=== PATIENT | male | born 1955 | race Caucasian/White ===

== ENCOUNTER 2018-04-12 14:30 | Outpatient (RCR) | payer OTHER, SELFPAY ==
--- NOTE | 2018-03-10 16:00 | PT.OPPOC ---
Current Diagnoses Low back pain (03/10/18) Muscle weakness (generalized) (03/10/18) Provider Visit Care Team Role Provider Type Orlando Espinosa MD Attending Provider Physician Family Provider Primary Care Provider Specialty: Family Practice Address: [address] [place] [address], [facility] Email: [email or web address] Plan Of Care PT-OP-T Assessment and Plan Start: 03/10/18 16:05 Freq: Status: Active Protocol: Document 03/10/18 16:00 [facility] (Rec: 03/10/18 16:46 [facility] [email or web address]) Physical Therapy Assessment Rehab Potential Rehabilitation Potential Excellent Evaluation Complexity Number of Personal Factors/Comorbidities 0 Number of Body Systems Impaired 3 Clinical Presentation at Evaluation Stable Impairments Impairments Activity Tolerance Pain Soft Tissue Mobility Strength Goals Four Impairment Modified Oswestry score Senior Care Goal (LTG) 10% or less disability score on Modified Oswestry. LTG Duration 10 weeks Three Impairment Unable to hike or backpack without increased pain and discomfort Business Development Analyst Goal (LTG) Return to hiking and backpacking without restrictions prior to d/c. LTG Duration 10 weeks Two Impairment LE weakness Short Term Goal (STG) 4+/5 RLE MMT STG Duration 5 weeks Business Development Analyst Goal (LTG) 5/5 RLE MMT LTG Duration 10 weeks One Impairment Low back pain rated 4/10 Business Development Analyst Goal (LTG) 1/10 or lower rating of low back pain. LTG Duration 12 weeks Assessment Summary Assessment Pt presents with a c/o R>L sided low back pain, possibly related to tight iliopsoas on the R side pulling anteriorly on the lumbar spine. Pt also with positive prone instability testing at the level of L3, indicating that pt would benefit from strengthening of the core to assist with stabilization of the lumbar spine. Pt also with weakness of the RLE at the hip, knee, and ankle. The pt would greatly benefit from skilled physical therapy intervention to improve his flexibility, decrease soft tissue restriction, improve strength, and return to prior level of recreational activities. Physical Therapy Plan Frequency and Duration Frequency of Treatment 2x/Week Duration of Treatment 10 weeks Plan of Care Start Date 03/10/18 Plan of Care End Date 05/19/18 Therapeutic Interventions Therapeutic Interventions Aquatic Therapy Home Exercise Program Joint Mobilizations Manual Therapy Neuromuscular Re-education Patient/Caregiver Education Self-Care/Home Management Soft Tissue Mobilization Taping Therapeutic Activities Therapeutic Exercises Modalities Cold Pack/Ice Massage Electric Stimulation Hot Packs Traction- Mechanical Ultrasound Next Visit Focus/Plan Next Note Type Treatment Note Next Visit Plan quadruped LE, Transverse abdominal activation, lateral resisted walking. Plan of Care Dates Plan of Care Start Date 03/10/18 Plan of Care End Date 05/19/18 Please Sign and Return: I have reviewed this Plan of Care and certify that the skilled therapy services above are required to meet the patient?s needs. Physician Signature Date Printed Name and Credentials Clinical Instructor Signature Printed Name and Credentials
--- NOTE | 2018-03-10 16:00 | PT.OIE ---
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) Sebaceous cyst (Chronic 01/09/17) BPH (benign prostatic hyperplasia) (Chronic Unknown) Colon polyps (Chronic Unknown) Hyperlipemia (Chronic Unknown) Past Surgical History History of tonsillectomy Status post hernia repair Provider Visit Care Team Role Provider Type Orlando Espinosa MD Attending Provider Physician Family Provider Primary Care Provider Specialty: Family Practice Address: [address] [place] [address], [facility] Email: [email or web address] Physical Therapy Initial Evaluation PT-OP-A Visit Information Start: 03/10/18 16:05 Freq: Status: Active Protocol: Document 03/10/18 16:00 [facility] (Rec: 03/10/18 16:46 [facility] [email or web address]) Out-Patient Physical Therapy Visit Information Visit Information Visit Type Initial Evaluation Visit Start Time 15:15 Visit Stop Time 16:00 Total Visit Minutes 45 Visit Number 1 Number of EDUCATION PROGRAM COORDINATOR Visits 0 Evaluation Information Evaluation Date 03/10/18 PT-OP-B Current Condition Start: 03/10/18 16:05 Freq: Status: Active Protocol: Document 03/10/18 16:00 [facility] (Rec: 03/10/18 16:46 [facility] [email or web address]) Current Condition History of Current Condition Onset Date several years ago Current Complaints popping, pain in low back History of Current Condition Pt is a 62 male presenting to physical therapy with a c/o of low back pain, R>L. Pt notes this has been on ongoing issue for several years but recently over the past couple of months he has noticed that his back is popping as well with movements of the lumbar spine or legs intermittently. Pt notes that if he secures his hip belt on his backpacking pack, it does not hurt his back as much or make his back pop. Radiograph did not show any osteoarthritic changes per MD note. Pt wants the popping to decrease and/or go away, get stronger, and return to hiking and backpacking without increased pain. Pt notes he normally carries a 40 lb pack when backpacking overnight. He denies any abnormal sensation constantly, but occasionally bilateral foot tingling but not associated with his increase in pain. Prior Treatments and Tests Lumbar spine radiograph 05/2017 : no acute bony abnormality. 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 Treatment Goals Patient/Caregiver Goals decrease popping, pain in low back, hiking without restrictions. Prior Functional Status Baseline Function- ADL's Independent Baseline Function- Mobility Independent Baseline Function- Gait WFL Baseline Function- Work/School WFL Baseline Function- Recreation/Hobbies Backpacking without low back popping and pain. Current Functional Impairments (Reported) Functional Limitations- ADL's indep. Functional Limitations- Mobility/Gait WFL Functional Limitations- Recreation/ increased pain with hiking, Hobbies prolonged walking. PT-OP-C Subjective Start: 03/10/18 16:05 Freq: Status: Active Protocol: Document 03/10/18 16:00 [facility] (Rec: 03/10/18 16:46 [facility] [email or web address]) OP-PT Subjective Patient Comments Patient Comments Pt wants the popping to stop. PT-OP-F Manual Assessment Start: 03/10/18 16:05 Freq: Status: Active Protocol: Document 03/10/18 16:00 [facility] (Rec: 03/10/18 16:46 [facility] [email or web address]) Manual Assessments Soft Tissue Assessment Soft Tissue Mobility Assessment Tenderness to palpation: bilateral psoas, R multifidi L2-4, R QL Joint Mobility Assessment Joint Mobility Assessment Hypermobile: PA @ L3 Hypermobile L1, T12 PT-OP-G Mobility & Gait Start: 03/10/18 16:05 Freq: Status: Active Protocol: Document 03/10/18 16:00 [facility] (Rec: 03/10/18 16:46 [facility] [email or web address]) OP Mobility Evaluation Bed Mobility Supine to and from Sit indep. OP Gait Assessment Gait Gait Assistance Required: Independent Assistive Devices Assistive Device None Gait Deviations General Gait Pattern Within Normal Limits PT-OP-H Neuro Start: 03/10/18 16:05 Freq: Status: Active Protocol: Document 03/10/18 16:00 [facility] (Rec: 03/10/18 16:46 [facility] [email or web address]) Sensation Evaluation Gross Sensation Gross Sensation WNL Deep Tendon Reflex & Clonus Assessment Deep Tendon Reflex Bilateral Achilles Deep Tendon Reflex 2+ Normal Bilateral Patellar Deep Tendon Reflex 2+ Normal PT-OP-K Range of Motion Start: 03/10/18 16:05 Freq: Status: Active Protocol: Document 03/10/18 16:00 [facility] (Rec: 03/10/18 16:46 [facility] [email or web address]) Lumbar Spine Range of Motion Lumbar Spine Active Degrees Testing Position standing Flexion 75 Extension 20 Comments Pt is able to side-bend 3 greater to the R compared to the L PT-OP-L Special Tests Start: 03/10/18 16:05 Freq: Status: Active Protocol: Document 03/10/18 16:00 [facility] (Rec: 03/10/18 16:46 [facility] [email or web address]) Special Tests Lumbar Spine Special Tests Kris Test Results Tight psoas and rectus femoris R Straight Leg Raise Test Results Negative B Slump Test Results Negative B Prone Instability Test Test Results Positive Comments @ L3 Other Special Tests Special Tests negative SI joint provacation testing B PT-OP-M Strength Start: 03/10/18 16:05 Freq: Status: Active Protocol: Document 03/10/18 16:00 [facility] (Rec: 03/10/18 16:46 [facility] [email or web address]) Hip Strength Hip Manual Muscle Testing Right Flexion (L2) 4+ Good+ External Rotation 4 Good Internal Rotation 5 Normal Left Flexion (L2) 5 Normal External Rotation 5 Normal Internal Rotation 5 Normal Knee Strength Knee Manual Muscle Testing Right Flexion (S2) 4+ Good+ Extension (L3) 5 Normal Left Flexion (S2) 5 Normal Extension (L3) 5 Normal Ankle/Foot Strength Ankle and Foot Manual Muscle Testing Right Dorsiflexion (L4) 4 Good Left Dorsiflexion (L4) 5 Normal Toe Strength Toe Manual Muscle Testing Right Great Toe Flexion 5 Normal Left Great Toe Flexion 5 Normal PT-OP-Q Treatments Start: 03/10/18 16:05 Freq: Status: Active Protocol: Document 03/10/18 16:00 [facility] (Rec: 03/10/18 16:46 [facility] [email or web address]) Therapeutic Exercises Supine Exercises 2 Supine Exercise Name DKC Side bilateral 1 Supine Exercise Name psoas and rectus femoris stretch Side right Comments RLE hanging off of bed Sidelying Exercises 1 Sidelying Exercise Name clamshells Side right Reps/Minutes 1x15 Standing Exercises 1 Standing Exercise Name Psoas stretch Side right Equipment Used stairs Other Exercises 1 Other Exercise Name Psoas stretch Side right Comments 1/2 kneeling PT-OP-T Assessment and Plan Start: 03/10/18 16:05 Freq: Status: Active Protocol: Document 03/10/18 16:00 [facility] (Rec: 03/10/18 16:46 [facility] [email or web address]) Physical Therapy Assessment Rehab Potential Rehabilitation Potential Excellent Evaluation Complexity Number of Personal Factors/Comorbidities 0 Number of Body Systems Impaired 3 Clinical Presentation at Evaluation Stable Impairments Impairments Activity Tolerance Pain Soft Tissue Mobility Strength Goals Four Impairment Modified Oswestry score Donor Recruitment Manager Goal (LTG) 10% or less disability score on Modified Oswestry. LTG Duration 10 weeks Three Impairment Unable to hike or backpack without increased pain and discomfort Donor Recruitment Manager Goal (LTG) Return to hiking and backpacking without restrictions prior to d/c. LTG Duration 10 weeks Two Impairment LE weakness Short Term Goal (STG) 4+/5 RLE MMT STG Duration 5 weeks Donor Recruitment Manager Goal (LTG) 5/5 RLE MMT LTG Duration 10 weeks One Impairment Low back pain rated 4/10 Prison Goal (LTG) 1/10 or lower rating of low back pain. LTG Duration 12 weeks Assessment Summary Assessment Pt presents with a c/o R>L sided low back pain, possibly related to tight iliopsoas on the R side pulling anteriorly on the lumbar spine. Pt also with positive prone instability testing at the level of L3, indicating that pt would benefit from strengthening of the core to assist with stabilization of the lumbar spine. Pt also with weakness of the RLE at the hip, knee, and ankle. The pt would greatly benefit from skilled physical therapy intervention to improve his flexibility, decrease soft tissue restriction, improve strength, and return to prior level of recreational activities. Physical Therapy Plan Frequency and Duration Frequency of Treatment 2x/Week Duration of Treatment 10 weeks Plan of Care Start Date 03/10/18 Plan of Care End Date 05/19/18 Therapeutic Interventions Therapeutic Interventions Aquatic Therapy Home Exercise Program Joint Mobilizations Manual Therapy Neuromuscular Re-education Patient/Caregiver Education Self-Care/Home Management Soft Tissue Mobilization Taping Therapeutic Activities Therapeutic Exercises Modalities Cold Pack/Ice Massage Electric Stimulation Hot Packs Traction- Mechanical Ultrasound Next Visit Focus/Plan Next Note Type Treatment Note Next Visit Plan quadruped LE, Transverse abdominal activation, lateral resisted walking.
--- NOTE | 2018-03-12 14:25 | PT.OTN ---
Current Diagnoses Low back pain (03/12/18) Physical Therapy Treatment Note PT-OP-A Visit Information Start: 03/10/18 16:05 Freq: Status: Active Protocol: Document 03/12/18 14:25 [facility] (Rec: 03/14/18 17:03 [facility] [email or web address]) Out-Patient Physical Therapy Visit Information Visit Information Visit Type Treatment Note Visit Start Time 13:45 Visit Stop Time 14:25 Total Visit Minutes 40 Visit Number 2 Number of MOBILE PLANT OPERATORS Visits 0 Evaluation Information Evaluation Date 03/10/18 PT-OP-B Current Condition Start: 03/10/18 16:05 Freq: Status: Active Protocol: Document 03/10/18 16:00 [facility] (Rec: 03/10/18 16:46 [facility] [email or web address]) Current Condition History of Current Condition Onset Date several years ago Current Complaints popping, pain in low back History of Current Condition Pt is a 62 male presenting to physical therapy with a c/o of low back pain, R>L. Pt notes this has been on ongoing issue for several years but recently over the past couple of months he has noticed that his back is popping as well with movements of the lumbar spine or legs intermittently. Pt notes that if he secures his hip belt on his backpacking pack, it does not hurt his back as much or make his back pop. Radiograph did not show any osteoarthritic chages per MD note. Pt wants the popping to decrease and/or go away, get stronger, and return to hiking and backpacking without increased pain. Pt notes he normally carries a 40 lb pack when backpacking overnight. He denies any abnormal sensation constantly, but occasionally bilateral foot tingling but not associated with his increase in pain. Prior Treatments and Tests Lumbar spine radiograph 05/2017 : no acute bony abnormality. 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 Treatment Goals Patient/Caregiver Goals decrease popping, pain in low back, hiking without restrictions. Prior Functional Status Baseline Function- ADL's Independent Baseline Function- Mobility Independent Baseline Function- Gait WFL Baseline Function- Work/School WFL Baseline Function- Recreation/Hobbies Backpacking without low back popping and pain. Current Functional Impairments (Reported) Functional Limitations- ADL's indep. Functional Limitations- Mobility/Gait WFL Functional Limitations- Recreation/ increased pain with hiking, Hobbies prolonged walking. PT-OP-C Subjective Start: 03/10/18 16:05 Freq: Status: Active Protocol: Document 03/12/18 14:25 [facility] (Rec: 03/14/18 17:03 [facility] [email or web address]) OP-PT Subjective Patient Comments Patient Comments Pt is performing HEP, no increased pain. Patient Reported Progress Same PT-OP-F Manual Assessment Start: 03/10/18 16:05 Freq: Status: Active Protocol: Document 03/12/18 14:25 [facility] (Rec: 03/14/18 17:03 [facility] [email or web address]) Manual Assessments Soft Tissue Assessment Soft Tissue Mobility Assessment TTP: R psoas (superior>distal) PT-OP-G Mobility & Gait Start: 03/10/18 16:05 Freq: Status: Active Protocol: Document 03/10/18 16:00 [facility] (Rec: 03/10/18 16:46 [facility] [email or web address]) OP Mobility Evaluation Bed Mobility Supine to and from Sit indep. OP Gait Assessment Gait Gait Assistance Required: Independent Assistive Devices Assistive Device None Gait Deviations General Gait Pattern Within Normal Limits PT-OP-H Neuro Start: 03/10/18 16:05 Freq: Status: Active Protocol: Document 03/10/18 16:00 [facility] (Rec: 03/10/18 16:46 [facility] [email or web address]) Sensation Evaluation Gross Sensation Gross Sensation WNL Deep Tendon Reflex & Clonus Assessment Deep Tendon Reflex Bilateral Achilles Deep Tendon Reflex 2+ Normal Bilateral Patellar Deep Tendon Reflex 2+ Normal PT-OP-K Range of Motion Start: 03/10/18 16:05 Freq: Status: Active Protocol: Document 03/10/18 16:00 [facility] (Rec: 03/10/18 16:46 [facility] [email or web address]) Lumbar Spine Range of Motion Lumbar Spine Active Degrees Testing Position standing Flexion 75 Extension 20 Comments Pt is able to side-bend 3 greater to the R compared to the L PT-OP-L Special Tests Start: 03/10/18 16:05 Freq: Status: Active Protocol: Document 03/10/18 16:00 [facility] (Rec: 03/10/18 16:46 [facility] [email or web address]) Special Tests Lumbar Spine Special Tests Kris Test Results Tight psoas and rectus femoris R Straight Leg Raise Test Results Negative B Slump Test Results Negative B Prone Instability Test Test Results Positive Comments @ L3 Other Special Tests Special Tests negative SI joint provacation testing B PT-OP-M Strength Start: 03/10/18 16:05 Freq: Status: Active Protocol: Document 03/10/18 16:00 [facility] (Rec: 03/10/18 16:46 [facility] [email or web address]) Hip Strength Hip Manual Muscle Testing Right Flexion (L2) 4+ Good+ External Rotation 4 Good Internal Rotation 5 Normal Left Flexion (L2) 5 Normal External Rotation 5 Normal Internal Rotation 5 Normal Knee Strength Knee Manual Muscle Testing Right Flexion (S2) 4+ Good+ Extension (L3) 5 Normal Left Flexion (S2) 5 Normal Extension (L3) 5 Normal Ankle/Foot Strength Ankle and Foot Manual Muscle Testing Right Dorsiflexion (L4) 4 Good Left Dorsiflexion (L4) 5 Normal Toe Strength Toe Manual Muscle Testing Right Great Toe Flexion 5 Normal Left Great Toe Flexion 5 Normal PT-OP-Q Treatments Start: 03/10/18 16:05 Freq: Status: Active Protocol: Document 03/12/18 14:25 [facility] (Rec: 03/14/18 17:03 [facility] [email or web address]) Therapeutic Exercises Supine Exercises 3 Supine Exercise Name transverse abdominal activation Reps/Minutes 10 min Comments tactile cuing 2 Supine Exercise Name DKC Side bilateral 1 Supine Exercise Name psoas and rectus femoris stretch Side right Comments RLE hanging off of bed Sidelying Exercises 2 Sidelying Exercise Name hip abduction Side bilateral Resistance 0 Reps/Minutes 1x10 each 1 Sidelying Exercise Name clamshells Side right Reps/Minutes 1x15 Other Exercises 2 Other Exercise Name quadruped alternating LE lift Side bilateral Reps/Minutes 2x8 each Manual Therapy Treatment Soft Tissue Mobilization 1 Body Location R iliopsoas Mobilization Type Sustained Pressure Intensity/Depth Deep Body Position Supine Comments 10 min Manual Techniques 1 Type MET Reps/Duration 5 min Comments to correct R posterior ilial rotation PT-OP-T Assessment and Plan Start: 03/10/18 16:05 Freq: Status: Active Protocol: Document 03/12/18 14:25 [facility] (Rec: 03/14/18 17:03 [facility] [email or web address]) Physical Therapy Assessment Goals Four Impairment Modified Oswestry score Usp Goal (LTG) 10% or less disability score on Modified Oswestry. LTG Duration 10 weeks Three Impairment Unable to hike or backpack without increased pain and discomfort Energy Broker Goal (LTG) Return to hiking and backpacking without restrictions prior to d/c. LTG Duration 10 weeks Two Impairment LE weakness Short Term Goal (STG) 4+/5 RLE MMT STG Duration 5 weeks Energy Broker Goal (LTG) 5/5 RLE MMT LTG Duration 10 weeks One Impairment Low back pain rated 4/10 Energy Broker Goal (LTG) 1/10 or lower rating of low back pain. LTG Duration 12 weeks Assessment Summary Assessment Pt with posterior R ilium this session, corrected with MET. He has increased tension in the iliopsoas, superior > distal which may be pulling on his lumbar spine anteriorly. Pt tolerated hip abduction ( SLR) with improved pelvic control. Increased amount of time was required to properly train appropriate transverse abdominal activation, including tactile cuing. Physical Therapy Plan Frequency and Duration Frequency of Treatment 2x/Week Duration of Treatment 10 weeks Plan of Care Start Date 03/10/18 Plan of Care End Date 05/19/18 Next Visit Focus/Plan Next Note Type Treatment Note Next Visit Plan review TrAb activation, lateral resisted walking, core stability.
--- NOTE | 2018-03-24 11:59 | PT.OTN ---
Current Diagnoses Low back pain (03/24/18) Physical Therapy Treatment Note PT-OP-A Visit Information Start: 03/10/18 16:05 Freq: Status: Active Protocol: Document 03/24/18 11:59 RCC (Rec: 03/24/18 13:38 RCC [email or web address]) Out-Patient Physical Therapy Visit Information Visit Information Visit Type Treatment Note Visit Start Time 11:15 Visit Stop Time 11:59 Total Visit Minutes 44 Visit Number 3 Number of FIELD AGENT Visits 0 Evaluation Information Evaluation Date 03/10/18 PT-OP-B Current Condition Start: 03/10/18 16:05 Freq: Status: Active Protocol: Document 03/10/18 16:00 RCC (Rec: 03/10/18 16:46 RCC [email or web address]) Current Condition History of Current Condition Onset Date several years ago Current Complaints popping, pain in low back History of Current Condition Pt is a 62 male presenting to physical therapy with a c/o of low back pain, R>L. Pt notes this has been on ongoing issue for several years but recently over the past couple of months he has noticed that his back is popping as well with movements of the lumbar spine or legs intermittently. Pt notes that if he secures his hip belt on his backpacking pack, it does not hurt his back as much or make his back pop. Radiograph did not show any osteoarthritic chages per MD note. Pt wants the popping to decrease and/or go away, get stronger, and return to hiking and backpacking without increased pain. Pt notes he normally carries a 40 lb pack when backpacking overnight. He denies any abnormal sensation constantly, but occasionally bilateral foot tingling but not associated with his increase in pain. Prior Treatments and Tests Lumbar spine radiograph 05/2017 : no acute bony abnormality. 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 Treatment Goals Patient/Caregiver Goals decrease popping, pain in low back, hiking without restrictions. Prior Functional Status Baseline Function- ADL's Independent Baseline Function- Mobility Independent Baseline Function- Gait WFL Baseline Function- Work/School WFL Baseline Function- Recreation/Hobbies Backpacking without low back popping and pain. Current Functional Impairments (Reported) Functional Limitations- ADL's indep. Functional Limitations- Mobility/Gait WFL Functional Limitations- Recreation/ increased pain with hiking, Hobbies prolonged walking. PT-OP-C Subjective Start: 03/10/18 16:05 Freq: Status: Active Protocol: Document 03/24/18 11:59 RCC (Rec: 03/24/18 13:38 RCC [email or web address]) OP-PT Subjective Patient Comments Patient Comments Pt notes that he had increased popping in the low back when backpacking, but no popping with day-hiking. He experiences some tightness in his R groin descending on the day hike. PT-OP-F Manual Assessment Start: 03/10/18 16:05 Freq: Status: Active Protocol: Document 03/12/18 14:25 RCC (Rec: 03/14/18 17:03 RCC [email or web address]) Manual Assessments Soft Tissue Assessment Soft Tissue Mobility Assessment TTP: R psoas (superior>distal) PT-OP-G Mobility & Gait Start: 03/10/18 16:05 Freq: Status: Active Protocol: Document 03/10/18 16:00 RCC (Rec: 03/10/18 16:46 RCC [email or web address]) OP Mobility Evaluation Bed Mobility Supine to and from Sit indep. OP Gait Assessment Gait Gait Assistance Required: Independent Assistive Devices Assistive Device None Gait Deviations General Gait Pattern Within Normal Limits PT-OP-H Neuro Start: 03/10/18 16:05 Freq: Status: Active Protocol: Document 03/10/18 16:00 RCC (Rec: 03/10/18 16:46 RCC [email or web address]) Sensation Evaluation Gross Sensation Gross Sensation WNL Deep Tendon Reflex & Clonus Assessment Deep Tendon Reflex Bilateral Achilles Deep Tendon Reflex 2+ Normal Bilateral Patellar Deep Tendon Reflex 2+ Normal PT-OP-K Range of Motion Start: 03/10/18 16:05 Freq: Status: Active Protocol: Document 03/10/18 16:00 RCC (Rec: 03/10/18 16:46 RCC [email or web address]) Lumbar Spine Range of Motion Lumbar Spine Active Degrees Testing Position standing Flexion 75 Extension 20 Comments Pt is able to side-bend 3 greater to the R compared to the L PT-OP-L Special Tests Start: 03/10/18 16:05 Freq: Status: Active Protocol: Document 03/10/18 16:00 RCC (Rec: 03/10/18 16:46 RCC [email or web address]) Special Tests Lumbar Spine Special Tests Kris Test Results Tight psoas and rectus femoris R Straight Leg Raise Test Results Negative B Slump Test Results Negative B Prone Instability Test Test Results Positive Comments @ L3 Other Special Tests Special Tests negative SI joint provacation testing B PT-OP-M Strength Start: 03/10/18 16:05 Freq: Status: Active Protocol: Document 03/10/18 16:00 RCC (Rec: 03/10/18 16:46 RCC [email or web address]) Hip Strength Hip Manual Muscle Testing Right Flexion (L2) 4+ Good+ External Rotation 4 Good Internal Rotation 5 Normal Left Flexion (L2) 5 Normal External Rotation 5 Normal Internal Rotation 5 Normal Knee Strength Knee Manual Muscle Testing Right Flexion (S2) 4+ Good+ Extension (L3) 5 Normal Left Flexion (S2) 5 Normal Extension (L3) 5 Normal Ankle/Foot Strength Ankle and Foot Manual Muscle Testing Right Dorsiflexion (L4) 4 Good Left Dorsiflexion (L4) 5 Normal Toe Strength Toe Manual Muscle Testing Right Great Toe Flexion 5 Normal Left Great Toe Flexion 5 Normal PT-OP-Q Treatments Start: 03/10/18 16:05 Freq: Status: Active Protocol: Document 03/24/18 11:59 RCC (Rec: 03/24/18 13:38 RCC [email or web address]) Therapeutic Exercises Supine Exercises 1 Supine Exercise Name psoas and rectus femoris stretch Side right Comments RLE hanging off of bed Other Exercises 3 Other Exercise Name planks- forward, side Side bilateral Reps/Minutes 30 sec each Comments side on knees 2 Other Exercise Name quadruped alternating UE/LE lift Side bilateral Reps/Minutes 1x10 Manual Therapy Treatment Soft Tissue Mobilization 2 Body Location lumbosacral mm. (L5-S1) Mobilization Type Strumming Intensity/Depth Deep Body Position Prone 1 Body Location R iliopsoas Mobilization Type Sustained Pressure Intensity/Depth Deep Body Position Supine Comments 18 min Joint Mobilizations 1 Joint SI joint (right) Direction caudal Grade IV Body Position Prone Manual Techniques 1 Type MET Reps/Duration 5 min Comments to correct R posterior ilial rotation PT-OP-T Assessment and Plan Start: 03/10/18 16:05 Freq: Status: Active Protocol: Document 03/24/18 11:59 RCC (Rec: 03/24/18 13:38 RCC [email or web address]) Physical Therapy Assessment Assessment Summary Assessment Pt with increased popping, 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 Pt able to tolerate alternating UE/LE lift with good core stability. Increased difficulty with side planks, requires to perform on his knees vs feet. Physical Therapy Plan Frequency and Duration Frequency of Treatment 2x/Week Duration of Treatment 10 weeks Plan of Care Start Date 03/10/18 Plan of Care End Date 05/19/18 Next Visit Focus/Plan Next Note Type Treatment Note Next Visit Plan resisted lateral walking, core stabilization.
--- NOTE | 2018-03-26 11:58 | PT.OTN ---
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 Pt notes this has been on ongoing issue for several years but recently over the past couple of months he has noticed that his back is popping as well with movements of the lumbar spine or legs intermittently. Pt notes that if he secures his hip belt on his backpacking pack, it does not hurt his back as much or make his back pop. Radiograph did not show any osteoarthritic chages per MD note. Pt wants the popping to decrease and/or go away, get stronger, and return to hiking and backpacking without increased pain. Pt notes he normally carries a 40 lb pack when backpacking overnight. He denies any abnormal sensation constantly, but occasionally bilateral foot tingling but not associated with his increase in pain. Prior Treatments and Tests Lumbar spine radiograph 05/2017 : no acute bony abnormality. 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 Treatment Goals Patient/Caregiver Goals decrease popping, pain in low back, hiking without restrictions. Prior Functional Status Baseline Function- ADL's Independent Baseline Function- Mobility Independent Baseline Function- Gait WFL Baseline Function- Work/School WFL Baseline Function- Recreation/Hobbies Backpacking without low back popping and pain. Current Functional Impairments (Reported) Functional Limitations- ADL's indep. Functional Limitations- Mobility/Gait WFL Functional Limitations- Recreation/ increased pain with hiking, Hobbies prolonged walking. PT-OP-C Subjective Start: 03/10/18 16:05 Freq: Status: Active Protocol: Document 03/26/18 11:58 RCC (Rec: 03/26/18 12:06 RCC [email or web address]) OP-PT Subjective Patient Comments Patient Comments Pt states he still has popping in his low back with lifting and packing things for his backpacking trip. PT-OP-F Manual Assessment Start: 03/10/18 16:05 Freq: Status: Active Protocol: Document 03/12/18 14:25 RCC (Rec: 03/14/18 17:03 RCC [email or web address]) Manual Assessments Soft Tissue Assessment Soft Tissue Mobility Assessment TTP: R psoas (superior>distal) PT-OP-G Mobility & Gait Start: 03/10/18 16:05 Freq: Status: Active Protocol: Document 03/10/18 16:00 RCC (Rec: 03/10/18 16:46 RCC [email or web address]) OP Mobility Evaluation Bed Mobility Supine to and from Sit indep. OP Gait Assessment Gait Gait Assistance Required: Independent Assistive Devices Assistive Device None Gait Deviations General Gait Pattern Within Normal Limits PT-OP-H Neuro Start: 03/10/18 16:05 Freq: Status: Active Protocol: Document 03/10/18 16:00 RCC (Rec: 03/10/18 16:46 RCC [email or web address]) Sensation Evaluation Gross Sensation Gross Sensation WNL Deep Tendon Reflex & Clonus Assessment Deep Tendon Reflex Bilateral Achilles Deep Tendon Reflex 2+ Normal Bilateral Patellar Deep Tendon Reflex 2+ Normal PT-OP-K Range of Motion Start: 03/10/18 16:05 Freq: Status: Active Protocol: Document 03/10/18 16:00 RCC (Rec: 03/10/18 16:46 RCC [email or web address]) Lumbar Spine Range of Motion Lumbar Spine Active Degrees Testing Position standing Flexion 75 Extension 20 Comments Pt is able to side-bend 3 greater to the R compared to the L PT-OP-L Special Tests Start: 03/10/18 16:05 Freq: Status: Active Protocol: Document 03/10/18 16:00 RCC (Rec: 03/10/18 16:46 RCC [email or web address]) Special Tests Lumbar Spine Special Tests Kris Test Results Tight psoas and rectus femoris R Straight Leg Raise Test Results Negative B Slump Test Results Negative B Prone Instability Test Test Results Positive Comments @ L3 Other Special Tests Special Tests negative SI joint provacation testing B PT-OP-M Strength Start: 03/10/18 16:05 Freq: Status: Active Protocol: Document 03/10/18 16:00 RCC (Rec: 03/10/18 16:46 RCC [email or web address]) Hip Strength Hip Manual Muscle Testing Right Flexion (L2) 4+ Good+ External Rotation 4 Good Internal Rotation 5 Normal Left Flexion (L2) 5 Normal External Rotation 5 Normal Internal Rotation 5 Normal Knee Strength Knee Manual Muscle Testing Right Flexion (S2) 4+ Good+ Extension (L3) 5 Normal Left Flexion (S2) 5 Normal Extension (L3) 5 Normal Ankle/Foot Strength Ankle and Foot Manual Muscle Testing Right Dorsiflexion (L4) 4 Good Left Dorsiflexion (L4) 5 Normal Toe Strength Toe Manual Muscle Testing Right Great Toe Flexion 5 Normal Left Great Toe Flexion 5 Normal PT-OP-Q Treatments Start: 03/10/18 16:05 Freq: Status: Active Protocol: Document 03/26/18 11:58 RCC (Rec: 03/26/18 12:06 [facility] [email or web address]) Therapeutic Exercises Prone Exercises 1 Prone Exercise Name child's pose- neutral and R sided bias Comments stretch Sitting Exercises 1 Sitting Exercise Name lower trunk rotation Side bilateral Resistance L3 Equipment Used 65 cm ball Other Exercises 4 Other Exercise Name alt LE lift Side bilateral Resistance L3 band Reps/Minutes 1x10 each 1 Other Exercise Name Psoas stretch Side right Comments 1/2 kneeling- UE elevated Manual Therapy Treatment Soft Tissue Mobilization 1 Body Location R iliopsoas Mobilization Type Sustained Pressure Intensity/Depth Deep Body Position Supine Comments 20 min Manual Techniques 1 Type MET Reps/Duration 5 min Comments to correct R posterior ilial rotation PT-OP-T Assessment and Plan Start: 03/10/18 16:05 Freq: Status: Active Protocol: Document 03/26/18 11:58 RCC (Rec: 03/26/18 12:06 [facility] [email or web address]) Physical Therapy Assessment Assessment Summary Assessment Pt with stretching of lumbosacral soft tissue in Child's pose and increased on the R with bias to the R side, indicating soft tissue restriction on the R. Pt's increased popping with lifting likely also a combination of excessive lumbar flexion and rotation, discussed good posture and body mechanics today. Physical Therapy Plan Frequency and Duration Frequency of Treatment 2x/Week Duration of Treatment 10 weeks Plan of Care Start Date 03/10/18 Plan of Care End Date 05/19/18 Next Visit Focus/Plan Next Note Type Treatment Note Next Visit Plan resisted lateral walking, core stabilization.
--- NOTE | 2018-04-07 14:31 | PT.OTN ---
Current Diagnoses Low back pain (04/07/18) Physical Therapy Treatment Note PT-OP-A Visit Information Start: 03/10/18 16:05 Freq: Status: Active Protocol: Document 04/07/18 13:49 EA (Rec: 04/07/18 14:29 EA [id number]) Out-Patient Physical Therapy Visit Information Visit Information Visit Type Treatment Note Visit Start Time 13:45 Visit Stop Time 14:30 Total Visit Minutes 43 Visit Number 5 PT-OP-B Current Condition Start: 03/10/18 16:05 Freq: Status: Active Protocol: Document 03/10/18 16:00 RCC (Rec: 03/10/18 16:46 RCC [email or web address]) Current Condition History of Current Condition Onset Date several years ago Current Complaints popping, pain in low back History of Current Condition Pt is a 62 male presenting to physical therapy with a c/o of low back pain, R>L. Pt notes this has been on ongoing issue for several years but recently over the past couple of months he has noticed that his back is popping as well with movements of the lumbar spine or legs intermittently. Pt notes that if he secures his hip belt on his backpacking pack, it does not hurt his back as much or make his back pop. Radiograph did not show any osteoarthritic chages per MD note. Pt wants the popping to decrease and/or go away, get stronger, and return to hiking and backpacking without increased pain. Pt notes he normally carries a 40 lb pack when backpacking overnight. He denies any abnormal sensation constantly, but occasionally bilateral foot tingling but not associated with his increase in pain. Prior Treatments and Tests Lumbar spine radiograph 05/2017 : no acute bony abnormality. 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 Treatment Goals Patient/Caregiver Goals decrease popping, pain in low back, hiking without restrictions. Prior Functional Status Baseline Function- ADL's Independent Baseline Function- Mobility Independent Baseline Function- Gait WFL Baseline Function- Work/School WFL Baseline Function- Recreation/Hobbies Backpacking without low back popping and pain. Current Functional Impairments (Reported) Functional Limitations- ADL's indep. Functional Limitations- Mobility/Gait WFL Functional Limitations- Recreation/ increased pain with hiking, Hobbies prolonged walking. PT-OP-C Subjective Start: 03/10/18 16:05 Freq: Status: Active Protocol: Document 04/07/18 13:49 EA (Rec: 04/07/18 14:29 EA [id number]) OP-PT Subjective Patient Comments Patient Comments Pt reports low back pain has less pain; states he is planning to have a backpacking trip tomorrow. Patient Reported Progress Improving PT-OP-F Manual Assessment Start: 03/10/18 16:05 Freq: Status: Active Protocol: Document 03/12/18 14:25 RCC (Rec: 03/14/18 17:03 RCC [email or web address]) Manual Assessments Soft Tissue Assessment Soft Tissue Mobility Assessment TTP: R psoas (superior>distal) PT-OP-G Mobility & Gait Start: 03/10/18 16:05 Freq: Status: Active Protocol: Document 03/10/18 16:00 RCC (Rec: 03/10/18 16:46 RCC [email or web address]) OP Mobility Evaluation Bed Mobility Supine to and from Sit indep. OP Gait Assessment Gait Gait Assistance Required: Independent Assistive Devices Assistive Device None Gait Deviations General Gait Pattern Within Normal Limits PT-OP-H Neuro Start: 03/10/18 16:05 Freq: Status: Active Protocol: Document 03/10/18 16:00 RCC (Rec: 03/10/18 16:46 RCC [email or web address]) Sensation Evaluation Gross Sensation Gross Sensation WNL Deep Tendon Reflex & Clonus Assessment Deep Tendon Reflex Bilateral Achilles Deep Tendon Reflex 2+ Normal Bilateral Patellar Deep Tendon Reflex 2+ Normal PT-OP-K Range of Motion Start: 03/10/18 16:05 Freq: Status: Active Protocol: Document 03/10/18 16:00 RCC (Rec: 03/10/18 16:46 RCC [email or web address]) Lumbar Spine Range of Motion Lumbar Spine Active Degrees Testing Position standing Flexion 75 Extension 20 Comments Pt is able to side-bend 3 greater to the R compared to the L PT-OP-L Special Tests Start: 03/10/18 16:05 Freq: Status: Active Protocol: Document 03/10/18 16:00 RCC (Rec: 03/10/18 16:46 RCC [email or web address]) Special Tests Lumbar Spine Special Tests Kris Test Results Tight psoas and rectus femoris R Straight Leg Raise Test Results Negative B Slump Test Results Negative B Prone Instability Test Test Results Positive Comments @ L3 Other Special Tests Special Tests negative SI joint provacation testing B PT-OP-M Strength Start: 03/10/18 16:05 Freq: Status: Active Protocol: Document 03/10/18 16:00 RCC (Rec: 03/10/18 16:46 RCC [email or web address]) Hip Strength Hip Manual Muscle Testing Right Flexion (L2) 4+ Good+ External Rotation 4 Good Internal Rotation 5 Normal Left Flexion (L2) 5 Normal External Rotation 5 Normal Internal Rotation 5 Normal Knee Strength Knee Manual Muscle Testing Right Flexion (S2) 4+ Good+ Extension (L3) 5 Normal Left Flexion (S2) 5 Normal Extension (L3) 5 Normal Ankle/Foot Strength Ankle and Foot Manual Muscle Testing Right Dorsiflexion (L4) 4 Good Left Dorsiflexion (L4) 5 Normal Toe Strength Toe Manual Muscle Testing Right Great Toe Flexion 5 Normal Left Great Toe Flexion 5 Normal PT-OP-Q Treatments Start: 03/10/18 16:05 Freq: Status: Active Protocol: Document 04/07/18 13:49 EA (Rec: 04/07/18 14:29 EA [id number]) Therapeutic Exercises Standing Exercises 1 Standing Exercise Name Wall squat with PPT Comments x5SH x 5 reps Other Exercises 1 Other Exercise Name Psoas stretch Side right Comments 1/2 kneeling- UE elevated Manual Therapy Treatment Soft Tissue Mobilization 1 Body Location R iliopsoas Mobilization Type Sustained Pressure Intensity/Depth Deep Body Position Supine Comments 20 min Manual Techniques 1 Type MET Reps/Duration 5 min Comments to correct R posterior ilial rotation Self-Care/Home Management Treatment Education Other Education Walking while engaing core al the time. PT-OP-T Assessment and Plan Start: 03/10/18 16:05 Freq: Status: Active Protocol: Document 04/07/18 13:49 EA (Rec: 04/07/18 14:29 EA [id number]) Physical Therapy Assessment Assessment Summary Assessment Tolerated treatment well. Physical Therapy Plan Next Visit Focus/Plan Next Note Type Treatment Note Next Visit Plan Cont with current plan
--- NOTE | 2018-04-12 15:12 | PT.OTN ---
Current Diagnoses Low back pain (04/12/18) Physical Therapy Treatment Note PT-OP-A Visit Information Start: 03/10/18 16:05 Freq: Status: Active Protocol: Document 04/12/18 14:30 DCW (Rec: 04/12/18 15:12 DCW [id number]) Out-Patient Physical Therapy Visit Information Visit Information Visit Type Treatment Note Visit Start Time 14:30 Visit Stop Time 15:15 Total Visit Minutes 45 Visit Number 6 PT-OP-B Current Condition Start: 03/10/18 16:05 Freq: Status: Active Protocol: Document 03/10/18 16:00 RCC (Rec: 03/10/18 16:46 RCC [email or web address]) Current Condition History of Current Condition Onset Date several years ago Current Complaints popping, pain in low back History of Current Condition Pt is a 62 male presenting to physical therapy with a c/o of low back pain, R>L. Pt notes this has been on ongoing issue for several years but recently over the past couple of months he has noticed that his back is popping as well with movements of the lumbar spine or legs intermittently. Pt notes that if he secures his hip belt on his backpacking pack, it does not hurt his back as much or make his back pop. Radiograph did not show any osteoarthritic chages per MD note. Pt wants the popping to decrease and/or go away, get stronger, and return to hiking and backpacking without increased pain. Pt notes he normally carries a 40 lb pack when backpacking overnight. He denies any abnormal sensation constantly, but occasionally bilateral foot tingling but not associated with his increase in pain. Prior Treatments and Tests Lumbar spine radiograph 05/2017 : no acute bony abnormality. 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 Treatment Goals Patient/Caregiver Goals decrease popping, pain in low back, hiking without restrictions. Prior Functional Status Baseline Function- ADL's Independent Baseline Function- Mobility Independent Baseline Function- Gait WFL Baseline Function- Work/School WFL Baseline Function- Recreation/Hobbies Backpacking without low back popping and pain. Current Functional Impairments (Reported) Functional Limitations- ADL's indep. Functional Limitations- Mobility/Gait WFL Functional Limitations- Recreation/ increased pain with hiking, Hobbies prolonged walking. PT-OP-C Subjective Start: 03/10/18 16:05 Freq: Status: Active Protocol: Document 04/12/18 14:30 DCW (Rec: 04/12/18 15:12 DCW [id number]) OP-PT Subjective Patient Comments Patient Comments I went backpacking this weekend, and was doing really well while I was walking, but after sitting for four hours driving home, I ended up in a lot of pain, and it has been difficulty even getting out of bed ever since. Notes now his left side is more painful and symptomatic than his right . PT-OP-F Manual Assessment Start: 03/10/18 16:05 Freq: Status: Active Protocol: Document 03/12/18 14:25 RCC (Rec: 03/14/18 17:03 RCC [email or web address]) Manual Assessments Soft Tissue Assessment Soft Tissue Mobility Assessment TTP: R psoas (superior>distal) PT-OP-G Mobility & Gait Start: 03/10/18 16:05 Freq: Status: Active Protocol: Document 03/10/18 16:00 RCC (Rec: 03/10/18 16:46 RCC [email or web address]) OP Mobility Evaluation Bed Mobility Supine to and from Sit indep. OP Gait Assessment Gait Gait Assistance Required: Independent Assistive Devices Assistive Device None Gait Deviations General Gait Pattern Within Normal Limits PT-OP-H Neuro Start: 03/10/18 16:05 Freq: Status: Active Protocol: Document 03/10/18 16:00 RCC (Rec: 03/10/18 16:46 RCC [email or web address]) Sensation Evaluation Gross Sensation Gross Sensation WNL Deep Tendon Reflex & Clonus Assessment Deep Tendon Reflex Bilateral Achilles Deep Tendon Reflex 2+ Normal Bilateral Patellar Deep Tendon Reflex 2+ Normal PT-OP-K Range of Motion Start: 03/10/18 16:05 Freq: Status: Active Protocol: Document 03/10/18 16:00 RCC (Rec: 03/10/18 16:46 RCC [email or web address]) Lumbar Spine Range of Motion Lumbar Spine Active Degrees Testing Position standing Flexion 75 Extension 20 Comments Pt is able to side-bend 3 greater to the R compared to the L PT-OP-L Special Tests Start: 03/10/18 16:05 Freq: Status: Active Protocol: Document 03/10/18 16:00 RCC (Rec: 03/10/18 16:46 RCC [email or web address]) Special Tests Lumbar Spine Special Tests Kris Test Results Tight psoas and rectus femoris R Straight Leg Raise Test Results Negative B Slump Test Results Negative B Prone Instability Test Test Results Positive Comments @ L3 Other Special Tests Special Tests negative SI joint provacation testing B PT-OP-M Strength Start: 03/10/18 16:05 Freq: Status: Active Protocol: Document 03/10/18 16:00 RCC (Rec: 03/10/18 16:46 RCC [email or web address]) Hip Strength Hip Manual Muscle Testing Right Flexion (L2) 4+ Good+ External Rotation 4 Good Internal Rotation 5 Normal Left Flexion (L2) 5 Normal External Rotation 5 Normal Internal Rotation 5 Normal Knee Strength Knee Manual Muscle Testing Right Flexion (S2) 4+ Good+ Extension (L3) 5 Normal Left Flexion (S2) 5 Normal Extension (L3) 5 Normal Ankle/Foot Strength Ankle and Foot Manual Muscle Testing Right Dorsiflexion (L4) 4 Good Left Dorsiflexion (L4) 5 Normal Toe Strength Toe Manual Muscle Testing Right Great Toe Flexion 5 Normal Left Great Toe Flexion 5 Normal PT-OP-Q Treatments Start: 03/10/18 16:05 Freq: Status: Active Protocol: Document 04/12/18 14:30 DCW (Rec: 04/12/18 15:12 DCW [id number]) Therapeutic Exercises Supine Exercises 4 Supine Exercise Name Piriformis stretch Side bilateral Comments Hvmy-ac-mylppnft shoulder 2 Supine Exercise Name DKC Side bilateral 1 Supine Exercise Name psoas and rectus femoris stretch Side bilateral Comments RLE hanging off of bed Sitting Exercises 1 Sitting Exercise Name lower trunk rotation Side bilateral Resistance L3 Equipment Used 65 cm ball Manual Therapy Treatment Soft Tissue Mobilization 3 Body Location L QL Mobilization Type Strumming Sustained Pressure Intensity/Depth Moderate Body Position Prone 1 Body Location L iliopsoas Mobilization Type Sustained Pressure Intensity/Depth Deep Body Position Supine Comments 20 min Joint Mobilizations 1 Joint SI joint (bilateral) Direction caudal Grade IV Body Position Prone Manual Traction Lumbar Details Left LE Long-axis traction Body Position Supine PT-OP-T Assessment and Plan Start: 03/10/18 16:05 Freq: Status: Active Protocol: Document 04/12/18 14:30 DCW (Rec: 04/12/18 15:12 DCW [id number]) Physical Therapy Assessment Goals Four Impairment Modified Oswestry score Mcc Goal (LTG) 10% or less disability score on Modified Oswestry. LTG Duration 10 weeks Three Impairment Unable to hike or backpack without increased pain and discomfort Advisory Application Developer Goal (LTG) Return to hiking and backpacking without restrictions prior to d/c. LTG Duration 10 weeks Two Impairment LE weakness Short Term Goal (STG) 4+/5 RLE MMT STG Duration 5 weeks Advisory Application Developer Goal (LTG) 5/5 RLE MMT LTG Duration 10 weeks One Impairment Low back pain rated 4/10 Advisory Application Developer Goal (LTG) 1/10 or lower rating of low back pain. LTG Duration 12 weeks Assessment Summary Assessment Pt presented today with increased left low back tone and pain, especially in his QL , resulted in left hip hiking. Pt responded well to manual therapy. Physical Therapy Plan Frequency and Duration Frequency of Treatment 2x/Week Duration of Treatment 10 weeks Plan of Care Start Date 03/10/18 Plan of Care End Date 05/19/18 Next Visit Focus/Plan Next Note Type Treatment Note Next Visit Plan resisted lateral walking, core stabilization.
--- NOTE | 2018-08-12 10:18 | PT.OPDS ---
Current Diagnoses Low back pain (04/12/18) Provider Visit Care Team Role Provider Type Orlando Espinosa MD Attending Provider Physician Family Provider Primary Care Provider Specialty: Family Practice Address: [address] [place] [address], [facility] Email: [email or web address] Visit Number Visit Number 6 Discharge Summary PT-OP-B Current Condition Start: 03/10/18 16:05 Freq: Status: Active Protocol: Document 03/10/18 16:00 RCC (Rec: 03/10/18 16:46 RCC [email or web address]) Current Condition History of Current Condition Onset Date several years ago Current Complaints popping, pain in low back History of Current Condition Pt is a 62 male presenting to physical therapy with a c/o of low back pain, R>L. Pt notes this has been on ongoing issue for several years but recently over the past couple of months he has noticed that his back is popping as well with movements of the lumbar spine or legs intermittently. Pt notes that if he secures his hip belt on his backpacking pack, it does not hurt his back as much or make his back pop. Radiograph did not show any osteoarthritic chages per MD note. Pt wants the popping to decrease and/or go away, get stronger, and return to hiking and backpacking without increased pain. Pt notes he normally carries a 40 lb pack when backpacking overnight. He denies any abnormal sensation constantly, but occasionally bilateral foot tingling but not associated with his increase in pain. Prior Treatments and Tests Lumbar spine radiograph 05/2017 : no acute bony abnormality. 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 Treatment Goals Patient/Caregiver Goals decrease popping, pain in low back, hiking without restrictions. Prior Functional Status Baseline Function- ADL's Independent Baseline Function- Mobility Independent Baseline Function- Gait WFL Baseline Function- Work/School WFL Baseline Function- Recreation/Hobbies Backpacking without low back popping and pain. Current Functional Impairments (Reported) Functional Limitations- ADL's indep. Functional Limitations- Mobility/Gait WFL Functional Limitations- Recreation/ increased pain with hiking, Hobbies prolonged walking. . PT-OP-F Manual Assessment Start: 03/10/18 16:05 Freq: Status: Active Protocol: Document 03/12/18 14:25 RCC (Rec: 03/14/18 17:03 RCC [email or web address]) Manual Assessments Soft Tissue Assessment Soft Tissue Mobility Assessment TTP: R psoas (superior>distal) PT-OP-G Mobility & Gait Start: 03/10/18 16:05 Freq: Status: Active Protocol: Document 03/10/18 16:00 RCC (Rec: 03/10/18 16:46 RCC [email or web address]) OP Mobility Evaluation Bed Mobility Supine to and from Sit indep. OP Gait Assessment Gait Gait Assistance Required: Independent Assistive Devices Assistive Device None Gait Deviations General Gait Pattern Within Normal Limits PT-OP-H Neuro Start: 03/10/18 16:05 Freq: Status: Active Protocol: Document 03/10/18 16:00 RCC (Rec: 03/10/18 16:46 RCC [email or web address]) Sensation Evaluation Gross Sensation Gross Sensation WNL Deep Tendon Reflex & Clonus Assessment Deep Tendon Reflex Bilateral Achilles Deep Tendon Reflex 2+ Normal Bilateral Patellar Deep Tendon Reflex 2+ Normal PT-OP-K Range of Motion Start: 03/10/18 16:05 Freq: Status: Active Protocol: Document 03/10/18 16:00 RCC (Rec: 03/10/18 16:46 RCC [email or web address]) Lumbar Spine Range of Motion Lumbar Spine Active Degrees Testing Position standing Flexion 75 Extension 20 Comments Pt is able to side-bend 3 greater to the R compared to the L PT-OP-L Special Tests Start: 03/10/18 16:05 Freq: Status: Active Protocol: Document 03/10/18 16:00 RCC (Rec: 03/10/18 16:46 RCC [email or web address]) Special Tests Lumbar Spine Special Tests Kris Test Results Tight psoas and rectus femoris R Straight Leg Raise Test Results Negative B Slump Test Results Negative B Prone Instability Test Test Results Positive Comments @ L3 Other Special Tests Special Tests negative SI joint provacation testing B PT-OP-M Strength Start: 03/10/18 16:05 Freq: Status: Active Protocol: Document 03/10/18 16:00 RCC (Rec: 03/10/18 16:46 RCC [email or web address]) Hip Strength Hip Manual Muscle Testing Right Flexion (L2) 4+ Good+ External Rotation 4 Good Internal Rotation 5 Normal Left Flexion (L2) 5 Normal External Rotation 5 Normal Internal Rotation 5 Normal Knee Strength Knee Manual Muscle Testing Right Flexion (S2) 4+ Good+ Extension (L3) 5 Normal Left Flexion (S2) 5 Normal Extension (L3) 5 Normal Ankle/Foot Strength Ankle and Foot Manual Muscle Testing Right Dorsiflexion (L4) 4 Good Left Dorsiflexion (L4) 5 Normal Toe Strength Toe Manual Muscle Testing Right Great Toe Flexion 5 Normal Left Great Toe Flexion 5 Normal PT-OP-T Assessment and Plan Start: 03/10/18 16:05 Freq: Status: Active Protocol: Document 08/12/18 10:14 RCC (Rec: 08/12/18 10:18 [facility] [email or web address]) Physical Therapy Assessment Assessment Summary Assessment Pt attended 6 total physical therapy visits from 03/10- at which time he was improving and back to backpacking and hiking at that time, but did experience increased low back pain after the long drive back from a hiking trip. Pt has not attended physical therapy since 04/12/18. He responded well to manual therapy and has a home exercise program that he was educated on and able to perform independently. Due to the length of time since the pt has been seen in this clinic, it is recommended that the pt follow up with his PCP and a new referral will be required if he is to return back to physical therapy. The pt is d/c at this time. Objective measures and goals were unable to be re-assessed as the pt did not return or schedule further physical therapy appointments since . Physical Therapy Plan Discharge Physical Therapy Discharge Reasons No Longer Attending PT Discharge Comments did not complete the most recent POC.
== END 2018-08-12 13:53 ==
LOC: PHYS 14:30
PROVIDERS: Family Provider Family Medicine; PCP Family Medicine; Visit Provider Family Medicine
DX: M54.5 Low back pain (principal)
CPT/HCPCS: 97110; 97140; 97161

== ENCOUNTER → 2019-01-15 08:23 | Outpatient (CLI) | payer OTHER, SELFPAY ==
[2019-01-15 10:03] LABS: BUN Creatinine Ratio 22.5 (6-22); Blood Urea Nitrogen 18 mg/dL (9-20); Calcium 9.4 mg/dL (8.4-10.2); Carbon Dioxide 30 mmol/L (22-32); Chloride 101 mmol/L (98-107); Cholesterol 179 mg/dL (140-199); Estimated Glomerular Filt Rate > 60.0 mL/min (>60); Glucose 105 mg/dL (80-110); HDL Cholesterol 43 mg/dL (40-60); HEMOLYSIS < 15 (0-50); LDL Cholesterol Calculated 105 mg/dL (<100); Potassium 4.1 mmol/L (3.4-5.1); Sodium 139 mmol/L (137-145); Triglycerides 157 mg/dL (35-150)
[2019-01-15 10:17] LABS: Vitamin D 25 Hydroxy (D3) 21.4 ng/mL (30.0-100.0)
[2019-01-15 10:31] LABS: Prostate Specific Antigen Scrn 2.74 ng/mL (0.1-4.0)
== END ==
PROVIDERS: Family Provider Student in an Organized Health Care Education/Training Program; PCP Student in an Organized Health Care Education/Training Program; Visit Provider Student in an Organized Health Care Education/Training Program
DX: H93.13 Tinnitus, bilateral (principal); E78.2 Mixed hyperlipidemia; E55.9 Vitamin D deficiency, unspecified; Z12.5 Encounter for screening for malignant neoplasm of prostate
CPT/HCPCS: 36415; 80048; 80061; 82306; G0103

== ENCOUNTER → 2019-03-01 09:08 | Outpatient (CLI) | payer OTHER, SELFPAY | PROVIDERS: Family Provider Student in an Organized Health Care Education/Training Program; PCP Student in an Organized Health Care Education/Training Program; Visit Provider Student in an Organized Health Care Education/Training Program | DX: R14.0 Abdominal distension (gaseous) (principal) | CPT/HCPCS: 87329 ==

== ENCOUNTER → 2019-03-02 09:53 | Outpatient (CLI) | payer OTHER, SELFPAY | PROVIDERS: PCP Student in an Organized Health Care Education/Training Program; Visit Provider Student in an Organized Health Care Education/Training Program ==

== ENCOUNTER → 2019-03-16 10:10 | Outpatient (CLI) | payer OTHER, SELFPAY | PROVIDERS: PCP Student in an Organized Health Care Education/Training Program; Visit Provider Student in an Organized Health Care Education/Training Program | DX: R14.0 Abdominal distension (gaseous) (principal) | CPT/HCPCS: 87177 ==

== ENCOUNTER → 2020-01-18 14:43 | Outpatient (CLI) | payer OTHER, SELFPAY ==
--- NOTE | 2020-01-18 | DI.RAD.S_ITS ---
PROCEDURE: XR THORACIC SPINE 3V INDICATIONS: MID BACK PAIN TECHNIQUE: 2 views of the thoracic spine were acquired. COMPARISON: None. FINDINGS: Bones: No fractures or dislocations. No suspicious bony lesions. 12 pairs of ribs are noted, and appear intact where visualized. Soft tissues: No paravertebral stripe thickening. IMPRESSION: Moderate degenerative disc disease with anterior projecting osteophytes over the middle and lower thirds of the thoracic spine. No acute disease. Dictated by: Genaro Duggan M.D. on 01/18/2020 at 15:43 Approved by: Genaro Duggan M.D. on 01/18/2020 at 15:44
== END ==
PROVIDERS: PCP Student in an Organized Health Care Education/Training Program; Referring Provider Chiropractor; Visit Provider Chiropractor
DX: M51.34 Other intervertebral disc degeneration, thoracic region (principal)
CPT/HCPCS: 72072

== ENCOUNTER → 2020-02-03 12:34 | Outpatient (CLI) | payer OTHER, SELFPAY ==
[2020-02-03 14:30] LABS: Blood Urea Nitrogen 20 mg/dL (9-20); Calcium 9.9 mg/dL (8.4-10.2); Carbon Dioxide 31 mmol/L (22-32); Chloride 101 mmol/L (98-107); Estimated Glomerular Filt Rate > 60.0 mL/min (>60); Glucose 87 mg/dL (80-110); HEMOLYSIS < 15 (0-50); Phosphorous 3.5 mg/dL (2.3-3.7); Potassium 4.6 mmol/L (3.4-5.1); Sodium 138 mmol/L (137-145)
[2020-02-03 16:38] LABS: Vitamin D 25 Hydroxy (D3) 35.6 ng/mL (30.0-100.0)
[2020-02-04 07:08] LABS: Parathyroid Hormone Int 34 pg/mL (15-65)
== END ==
PROVIDERS: PCP Student in an Organized Health Care Education/Training Program; Referring Provider Student in an Organized Health Care Education/Training Program; Visit Provider Student in an Organized Health Care Education/Training Program
DX: M85.80 Other specified disorders of bone density and structure, unspecified site (principal)
CPT/HCPCS: 36415; 80048; 82306; 83970; 84100

== ENCOUNTER → 2020-02-09 12:58 | Outpatient (CLI) | payer OTHER, SELFPAY | PROVIDERS: PCP Student in an Organized Health Care Education/Training Program; Referring Provider Student in an Organized Health Care Education/Training Program; Visit Provider Student in an Organized Health Care Education/Training Program | DX: M85.851 Other specified disorders of bone density and structure, right thigh (principal); Z91.89 Other specified personal risk factors, not elsewhere classified; Z79.899 Other long term (current) drug therapy | CPT/HCPCS: 77080 ==

== ENCOUNTER 2020-03-26 09:45 | Outpatient (RCR) | payer OTHER, SELFPAY ==
--- NOTE | 2020-02-27 13:25 | PT.OIE ---
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 Email: [email or web address] Physical Therapy Initial Evaluation PT-OP-A Visit Information Start: 02/27/20 12:49 Freq: Status: Active Protocol: Document 02/27/20 10:30 HH (Rec: 02/27/20 13:25 [email or web address]) Out-Patient Physical Therapy Visit Information Visit Information Visit Type Initial Evaluation Visit Start Time 10:30 Visit Stop Time 11:15 Total Visit Minutes 45 Visit Number 1/45 Number of STACK YIELD ENGINEER Visits 0 Evaluation Information Evaluation Date 02/27/20 Precautions Precautions Pt is osteopenic PT-OP-B Current Condition Start: 02/27/20 12:49 Freq: Status: Active Protocol: Document 02/27/20 10:30 HH (Rec: 02/27/20 13:25 [email or web address]) Current Condition History of Current Condition Onset Date 3 months ago Current Complaints Mid back pain, pain with sitting and recovering from different positions History of Current Condition Pt is a 65yo male here for midback pain started 3 months. Pt recalled it started possibly after he was lifting a propane tank on his right side which caused a sharp shooting pain at his mid back. His pain has been consistent without much improvements for the past 3 months. Pain gets worse with prolonged sitting and going downhill/ downstairs while hiking. Better with stretching, and moving his body. He has been going to chiropractor and use ice/ hot pack consistently but only gives temporary relief. 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 Pt also walks 30-40 miles a week. Prior Treatments and Tests X-ray 01/18/20 shows Moderate degenerative disc disease with anterior projecting osteophytes over the middle and lower thirds of the thoracic spine. No acute disease. Bone scan 02/09/20 shows osteopenia/ osteoporosis Treatment Goals Patient/Caregiver Goals 1. To be pain free during hiking and sitting 2. to be able to go on his 6 weeks hiking trip in late february . Personal Factors Other Personal Factors That May Effect Osteopenia/ osteoporosis Therapy/Recovery PT-OP-C Subjective Start: 02/27/20 12:49 Freq: Status: Active Protocol: Document 02/27/20 10:30 HH (Rec: 02/27/20 13:25 HH [email or web address]) OP-PT Subjective Patient Comments Patient Comments 'My back pain has been quite consistent but movement helps. Patient Questionnaires Oswestry Low Back Index Oswestry Score 40 Oswestry Impairment 40 to 59% Impaired (Score 40- 59) OP-PT Pain Assessment Location mid back Pain Location Details mid thoracic region Intensity 6 Scale Used Numeric (0 - 10) Description Aching,Pinching Frequency Frequent Pain Aggravating Factors Position,Changing Position, Sitting,Bending,Lifting Pain Alleviating Factors Standing,Exercise,Massage PT-OP-D Balance Start: 02/27/20 12:49 Freq: Status: Active Protocol: Document 02/27/20 10:30 HH (Rec: 02/27/20 13:25 [email or web address]) Balance Tests Single Limb Standing Single Limb- Right WNL Single Limb- Left WNL PT-OP-F Manual Assessment Start: 02/27/20 12:49 Freq: Status: Active Protocol: Document 02/27/20 10:30 HH (Rec: 02/27/20 13:25 HH [email or web address]) Manual Assessments Soft Tissue Assessment Soft Tissue Mobility Assessment significant tenderness to pressure to bilateral mid thoracic thoracic parapsinals Joint Mobility Assessment Joint Mobility Assessment decreased PA mobility from T4- T8, with significant pain noted PT-OP-K Range of Motion Start: 02/27/20 12:49 Freq: Status: Active Protocol: Document 02/27/20 10:30 HH (Rec: 02/27/20 13:25 HH [email or web address]) Lumbar Spine Range of Motion Lumbar Spine Active Degrees ROM Limitations Pain Comments toe touch= WNL fingers on floor, stretching pain at mid back lateral flexion= WNL hands on lateral knee, no pain noted rotation= WNL but pain noted during rotation extension= WNL but pain noted at end range PT-OP-L Special Tests Start: 02/27/20 12:49 Freq: Status: Active Protocol: Document 02/27/20 10:30 HH (Rec: 02/27/20 13:25 [email or web address]) Special Tests Cervical Spine Special Tests Slump Test Results +ve Comments seated cervical flexion increase pain at mid back. Lumbar Spine Special Tests trunk extension hold Test Results +ve but minimal pain Comments Prone, hands behind head, extension hold x 50 secs Slump Test Results +ve Comments midback pain increase with cervical and trunk flexion Prone Instability Test Test Results +Ve Comments pain decreased with prone extension PT-OP-Q Treatments Start: 02/27/20 12:49 Freq: Status: Active Protocol: Document 02/27/20 10:30 HH (Rec: 02/27/20 13:25 [email or web address]) Manual Therapy Treatment Soft Tissue Mobilization thoracic paraspinals Mobilization Type Rolling,Sustained Pressure, Trigger Point Release Intensity/Depth Moderate Body Position Prone Comments pain decreased after manual therapy. Joint Mobilizations PA mob Joint T4-T8 Direction PA mob Grade II Body Position Prone Reps/Duration oscillation x 5 x8sets Comments pain decreased after soft tissue mobilization Nerve Glides cervical nerve glide Nerve spinal cord Details seated cervical flexion Body Position Sitting Reps/Duration 8 x2 Comments for HEP PT-OP-T Assessment and Plan Start: 02/27/20 12:49 Freq: Status: Active Protocol: Document 02/27/20 10:30 HH (Rec: 02/27/20 13:25 [email or web address]) Physical Therapy Assessment Goals nerve tenison Impairment increased nerve tension with cervical flexion Thread Grinder Goal (LTG) Pt will not experience radiating pain at his midback with cervical flexion/ bending over movements. LTG Duration 8 weeks pain Impairment pain during sitting and hiking downhill Thread Grinder Goal (LTG) Pt will not have pain after prolonged sitting and hiking downhill with his 40lbs backpack LTG Duration 8 weeks Oswestry Impairment pt scores 40 on Oswestry Short Term Goal (STG) Pt will score below 30 for Oswestry LBP questionnaire STG Duration 4 weeks Detention Goal (LTG) Pt will score below 20 for Oswestry LBP questionnaire to improve quality of life LTG Duration 8 weeks Assessment Summary Assessment This is a low complexity evaluation for this 65yo male here for midback pain started 3 months ago. Pt possibly herniated his thoracic vertebral disc based on mechanism of injury and his radiculopathy symptoms. Upon assessment, pt has full trunk ROM and trunk endurance and strength but he does have increased pain with cervical flexion and PA mobilization at T4-T8. Educated pt to cont use his foam roller for thoracic mobility and he did feel better after thoracic joint mobilization and soft tissue mobilization at parapsinals. Pt will benefit from skilled therapy to desensitize his nerve tension and improve overall spinal mobility and strength in order to full return to his hiking activities in pain free. Physical Therapy Plan Frequency and Duration Frequency of Treatment 2x/Week Duration of Treatment 8 weeks Plan of Care Start Date 02/27/20 Plan of Care End Date 04/27/20 Therapeutic Interventions Therapeutic Interventions Home Exercise Program,Joint Mobilizations,Manual Therapy, Neuromuscular Re-education, Patient/Caregiver Education, Self-Care/Home Management, Sensory Integration,Soft Tissue Mobilization,Taping, Therapeutic Activities, Therapeutic Exercises Next Visit Focus/Plan Next Note Type Treatment Note Next Visit Plan check post tx check pecs tightness T4-T8 PA mob, STM on paraspinals cat camel, child pose seated thoracic extension flexion strengthening elipitical
--- NOTE | 2020-02-27 13:25 | PT.OPPOC ---
Physical, Occupational & Speech Therapy At [facility] Current Diagnoses Other chronic pain (02/27/20) Low back pain (02/27/20) Visit Care Team Role Provider Type Hollis Grayson MD Attending Provider Physician Primary Care Provider Referring Provider Specialty: Internal Medicine Address: [address] [place] [address], [address], [facility] Email: [email or web address] Plan Of Care PT-OP-T Assessment and Plan Start: 02/27/20 12:49 Freq: Status: Active Protocol: Document 02/27/20 10:30 HH (Rec: 02/27/20 13:25 [email or web address]) Physical Therapy Assessment Goals nerve tenison Impairment increased nerve tension with cervical flexion Duck Bill Operator Goal (LTG) Pt will not experience radiating pain at his midback with cervical flexion/ bending over movements. LTG Duration 8 weeks pain Impairment pain during sitting and hiking downhill Duck Bill Operator Goal (LTG) Pt will not have pain after prolonged sitting and hiking downhill with his 40lbs backpack LTG Duration 8 weeks Oswestry Impairment pt scores 40 on Oswestry Short Term Goal (STG) Pt will score below 30 for Oswestry LBP questionnaire STG Duration 4 weeks Care Home Goal (LTG) Pt will score below 20 for Oswestry LBP questionnaire to improve quality of life LTG Duration 8 weeks Assessment Summary Assessment This is a low complexity evaluation for this 65yo male here for midback pain started 3 months ago. Pt possibly herniated his thoracic vertebral disc based on mechanism of injury and his radiculopathy symptoms. Upon assessment, pt has full trunk ROM and trunk endurance and strength but he does have increased pain with cervical flexion and PA mobilization at T4-T8. Educated pt to cont use his foam roller for thoracic mobility and he did feel better after thoracic joint mobilization and soft tissue mobilization at parapsinals. Pt will benefit from skilled therapy to desensitize his nerve tension and improve overall spinal mobility and strength in order to full return to his hiking activities in pain free. Physical Therapy Plan Frequency and Duration Frequency of Treatment 2x/Week Duration of Treatment 8 weeks Plan of Care Start Date 02/27/20 Plan of Care End Date 04/27/20 Therapeutic Interventions Therapeutic Interventions Home Exercise Program,Joint Mobilizations,Manual Therapy, Neuromuscular Re-education, Patient/Caregiver Education, Self-Care/Home Management, Sensory Integration,Soft Tissue Mobilization,Taping, Therapeutic Activities, Therapeutic Exercises Next Visit Focus/Plan Next Note Type Treatment Note Next Visit Plan check post tx check pecs tightness T4-T8 PA mob, STM on paraspinals cat camel, child pose seated thoracic extension flexion strengthening elipitical Plan of Care Dates Plan of Care Start Date 02/27/20 Plan of Care End Date 04/27/20 Electronically Signed by: Aundrea Mejía, PT 02/27/20 [id number] Please Sign and Return: I have reviewed this Plan of Care and certify that the skilled therapy services above are required to meet the patient?s needs. Physician Signature Date Printed Name and Credentials Clinical Instructor Signature Printed Name and Credentials
--- NOTE | 2020-02-28 15:15 | PT.OTN ---
Current Diagnoses Other chronic pain (02/28/20) Low back pain (02/28/20) Physical Therapy Treatment Note PT-OP-A Visit Information Start: 02/27/20 12:49 Freq: Status: Active Protocol: Document 02/28/20 14:31 HH (Rec: 02/28/20 15:15 [id number]) Out-Patient Physical Therapy Visit Information Visit Information Visit Type Treatment Note Visit Start Time 14:32 Visit Stop Time 15:15 Total Visit Minutes 43 Visit Number 2/45 Number of GEAR AND SPLINE GRINDER Visits 0 PT-OP-B Current Condition Start: 02/27/20 12:49 Freq: Status: Active Protocol: Document 02/27/20 10:30 HH (Rec: 02/27/20 13:25 HH [email or web address]) Current Condition History of Current Condition Onset Date 3 months ago Current Complaints Mid back pain, pain with sitting and recovering from different positions History of Current Condition Pt is a 65yo male here for midback pain started 3 months. Pt recalled it started possibly after he was lifting a propane tank on his right side which caused a sharp shooting pain at his mid back. His pain has been consistent without much improvements for the past 3 months. Pain gets worse with prolonged sitting and going downhill/ downstairs while hiking. Better with stretching, and moving his body. He has been going to chiropractor and use ice/ hot pack consistently but only gives temporary relief. 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 Pt also walks 30-40 miles a week. Prior Treatments and Tests X-ray 01/18/20 shows Moderate degenerative disc disease with anterior projecting osteophytes over the middle and lower thirds of the thoracic spine. No acute disease. Bone scan 02/09/20 shows osteopenia/ osteoporosis Treatment Goals Patient/Caregiver Goals 1. To be pain free during hiking and sitting 2. to be able to go on his 6 weeks hiking trip in late february . Personal Factors Other Personal Factors That May Effect Osteopenia/ osteoporosis Therapy/Recovery PT-OP-C Subjective Start: 02/27/20 12:49 Freq: Status: Active Protocol: Document 02/28/20 14:31 HH (Rec: 02/28/20 15:15 [id number]) OP-PT Subjective Patient Comments Patient Comments I felt better last night but did wake up from my sleep with a bit sharp pain. Patient Reported Progress Improving PT-OP-D Balance Start: 02/27/20 12:49 Freq: Status: Active Protocol: Document 02/27/20 10:30 HH (Rec: 02/27/20 13:25 HH [email or web address]) Balance Tests Single Limb Standing Single Limb- Right WNL Single Limb- Left WNL PT-OP-F Manual Assessment Start: 02/27/20 12:49 Freq: Status: Active Protocol: Document 02/27/20 10:30 HH (Rec: 02/27/20 13:25 HH [email or web address]) Manual Assessments Soft Tissue Assessment Soft Tissue Mobility Assessment significant tenderness to pressure to bilateral mid thoracic thoracic parapsinals Joint Mobility Assessment Joint Mobility Assessment decreased PA mobility from T4- T8, with significant pain noted PT-OP-K Range of Motion Start: 02/27/20 12:49 Freq: Status: Active Protocol: Document 02/27/20 10:30 HH (Rec: 02/27/20 13:25 [email or web address]) Lumbar Spine Range of Motion Lumbar Spine Active Degrees ROM Limitations Pain Comments toe touch= WNL fingers on floor, stretching pain at mid back lateral flexion= WNL hands on lateral knee, no pain noted rotation= WNL but pain noted during rotation extension= WNL but pain noted at end range PT-OP-L Special Tests Start: 02/27/20 12:49 Freq: Status: Active Protocol: Document 02/27/20 10:30 HH (Rec: 02/27/20 13:25 [email or web address]) Special Tests Cervical Spine Special Tests Slump Test Results +ve Comments seated cervical flexion increase pain at mid back. Lumbar Spine Special Tests trunk extension hold Test Results +ve but minimal pain Comments Prone, hands behind head, extension hold x 50 secs Slump Test Results +ve Comments midback pain increase with cervical and trunk flexion Prone Instability Test Test Results +Ve Comments pain decreased with prone extension PT-OP-Q Treatments Start: 02/27/20 12:49 Freq: Status: Active Protocol: Document 02/28/20 14:31 HH (Rec: 02/28/20 15:15 HH [id number]) Therapeutic Exercises Prone Exercises child pose Prone Exercise Name with foam roller, full thoracic extension with full shoulder flex Side bilateral Equipment Used foam roller Reps/Minutes 10 x2 Comments for HEP cat camel Prone Exercise Name cues on cervical flexion and extension Side bilateral Reps/Minutes 10 x2 Comments for HEP Sidelying Exercises open book Sidelying Exercise Name block L/S, cues on thoracic rotatoin Side bilateral Reps/Minutes 8 x 2 Comments for HEP Sitting Exercises seated flexion and extension Side bilateral Reps/Minutes 5 Comments for HEP Manual Therapy Treatment Soft Tissue Mobilization pecs Body Location B pecs Mobilization Type Sustained Pressure,Trigger Point Release Intensity/Depth Moderate Body Position Supine thoracic paraspinals Mobilization Type Rolling,Sustained Pressure, Trigger Point Release Intensity/Depth Moderate Body Position Prone Comments pain decreased after manual therapy. Joint Mobilizations PA mob Joint T4-T8 Direction PA mob Grade II Body Position Prone Reps/Duration oscillation x 5 x8sets Comments pain decreased after soft tissue mobilization PT-OP-T Assessment and Plan Start: 02/27/20 12:49 Freq: Status: Active Protocol: Document 02/28/20 14:31 HH (Rec: 02/28/20 15:15 HH [id number]) Physical Therapy Assessment Goals nerve tenison Impairment increased nerve tension with cervical flexion Diesel Tractor Operator Goal (LTG) Pt will not experience radiating pain at his midback with cervical flexion/ bending over movements. LTG Duration 8 weeks pain Impairment pain during sitting and hiking downhill Mcfp Goal (LTG) Pt will not have pain after prolonged sitting and hiking downhill with his 40lbs backpack LTG Duration 8 weeks Oswestry Impairment pt scores 40 on Oswestry Short Term Goal (STG) Pt will score below 30 for Oswestry LBP questionnaire STG Duration 4 weeks Mcfp Goal (LTG) Pt will score below 20 for Oswestry LBP questionnaire to improve quality of life LTG Duration 8 weeks Assessment Summary Assessment Pt has very limited thoracic rotation and extension during open book ex and cat camel. Educated pt to be aware of his DMOS for HEP. Pt jose tx well but c/o soreness at the end of sesison. Physical Therapy Plan Next Visit Focus/Plan Next Note Type Treatment Note Next Visit Plan check post tx check pecs tightness T4-T8 PA mob, STM on paraspinals cat camel, child pose seated thoracic extension flexion strengthening elipitical
--- NOTE | 2020-03-05 12:07 | PT.OTN ---
Current Diagnoses Other chronic pain (03/05/20) Low back pain (03/05/20) Physical Therapy Treatment Note PT-OP-A Visit Information Start: 02/27/20 12:49 Freq: Status: Active Protocol: Document 03/05/20 10:32 HH (Rec: 03/05/20 12:07 [id number]) Out-Patient Physical Therapy Visit Information Visit Information Visit Type Treatment Note Visit Start Time 10:34 Visit Stop Time 11:15 Total Visit Minutes 41 Visit Number 3/45 Number of ASSISTANT PROFESSOR OF LIFE SCIENCES Visits 0 PT-OP-B Current Condition Start: 02/27/20 12:49 Freq: Status: Active Protocol: Document 02/27/20 10:30 HH (Rec: 02/27/20 13:25 [email or web address]) Current Condition History of Current Condition Onset Date 3 months ago Current Complaints Mid back pain, pain with sitting and recovering from different positions History of Current Condition Pt is a 65yo male here for midback pain started 3 months. Pt recalled it started possibly after he was lifting a propane tank on his right side which caused a sharp shooting pain at his mid back. His pain has been consistent without much improvements for the past 3 months. Pain gets worse with prolonged sitting and going downhill/ downstairs while hiking. Better with stretching, and moving his body. He has been going to chiropractor and use ice/ hot pack consistently but only gives temporary relief. 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 Pt also walks 30-40 miles a week. Prior Treatments and Tests X-ray 01/18/20 shows Moderate degenerative disc disease with anterior projecting osteophytes over the middle and lower thirds of the thoracic spine. No acute disease. Bone scan 02/09/20 shows osteopenia/ osteoporosis Treatment Goals Patient/Caregiver Goals 1. To be pain free during hiking and sitting 2. to be able to go on his 6 weeks hiking trip in late february . Personal Factors Other Personal Factors That May Effect Osteopenia/ osteoporosis Therapy/Recovery PT-OP-C Subjective Start: 02/27/20 12:49 Freq: Status: Active Protocol: Document 03/05/20 10:32 HH (Rec: 03/05/20 12:07 [id number]) OP-PT Subjective Patient Comments Patient Comments I got sore for 3 and 4 days after last session. But i got better PT-OP-D Balance Start: 02/27/20 12:49 Freq: Status: Active Protocol: Document 02/27/20 10:30 HH (Rec: 02/27/20 13:25 HH [email or web address]) Balance Tests Single Limb Standing Single Limb- Right WNL Single Limb- Left WNL PT-OP-F Manual Assessment Start: 02/27/20 12:49 Freq: Status: Active Protocol: Document 02/27/20 10:30 HH (Rec: 02/27/20 13:25 HH [email or web address]) Manual Assessments Soft Tissue Assessment Soft Tissue Mobility Assessment significant tenderness to pressure to bilateral mid thoracic thoracic parapsinals Joint Mobility Assessment Joint Mobility Assessment decreased PA mobility from T4- T8, with significant pain noted PT-OP-K Range of Motion Start: 02/27/20 12:49 Freq: Status: Active Protocol: Document 02/27/20 10:30 HH (Rec: 02/27/20 13:25 [email or web address]) Lumbar Spine Range of Motion Lumbar Spine Active Degrees ROM Limitations Pain Comments toe touch= WNL fingers on floor, stretching pain at mid back lateral flexion= WNL hands on lateral knee, no pain noted rotation= WNL but pain noted during rotation extension= WNL but pain noted at end range PT-OP-L Special Tests Start: 02/27/20 12:49 Freq: Status: Active Protocol: Document 02/27/20 10:30 HH (Rec: 02/27/20 13:25 HH [email or web address]) Special Tests Cervical Spine Special Tests Slump Test Results +ve Comments seated cervical flexion increase pain at mid back. Lumbar Spine Special Tests trunk extension hold Test Results +ve but minimal pain Comments Prone, hands behind head, extension hold x 50 secs Slump Test Results +ve Comments midback pain increase with cervical and trunk flexion Prone Instability Test Test Results +Ve Comments pain decreased with prone extension PT-OP-Q Treatments Start: 02/27/20 12:49 Freq: Status: Active Protocol: Document 03/05/20 10:32 HH (Rec: 03/05/20 12:07 HH [id number]) Cardio Equipment Elliptical Duration (Minutes) 5 Resistance 5 Therapeutic Exercises Prone Exercises prone aquaman Prone Exercise Name scap squeeze and extension Side bilateral Reps/Minutes 6times Comments pain noted. child pose Prone Exercise Name with foam roller, full thoracic extension with full shoulder flex Side bilateral Equipment Used foam roller Reps/Minutes 10 x2 Comments for HEP, no pain noted Sidelying Exercises open book Sidelying Exercise Name block L/S, cues on thoracic rotatoin Side bilateral Reps/Minutes 8 x 2 Comments for HEP Sitting Exercises seated nerve glide Sitting Exercise Name seated cervical flexion in seated position, followed by legs extended Side bilateral Reps/Minutes 6x2 Comments increased nerve pain with legs extended seated thoracic rotatoin Side bilateral Equipment Used foam roller Reps/Minutes 5x2 Comments pain with R rotation seated shoulder flexion Side bilateral Equipment Used foam roller Reps/Minutes 8 x2 Comments no trunk movement seated flexion and extension Side bilateral Reps/Minutes 5 Comments pain noted at end range extension Standing Exercises scap row Side bilateral Equipment Used level 1 Reps/Minutes 10 x2 Comments no pain noted Manual Therapy Treatment Soft Tissue Mobilization pecs Body Location B pecs Mobilization Type Sustained Pressure,Trigger Point Release Intensity/Depth Moderate Body Position Supine thoracic paraspinals Mobilization Type Rolling,Sustained Pressure, Trigger Point Release Intensity/Depth Moderate Body Position Prone Comments pain decreased after manual therapy. Joint Mobilizations PA mob Joint T4-T8 Direction PA mob Grade II Body Position Prone Reps/Duration oscillation x 5 x8sets Comments pain decreased after soft tissue mobilization PT-OP-T Assessment and Plan Start: 02/27/20 12:49 Freq: Status: Active Protocol: Document 03/05/20 10:32 (Rec: 03/05/20 12:07 [id number]) Physical Therapy Assessment Goals nerve tenison Impairment increased nerve tension with cervical flexion Correction Goal (LTG) Pt will not experience radiating pain at his midback with cervical flexion/ bending over movements. LTG Duration 8 weeks pain Impairment pain during sitting and hiking downhill Order Entry Technician Goal (LTG) Pt will not have pain after prolonged sitting and hiking downhill with his 40lbs backpack LTG Duration 8 weeks Oswestry Impairment pt scores 40 on Oswestry Short Term Goal (STG) Pt will score below 30 for Oswestry LBP questionnaire STG Duration 4 weeks Correction Goal (LTG) Pt will score below 20 for Oswestry LBP questionnaire to improve quality of life LTG Duration 8 weeks Assessment Summary Assessment Pt did get sore for 3 days after last session but able to feel better after. Pt has improved tolerance to joint pressure and movements today. He does have limited R thoracic rotation and extension. Attempted eliptical x 5mins today with no discomfort. Physical Therapy Plan Next Visit Focus/Plan Next Note Type Treatment Note Next Visit Plan check post tx check pecs tightness T4-T8 PA mob, STM on paraspinals cat camel, child pose seated thoracic extension + R rotation, flexion strengthening, ab curl elipitical
--- NOTE | 2020-03-08 14:32 | PT.OTN ---
Current Diagnoses Other chronic pain (03/08/20) Low back pain (03/08/20) Physical Therapy Treatment Note PT-OP-A Visit Information Start: 02/27/20 12:49 Freq: Status: Active Protocol: Document 03/08/20 13:45 DCW (Rec: 03/08/20 14:31 DCW [id number]) Out-Patient Physical Therapy Visit Information Visit Information Visit Type Treatment Note Visit Start Time 13:45 Visit Stop Time 14:30 Total Visit Minutes 45 Visit Number 4/45 Number of PRIMARY CARE NURSE Visits 0 Evaluation Information Evaluation Date 02/27/20 PT-OP-B Current Condition Start: 02/27/20 12:49 Freq: Status: Active Protocol: Document 02/27/20 10:30 HH (Rec: 02/27/20 13:25 HH [email or web address]) Current Condition History of Current Condition Onset Date 3 months ago Current Complaints Mid back pain, pain with sitting and recovering from different positions History of Current Condition Pt is a 65yo male here for midback pain started 3 months. Pt recalled it started possibly after he was lifting a propane tank on his right side which caused a sharp shooting pain at his mid back. His pain has been consistent without much improvements for the past 3 months. Pain gets worse with prolonged sitting and going downhill/ downstairs while hiking. Better with stretching, and moving his body. He has been going to chiropractor and use ice/ hot pack consistently but only gives temporary relief. 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 Pt also walks 30-40 miles a week. Prior Treatments and Tests X-ray 01/18/20 shows Moderate degenerative disc disease with anterior projecting osteophytes over the middle and lower thirds of the thoracic spine. No acute disease. Bone scan 02/09/20 shows osteopenia/ osteoporosis Treatment Goals Patient/Caregiver Goals 1. To be pain free during hiking and sitting 2. to be able to go on his 6 weeks hiking trip in late february . Personal Factors Other Personal Factors That May Effect Osteopenia/ osteoporosis Therapy/Recovery PT-OP-C Subjective Start: 02/27/20 12:49 Freq: Status: Active Protocol: Document 03/08/20 13:45 DCW (Rec: 03/08/20 14:31 DCW [id number]) OP-PT Subjective Patient Comments Patient Comments Pt reports he was really tight upon waking up this morning, but was able to do his exercises, which helped to loosen him up, and now his back is just more of a dull ache. PT-OP-D Balance Start: 02/27/20 12:49 Freq: Status: Active Protocol: Document 02/27/20 10:30 HH (Rec: 02/27/20 13:25 HH [email or web address]) Balance Tests Single Limb Standing Single Limb- Right WNL Single Limb- Left WNL PT-OP-F Manual Assessment Start: 02/27/20 12:49 Freq: Status: Active Protocol: Document 02/27/20 10:30 HH (Rec: 02/27/20 13:25 HH [email or web address]) Manual Assessments Soft Tissue Assessment Soft Tissue Mobility Assessment significant tenderness to pressure to bilateral mid thoracic thoracic parapsinals Joint Mobility Assessment Joint Mobility Assessment decreased PA mobility from T4- T8, with significant pain noted PT-OP-K Range of Motion Start: 02/27/20 12:49 Freq: Status: Active Protocol: Document 02/27/20 10:30 HH (Rec: 02/27/20 13:25 HH [email or web address]) Lumbar Spine Range of Motion Lumbar Spine Active Degrees ROM Limitations Pain Comments toe touch= WNL fingers on floor, stretching pain at mid back lateral flexion= WNL hands on lateral knee, no pain noted rotation= WNL but pain noted during rotation extension= WNL but pain noted at end range PT-OP-L Special Tests Start: 02/27/20 12:49 Freq: Status: Active Protocol: Document 02/27/20 10:30 HH (Rec: 02/27/20 13:25 HH [email or web address]) Special Tests Cervical Spine Special Tests Slump Test Results +ve Comments seated cervical flexion increase pain at mid back. Lumbar Spine Special Tests trunk extension hold Test Results +ve but minimal pain Comments Prone, hands behind head, extension hold x 50 secs Slump Test Results +ve Comments midback pain increase with cervical and trunk flexion Prone Instability Test Test Results +Ve Comments pain decreased with prone extension PT-OP-Q Treatments Start: 02/27/20 12:49 Freq: Status: Active Protocol: Document 03/08/20 13:45 DCW (Rec: 03/08/20 14:31 DCW [id number]) Cardio Equipment Elliptical Duration (Minutes) 5 Resistance 5 Therapeutic Exercises Supine Exercises 4 Supine Exercise Name Piriformis stretch Side bilateral Comments Itic-dz-wzqujqkb shoulder 2 Supine Exercise Name DKC Side bilateral 1 Supine Exercise Name psoas and rectus femoris stretch Side bilateral Comments RLE hanging off of bed Manual Therapy Treatment Soft Tissue Mobilization pecs Body Location B pecs Mobilization Type Sustained Pressure,Trigger Point Release Intensity/Depth Moderate Body Position Supine thoracic paraspinals Mobilization Type Rolling,Sustained Pressure, Trigger Point Release Intensity/Depth Moderate Body Position Prone Comments pain decreased after manual therapy. 2 Body Location Piriformis Mobilization Type Strumming Intensity/Depth Deep Body Position Sidelying 1 Body Location L iliopsoas Mobilization Type Sustained Pressure Intensity/Depth Deep Body Position Supine Comments 20 min Joint Mobilizations PA mob Joint T4-T8 Direction PA mob Grade II Body Position Prone Reps/Duration oscillation x 5 x8sets Comments pain decreased after soft tissue mobilization PT-OP-T Assessment and Plan Start: 02/27/20 12:49 Freq: Status: Active Protocol: Document 03/08/20 13:45 DCW (Rec: 03/08/20 14:31 DCW [email or web address]) Physical Therapy Assessment Goals nerve tenison Impairment increased nerve tension with cervical flexion Vice President Process Goal (LTG) Pt will not experience radiating pain at his midback with cervical flexion/ bending over movements. LTG Duration 8 weeks pain Impairment pain during sitting and hiking downhill Shelter Goal (LTG) Pt will not have pain after prolonged sitting and hiking downhill with his 40lbs backpack LTG Duration 8 weeks Oswestry Impairment pt scores 40 on Oswestry Short Term Goal (STG) Pt will score below 30 for Oswestry LBP questionnaire STG Duration 4 weeks Shelter Goal (LTG) Pt will score below 20 for Oswestry LBP questionnaire to improve quality of life LTG Duration 8 weeks Assessment Summary Assessment Pt tolerated treatment well today, felt relief from piriformis stretching, added to HEP. Physical Therapy Plan Frequency and Duration Frequency of Treatment 2x/Week Duration of Treatment 8 weeks Plan of Care Start Date 02/27/20 Plan of Care End Date 04/27/20 Therapeutic Interventions Therapeutic Interventions Home Exercise Program,Joint Mobilizations,Manual Therapy, Neuromuscular Re-education, Patient/Caregiver Education, Self-Care/Home Management, Sensory Integration,Soft Tissue Mobilization,Taping, Therapeutic Activities, Therapeutic Exercises Next Visit Focus/Plan Next Note Type Treatment Note Next Visit Plan check post tx check pecs tightness T4-T8 PA mob, STM on paraspinals cat camel, child pose seated thoracic extension + R rotation, flexion strengthening, ab curl elipitical
--- NOTE | 2020-03-19 14:39 | PT.OTN ---
Current Diagnoses Other chronic pain (03/19/20) Low back pain (03/19/20) Physical Therapy Treatment Note PT-OP-A Visit Information Start: 02/27/20 12:49 Freq: Status: Active Protocol: Document 03/19/20 13:44 HH (Rec: 03/19/20 14:38 [id number]) Out-Patient Physical Therapy Visit Information Visit Information Visit Type Treatment Note Visit Start Time 13:45 Visit Stop Time 14:29 Total Visit Minutes 44 Visit Number 5/45 Number of GIS ANALYST DEVELOPER Visits 0 PT-OP-B Current Condition Start: 02/27/20 12:49 Freq: Status: Active Protocol: Document 02/27/20 10:30 HH (Rec: 02/27/20 13:25 HH [email or web address]) Current Condition History of Current Condition Onset Date 3 months ago Current Complaints Mid back pain, pain with sitting and recovering from different positions History of Current Condition Pt is a 65yo male here for midback pain started 3 months. Pt recalled it started possibly after he was lifting a propane tank on his right side which caused a sharp shooting pain at his mid back. His pain has been consistent without much improvements for the past 3 months. Pain gets worse with prolonged sitting and going downhill/ downstairs while hiking. Better with stretching, and moving his body. He has been going to chiropractor and use ice/ hot pack consistently but only gives temporary relief. 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 Pt also walks 30-40 miles a week. Prior Treatments and Tests X-ray 01/18/20 shows Moderate degenerative disc disease with anterior projecting osteophytes over the middle and lower thirds of the thoracic spine. No acute disease. Bone scan 02/09/20 shows osteopenia/ osteoporosis Treatment Goals Patient/Caregiver Goals 1. To be pain free during hiking and sitting 2. to be able to go on his 6 weeks hiking trip in late february . Personal Factors Other Personal Factors That May Effect Osteopenia/ osteoporosis Therapy/Recovery PT-OP-C Subjective Start: 02/27/20 12:49 Freq: Status: Active Protocol: Document 03/19/20 13:44 HH (Rec: 03/19/20 14:38 [id number]) OP-PT Subjective Patient Comments Patient Comments I did feel a lot better lately and i only felt sore after i came from my hiking trip. Doing my HEP is very helpful. Patient Reported Progress Improving PT-OP-D Balance Start: 02/27/20 12:49 Freq: Status: Active Protocol: Document 02/27/20 10:30 HH (Rec: 02/27/20 13:25 HH [email or web address]) Balance Tests Single Limb Standing Single Limb- Right WNL Single Limb- Left WNL PT-OP-F Manual Assessment Start: 02/27/20 12:49 Freq: Status: Active Protocol: Document 02/27/20 10:30 HH (Rec: 02/27/20 13:25 HH [email or web address]) Manual Assessments Soft Tissue Assessment Soft Tissue Mobility Assessment significant tenderness to pressure to bilateral mid thoracic thoracic parapsinals Joint Mobility Assessment Joint Mobility Assessment decreased PA mobility from T4- T8, with significant pain noted PT-OP-K Range of Motion Start: 02/27/20 12:49 Freq: Status: Active Protocol: Document 02/27/20 10:30 HH (Rec: 02/27/20 13:25 HH [email or web address]) Lumbar Spine Range of Motion Lumbar Spine Active Degrees ROM Limitations Pain Comments toe touch= WNL fingers on floor, stretching pain at mid back lateral flexion= WNL hands on lateral knee, no pain noted rotation= WNL but pain noted during rotation extension= WNL but pain noted at end range PT-OP-L Special Tests Start: 02/27/20 12:49 Freq: Status: Active Protocol: Document 02/27/20 10:30 HH (Rec: 02/27/20 13:25 HH [email or web address]) Special Tests Cervical Spine Special Tests Slump Test Results +ve Comments seated cervical flexion increase pain at mid back. Lumbar Spine Special Tests trunk extension hold Test Results +ve but minimal pain Comments Prone, hands behind head, extension hold x 50 secs Slump Test Results +ve Comments midback pain increase with cervical and trunk flexion Prone Instability Test Test Results +Ve Comments pain decreased with prone extension PT-OP-Q Treatments Start: 02/27/20 12:49 Freq: Status: Active Protocol: Document 03/19/20 13:44 HH (Rec: 03/19/20 14:38 HH [id number]) Cardio Equipment Elliptical Duration (Minutes) 8 Resistance 5 Therapeutic Exercises Supine Exercises foam roller Supine Exercise Name trunk extension Side bilateral Reps/Minutes 8 x2 Prone Exercises prone trunk ext Side bilateral Equipment Used with large therapy ball Reps/Minutes 5 x2 Comments cues on T/s extension prone trunk rotation Side bilateral Reps/Minutes 8 x2 child pose Prone Exercise Name with foam roller, full thoracic extension with full shoulder flex Side bilateral Equipment Used foam roller Reps/Minutes 10 x2 Comments for HEP, no pain noted Sidelying Exercises open book Sidelying Exercise Name block L/S, cues on thoracic rotatoin Side bilateral Reps/Minutes 8 x 2 Comments for HEP Sitting Exercises seated thoracic rotatoin Side bilateral Equipment Used foam roller Reps/Minutes 5x2 Comments pain with R rotation seated flexion and extension Side bilateral Reps/Minutes 5 Comments pain noted at end range extension Standing Exercises standing pull apart Side bilateral Equipment Used level 2 band Reps/Minutes 8 x2 Comments scap hor abd Manual Therapy Treatment Soft Tissue Mobilization pecs Body Location B pecs Mobilization Type Sustained Pressure,Trigger Point Release Intensity/Depth Moderate Body Position Supine thoracic paraspinals Mobilization Type Rolling,Sustained Pressure, Trigger Point Release Intensity/Depth Moderate Body Position Prone Comments pain decreased after manual therapy. Joint Mobilizations PA mob Joint T4-T8 Direction PA mob Grade II Body Position Prone Reps/Duration oscillation x 5 x8sets Comments pain decreased after soft tissue mobilization PT-OP-T Assessment and Plan Start: 02/27/20 12:49 Freq: Status: Active Protocol: Document 03/19/20 13:44 HH (Rec: 03/19/20 14:38 HH [id number]) Physical Therapy Assessment Goals nerve tenison Impairment increased nerve tension with cervical flexion Maintenance Worker Swimming Pool Goal (LTG) Pt will not experience radiating pain at his midback with cervical flexion/ bending over movements. LTG Duration 8 weeks pain Impairment pain during sitting and hiking downhill [facility] Goal (LTG) Pt will not have pain after prolonged sitting and hiking downhill with his 40lbs backpack LTG Duration 8 weeks Oswestry Impairment pt scores 40 on Oswestry Short Term Goal (STG) Pt will score below 30 for Oswestry LBP questionnaire STG Duration 4 weeks [facility] Goal (LTG) Pt will score below 20 for Oswestry LBP questionnaire to improve quality of life LTG Duration 8 weeks Assessment Summary Assessment Pt cont to improve significantly with improved body awareness and mobility. Started focusing trunk extensors strengthening and stability ex and pt jose well and denied discomfort. Physical Therapy Plan Next Visit Focus/Plan Next Note Type Treatment Note Next Visit Plan check post tx check pecs tightness T4-T8 PA mob, STM on paraspinals cat camel, child pose seated thoracic extension + R rotation, flexion strengthening, ab curl elipitical
--- NOTE | 2020-03-22 14:37 | PT.OTN ---
Current Diagnoses Other chronic pain (03/22/20) Low back pain (03/22/20) Physical Therapy Treatment Note PT-OP-A Visit Information Start: 02/27/20 12:49 Freq: Status: Active Protocol: Document 03/22/20 13:45 DCW (Rec: 03/22/20 14:37 DCW [id number]) Out-Patient Physical Therapy Visit Information Visit Information Visit Type Treatment Note Visit Start Time 13:45 Visit Stop Time 14:30 Total Visit Minutes 45 Visit Number 45 Number of GAS PUMPING STATION SUPERVISOR Visits 0 Evaluation Information Evaluation Date 02/27/20 PT-OP-B Current Condition Start: 02/27/20 12:49 Freq: Status: Active Protocol: Document 02/27/20 10:30 HH (Rec: 02/27/20 13:25 HH [email or web address]) Current Condition History of Current Condition Onset Date 3 months ago Current Complaints Mid back pain, pain with sitting and recovering from different positions History of Current Condition Pt is a 65yo male here for midback pain started 3 months. Pt recalled it started possibly after he was lifting a propane tank on his right side which caused a sharp shooting pain at his mid back. His pain has been consistent without much improvements for the past 3 months. Pain gets worse with prolonged sitting and going downhill/ downstairs while hiking. Better with stretching, and moving his body. He has been going to chiropractor and use ice/ hot pack consistently but only gives temporary relief. 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 Pt also walks 30-40 miles a week. Prior Treatments and Tests X-ray 01/18/20 shows Moderate degenerative disc disease with anterior projecting osteophytes over the middle and lower thirds of the thoracic spine. No acute disease. Bone scan 02/09/20 shows osteopenia/ osteoporosis Treatment Goals Patient/Caregiver Goals 1. To be pain free during hiking and sitting 2. to be able to go on his 6 weeks hiking trip in late february . Personal Factors Other Personal Factors That May Effect Osteopenia/ osteoporosis Therapy/Recovery PT-OP-C Subjective Start: 02/27/20 12:49 Freq: Status: Active Protocol: Document 03/22/20 13:45 DCW (Rec: 03/22/20 14:37 DCW [id number]) OP-PT Subjective Patient Comments Patient Comments Pt reports he is still a little sore after his last visit, but is doing much better today than yesterday. PT-OP-D Balance Start: 02/27/20 12:49 Freq: Status: Active Protocol: Document 02/27/20 10:30 HH (Rec: 02/27/20 13:25 HH [email or web address]) Balance Tests Single Limb Standing Single Limb- Right WNL Single Limb- Left WNL PT-OP-F Manual Assessment Start: 02/27/20 12:49 Freq: Status: Active Protocol: Document 02/27/20 10:30 HH (Rec: 02/27/20 13:25 HH [email or web address]) Manual Assessments Soft Tissue Assessment Soft Tissue Mobility Assessment significant tenderness to pressure to bilateral mid thoracic thoracic parapsinals Joint Mobility Assessment Joint Mobility Assessment decreased PA mobility from T4- T8, with significant pain noted PT-OP-K Range of Motion Start: 02/27/20 12:49 Freq: Status: Active Protocol: Document 02/27/20 10:30 HH (Rec: 02/27/20 13:25 HH [email or web address]) Lumbar Spine Range of Motion Lumbar Spine Active Degrees ROM Limitations Pain Comments toe touch= WNL fingers on floor, stretching pain at mid back lateral flexion= WNL hands on lateral knee, no pain noted rotation= WNL but pain noted during rotation extension= WNL but pain noted at end range PT-OP-L Special Tests Start: 02/27/20 12:49 Freq: Status: Active Protocol: Document 02/27/20 10:30 HH (Rec: 02/27/20 13:25 HH [email or web address]) Special Tests Cervical Spine Special Tests Slump Test Results +ve Comments seated cervical flexion increase pain at mid back. Lumbar Spine Special Tests trunk extension hold Test Results +ve but minimal pain Comments Prone, hands behind head, extension hold x 50 secs Slump Test Results +ve Comments midback pain increase with cervical and trunk flexion Prone Instability Test Test Results +Ve Comments pain decreased with prone extension PT-OP-Q Treatments Start: 02/27/20 12:49 Freq: Status: Active Protocol: Document 03/22/20 13:45 DCW (Rec: 03/22/20 14:37 DCW [id number]) Cardio Equipment Elliptical Duration (Minutes) 6 Resistance 5 Gym Equipment Therapeutic Ball Seated trunk rotation Exercise Details Trunk rotation vs resistance Ball Size/Color Green - 65 cm Lv 3 resistance Body Position Sitting Therapeutic Exercises Supine Exercises 4 Supine Exercise Name Piriformis stretch Side bilateral Comments [id number] shoulder 3 Supine Exercise Name Low trunk rotation Side bilateral Equipment Used Blue T-ball 45 cm 2 Supine Exercise Name DKC Side bilateral Manual Therapy Treatment Soft Tissue Mobilization pecs Body Location B pecs Mobilization Type Sustained Pressure,Trigger Point Release Intensity/Depth Moderate Body Position Supine thoracic paraspinals Mobilization Type Rolling,Sustained Pressure, Trigger Point Release Intensity/Depth Moderate Body Position Prone Comments pain decreased after manual therapy. 1 Body Location B iliopsoas Mobilization Type Sustained Pressure Intensity/Depth Deep Body Position Supine Joint Mobilizations PA mob Joint T4-T8 Direction PA mob Grade II Body Position Prone Reps/Duration oscillation x 5 x8sets Comments pain decreased after soft tissue mobilization PT-OP-T Assessment and Plan Start: 02/27/20 12:49 Freq: Status: Active Protocol: Document 03/22/20 13:45 DCW (Rec: 03/22/20 14:37 DCW [id number]) Physical Therapy Assessment Goals nerve tenison Impairment increased nerve tension with cervical flexion [facility] Goal (LTG) Pt will not experience radiating pain at his midback with cervical flexion/ bending over movements. LTG Duration 8 weeks pain Impairment pain during sitting and hiking downhill Cotton Washer Goal (LTG) Pt will not have pain after prolonged sitting and hiking downhill with his 40lbs backpack LTG Duration 8 weeks Oswestry Impairment pt scores 40 on Oswestry Short Term Goal (STG) Pt will score below 30 for Oswestry LBP questionnaire STG Duration 4 weeks Cotton Washer Goal (LTG) Pt will score below 20 for Oswestry LBP questionnaire to improve quality of life LTG Duration 8 weeks Assessment Summary Assessment Pt did well today, still sore from his last visit, so focused more on increasing mobility and decreasing muscle tone. Physical Therapy Plan Next Visit Focus/Plan Next Note Type Treatment Note Next Visit Plan check post tx check pecs tightness T4-T8 PA mob, STM on paraspinals cat camel, child pose seated thoracic extension + R rotation, flexion strengthening, ab curl elipitical
--- NOTE | 2020-03-26 11:34 | PT.OTN ---
Current Diagnoses Other chronic pain (03/26/20) Low back pain (03/26/20) Physical Therapy Treatment Note PT-OP-A Visit Information Start: 02/27/20 12:49 Freq: Status: Active Protocol: Document 03/26/20 09:52 HH (Rec: 03/26/20 10:36 [id number]) Out-Patient Physical Therapy Visit Information Visit Information Visit Type Treatment Note Visit Start Time 09:50 Visit Stop Time 10:30 Total Visit Minutes 40 Visit Number 7/45 Number of DIRECTOR CHILD ABUSE THERAPY Visits 0 PT-OP-B Current Condition Start: 02/27/20 12:49 Freq: Status: Active Protocol: Document 02/27/20 10:30 HH (Rec: 02/27/20 13:25 HH [email or web address]) Current Condition History of Current Condition Onset Date 3 months ago Current Complaints Mid back pain, pain with sitting and recovering from different positions History of Current Condition Pt is a 65yo male here for midback pain started 3 months. Pt recalled it started possibly after he was lifting a propane tank on his right side which caused a sharp shooting pain at his mid back. His pain has been consistent without much improvements for the past 3 months. Pain gets worse with prolonged sitting and going downhill/ downstairs while hiking. Better with stretching, and moving his body. He has been going to chiropractor and use ice/ hot pack consistently but only gives temporary relief. 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 Pt also walks 30-40 miles a week. Prior Treatments and Tests X-ray 01/18/20 shows Moderate degenerative disc disease with anterior projecting osteophytes over the middle and lower thirds of the thoracic spine. No acute disease. Bone scan 02/09/20 shows osteopenia/ osteoporosis Treatment Goals Patient/Caregiver Goals 1. To be pain free during hiking and sitting 2. to be able to go on his 6 weeks hiking trip in late february . Personal Factors Other Personal Factors That May Effect Osteopenia/ osteoporosis Therapy/Recovery PT-OP-C Subjective Start: 02/27/20 12:49 Freq: Status: Active Protocol: Document 03/26/20 09:52 HH (Rec: 03/26/20 10:36 [id number]) OP-PT Subjective Patient Comments Patient Comments Prolonged sitting is still bothering my back but once i move around then it will go away. I am leaving on Thursday for the trip. I am going to do a stress test tomorrow for my heart since i have been having heart palpitation. Patient Reported Progress Improving PT-OP-D Balance Start: 02/27/20 12:49 Freq: Status: Active Protocol: Document 02/27/20 10:30 HH (Rec: 02/27/20 13:25 HH [email or web address]) Balance Tests Single Limb Standing Single Limb- Right WNL Single Limb- Left WNL PT-OP-F Manual Assessment Start: 02/27/20 12:49 Freq: Status: Active Protocol: Document 02/27/20 10:30 HH (Rec: 02/27/20 13:25 HH [email or web address]) Manual Assessments Soft Tissue Assessment Soft Tissue Mobility Assessment significant tenderness to pressure to bilateral mid thoracic thoracic parapsinals Joint Mobility Assessment Joint Mobility Assessment decreased PA mobility from T4- T8, with significant pain noted PT-OP-K Range of Motion Start: 02/27/20 12:49 Freq: Status: Active Protocol: Document 02/27/20 10:30 HH (Rec: 02/27/20 13:25 HH [email or web address]) Lumbar Spine Range of Motion Lumbar Spine Active Degrees ROM Limitations Pain Comments toe touch= WNL fingers on floor, stretching pain at mid back lateral flexion= WNL hands on lateral knee, no pain noted rotation= WNL but pain noted during rotation extension= WNL but pain noted at end range PT-OP-L Special Tests Start: 02/27/20 12:49 Freq: Status: Active Protocol: Document 02/27/20 10:30 HH (Rec: 02/27/20 13:25 HH [email or web address]) Special Tests Cervical Spine Special Tests Slump Test Results +ve Comments seated cervical flexion increase pain at mid back. Lumbar Spine Special Tests trunk extension hold Test Results +ve but minimal pain Comments Prone, hands behind head, extension hold x 50 secs Slump Test Results +ve Comments midback pain increase with cervical and trunk flexion Prone Instability Test Test Results +Ve Comments pain decreased with prone extension PT-OP-Q Treatments Start: 02/27/20 12:49 Freq: Status: Active Protocol: Document 03/26/20 09:52 HH (Rec: 03/26/20 10:36 HH [id number]) Cardio Equipment Elliptical Duration (Minutes) 8 Resistance 5 Other heart palpitation noted at 4th minute but resolved within a minute Therapeutic Exercises Sitting Exercises seated J curl Sitting Exercise Name cues on T-spine segmental mobility Side bilateral Reps/Minutes 6 mins Comments cues on T/s flexion but not hip flexion Standing Exercises standing J curl Standing Exercise Name cues on T-spine segmental mobility Side bilateral Reps/Minutes 6 mins Comments cues on T/S segmental flexion Manual Therapy Treatment Soft Tissue Mobilization thoracic paraspinals Mobilization Type Rolling,Sustained Pressure, Trigger Point Release Intensity/Depth Moderate Body Position Prone Comments from T1 to L5 Joint Mobilizations PA mob Joint T4-T8 Direction PA mob Grade II Body Position Prone Reps/Duration oscillation x 5 x8sets Comments slight discomfort at T4-T6 PT-OP-T Assessment and Plan Start: 02/27/20 12:49 Freq: Status: Active Protocol: Document 03/26/20 09:52 (Rec: 03/26/20 10:36 [id number]) Physical Therapy Assessment Goals nerve tenison Impairment increased nerve tension with cervical flexion Short Term Goal (STG) 03/26 pain only noted with seated reaching test (end range) Shelter Goal (LTG) Pt will not experience radiating pain at his midback with cervical flexion/ bending over movements. LTG Duration 8 weeks pain Impairment pain during sitting and hiking downhill Short Term Goal (STG) 03/26 pain only noted for prolonged sitting. Crowning Hammer Operator Goal (LTG) Pt will not have pain after prolonged sitting and hiking downhill with his 40lbs backpack LTG Duration 8 weeks Oswestry Impairment pt scores 40 on Oswestry Short Term Goal (STG) Pt will score below 30 for Oswestry LBP questionnaire STG Duration 4 weeks Shelter Goal (LTG) Pt will score below 20 for Oswestry LBP questionnaire to improve quality of life LTG Duration 8 weeks Assessment Summary Assessment Pt still has some pulling discomfort with end range t/s flexion and pinch sensatoin with extension. Tx focsued on segmental T-spine mobility today and noticed pt tends to use cervical flexion and hip flexion. Pt will go on 1 month hiking trip on Thursday. Next visit will be progress note. Physical Therapy Plan Next Visit Focus/Plan Next Note Type Progress Note Next Visit Plan check post tx check pecs tightness T4-T8 PA mob, STM on paraspinals cat camel, child pose seated thoracic extension + R rotation, flexion strengthening, ab curl elipitical segmental moblity
--- NOTE | 2020-05-03 16:05 | PT.OPDS ---
Current Diagnoses Other chronic pain (03/26/20) Low back pain (03/26/20) Visit Care Team Role Provider Type Hollis Grayson MD Attending Provider Physician Primary Care Provider Referring Provider Specialty: Internal Medicine Address: [address] [place] [address], [id number] Email: [email or web address] Visit Number Visit Number Discharge Summary Protocol: Document 05/03/20 16:05 (Rec: 05/03/20 16:05 [email or web address]) Physical Therapy Plan Discharge Physical Therapy Discharge Reasons Goals Met Discharge Comments Pt was able to complete his 3 weeks hiking trip with no discomfort. D/c from PT
== END 2020-05-08 10:42 ==
LOC: PHYS 09:45
PROVIDERS: PCP Student in an Organized Health Care Education/Training Program; Referring Provider Student in an Organized Health Care Education/Training Program; Visit Provider Student in an Organized Health Care Education/Training Program
DX: M54.5 Low back pain (principal); G89.29 Other chronic pain
CPT/HCPCS: 97110; 97140; 97161

== ENCOUNTER → 2020-03-27 08:27 | Outpatient (CLI) | payer OTHER, SELFPAY ==
--- NOTE | 2020-03-27 09:55 | PM.TREADMILL ---
Cardiac Stress Test Report Referral & Results Date Patient Seen: 03/27/20 Time Patient Seen: 09:30 Requesting provider: Hollis Grayson Indication: Exercise induced palpitations Rest ECG: Normal sinus rhythm Procedure Note: Today following both written and verbal informed consent, the patient was exercised according to a standard Regino protocol. The patient exercised for a total of 8 minutes 54 seconds achieving a maximum heart rate of 140. Patient's maximum systolic blood pressure was 186. This was an estimated 10.1 METs. Normal hemodynamic response to exercise. Palpitations began approximately 1 minute into exercise without any corresponding changes in rhythm. Painless palpitations intensified in direct proportion to exercise, again without change in rhythm. No other signs or symptoms of angina. No ST deviations. Excellent exercise capacity ([place]-10% on active scale). Impression: Low probability for ischemia. Symptomatic feeling of chest fluttering is unlikely to be cardiac in origin. Please note: Actual ECG tracings can be found in the PACS system.
== END ==
PROVIDERS: PCP Student in an Organized Health Care Education/Training Program; Referring Provider Student in an Organized Health Care Education/Training Program; Visit Provider Student in an Organized Health Care Education/Training Program
DX: R00.2 Palpitations (principal)
CPT/HCPCS: 93016; 93017; 93018

== ENCOUNTER → 2021-01-23 09:43 | Outpatient (CLI) | payer OTHER, SELFPAY ==
[2021-01-23 11:21] LABS: BUN Creatinine Ratio 24.7 (6-22); Blood Urea Nitrogen 20 mg/dL (9-20); Calcium 9.6 mg/dL (8.4-10.2); Carbon Dioxide 31 mmol/L (22-32); Chloride 103 mmol/L (98-107); Estimated Glomerular Filt Rate > 60.0 mL/min (>60); Glucose 76 mg/dL (80-110); HEMOLYSIS < 15 (0-50); Potassium 4.1 mmol/L (3.4-5.1); Sodium 140 mmol/L (137-145)
[2021-01-23 13:22] LABS: Creatinine Urine Random 65.4 mg/dL
[2021-01-23 13:28] LABS: Microalbumin Urine Random < 0.6 mg/dL (0-1.6)
[2021-01-24 04:09] LABS: Prostate Specific Antigen Scrn 3.63 ng/mL (0.1-4.0)
== END ==
PROVIDERS: PCP Student in an Organized Health Care Education/Training Program; Referring Provider Student in an Organized Health Care Education/Training Program; Visit Provider Student in an Organized Health Care Education/Training Program
DX: Z12.5 Encounter for screening for malignant neoplasm of prostate (principal); I10 Essential (primary) hypertension
CPT/HCPCS: 36415; 80048; 82043; 82570; G0103

== ENCOUNTER 2021-09-12 11:15 | Outpatient (RCR) | payer OTHER, MEDICAID, SELFPAY ==
--- NOTE | 2021-07-22 17:33 | PT.OIE ---
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/30/15) Past Surgical History (Last Reviewed 02/06/21 @ 11:49 by Buster Cobos MD) History of tonsillectomy Status post hernia repair Visit Care Team Role Provider Type Hollis Grayson MD Attending Provider Physician Family Provider Primary Care Provider Referring Provider Specialty: Internal Medicine Address: [address] [place] [address], [address], [facility] Email: [email or web address] Physical Therapy Initial Evaluation PT-OP-A Visit Information Start: 07/22/21 16:51 Freq: Status: Active Protocol: Document 07/22/21 15:15 DCW (Rec: 07/22/21 17:22 DCW [id number]) Out-Patient Physical Therapy Visit Information Visit Information Visit Type Initial Evaluation Visit Start Time 15:15 Visit Stop Time 16:00 Total Visit Minutes 45 Visit Number 1 Number of TIE MAN Visits 0 Evaluation Information Evaluation Date 07/22/21 PT-OP-B Current Condition Start: 07/22/21 16:51 Freq: Status: Active Protocol: Document 07/22/21 15:15 DCW (Rec: 07/22/21 17:22 DCW [id number]) Current Condition History of Current Condition Onset Date One month history Current Complaints Left shoulder pain with reaching and overhead movement History of Current Condition Pt is a 66 year old male presenting with a one month history of left shoulder pain. Pt notes that any rotational movement against resistance, lateral movement against pressure, or reaching forward causes increased pain. Admits his shoulder feels like it gets stuck until he is able to move it enough, and he then experiences a really painful pop, and then it moves again. Notes a pretty constant achiness all day, but worse in the morning. Pain improved with rest and ice. Pt does not recall any specific injury. Does admit that he has been doing a lot of backpacking recently, and wonders if it is just sore from wear and tear with the strap on it. Pt does note that overall, while it is impacting his hobbies and ability to go backpacking, it doesn't bother him too much with most of his ADLs. 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 Prior Treatments and Tests Prior PT for his low/mid back, doing well since therapy Treatment Goals Patient/Caregiver Goals Return to backpacking PT-OP-C Subjective Start: 07/22/21 16:51 Freq: Status: Active Protocol: Document 07/22/21 15:15 DCW (Rec: 07/22/21 17:22 DCW [id number]) OP-PT Subjective Patient Comments Patient Comments I don't know if it is from backpacking, or because that's the side I sleep on, or if it is just random. Patient Questionnaires Quick Dash- Upper Extremity Quick Dash UE Score 29.55% Quick Dash UE Impairment 20 to 39% Impaired (Score 20- 39) OP-PT Pain Assessment Pain Assessment Grid Paper Pain Assessment Grid Completed Yes Location Left Shoulder Intensity 5 Scale Used Numeric (0 - 10) PT-OP-F Manual Assessment Start: 07/22/21 16:51 Freq: Status: Active Protocol: Document 07/22/21 15:15 DCW (Rec: 07/22/21 17:22 DCW [id number]) Manual Assessments Soft Tissue Assessment Soft Tissue Mobility Assessment Moderate tone and tenderness to palpation 2/4: Pain with wincing along left subscapularis Joint Mobility Assessment Joint Mobility Assessment Limitations with left scapulothoracic rhythm with abduction PT-OP-K Range of Motion Start: 07/22/21 16:51 Freq: Status: Active Protocol: Document 07/22/21 15:15 DCW (Rec: 07/22/21 17:22 DCW [id number]) Shoulder Goniometric Range of Motion Shoulder Left Active Shoulder ROM WFL Yes Testing Position Sitting Flexion 180 Extension 180 PT-OP-L Special Tests Start: 07/22/21 16:51 Freq: Status: Active Protocol: Document 07/22/21 15:15 DCW (Rec: 07/22/21 17:22 [facility] [id number]) Special Tests Shoulder Special Tests Speed's Biceps Test Results Positive L Passive ER Rotator Cuff Test Results Negative Baugh [place]res Impingement Test Results Positive L Drop Arm Rotator Cuff Test Results Negative Grind Labrum Test Results Positive L Empty Can Test Results Negative Clunk Test Test Results Positive L Belly Press Test Results Negative Apprehension Test Test Results Positive L Anterior Draw Test Results Negative AC Joint Compression Test Results Negative PT-OP-M Strength Start: 07/22/21 16:51 Freq: Status: Active Protocol: Document 07/22/21 15:15 DCW (Rec: 07/22/21 17:22 NVW [id number]) Shoulder Strength Shoulder Manual Muscle Testing Left Flexion 4+ Good+ Abduction (C5) 4+ Good+ External Rotation 4+ Good+ Internal Rotation 4+ Good+ Comments Pain with resisted shoulder abduction and internal rotation PT-OP-T Assessment and Plan Start: 07/22/21 16:51 Freq: Status: Active Protocol: Document 07/22/21 15:15 DCW (Rec: 07/22/21 17:32 DCW [id number]) Physical Therapy Assessment Rehab Potential Rehabilitation Potential Good Evaluation Complexity Number of Personal Factors/Comorbidities 1-2 Number of Body Systems Impaired 1-2 Clinical Presentation at Evaluation Stable Impairments Impairments Functional Activities, Functional Mobility,Pain,Soft Tissue Mobility,Tone Goals Three Impairment Shoulder pain limits pt's backpacking ability. Pharmacy Ancillary Goal (LTG) Pt to backpack for 6 miles without increased shoulder pain LTG Duration 09/21/21 Two Impairment Poor scapulothoracic rhythm due to subscapularis tone Halfway Goal (LTG) Pt to demonstrate proper scapulothoracic rhythm R=L to improve overhead lifting ability. LTG Duration 09/21/21 One Impairment Pt does not have an appropriate home exercise program Short Term Goal (STG) Pt to be independent and compliant with an appropriate HEP STG Duration 08/21/21 Assessment Summary Assessment Pt presents with signs and symptoms consistent with possible left GH labrum involvement, DDx with subscapularis injury. Pt presents with positive labral grind/clunk tests, reports left shoulder getting stuck and then popping when lifting overhead, experiencing pain along LH biceps tendon, and exhibits a very positive apprehension test. Subscap may be tight secondary to protective spasming, which creates poor scapulothoracic rhythm and soreness along lateral edge of scapula. Pt should benefit from skilled therapy focusing one ROM, STM, joint mobilization, and shoulder strengthening. If pt does not make improvement over 4-6 week, may be beneficial to obtain advanced imaging at that time. Physical Therapy Plan Frequency and Duration Frequency of Treatment 2x/Week Duration of Treatment Two months Plan of Care Start Date 07/22/21 Plan of Care End Date 09/21/21 Therapeutic Interventions Therapeutic Interventions Aquatic Therapy,Home Exercise Program,Joint Mobilizations, Manual Therapy,Patient/ Caregiver Education,Self-Care/ Home Management,Soft Tissue Mobilization,Therapeutic Activities Modalities Cold Pack/Ice Massage,Electric Stimulation,Hot Packs, Ultrasound Next Visit Focus/Plan Next Note Type Treatment Note Next Visit Plan Shoulder AROM/PROM, strengthening, joint mobs
--- NOTE | 2021-07-22 17:33 | PT.OPPOC ---
Physical, Occupational & Speech Therapy At [facility] Current Diagnoses Pain in left shoulder (07/22/21) Stiffness of left shoulder, not elsewhere classified (07/22/21) Visit Care Team Role Provider Type Hollis Grayson MD Attending Provider Physician Family Provider Primary Care Provider Referring Provider Specialty: Internal Medicine Address: [address] [place] [address], [address], [facility] Email: [email or web address] Plan Of Care PT-OP-T Assessment and Plan Start: 07/22/21 16:51 Freq: Status: Active Protocol: Document 07/22/21 15:15 DCW (Rec: 07/22/21 17:32 DCW [id number]) Physical Therapy Assessment Rehab Potential Rehabilitation Potential Good Evaluation Complexity Number of Personal Factors/Comorbidities 1-2 Number of Body Systems Impaired 1-2 Clinical Presentation at Evaluation Stable Impairments Impairments Functional Activities, Functional Mobility,Pain,Soft Tissue Mobility,Tone Goals Three Impairment Shoulder pain limits pt's backpacking ability. [facility]cf Goal (LTG) Pt to backpack for 6 miles without increased shoulder pain LTG Duration 09/21/21 Two Impairment Poor scapulothoracic rhythm due to subscapularis tone [employer] Consultant Goal (LTG) Pt to demonstrate proper scapulothoracic rhythm R=L to improve overhead lifting ability. LTG Duration 09/21/21 One Impairment Pt does not have an appropriate home exercise program Short Term Goal (STG) Pt to be independent and compliant with an appropriate HEP STG Duration 08/21/21 Assessment Summary Assessment Pt presents with signs and symptoms consistent with possible left GH labrum involvement, DDx with subscapularis injury. Pt presents with positive labral grind/clunk tests, reports left shoulder getting stuck and then popping when lifting overhead, experiencing pain along LH biceps tendon, and exhibits a very positive apprehension test. Subscap may be tight secondary to protective spasming, which creates poor scapulothoracic rhythm and soreness along lateral edge of scapula. Pt should benefit from skilled therapy focusing one ROM, STM, joint mobilization, and shoulder strengthening. If pt does not make improvement over 4-6 week, may be beneficial to obtain advanced imaging at that time. Physical Therapy Plan Frequency and Duration Frequency of Treatment 2x/Week Duration of Treatment Two months Plan of Care Start Date 07/22/21 Plan of Care End Date 09/21/21 Therapeutic Interventions Therapeutic Interventions Aquatic Therapy,Home Exercise Program,Joint Mobilizations, Manual Therapy,Patient/ Caregiver Education,Self-Care/ Home Management,Soft Tissue Mobilization,Therapeutic Activities Modalities Cold Pack/Ice Massage,Electric Stimulation,Hot Packs, Ultrasound Next Visit Focus/Plan Next Note Type Treatment Note Next Visit Plan Shoulder AROM/PROM, strengthening, joint mobs Plan of Care Dates Plan of Care Start Date 07/22/21 Plan of Care End Date 09/21/21 Electronically Signed by: Juan Erickson, PT 07/22/21 0197 Please Sign and Return: I have reviewed this Plan of Care and certify that the skilled therapy services above are required to meet the patient?s needs. Physician Signature Date Printed Name and Credentials Clinical Instructor Signature Printed Name and Credentials
--- NOTE | 2021-07-24 16:00 | PT.OTN ---
Current Diagnoses Pain in left shoulder (07/24/21) Stiffness of left shoulder, not elsewhere classified (07/24/21) Physical Therapy Treatment Note PT-OP-A Visit Information Start: 07/22/21 16:51 Freq: Status: Active Protocol: Document 07/24/21 15:15 DCW (Rec: 07/24/21 16:00 DCW [id number]) Out-Patient Physical Therapy Visit Information Visit Information Visit Type Treatment Note Visit Start Time 15:15 Visit Stop Time 16:00 Total Visit Minutes 45 Visit Number 2 Number of CUSTOMER ASSISTANT Visits 0 Evaluation Information Evaluation Date 07/22/21 PT-OP-B Current Condition Start: 07/22/21 16:51 Freq: Status: Active Protocol: Document 07/22/21 15:15 DCW (Rec: 07/22/21 17:22 DCW [id number]) Current Condition History of Current Condition Onset Date One month history Current Complaints Left shoulder pain with reaching and overhead movement History of Current Condition Pt is a 66 year old male presenting with a one month history of left shoulder pain. Pt notes that any rotational movement against resistance, lateral movement against pressure, or reaching forward causes increased pain. Admits his shoulder feels like it gets stuck until he is able to move it enough, and he then experiences a really painful pop, and then it moves again. Notes a pretty constant achiness all day, but worse in the morning. Pain improved with rest and ice. Pt does not recall any specific injury. Does admit that he has been doing a lot of backpacking recently, and wonders if it is just sore from wear and tear with the strap on it. Pt does note that overall, while it is impacting his hobbies and ability to go backpacking, it doesn't bother him too much with most of his ADLs. 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 Prior Treatments and Tests Prior PT for his low/mid back, doing well since therapy Treatment Goals Patient/Caregiver Goals Return to backpacking PT-OP-C Subjective Start: 07/22/21 16:51 Freq: Status: Active Protocol: Document 07/24/21 15:15 DCW (Rec: 07/24/21 16:00 DCW [id number]) OP-PT Subjective Patient Comments Patient Comments I had a chiropractor appointment earlier, and that seemed to straighten me out a bit, and now hopefully this will do the same. PT-OP-F Manual Assessment Start: 07/22/21 16:51 Freq: Status: Active Protocol: Document 07/22/21 15:15 DCW (Rec: 07/22/21 17:22 DCW [id number]) Manual Assessments Soft Tissue Assessment Soft Tissue Mobility Assessment Moderate tone and tenderness to palpation 2/4: Pain with wincing along left subscapularis Joint Mobility Assessment Joint Mobility Assessment Limitations with left scapulothoracic rhythm with abduction PT-OP-K Range of Motion Start: 07/22/21 16:51 Freq: Status: Active Protocol: Document 07/22/21 15:15 DCW (Rec: 07/22/21 17:22 DCW [id number]) Shoulder Goniometric Range of Motion Shoulder Left Active Shoulder ROM WFL Yes Testing Position Sitting Flexion 180 Extension 180 PT-OP-L Special Tests Start: 07/22/21 16:51 Freq: Status: Active Protocol: Document 07/22/21 15:15 DCW (Rec: 07/22/21 17:22 DCW [id number]) Special Tests Shoulder Special Tests Speed's Biceps Test Results Positive L Passive ER Rotator Cuff Test Results Negative Baugh Andres Impingement Test Results Positive L Drop Arm Rotator Cuff Test Results Negative Grind Labrum Test Results Positive L Empty Can Test Results Negative Clunk Test Test Results Positive L Belly Press Test Results Negative Apprehension Test Test Results Positive L Anterior Draw Test Results Negative AC Joint Compression Test Results Negative PT-OP-M Strength Start: 07/22/21 16:51 Freq: Status: Active Protocol: Document 07/22/21 15:15 DCW (Rec: 07/22/21 17:22 DCW [id number]) Shoulder Strength Shoulder Manual Muscle Testing Left Flexion 4+ Good+ Abduction (C5) 4+ Good+ External Rotation 4+ Good+ Internal Rotation 4+ Good+ Comments Pain with resisted shoulder abduction and internal rotation PT-OP-Q Treatments Start: 07/22/21 16:51 Freq: Status: Active Protocol: Document 07/24/21 15:15 DCW (Rec: 07/24/21 16:00 DCW [id number]) Cardio Equipment Upper Body Ergometer (UBE) Duration (Minutes) 6 Seat Position 11 Height 3 Therapeutic Exercises Supine Exercises 2 Supine Exercise Name Horizontal Adduction Side bilateral Resistance 3# 1 Supine Exercise Name Serratus punch Side bilateral Resistance 3# Standing Exercises 3 Standing Exercise Name Shoulder Ext Side bilateral Resistance Lv 3 Equipment Used T-band 2 Standing Exercise Name Rows Side bilateral Resistance Lv 3 Equipment Used T-band 1 Standing Exercise Name Shoulder IR/ER Side left Resistance Lv 3 Equipment Used T-band Manual Therapy Treatment Soft Tissue Mobilization 1 Body Location L Subscapularis Mobilization Type Sustained Pressure,Trigger Point Release Intensity/Depth Moderate Body Position Supine Joint Mobilizations 2 Joint L Scapulothoracic Direction Lateral Grade III Body Position Supine 1 Joint L Glenohumeral Direction Inferior Grade III Body Position Supine PT-OP-T Assessment and Plan Start: 07/22/21 16:51 Freq: Status: Active Protocol: Document 07/24/21 15:15 DCW (Rec: 07/24/21 16:00 DCW [id number]) Physical Therapy Assessment Impairments Impairments Functional Activities, Functional Mobility,Pain,Soft Tissue Mobility,Tone Goals Three Impairment Shoulder pain limits pt's backpacking ability. Senior Care Goal (LTG) Pt to backpack for 6 miles without increased shoulder pain LTG Duration 09/21/21 Two Impairment Poor scapulothoracic rhythm due to subscapularis tone Senior Care Goal (LTG) Pt to demonstrate proper scapulothoracic rhythm R=L to improve overhead lifting ability. LTG Duration 09/21/21 One Impairment Pt does not have an appropriate home exercise program Short Term Goal (STG) Pt to be independent and compliant with an appropriate HEP STG Duration 08/21/21 Assessment Summary Assessment Pt felt good with today's visit, able to perform all activities with minimal discomfort, tolerated joint mobs and STM well. Want to work on improving scapulothoracic rhythm and scapular positioning. Physical Therapy Plan Frequency and Duration Frequency of Treatment 2x/Week Duration of Treatment Two months Plan of Care Start Date 07/22/21 Plan of Care End Date 09/21/21 Therapeutic Interventions Therapeutic Interventions Aquatic Therapy,Home Exercise Program,Joint Mobilizations, Manual Therapy,Patient/ Caregiver Education,Self-Care/ Home Management,Soft Tissue Mobilization,Therapeutic Activities Modalities Cold Pack/Ice Massage,Electric Stimulation,Hot Packs, Ultrasound Next Visit Focus/Plan Next Note Type Treatment Note Next Visit Plan Shoulder AROM/PROM, strengthening, joint mobs
--- NOTE | 2021-07-30 09:17 | PT.OTN ---
Current Diagnoses Pain in left shoulder (07/30/21) Stiffness of left shoulder, not elsewhere classified (07/30/21) Physical Therapy Treatment Note PT-OP-A Visit Information Start: 07/22/21 16:51 Freq: Status: Active Protocol: Document 07/30/21 08:13 ER (Rec: 07/30/21 09:17 ER [id number]) Out-Patient Physical Therapy Visit Information Visit Information Visit Type Treatment Note Visit Note PRACHI Castle lead treatment and provided education under the direct supervision and instruction of SHAKIR Casas. Visit Start Time 08:15 Visit Stop Time 09:00 Total Visit Minutes 45 Visit Number 3 Number of MANAGER STRATEGIC PARTNERSHIPS Visits 1 PT-OP-B Current Condition Start: 07/22/21 16:51 Freq: Status: Active Protocol: Document 07/22/21 15:15 DCW (Rec: 07/22/21 17:22 DCW [id number]) Current Condition History of Current Condition Onset Date One month history Current Complaints Left shoulder pain with reaching and overhead movement History of Current Condition Pt is a 66 year old male presenting with a one month history of left shoulder pain. Pt notes that any rotational movement against resistance, lateral movement against pressure, or reaching forward causes increased pain. Admits his shoulder feels like it gets stuck until he is able to move it enough, and he then experiences a really painful pop, and then it moves again. Notes a pretty constant achiness all day, but worse in the morning. Pain improved with rest and ice. Pt does not recall any specific injury. Does admit that he has been doing a lot of backpacking recently, and wonders if it is just sore from wear and tear with the strap on it. Pt does note that overall, while it is impacting his hobbies and ability to go backpacking, it doesn't bother him too much with most of his ADLs. 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 Prior Treatments and Tests Prior PT for his low/mid back, doing well since therapy Treatment Goals Patient/Caregiver Goals Return to backpacking PT-OP-C Subjective Start: 07/22/21 16:51 Freq: Status: Active Protocol: Document 07/30/21 08:13 ER (Rec: 07/30/21 09:17 ER [id number]) OP-PT Subjective Patient Comments Patient Comments Pt said chiropractor said his right shoulder is forward and left shoulder is back. Said he thinks his shoulder is getting better and stronger. Feels random popping, mostly when he is bending over and reaching out with arm. Feels like it gets tight, and then will snap and then pain diminishes after it pops. Reports pain along medial border of humerus. PT-OP-F Manual Assessment Start: 07/22/21 16:51 Freq: Status: Active Protocol: Document 07/22/21 15:15 DCW (Rec: 07/22/21 17:22 DCW [id number]) Manual Assessments Soft Tissue Assessment Soft Tissue Mobility Assessment Moderate tone and tenderness to palpation 2/4: Pain with wincing along left subscapularis Joint Mobility Assessment Joint Mobility Assessment Limitations with left scapulothoracic rhythm with abduction PT-OP-K Range of Motion Start: 07/22/21 16:51 Freq: Status: Active Protocol: Document 07/22/21 15:15 DCW (Rec: 07/22/21 17:22 DCW [id number]) Shoulder Goniometric Range of Motion Shoulder Left Active Shoulder ROM WFL Yes Testing Position Sitting Flexion 180 Extension 180 PT-OP-L Special Tests Start: 07/22/21 16:51 Freq: Status: Active Protocol: Document 07/22/21 15:15 DCW (Rec: 07/22/21 17:22 DCW [id number]) Special Tests Shoulder Special Tests Speed's Biceps Test Results Positive L Passive ER Rotator Cuff Test Results Negative Baugh Andres Impingement Test Results Positive L Drop Arm Rotator Cuff Test Results Negative Grind Labrum Test Results Positive L Empty Can Test Results Negative Clunk Test Test Results Positive L Belly Press Test Results Negative Apprehension Test Test Results Positive L Anterior Draw Test Results Negative AC Joint Compression Test Results Negative PT-OP-M Strength Start: 07/22/21 16:51 Freq: Status: Active Protocol: Document 07/22/21 15:15 DCW (Rec: 07/22/21 17:22 DCW [id number]) Shoulder Strength Shoulder Manual Muscle Testing Left Flexion 4+ Good+ Abduction (C5) 4+ Good+ External Rotation 4+ Good+ Internal Rotation 4+ Good+ Comments Pain with resisted shoulder abduction and internal rotation PT-OP-Q Treatments Start: 07/22/21 16:51 Freq: Status: Active Protocol: Document 07/30/21 08:13 ER (Rec: 07/30/21 09:17 ER [id number]) Cardio Equipment Upper Body Ergometer (UBE) Duration (Minutes) 6 Seat Position 11 Height 3 Therapeutic Exercises Sidelying Exercises Open Book Sidelying Exercise Name added to HEP Side bilateral Resistance AROM Reps/Minutes 5x 15 ea side Comments good feedback response Sitting Exercises UT stretch Sitting Exercise Name added to HEP Side bilateral Resistance AROM Reps/Minutes 3x30 Comments cued CS back into neutral Levator Scapula Stretch Sitting Exercise Name added to HEP Side bilateral Resistance AROM Reps/Minutes 3x 30 Comments good feedback response Standing Exercises D2 flexion Standing Exercise Name added to HEP Side left Resistance L1 TB Equipment Used Tband Reps/Minutes 10x Comments cues to break up movement into 2 segments. Shoulder flexion Standing Exercise Name Shoulder front flexion, added to HEP Side bilateral Resistance L1 TB Equipment Used Tband Reps/Minutes 10x ea Comments cues to avoid moving into scaption 3 Standing Exercise Name Shoulder Ext- reviewed HEP Side bilateral Resistance Lv 3 Equipment Used T-band Reps/Minutes 15 2 Standing Exercise Name Rows- reviewed HEP Side bilateral Resistance Lv 3 Equipment Used T-band Reps/Minutes 15x Comments good form and scapular retraction 1 Standing Exercise Name Shoulder IR/ER reviewed HEP Side left Resistance L3 TB Equipment Used Tband Reps/Minutes 15 ea PT-OP-T Assessment and Plan Start: 07/22/21 16:51 Freq: Status: Active Protocol: Document 07/30/21 08:13 ER (Rec: 07/30/21 09:17 ER [id number]) Physical Therapy Assessment Goals Three Impairment Shoulder pain limits pt's backpacking ability. Residential Goal (LTG) Pt to backpack for 6 miles without increased shoulder pain LTG Duration 09/21/21 Two Impairment Poor scapulothoracic rhythm due to subscapularis tone Emergency Room Orderly Goal (LTG) Pt to demonstrate proper scapulothoracic rhythm R=L to improve overhead lifting ability. LTG Duration 09/21/21 One Impairment Pt does not have an appropriate home exercise program Short Term Goal (STG) Pt to be independent and compliant with an appropriate HEP STG Duration 08/21/21 Assessment Summary Assessment Reviewed HEP. Instructed and added to HEP LUE flexion, D2 flexoin, UT stretch, Lev Scap stretch, Open book. Good feedback response to all. Provided with new L3 TB for prev HEP ex, L1 for new HEP ex . Pt able to perform all activities with occasional random snap discomfort but no adverse affects felt was a good beneficial movement. Physical Therapy Plan Frequency and Duration Frequency of Treatment 2x/Week Duration of Treatment Two months Plan of Care Start Date 07/22/21 Plan of Care End Date 09/21/21 Therapeutic Interventions Therapeutic Interventions Aquatic Therapy,Home Exercise Program,Joint Mobilizations, Manual Therapy,Patient/ Caregiver Education,Self-Care/ Home Management,Soft Tissue Mobilization,Therapeutic Activities Modalities Cold Pack/Ice Massage,Electric Stimulation,Hot Packs, Ultrasound Next Visit Focus/Plan Next Note Type Treatment Note Next Visit Plan Review HEP, work on more multiplanar shoulder ex. Shoulder AROM/PROM, strengthening, joint mobs
--- NOTE | 2021-08-01 15:15 | PT.OTN ---
Current Diagnoses Pain in left shoulder (08/01/21) Stiffness of left shoulder, not elsewhere classified (08/01/21) Physical Therapy Treatment Note PT-OP-A Visit Information Start: 07/22/21 16:51 Freq: Status: Active Protocol: Document 08/01/21 14:33 SP (Rec: 08/01/21 15:47 SP [id number]) Out-Patient Physical Therapy Visit Information Visit Information Visit Type Treatment Note Visit Start Time 14:33 Visit Stop Time 15:15 Total Visit Minutes 42 Visit Number 4 Number of FACING SLITTER Visits 2 Evaluation Information Evaluation Date 07/22/21 PT-OP-B Current Condition Start: 07/22/21 16:51 Freq: Status: Active Protocol: Document 07/22/21 15:15 DCW (Rec: 07/22/21 17:22 DCW [id number]) Current Condition History of Current Condition Onset Date One month history Current Complaints Left shoulder pain with reaching and overhead movement History of Current Condition Pt is a 66 year old male presenting with a one month history of left shoulder pain. Pt notes that any rotational movement against resistance, lateral movement against pressure, or reaching forward causes increased pain. Admits his shoulder feels like it gets stuck until he is able to move it enough, and he then experiences a really painful pop, and then it moves again. Notes a pretty constant achiness all day, but worse in the morning. Pain improved with rest and ice. Pt does not recall any specific injury. Does admit that he has been doing a lot of backpacking recently, and wonders if it is just sore from wear and tear with the strap on it. Pt does note that overall, while it is impacting his hobbies and ability to go backpacking, it doesn't bother him too much with most of his ADLs. 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 Prior Treatments and Tests Prior PT for his low/mid back, doing well since therapy Treatment Goals Patient/Caregiver Goals Return to backpacking PT-OP-C Subjective Start: 07/22/21 16:51 Freq: Status: Active Protocol: Document 08/01/21 14:33 SP (Rec: 08/01/21 15:47 SP [id number]) OP-PT Subjective Patient Comments Patient Comments Pt stated was sore after last tx, think the the diagonal ex might be to challenging but performs it after doing the other ones so maybe just doing that one first might be ok. Wants to assess today.Pt inquired if can start up hiking again with wt'd pack. PT-OP-F Manual Assessment Start: 07/22/21 16:51 Freq: Status: Active Protocol: Document 07/22/21 15:15 DCW (Rec: 07/22/21 17:22 DCW [id number]) Manual Assessments Soft Tissue Assessment Soft Tissue Mobility Assessment Moderate tone and tenderness to palpation 2/4: Pain with wincing along left subscapularis Joint Mobility Assessment Joint Mobility Assessment Limitations with left scapulothoracic rhythm with abduction PT-OP-K Range of Motion Start: 07/22/21 16:51 Freq: Status: Active Protocol: Document 07/22/21 15:15 DCW (Rec: 07/22/21 17:22 DCW [id number]) Shoulder Goniometric Range of Motion Shoulder Left Active Shoulder ROM WFL Yes Testing Position Sitting Flexion 180 Extension 180 PT-OP-L Special Tests Start: 07/22/21 16:51 Freq: Status: Active Protocol: Document 07/22/21 15:15 DCW (Rec: 07/22/21 17:22 DCW [id number]) Special Tests Shoulder Special Tests Speed's Biceps Test Results Positive L Passive ER Rotator Cuff Test Results Negative Baugh Andres Impingement Test Results Positive L Drop Arm Rotator Cuff Test Results Negative Grind Labrum Test Results Positive L Empty Can Test Results Negative Clunk Test Test Results Positive L Belly Press Test Results Negative Apprehension Test Test Results Positive L Anterior Draw Test Results Negative AC Joint Compression Test Results Negative PT-OP-M Strength Start: 07/22/21 16:51 Freq: Status: Active Protocol: Document 07/22/21 15:15 DCW (Rec: 07/22/21 17:22 DCW [id number]) Shoulder Strength Shoulder Manual Muscle Testing Left Flexion 4+ Good+ Abduction (C5) 4+ Good+ External Rotation 4+ Good+ Internal Rotation 4+ Good+ Comments Pain with resisted shoulder abduction and internal rotation PT-OP-Q Treatments Start: 07/22/21 16:51 Freq: Status: Active Protocol: Document 08/01/21 14:33 SP (Rec: 08/01/21 15:47 SP [id number]) Cardio Equipment Upper Body Ergometer (UBE) Duration (Minutes) 6 RPM 60 Seat Position 11 Height 3 Other F/b 1 min each Therapeutic Exercises Supine Exercises 2 Supine Exercise Name Horizontal Adduction Side bilateral Resistance 3# Comments Dc'd pt found to be easy now 1 Supine Exercise Name serratus punch Side bilateral Resistance 3# Comments DC'd pt found to be easy Prone Exercises plank Prone Exercise Name off elbows added to HEP Reps/Minutes 60s Comments painfree Standing Exercises wall clock Standing Exercise Name 12, 10, 8 o'clock added to HEP Side left Resistance Tb#1 Reps/Minutes x10 Comments challenged initially coordinating BLE/ BUE, cued forearms contact wall, D1 ext Standing Exercise Name added to HEP Side left Resistance #1 TB Reps/Minutes x10 Comments good form, painfree D2 flexion Standing Exercise Name reviewed HEP Side left Resistance L1 TB > 2# DB Equipment Used DB Reps/Minutes 10x Comments pain with TB, improved with change to DB #2, muscle tiring . Shoulder flexion Standing Exercise Name Shoulder front flexion, reviewed HEP Side left Resistance L1 TB Reps/Minutes 10x ea Comments cued no UT recruitment, good response PT-OP-T Assessment and Plan Start: 07/22/21 16:51 Freq: Status: Active Protocol: Document 08/01/21 14:33 SP (Rec: 08/01/21 15:47 SP [id number]) Physical Therapy Assessment Goals Three Impairment Shoulder pain limits pt's backpacking ability. Assisted Goal (LTG) Pt to backpack for 6 miles without increased shoulder pain LTG Duration 09/21/21 Two Impairment Poor scapulothoracic rhythm due to subscapularis tone Reworker Goal (LTG) Pt to demonstrate proper scapulothoracic rhythm R=L to improve overhead lifting ability. LTG Duration 09/21/21 One Impairment Pt does not have an appropriate home exercise program Short Term Goal (STG) Pt to be independent and compliant with an appropriate HEP STG Duration 08/21/21 Assessment Summary Assessment Pt experienced discomfort with TB [id number] but improved with change to DB. DC'd suping serratus press/ HADD due to pt found to be easy. PRogressed HEP of added plank off elbows, resisted D1 ext, wall clock and wall walking for scap stabilization with progression painfree into range of LUE away from body strengthening with good responses. FACING SLITTER recommended not more than 25# pack with eccentials on hikes if wanting to assess before next tx. Physical Therapy Plan Frequency and Duration Frequency of Treatment 2x/Week Duration of Treatment Two months Plan of Care Start Date 07/22/21 Plan of Care End Date 09/21/21 Therapeutic Interventions Therapeutic Interventions Aquatic Therapy,Home Exercise Program,Joint Mobilizations, Manual Therapy,Patient/ Caregiver Education,Self-Care/ Home Management,Soft Tissue Mobilization,Therapeutic Activities Modalities Cold Pack/Ice Massage,Electric Stimulation,Hot Packs, Ultrasound Next Visit Focus/Plan Next Note Type Treatment Note Next Visit Plan Review HEP: plank, D1 ext, D2 flexion , FF, wall clock, wall walking. POC: work on more multiplanar shoulder ex. Shoulder AROM/PROM, strengthening, joint mobs
--- NOTE | 2021-08-06 10:26 | PT.OTN ---
Current Diagnoses Pain in left shoulder (08/06/21) Stiffness of left shoulder, not elsewhere classified (08/06/21) Physical Therapy Treatment Note PT-OP-A Visit Information Start: 07/22/21 16:51 Freq: Status: Active Protocol: Document 08/06/21 08:59 ER (Rec: 08/06/21 09:46 ER [id number]) Out-Patient Physical Therapy Visit Information Visit Information Visit Type Treatment Note Visit Note PRACHI Castle lead treatment and provided education under the direct supervision and instruction of SHAKIR Casas. Visit Start Time 09:00 Visit Stop Time 09:45 Total Visit Minutes 45 Visit Number 5 Number of SUPERVISOR HYDROCHLORIC AREA Visits 3 PT-OP-B Current Condition Start: 07/22/21 16:51 Freq: Status: Active Protocol: Document 07/22/21 15:15 DCW (Rec: 07/22/21 17:22 DCW [id number]) Current Condition History of Current Condition Onset Date One month history Current Complaints Left shoulder pain with reaching and overhead movement History of Current Condition Pt is a 66 year old male presenting with a one month history of left shoulder pain. Pt notes that any rotational movement against resistance, lateral movement against pressure, or reaching forward causes increased pain. Admits his shoulder feels like it gets stuck until he is able to move it enough, and he then experiences a really painful pop, and then it moves again. Notes a pretty constant achiness all day, but worse in the morning. Pain improved with rest and ice. Pt does not recall any specific injury. Does admit that he has been doing a lot of backpacking recently, and wonders if it is just sore from wear and tear with the strap on it. Pt does note that overall, while it is impacting his hobbies and ability to go backpacking, it doesn't bother him too much with most of his ADLs. 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 Prior Treatments and Tests Prior PT for his low/mid back, doing well since therapy Treatment Goals Patient/Caregiver Goals Return to backpacking PT-OP-C Subjective Start: 07/22/21 16:51 Freq: Status: Active Protocol: Document 08/06/21 08:59 ER (Rec: 08/06/21 09:46 ER [id number]) OP-PT Subjective Patient Comments Patient Comments Pt stated that he used a 5# weight in D2 flexion to do exercises over the weekend and more reps than on HEP recommended 2# weights that produced no pain in tx, and he could barely lift his arm the next day. Still experiencing some pain today 12/08, 11/07 Today. Went hiking with ~ 25 pound pack with no pain. PT-OP-F Manual Assessment Start: 07/22/21 16:51 Freq: Status: Active Protocol: Document 07/22/21 15:15 DCW (Rec: 07/22/21 17:22 DCW [id number]) Manual Assessments Soft Tissue Assessment Soft Tissue Mobility Assessment Moderate tone and tenderness to palpation 10/04: Pain with wincing along left subscapularis Joint Mobility Assessment Joint Mobility Assessment Limitations with left scapulothoracic rhythm with abduction PT-OP-K Range of Motion Start: 07/22/21 16:51 Freq: Status: Active Protocol: Document 07/22/21 15:15 DCW (Rec: 07/22/21 17:22 DCW [id number]) Shoulder Goniometric Range of Motion Shoulder Left Active Shoulder ROM WFL Yes Testing Position Sitting Flexion 180 Extension 180 PT-OP-L Special Tests Start: 07/22/21 16:51 Freq: Status: Active Protocol: Document 07/22/21 15:15 DCW (Rec: 07/22/21 17:22 DCW [id number]) Special Tests Shoulder Special Tests Speed's Biceps Test Results Positive L Passive ER Rotator Cuff Test Results Negative Baugh Andres Impingement Test Results Positive L Drop Arm Rotator Cuff Test Results Negative Grind Labrum Test Results Positive L Empty Can Test Results Negative Clunk Test Test Results Positive L Belly Press Test Results Negative Apprehension Test Test Results Positive L Anterior Draw Test Results Negative AC Joint Compression Test Results Negative PT-OP-M Strength Start: 07/22/21 16:51 Freq: Status: Active Protocol: Document 07/22/21 15:15 DCW (Rec: 07/22/21 17:22 DCW [id number]) Shoulder Strength Shoulder Manual Muscle Testing Left Flexion 4+ Good+ Abduction (C5) 4+ Good+ External Rotation 4+ Good+ Internal Rotation 4+ Good+ Comments Pain with resisted shoulder abduction and internal rotation PT-OP-Q Treatments Start: 07/22/21 16:51 Freq: Status: Active Protocol: Document 08/06/21 08:59 ER (Rec: 08/06/21 09:46 ER [id number]) Cardio Equipment Upper Body Ergometer (UBE) Duration (Minutes) 6 RPM 60 Seat Position 14 Height 3 Other F/B 1 min each Therapeutic Exercises Supine Exercises 2 Supine Exercise Name Horizontal Adduction Resistance 3# Reps/Minutes 10x Comments Pt found exercise challenging at End of ROM on R, with good muscle engageme Prone Exercises Push yps Side bilateral Resistance AROM Reps/Minutes 5x Comments Assessed, caused discomfort, DCs plank Prone Exercise Name off elbows added to HEP Reps/Minutes 60s Comments painfree Sidelying Exercises Open Book Sidelying Exercise Name Reviewed Side bilateral Resistance AROM Reps/Minutes 10x each side Comments some discomfort at end of ROM LUE, modified to less ROM Standing Exercises wall clock Standing Exercise Name 12, 10, 8 o'clock added to HEP Side left Resistance Tb#1 Reps/Minutes x10 Comments challenged coordination BUE. Cued for RUE placement D1 ext Standing Exercise Name reviewed to HEP Side left Resistance #1 TB Reps/Minutes x10 D2 flexion Standing Exercise Name reviewed HEP Side left Resistance 2# DB Equipment Used DB Reps/Minutes 10x Comments sore but no pain. good form and feedback Shoulder flexion Standing Exercise Name Shoulder front flexion, reviewed HEP Side left Resistance L1 TB Reps/Minutes 10x Comments cued no UT recruitment, Pt indicates it feels like work Manual Therapy Treatment Manual Techniques Gentle PNF L Shldr Type PNF Scapular/ thoracic mobs, GH AP/PA shifting Body Location GH joint, scapular complex Body Position Sidelying Comments 5 min PT-OP-T Assessment and Plan Start: 07/22/21 16:51 Freq: Status: Active Protocol: Document 08/06/21 08:59 ER (Rec: 08/06/21 09:46 ER [id number]) Physical Therapy Assessment Goals Three Impairment Shoulder pain limits pt's backpacking ability. Mcc Goal (LTG) Pt to backpack for 6 miles without increased shoulder pain LTG Duration 09/21/21 Two Impairment Poor scapulothoracic rhythm due to subscapularis tone Preparation Supervisor Canning Goal (LTG) Pt to demonstrate proper scapulothoracic rhythm R=L to improve overhead lifting ability. LTG Duration 09/21/21 One Impairment Pt does not have an appropriate home exercise program Short Term Goal (STG) Pt to be independent and compliant with an appropriate HEP 08/06/21 HEP Horizontal Abduction w 2# weight in supine Open Book Planks Wall Clocks TB ER w/ TB D1 Flexion w 2#DB D1 Extension w TB FWD Flexion w TB STG Duration 08/21/21 Assessment Summary Assessment At beginning of session, Pt indicated that he had overdone it w/ D2 flexion on Thursday, using a 5# weight instead of 2# as instructed, with more reps than instructed. Said he is recovered to some point with less pain in arm today. Still feels like he got punched in the arm. Gently reviewed HEP to assess current condition. Pt able to perform all exercises, but with soreness primarily in Medial Deltoid, and end of ROM pain in shoulder. Instructed Pt in difference b/t pain and working muscle sensation, and the need to stay away from pain during therapy. Pt reported that he always feels better post therapy. Recommend continued low weight, low rep plan at home for continued progression. Physical Therapy Plan Frequency and Duration Frequency of Treatment 2x/Week Duration of Treatment Two months Plan of Care Start Date 07/22/21 Plan of Care End Date 09/21/21 Therapeutic Interventions Therapeutic Interventions Aquatic Therapy,Home Exercise Program,Joint Mobilizations, Manual Therapy,Patient/ Caregiver Education,Self-Care/ Home Management,Soft Tissue Mobilization,Therapeutic Activities Modalities Cold Pack/Ice Massage,Electric Stimulation,Hot Packs, Ultrasound Next Visit Focus/Plan Next Note Type Treatment Note Next Visit Plan Recheck HEP (listed in Goals) POC: work on more multiplanar shoulder ex. Shoulder AROM/PROM, strengthening, joint mobs
--- NOTE | 2021-08-13 15:14 | PT.OTN ---
Current Diagnoses Pain in left shoulder (08/13/21) Stiffness of left shoulder, not elsewhere classified (08/13/21) Physical Therapy Treatment Note PT-OP-A Visit Information Start: 07/22/21 16:51 Freq: Status: Active Protocol: Document 08/13/21 14:30 DCW (Rec: 08/13/21 15:14 DCW [id number]) Out-Patient Physical Therapy Visit Information Visit Information Visit Type Treatment Note Visit Start Time 14:30 Visit Stop Time 15:15 Total Visit Minutes 45 Visit Number 6 Number of HOSE CEMENTER Visits 0 Evaluation Information Evaluation Date 07/22/21 PT-OP-B Current Condition Start: 07/22/21 16:51 Freq: Status: Active Protocol: Document 07/22/21 15:15 DCW (Rec: 07/22/21 17:22 DCW [id number]) Current Condition History of Current Condition Onset Date One month history Current Complaints Left shoulder pain with reaching and overhead movement History of Current Condition Pt is a 66 year old male presenting with a one month history of left shoulder pain. Pt notes that any rotational movement against resistance, lateral movement against pressure, or reaching forward causes increased pain. Admits his shoulder feels like it gets stuck until he is able to move it enough, and he then experiences a really painful pop, and then it moves again. Notes a pretty constant achiness all day, but worse in the morning. Pain improved with rest and ice. Pt does not recall any specific injury. Does admit that he has been doing a lot of backpacking recently, and wonders if it is just sore from wear and tear with the strap on it. Pt does note that overall, while it is impacting his hobbies and ability to go backpacking, it doesn't bother him too much with most of his ADLs. 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 Prior Treatments and Tests Prior PT for his low/mid back, doing well since therapy Treatment Goals Patient/Caregiver Goals Return to backpacking PT-OP-C Subjective Start: 07/22/21 16:51 Freq: Status: Active Protocol: Document 08/13/21 14:30 DCW (Rec: 08/13/21 15:14 DCW [id number]) OP-PT Subjective Patient Comments Patient Comments Pt notes he has been seeing some improvement, still sore when he does something like reaching back to put his coat on. PT-OP-F Manual Assessment Start: 07/22/21 16:51 Freq: Status: Active Protocol: Document 07/22/21 15:15 DCW (Rec: 07/22/21 17:22 DCW [id number]) Manual Assessments Soft Tissue Assessment Soft Tissue Mobility Assessment Moderate tone and tenderness to palpation 2/4: Pain with wincing along left subscapularis Joint Mobility Assessment Joint Mobility Assessment Limitations with left scapulothoracic rhythm with abduction PT-OP-K Range of Motion Start: 07/22/21 16:51 Freq: Status: Active Protocol: Document 07/22/21 15:15 DCW (Rec: 07/22/21 17:22 DCW [id number]) Shoulder Goniometric Range of Motion Shoulder Left Active Shoulder ROM WFL Yes Testing Position Sitting Flexion 180 Extension 180 PT-OP-L Special Tests Start: 07/22/21 16:51 Freq: Status: Active Protocol: Document 07/22/21 15:15 DCW (Rec: 07/22/21 17:22 DCW [id number]) Special Tests Shoulder Special Tests Speed's Biceps Test Results Positive L Passive ER Rotator Cuff Test Results Negative Baugh Andres Impingement Test Results Positive L Drop Arm Rotator Cuff Test Results Negative Grind Labrum Test Results Positive L Empty Can Test Results Negative Clunk Test Test Results Positive L Belly Press Test Results Negative Apprehension Test Test Results Positive L Anterior Draw Test Results Negative AC Joint Compression Test Results Negative PT-OP-M Strength Start: 07/22/21 16:51 Freq: Status: Active Protocol: Document 07/22/21 15:15 DCW (Rec: 07/22/21 17:22 DCW [id number]) Shoulder Strength Shoulder Manual Muscle Testing Left Flexion 4+ Good+ Abduction (C5) 4+ Good+ External Rotation 4+ Good+ Internal Rotation 4+ Good+ Comments Pain with resisted shoulder abduction and internal rotation PT-OP-Q Treatments Start: 07/22/21 16:51 Freq: Status: Active Protocol: Document 08/13/21 14:30 DCW (Rec: 08/13/21 15:14 DCW [id number]) Cardio Equipment Upper Body Ergometer (UBE) Duration (Minutes) 6 RPM 60 Seat Position 14 Height 3 Other F/B 1 min each Manual Therapy Treatment Soft Tissue Mobilization 1 Body Location L Subscapularis Mobilization Type Sustained Pressure,Trigger Point Release Intensity/Depth Moderate Body Position Supine Joint Mobilizations 2 Joint L Scapulothoracic Direction Lateral Grade III Body Position Supine 1 Joint L Glenohumeral Direction Inferior Grade III Body Position Supine Manual Techniques Gentle PNF L Shldr Type PNF Scapular/ thoracic mobs, GH AP/PA shifting Body Location GH joint, scapular complex Body Position Sidelying Comments 5 min PT-OP-T Assessment and Plan Start: 07/22/21 16:51 Freq: Status: Active Protocol: Document 08/13/21 14:30 DCW (Rec: 08/13/21 15:14 DCW [id number]) Physical Therapy Assessment Goals Three Impairment Shoulder pain limits pt's backpacking ability. Intake Specialist Goal (LTG) Pt to backpack for 6 miles without increased shoulder pain LTG Duration 09/21/21 Two Impairment Poor scapulothoracic rhythm due to subscapularis tone Intake Specialist Goal (LTG) Pt to demonstrate proper scapulothoracic rhythm R=L to improve overhead lifting ability. LTG Duration 09/21/21 One Impairment Pt does not have an appropriate home exercise program Short Term Goal (STG) Pt to be independent and compliant with an appropriate HEP 08/06/21 HEP Horizontal Abduction w 2# weight in supine Open Book Planks Wall Clocks TB ER w/ TB D1 Flexion w 2#DB D1 Extension w TB FWD Flexion w TB STG Duration 08/21/21 Assessment Summary Assessment Pt compliant with HEP, focus more today on STM/manual therapy. Pt showing great overall progress, significant decrease in pain with nearly all activity. Physical Therapy Plan Frequency and Duration Frequency of Treatment 2x/Week Duration of Treatment Two months Plan of Care Start Date 07/22/21 Plan of Care End Date 09/21/21 Therapeutic Interventions Therapeutic Interventions Aquatic Therapy,Home Exercise Program,Joint Mobilizations, Manual Therapy,Patient/ Caregiver Education,Self-Care/ Home Management,Soft Tissue Mobilization,Therapeutic Activities Modalities Cold Pack/Ice Massage,Electric Stimulation,Hot Packs, Ultrasound Next Visit Focus/Plan Next Note Type Treatment Note Next Visit Plan POC: work on more multiplanar shoulder ex. Shoulder AROM/PROM, strengthening, joint mobs
--- NOTE | 2021-08-15 14:30 | PT.OTN ---
Current Diagnoses Pain in left shoulder (08/15/21) Stiffness of left shoulder, not elsewhere classified (08/15/21) Physical Therapy Treatment Note PT-OP-A Visit Information Start: 07/22/21 16:51 Freq: Status: Active Protocol: Document 08/15/21 13:50 SP (Rec: 08/15/21 14:36 SP [id number]) Out-Patient Physical Therapy Visit Information Visit Information Visit Type Treatment Note Visit Note Review goals and possible DC next tx. Pt proressing well, getting back to prior activiteis, thinks ready for DC and progress strengthening rest on his own. Visit Start Time 13:50 Visit Stop Time 14:30 Total Visit Minutes 40 Visit Number 7 Number of MASTER MECHANIC Visits 1 Evaluation Information Evaluation Date 07/22/21 PT-OP-B Current Condition Start: 07/22/21 16:51 Freq: Status: Active Protocol: Document 07/22/21 15:15 DCW (Rec: 07/22/21 17:22 DCW [id number]) Current Condition History of Current Condition Onset Date One month history Current Complaints Left shoulder pain with reaching and overhead movement History of Current Condition Pt is a 66 year old male presenting with a one month history of left shoulder pain. Pt notes that any rotational movement against resistance, lateral movement against pressure, or reaching forward causes increased pain. Admits his shoulder feels like it gets stuck until he is able to move it enough, and he then experiences a really painful pop, and then it moves again. Notes a pretty constant achiness all day, but worse in the morning. Pain improved with rest and ice. Pt does not recall any specific injury. Does admit that he has been doing a lot of backpacking recently, and wonders if it is just sore from wear and tear with the strap on it. Pt does note that overall, while it is impacting his hobbies and ability to go backpacking, it doesn't bother him too much with most of his ADLs. 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 Prior Treatments and Tests Prior PT for his low/mid back, doing well since therapy Treatment Goals Patient/Caregiver Goals Return to backpacking PT-OP-C Subjective Start: 07/22/21 16:51 Freq: Status: Active Protocol: Document 08/15/21 13:50 SP (Rec: 08/15/21 14:36 SP [id number]) OP-PT Subjective Patient Comments Patient Comments Pt reports felt alot better after last tx with manual and think was really needed to help loosen up tightness and allow more ROM. Feels like progressing well able to cross country ski this past weekend carrying 25# pack with eccentials no problem and able to complete OH supine 1.5# DB with abillity to touch arm to floor when laying on floor. Pt states does have a foam roller but never used. Pt states thinks his next last appt will be his last and feel comfortable about progressing on own. Pt inquired if his Jldqlyf-[id number]-[id number] COVID vaccine can be a factor on why still feels like got punched over lateral L shld and uncertain if should get the booster althought wants to travel outside [place] and so for safety wants as much health protection. Is pleased with ROM and progressing activity level with wt tolerated alot better. PT-OP-F Manual Assessment Start: 07/22/21 16:51 Freq: Status: Active Protocol: Document 07/22/21 15:15 DCW (Rec: 07/22/21 17:22 DCW [id number]) Manual Assessments Soft Tissue Assessment Soft Tissue Mobility Assessment Moderate tone and tenderness to palpation 2/4: Pain with wincing along left subscapularis Joint Mobility Assessment Joint Mobility Assessment Limitations with left scapulothoracic rhythm with abduction PT-OP-K Range of Motion Start: 07/22/21 16:51 Freq: Status: Active Protocol: Document 07/22/21 15:15 DCW (Rec: 07/22/21 17:22 DCW [id number]) Shoulder Goniometric Range of Motion Shoulder Left Active Shoulder ROM WFL Yes Testing Position Sitting Flexion 180 Extension 180 PT-OP-L Special Tests Start: 07/22/21 16:51 Freq: Status: Active Protocol: Document 07/22/21 15:15 DCW (Rec: 07/22/21 17:22 DCW [id number]) Special Tests Shoulder Special Tests Speed's Biceps Test Results Positive L Passive ER Rotator Cuff Test Results Negative Baugh Andres Impingement Test Results Positive L Drop Arm Rotator Cuff Test Results Negative Grind Labrum Test Results Positive L Empty Can Test Results Negative Clunk Test Test Results Positive L Belly Press Test Results Negative Apprehension Test Test Results Positive L Anterior Draw Test Results Negative AC Joint Compression Test Results Negative PT-OP-M Strength Start: 07/22/21 16:51 Freq: Status: Active Protocol: Document 07/22/21 15:15 DCW (Rec: 07/22/21 17:22 DCW [id number]) Shoulder Strength Shoulder Manual Muscle Testing Left Flexion 4+ Good+ Abduction (C5) 4+ Good+ External Rotation 4+ Good+ Internal Rotation 4+ Good+ Comments Pain with resisted shoulder abduction and internal rotation PT-OP-Q Treatments Start: 07/22/21 16:51 Freq: Status: Active Protocol: Document 08/15/21 13:50 SP (Rec: 08/15/21 14:36 SP [id number]) Cardio Equipment Upper Body Ergometer (UBE) Duration (Minutes) 6 RPM 60 Seat Position 14 Height 3 Other F/B 1 min each Therapeutic Exercises Supine Exercises 2 Supine Exercise Name Ts, 1/2 Xs, FF, pec stretch Ws - UE/ core progression strengthening Side bilateral Resistance TB #2: FF, Ts, 1/2 X, Ws AROM Equipment Used over foam roller Reps/Minutes x10 each Comments good form painfree Prone Exercises plank shld taps Prone Exercise Name better painfree challenging off knees vs feet Side bilateral Equipment Used offered it as a progression later if wishes. Reps/Minutes x5 Comments challenging, cued slow each UE lift opp shld tap, better stability. UE and core progression Prone Exercise Name Ts, 1/2 Xs, FF, pec stretch Ws Side bilateral Resistance Tb #2 Equipment Used over foam roller Reps/Minutes x10 each Comments good feedback painfree plank Prone Exercise Name off elbows added to HEP Reps/Minutes 60s Comments painfree- talked about progressing into tall plank w/ shld taps later Standing Exercises D2 flexion Standing Exercise Name reviewed HEP Side left Resistance TB#1 Equipment Used DB Reps/Minutes 10x Comments sore but no pain. good form and feedback Shoulder flexion Standing Exercise Name ShouldeR FF and ABD, reviewed HEP Side left Resistance L2 TB Reps/Minutes 10x Comments Pt indicates it feels like work Manual Therapy Treatment Soft Tissue Mobilization posterior deltoid, infrasp Body Location L shld Mobilization Type Strumming,Sustained Pressure Intensity/Depth Moderate Body Position Hooklying Comments supported by pt then during cross body stretch- good feedback lessening tightnes response. Cued can incorporate with ball on wall rolling, good performance. PT-OP-T Assessment and Plan Start: 07/22/21 16:51 Freq: Status: Active Protocol: Document 08/15/21 13:50 SP (Rec: 08/15/21 14:36 SP [id number]) Physical Therapy Assessment Goals Three Impairment Shoulder pain limits pt's backpacking ability. Qa Intern Goal (LTG) Pt to backpack for 6 miles without increased shoulder pain LTG Duration 09/21/21 Two Impairment Poor scapulothoracic rhythm due to subscapularis tone Qa Intern Goal (LTG) Pt to demonstrate proper scapulothoracic rhythm R=L to improve overhead lifting ability. LTG Duration 09/21/21 One Impairment Pt does not have an appropriate home exercise program Short Term Goal (STG) Pt to be independent and compliant with an appropriate HEP 08/06/21 HEP Horizontal Abduction w 2# weight in supine Open Book Planks Wall Clocks TB ER w/ TB D1 Flexion w 2#DB D1 Extension w TB FWD Flexion w TB STG Duration 08/21/21 Assessment Summary Assessment Pt responded well to manual, HEP review and initiated progressive strengthening with personal foam roller and TB use supine/standing. Next tx PT will assess any progressive HEP and gains to goals made. Pt feels ready for DC. Physical Therapy Plan Frequency and Duration Frequency of Treatment 2x/Week Duration of Treatment Two months Plan of Care Start Date 07/22/21 Plan of Care End Date 09/21/21 Therapeutic Interventions Therapeutic Interventions Aquatic Therapy,Home Exercise Program,Joint Mobilizations, Manual Therapy,Patient/ Caregiver Education,Self-Care/ Home Management,Soft Tissue Mobilization,Therapeutic Activities Modalities Cold Pack/Ice Massage,Electric Stimulation,Hot Packs, Ultrasound Next Visit Focus/Plan Next Note Type Treatment Note Next Visit Plan REview any HEP, provide progressive HEP, check goals and possible ready for DC next tx. POC: work on more multiplanar shoulder ex. Shoulder AROM/ PROM, strengthening, joint mobs
--- NOTE | 2021-08-20 10:32 | PT.OTN ---
Current Diagnoses Pain in left shoulder (08/20/21) Stiffness of left shoulder, not elsewhere classified (08/20/21) Physical Therapy Treatment Note PT-OP-A Visit Information Start: 07/22/21 16:51 Freq: Status: Active Protocol: Document 08/20/21 09:48 SP (Rec: 08/20/21 10:33 SP [id number]) Out-Patient Physical Therapy Visit Information Visit Information Visit Type Treatment Note Visit Start Time 09:48 Visit Stop Time 10:32 Total Visit Minutes 44 Visit Number 8 Number of MEDICAL IMAGING TECH Visits 2 Evaluation Information Evaluation Date 07/22/21 PT-OP-B Current Condition Start: 07/22/21 16:51 Freq: Status: Active Protocol: Document 07/22/21 15:15 DCW (Rec: 07/22/21 17:22 DCW [id number]) Current Condition History of Current Condition Onset Date One month history Current Complaints Left shoulder pain with reaching and overhead movement History of Current Condition Pt is a 66 year old male presenting with a one month history of left shoulder pain. Pt notes that any rotational movement against resistance, lateral movement against pressure, or reaching forward causes increased pain. Admits his shoulder feels like it gets stuck until he is able to move it enough, and he then experiences a really painful pop, and then it moves again. Notes a pretty constant achiness all day, but worse in the morning. Pain improved with rest and ice. Pt does not recall any specific injury. Does admit that he has been doing a lot of backpacking recently, and wonders if it is just sore from wear and tear with the strap on it. Pt does note that overall, while it is impacting his hobbies and ability to go backpacking, it doesn't bother him too much with most of his ADLs. 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 Prior Treatments and Tests Prior PT for his low/mid back, doing well since therapy Treatment Goals Patient/Caregiver Goals Return to backpacking PT-OP-C Subjective Start: 07/22/21 16:51 Freq: Status: Active Protocol: Document 08/20/21 09:48 SP (Rec: 08/20/21 10:33 SP [id number]) OP-PT Subjective Patient Comments Patient Comments Pt reports performed pec stretching and added active ROM over foam roller last tx and know felt ok during tx then when performed at home caused more pain and felt a set back in ROM. Went back to previous HEP and feels better so stopped use of foam roller. He still feels like got punched in L arm (deltoid). He stated researched some more about the COVID injections and maybe was placed into his bursa accidently and why still feeling it. Pt states wonder if should continue more appts after next one scheduled with PT if have enough visits? PT-OP-F Manual Assessment Start: 07/22/21 16:51 Freq: Status: Active Protocol: Document 07/22/21 15:15 DCW (Rec: 07/22/21 17:22 DCW [id number]) Manual Assessments Soft Tissue Assessment Soft Tissue Mobility Assessment Moderate tone and tenderness to palpation 2/4: Pain with wincing along left subscapularis Joint Mobility Assessment Joint Mobility Assessment Limitations with left scapulothoracic rhythm with abduction PT-OP-K Range of Motion Start: 07/22/21 16:51 Freq: Status: Active Protocol: Document 07/22/21 15:15 DCW (Rec: 07/22/21 17:22 DCW [id number]) Shoulder Goniometric Range of Motion Shoulder Left Active Shoulder ROM WFL Yes Testing Position Sitting Flexion 180 Extension 180 PT-OP-L Special Tests Start: 07/22/21 16:51 Freq: Status: Active Protocol: Document 07/22/21 15:15 DCW (Rec: 07/22/21 17:22 DCW [id number]) Special Tests Shoulder Special Tests Speed's Biceps Test Results Positive L Passive ER Rotator Cuff Test Results Negative Baugh Andres Impingement Test Results Positive L Drop Arm Rotator Cuff Test Results Negative Grind Labrum Test Results Positive L Empty Can Test Results Negative Clunk Test Test Results Positive L Belly Press Test Results Negative Apprehension Test Test Results Positive L Anterior Draw Test Results Negative AC Joint Compression Test Results Negative PT-OP-M Strength Start: 07/22/21 16:51 Freq: Status: Active Protocol: Document 07/22/21 15:15 DCW (Rec: 07/22/21 17:22 DCW [id number]) Shoulder Strength Shoulder Manual Muscle Testing Left Flexion 4+ Good+ Abduction (C5) 4+ Good+ External Rotation 4+ Good+ Internal Rotation 4+ Good+ Comments Pain with resisted shoulder abduction and internal rotation PT-OP-Q Treatments Start: 07/22/21 16:51 Freq: Status: Active Protocol: Document 08/20/21 09:48 SP (Rec: 08/20/21 10:33 SP [id number]) Cardio Equipment Upper Body Ergometer (UBE) Duration (Minutes) 6 RPM 60 Seat Position 14 Height 3 Other F/B 1 min each- feels good and wonder how to assimuate at home? Therapeutic Exercises Supine Exercises 2 Supine Exercise Name Ts, 1/2 Xs, FF, pec stretch Ws - UE/ core progression strengthening Side bilateral Equipment Used over foam roller Reps/Minutes x10 each Comments causes pain- DC Standing Exercises Self STMs Standing Exercise Name deltoid, infraspinatus Side left Resistance ball on wall Equipment Used interscap, Reps/Minutes 1 min Comments good feedback, decreased tightness/pain bicycle f/b w/ TB Standing Exercise Name added to HEP- good feedback response to Side bilateral Resistance TB #1 Reps/Minutes 10 reps x3 each direction ( forward and retro facing) Comments good feedback response: cued TA and pelvic alignment wall clock Standing Exercise Name 12, 10, 8 o'clock added to HEP Side left Resistance Tb#1 Reps/Minutes x10 Comments good scapular work post cues for not end range elbow and scapular. D1 ext Standing Exercise Name reviewed to HEP Side left Resistance #1 TB Reps/Minutes x10 Comments good form, painfree D2 flexion Standing Exercise Name reviewed HEP Side left Resistance TB#1 Equipment Used DB Reps/Minutes 10x Comments good form, painfree Shoulder flexion Standing Exercise Name ShouldeR FF and scaption reviewed HEP Side left Resistance L1> TB2 TB Reps/Minutes 10x Comments good form, painfree HEP review PT-OP-T Assessment and Plan Start: 07/22/21 16:51 Freq: Status: Active Protocol: Document 08/20/21 09:48 SP (Rec: 08/20/21 10:33 SP [id number]) Physical Therapy Assessment Goals Three Impairment Shoulder pain limits pt's backpacking ability. Alf Goal (LTG) Pt to backpack for 6 miles without increased shoulder pain 08/15/21: progressing, able to backpack with approx 20-25 # pack on without increased shld pain. LTG Duration 09/21/21 Two Impairment Poor scapulothoracic rhythm due to subscapularis tone Alf Goal (LTG) Pt to demonstrate proper scapulothoracic rhythm R=L to improve overhead lifting ability. LTG Duration 09/21/21 One Impairment Pt does not have an appropriate home exercise program Short Term Goal (STG) Pt to be independent and compliant with an appropriate HEP 08/20/21 HEP Horizontal Abduction w 2# weight in supine Open Book Planks Wall Clocks TB ER w/ TB D1 Flexion w TB D1 Extension w TB FWD Flexion & scaption ( D2 extension) w TB F/B bicycle TB #1 STG Duration 08/21/21 Assessment Summary Assessment Pt tolerated standing resisted HEP review with intiated progression bicycle motions this tx per pt request. Pt reports no adverse affects, feels good and more stable, but still has that residual discomfort over deltoid like got punched in the lateral L arm. PT will assess next tx and decide if need further appts before end of yr/ progress into new year or DC to HEP. Physical Therapy Plan Frequency and Duration Frequency of Treatment 2x/Week Duration of Treatment Two months Plan of Care Start Date 07/22/21 Plan of Care End Date 09/21/21 Therapeutic Interventions Therapeutic Interventions Aquatic Therapy,Home Exercise Program,Joint Mobilizations, Manual Therapy,Patient/ Caregiver Education,Self-Care/ Home Management,Soft Tissue Mobilization,Therapeutic Activities Modalities Cold Pack/Ice Massage,Electric Stimulation,Hot Packs, Ultrasound Next Visit Focus/Plan Next Note Type Treatment Note Next Visit Plan Response to last tx added Tb bicycle, progress functional TB strengthening tor return to backpacking and LUE functionality. POC: work on more multiplanar shoulder ex. Shoulder AROM/ PROM, strengthening, joint mobs
--- NOTE | 2021-08-22 15:55 | PT.OTN ---
Current Diagnoses Pain in left shoulder (08/22/21) Stiffness of left shoulder, not elsewhere classified (08/22/21) Physical Therapy Treatment Note PT-OP-A Visit Information Start: 07/22/21 16:51 Freq: Status: Active Protocol: Document 08/22/21 15:15 DCW (Rec: 08/22/21 15:54 DCW [id number]) Out-Patient Physical Therapy Visit Information Visit Information Visit Type Treatment Note Visit Note Shortened visit to allow for full visit next week Visit Start Time 15:15 Visit Stop Time 15:45 Total Visit Minutes 30 Visit Number 9 Number of CONTACT LENS FLASHING PUNCHER Visits 0 Evaluation Information Evaluation Date 07/22/21 PT-OP-B Current Condition Start: 07/22/21 16:51 Freq: Status: Active Protocol: Document 07/22/21 15:15 DCW (Rec: 07/22/21 17:22 DCW [id number]) Current Condition History of Current Condition Onset Date One month history Current Complaints Left shoulder pain with reaching and overhead movement History of Current Condition Pt is a 66 year old male presenting with a one month history of left shoulder pain. Pt notes that any rotational movement against resistance, lateral movement against pressure, or reaching forward causes increased pain. Admits his shoulder feels like it gets stuck until he is able to move it enough, and he then experiences a really painful pop, and then it moves again. Notes a pretty constant achiness all day, but worse in the morning. Pain improved with rest and ice. Pt does not recall any specific injury. Does admit that he has been doing a lot of backpacking recently, and wonders if it is just sore from wear and tear with the strap on it. Pt does note that overall, while it is impacting his hobbies and ability to go backpacking, it doesn't bother him too much with most of his ADLs. 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 Prior Treatments and Tests Prior PT for his low/mid back, doing well since therapy Treatment Goals Patient/Caregiver Goals Return to backpacking PT-OP-C Subjective Start: 07/22/21 16:51 Freq: Status: Active Protocol: Document 08/22/21 15:15 DCW (Rec: 08/22/21 15:54 DCW [id number]) OP-PT Subjective Patient Comments Patient Comments I'm feeling better than I was last time, I just had to step back what I was doing. I am feeling a lot more general soreness in all my joints at the moment. PT-OP-F Manual Assessment Start: 07/22/21 16:51 Freq: Status: Active Protocol: Document 07/22/21 15:15 DCW (Rec: 07/22/21 17:22 DCW [id number]) Manual Assessments Soft Tissue Assessment Soft Tissue Mobility Assessment Moderate tone and tenderness to palpation 2/4: Pain with wincing along left subscapularis Joint Mobility Assessment Joint Mobility Assessment Limitations with left scapulothoracic rhythm with abduction PT-OP-K Range of Motion Start: 07/22/21 16:51 Freq: Status: Active Protocol: Document 07/22/21 15:15 DCW (Rec: 07/22/21 17:22 DCW [id number]) Shoulder Goniometric Range of Motion Shoulder Left Active Shoulder ROM WFL Yes Testing Position Sitting Flexion 180 Extension 180 PT-OP-L Special Tests Start: 07/22/21 16:51 Freq: Status: Active Protocol: Document 07/22/21 15:15 DCW (Rec: 07/22/21 17:22 DCW [id number]) Special Tests Shoulder Special Tests Speed's Biceps Test Results Positive L Passive ER Rotator Cuff Test Results Negative Baugh Andres Impingement Test Results Positive L Drop Arm Rotator Cuff Test Results Negative Grind Labrum Test Results Positive L Empty Can Test Results Negative Clunk Test Test Results Positive L Belly Press Test Results Negative Apprehension Test Test Results Positive L Anterior Draw Test Results Negative AC Joint Compression Test Results Negative PT-OP-M Strength Start: 07/22/21 16:51 Freq: Status: Active Protocol: Document 07/22/21 15:15 DCW (Rec: 07/22/21 17:22 DCW [id number]) Shoulder Strength Shoulder Manual Muscle Testing Left Flexion 4+ Good+ Abduction (C5) 4+ Good+ External Rotation 4+ Good+ Internal Rotation 4+ Good+ Comments Pain with resisted shoulder abduction and internal rotation PT-OP-Q Treatments Start: 07/22/21 16:51 Freq: Status: Active Protocol: Document 08/22/21 15:15 DCW (Rec: 08/22/21 15:54 DCW [id number]) Cardio Equipment Upper Body Ergometer (UBE) Duration (Minutes) 6 RPM 60 Seat Position 14 Height 3 Other F/B 1 min each- feels good and wonder how to assimuate at home? Manual Therapy Treatment Soft Tissue Mobilization 1 Body Location L Subscapularis Mobilization Type Sustained Pressure,Trigger Point Release Intensity/Depth Moderate Body Position Supine Joint Mobilizations 2 Joint L Scapulothoracic Direction Lateral Grade III Body Position Supine 1 Joint L Glenohumeral Direction Inferior Grade III Body Position Supine PT-OP-T Assessment and Plan Start: 07/22/21 16:51 Freq: Status: Active Protocol: Document 08/22/21 15:15 DCW (Rec: 08/22/21 15:54 DCW [id number]) Physical Therapy Assessment Impairments Impairments Functional Activities, Functional Mobility,Pain,Soft Tissue Mobility,Tone Goals Three Impairment Shoulder pain limits pt's backpacking ability. Lead Mechanic Goal (LTG) Pt to backpack for 6 miles without increased shoulder pain 08/15/21: progressing, able to backpack with approx 20-25 # pack on without increased shld pain. LTG Duration 09/21/21 Two Impairment Poor scapulothoracic rhythm due to subscapularis tone Long-Term Goal (LTG) Pt to demonstrate proper scapulothoracic rhythm R=L to improve overhead lifting ability. LTG Duration 09/21/21 One Impairment Pt does not have an appropriate home exercise program Short Term Goal (STG) Pt to be independent and compliant with an appropriate HEP 08/20/21 HEP Horizontal Abduction w 2# weight in supine Open Book Planks Wall Clocks TB ER w/ TB D1 Flexion w TB D1 Extension w TB FWD Flexion & scaption ( D2 extension) w TB F/B bicycle TB #1 STG Duration 08/21/21 Assessment Summary Assessment Pt doing much better again today, likely once again approaching discharge. Pt will attend final appt next week, and will then plan on taking break from PT. If he requires further therapy, he has been instructed to contact clinic within one month, and if not, will be discharged at that later date. Physical Therapy Plan Frequency and Duration Frequency of Treatment 2x/Week Duration of Treatment Two months Plan of Care Start Date 07/22/21 Plan of Care End Date 09/21/21 Therapeutic Interventions Therapeutic Interventions Aquatic Therapy,Home Exercise Program,Joint Mobilizations, Manual Therapy,Patient/ Caregiver Education,Self-Care/ Home Management,Soft Tissue Mobilization,Therapeutic Activities Modalities Cold Pack/Ice Massage,Electric Stimulation,Hot Packs, Ultrasound Next Visit Focus/Plan Next Note Type Treatment Note Next Visit Plan Response to last tx added Tb bicycle, progress functional TB strengthening tor return to backpacking and LUE functionality. POC: work on more multiplanar shoulder ex. Shoulder AROM/ PROM, strengthening, joint mobs
--- NOTE | 2021-09-12 11:52 | PT.OTN ---
Current Diagnoses Pain in left shoulder (09/12/21) Stiffness of left shoulder, not elsewhere classified (09/12/21) Physical Therapy Treatment Note PT-OP-A Visit Information Start: 07/22/21 16:51 Freq: Status: Active Protocol: Document 09/12/21 11:15 DCW (Rec: 09/12/21 11:49 DCW [id number]) Out-Patient Physical Therapy Visit Information Visit Information Visit Type Discharge Summary Visit Start Time 11:15 Visit Stop Time 11:45 Total Visit Minutes 30 Visit Number 10 Number of GENERAL ASSEMBLER INSTALLER Visits 0 Evaluation Information Evaluation Date 07/22/21 PT-OP-B Current Condition Start: 07/22/21 16:51 Freq: Status: Active Protocol: Document 07/22/21 15:15 DCW (Rec: 07/22/21 17:22 DCW [id number]) Current Condition History of Current Condition Onset Date One month history Current Complaints Left shoulder pain with reaching and overhead movement History of Current Condition Pt is a 66 year old male presenting with a one month history of left shoulder pain. Pt notes that any rotational movement against resistance, lateral movement against pressure, or reaching forward causes increased pain. Admits his shoulder feels like it gets stuck until he is able to move it enough, and he then experiences a really painful pop, and then it moves again. Notes a pretty constant achiness all day, but worse in the morning. Pain improved with rest and ice. Pt does not recall any specific injury. Does admit that he has been doing a lot of backpacking recently, and wonders if it is just sore from wear and tear with the strap on it. Pt does note that overall, while it is impacting his hobbies and ability to go backpacking, it doesn't bother him too much with most of his ADLs. 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 Prior Treatments and Tests Prior PT for his low/mid back, doing well since therapy Treatment Goals Patient/Caregiver Goals Return to backpacking PT-OP-C Subjective Start: 07/22/21 16:51 Freq: Status: Active Protocol: Document 09/12/21 11:15 DCW (Rec: 09/12/21 11:49 DCW [id number]) OP-PT Subjective Patient Comments Patient Comments It's been better. Every once and a while, I'll wake up and it's a little sore, but that goes away after I do some exercises. PT-OP-F Manual Assessment Start: 07/22/21 16:51 Freq: Status: Active Protocol: Document 09/12/21 11:15 DCW (Rec: 09/12/21 11:51 DCW [id number]) Manual Assessments Soft Tissue Assessment Soft Tissue Mobility Assessment No complaints of pain with palpation Joint Mobility Assessment Joint Mobility Assessment R scapulothoracic rhythm = L scapulothoracic rhythm PT-OP-K Range of Motion Start: 07/22/21 16:51 Freq: Status: Active Protocol: Document 07/22/21 15:15 DCW (Rec: 07/22/21 17:22 DCW [id number]) Shoulder Goniometric Range of Motion Shoulder Left Active Shoulder ROM WFL Yes Testing Position Sitting Flexion 180 Extension 180 PT-OP-L Special Tests Start: 07/22/21 16:51 Freq: Status: Active Protocol: Document 09/12/21 11:15 DCW (Rec: 09/12/21 11:51 DCW [id number]) Special Tests Shoulder Special Tests Speed's Biceps Test Results Negative Baugh Andres Impingement Test Results Mildly positive left Grind Labrum Test Results Negative Clunk Test Test Results Negative Apprehension Test Test Results Negative PT-OP-M Strength Start: 07/22/21 16:51 Freq: Status: Active Protocol: Document 09/12/21 11:15 DCW (Rec: 09/12/21 11:51 DCW [id number]) Shoulder Strength Shoulder Manual Muscle Testing Left Flexion 4+ Good+ Abduction (C5) 5 Normal External Rotation 5 Normal Internal Rotation 5 Normal Comments Very mild pain with resisted shoulder abduction PT-OP-Q Treatments Start: 07/22/21 16:51 Freq: Status: Active Protocol: Document 09/12/21 11:15 DCW (Rec: 09/12/21 11:49 DCW [id number]) Cardio Equipment Upper Body Ergometer (UBE) Duration (Minutes) 6 RPM 60 Seat Position 14 Height 3 Other F/B 1 min each- feels good and wonder how to assimuate at home? Manual Therapy Treatment Soft Tissue Mobilization 1 Body Location L Subscapularis Mobilization Type Sustained Pressure,Trigger Point Release Intensity/Depth Moderate Body Position Supine Joint Mobilizations 2 Joint L Scapulothoracic Direction Lateral Grade III Body Position Supine 1 Joint L Glenohumeral Direction Inferior Grade III Body Position Supine PT-OP-T Assessment and Plan Start: 07/22/21 16:51 Freq: Status: Active Protocol: Document 09/12/21 11:15 DCW (Rec: 09/12/21 11:49 DCW [id number]) Physical Therapy Assessment Impairments Impairments Functional Activities, Functional Mobility,Pain,Soft Tissue Mobility,Tone Goals Three Impairment Shoulder pain limits pt's backpacking ability. Delivery Rep Goal (LTG) Pt to backpack for 6 miles without increased shoulder pain 08/15/21: progressing, able to backpack with approx 20-25 # pack on without increased shld pain. Two Impairment Poor scapulothoracic rhythm due to subscapularis tone Delivery Rep Goal (LTG) Pt to demonstrate proper scapulothoracic rhythm R=L to improve overhead lifting ability. LTG Duration Met One Impairment Pt does not have an appropriate home exercise program Short Term Goal (STG) Pt to be independent and compliant with an appropriate HEP 08/20/21 HEP Horizontal Abduction w 2# weight in supine Open Book Planks Wall Clocks TB ER w/ TB D1 Flexion w TB D1 Extension w TB FWD Flexion & scaption ( D2 extension) w TB F/B bicycle TB #1 STG Duration Met Assessment Summary Assessment Pt appropriate for discharge at this time. Eliminated nearly all pain, just still some very mild discomfort with impingement testing. Scapulothoracic rhythm significantly improved, doing well with independent HEP. Physical Therapy Plan Frequency and Duration Frequency of Treatment 2x/Week Duration of Treatment Two months Plan of Care Start Date 07/22/21 Plan of Care End Date 09/21/21 Therapeutic Interventions Therapeutic Interventions Aquatic Therapy,Home Exercise Program,Joint Mobilizations, Manual Therapy,Patient/ Caregiver Education,Self-Care/ Home Management,Soft Tissue Mobilization,Therapeutic Activities Modalities Cold Pack/Ice Massage,Electric Stimulation,Hot Packs, Ultrasound Discharge Physical Therapy Discharge Reasons Goals Met Next Visit Focus/Plan Next Note Type Discharge Summary
== END 2021-11-04 10:04 ==
LOC: PHYS 11:15
PROVIDERS: Family Provider Student in an Organized Health Care Education/Training Program; PCP Student in an Organized Health Care Education/Training Program; Referring Provider Student in an Organized Health Care Education/Training Program; Visit Provider Student in an Organized Health Care Education/Training Program
DX: M25.512 Pain in left shoulder (principal); M25.612 Stiffness of left shoulder, not elsewhere classified
CPT/HCPCS: 97110; 97140; 97161

== ENCOUNTER → 2022-04-29 11:43 | Outpatient (CLI) | payer MEDICARE, SELFPAY ==
[2022-04-29 12:19] LABS: Creatinine Urine Random 67.5 mg/dL
[2022-04-29 12:24] LABS: Microalbumin Urine Random < 0.6 mg/dL (0-1.6)
[2022-04-29 13:41] LABS: Blood Urea Nitrogen 15 mg/dL (9-20); Carbon Dioxide 32 mmol/L (22-32); Chloride 103 mmol/L (98-107); Estimated Glomerular Filt Rate > 60 mL/min (>60); Glucose 77 mg/dL (80-110); HEMOLYSIS < 15 (0-50); Magnesium 2.2 mg/dL (1.6-2.3); Potassium 4.2 mmol/L (3.4-5.1); Sodium 140 mmol/L (137-145)
[2022-04-29 14:09] LABS: Prostate Specific Antigen Scrn 3.67 ng/mL (0.1-4.0)
== END ==
PROVIDERS: Family Provider Student in an Organized Health Care Education/Training Program; PCP Student in an Organized Health Care Education/Training Program; Referring Provider Student in an Organized Health Care Education/Training Program; Visit Provider Student in an Organized Health Care Education/Training Program
DX: R03.0 Elevated blood-pressure reading, without diagnosis of hypertension (principal); Z12.5 Encounter for screening for malignant neoplasm of prostate; R25.2 Cramp and spasm
CPT/HCPCS: 36415; 80048; 82043; 82570; 83735; G0103

== ENCOUNTER → 2022-05-07 15:56 | Outpatient (CLI) | payer MEDICARE, SELFPAY ==
[2022-05-09 22:04] LABS: Fecal Immunochemical Test Negative (Negative)
== END ==
PROVIDERS: Family Provider Student in an Organized Health Care Education/Training Program; PCP Student in an Organized Health Care Education/Training Program; Referring Provider Student in an Organized Health Care Education/Training Program; Visit Provider Student in an Organized Health Care Education/Training Program
DX: Z12.11 Encounter for screening for malignant neoplasm of colon (principal)
CPT/HCPCS: 82274

== ENCOUNTER 2022-06-30 08:15 | Outpatient (RCR) | payer MEDICARE, SELFPAY ==
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
--- NOTE | 2022-05-30 19:09 | PT.OPPOC ---
Physical, Occupational & Speech Therapy At [facility] Current Diagnoses Other chronic pain (05/30/22) Pain in left hip (05/30/22) Low back pain, unspecified (05/30/22) Muscle weakness (generalized) (05/30/22) Segmental and somatic dysfunction of sacral region (05/30/22) Visit Care Team Role Provider Type Hollis Grayson MD Attending Provider Physician Family Provider Primary Care Provider Referring Provider Specialty: Internal Medicine Address: [address] [place] [address], [address], [facility] Email: [email or web address] Plan Of Care PT-OP-T Assessment and Plan Start: 05/30/22 12:34 Freq: Status: Active Protocol: Document 05/30/22 13:48 LRN (Rec: 05/30/22 19:04 LRN [id number]) Physical Therapy Assessment Rehab Potential Rehabilitation Potential Excellent Evaluation Complexity Number of Personal Factors/Comorbidities 1-2 Number of Body Systems Impaired 4 or More Clinical Presentation at Evaluation Evolving Impairments Impairments Activity Tolerance,Pain, Posture,ROM,Strength Other Impairments Body Mechanics Goals Three Impairment L LBP rated 4-5/10 Impairment L SIJ & upper gluteals pain with radiating numbness down lateral thigh. Pain anterior L thigh rated 2- 3/10. Short Term Goal (STG) Eliminate L thigh pain and eliminate numbness in L lateral thigh. STG Duration 06/10/22 Prison Goal (LTG) Eliminate L LB (SIJ & upper gluteal) pain to 0/10. LTG Duration 07/01/22 Two Impairment Poor knowledge of proper posturing and body mechanics for LBP management. Short Term Goal (STG) Pt will be educated in equal weightbearing with proper sitting and standing posture. STG Duration 06/03/22 Prison Goal (LTG) Pt will be educated in proper body mechanics. LTG Duration 06/05/22 One Impairment Lacks appropriate self care HEP. Short Term Goal (STG) Pt will educated and demonstrate knowledge in correction for SIJ dysfunction of a rotated innominate. STG Duration 06/05/22 Prison Goal (LTG) Pt will be educated core/ pelvic stabilization exercises . LTG Duration 07/01/22 Assessment Summary Assessment Pt presents with an anterior rotated L innominate, decreased knowledge of proper posturing in sit, stand and sleeping. The pt demonstrates poor awareness of moving with pelvis/core stabilized although core strength appears good at 5/5 when testing strength of LE's. From subjective report of his injury he appears to have poor understanding of proper body mechanics for lifting, moving and with general ADLs. The pt will benefit from skilled physical therapy to achieve the above stated goals and help the pt achieve stability for his future backpacking trip. Physical Therapy Plan Frequency and Duration Frequency of Treatment 2x/Week Plan of Care Start Date 05/30/22 Plan of Care End Date 07/01/22 Therapeutic Interventions Therapeutic Interventions Gait Training,Home Exercise Program,Joint Mobilizations, Manual Therapy,Neuromuscular Re-education,Patient/Caregiver Education,Self-Care/Home Management,Soft Tissue Mobilization,Taping, Therapeutic Exercises Modalities Cold Pack/Ice Massage,Electric Stimulation,Hot Packs Next Visit Focus/Plan Next Note Type Treatment Note Next Visit Plan Assess pt gait. Educate pt in: - equal weightbearing with proper sitting and standing posture, Manual: Correct anteriorly rotated innominate and educate pt in self correction for SIJ dysfunction of L anteriorly rotated innominate, and STM of L IT Band. Modalities: MH/IFES, K-tape 2nd visit: pt ability to demonstrate knowledge of self correction, and education in proper body mechanics. Ex: Core/Pelvic stabilization and pain reduction. Pt is planning on leaving the country on 07/01/22 for 3 weeks ; therefore it was decided the pt will be discharged to his home program before he leaves the country. Plan of Care Dates Plan of Care Start Date 05/30/22 Plan of Care End Date 07/01/22 Electronically Signed by: Brenna Garsia, PT 05/30/22 1460 If you are in agreement with this Plan of Care, please return a signed and dated copy. I have reviewed this Plan of Care and certify that the skilled therapy services above are required to meet the patient?s needs. Physician Signature Date Printed Name and Credentials Clinical Instructor Signature Printed Name and Credentials
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
--- NOTE | 2022-06-20 07:46 | PT-OP ANOTE ---
Pt called yesterday 1400, left message, Covid + unable to make 06/20 appt.
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
== END 2022-07-01 15:58 ==
LOC: PHYS 08:15
PROVIDERS: Family Provider Student in an Organized Health Care Education/Training Program; PCP Student in an Organized Health Care Education/Training Program; Referring Provider Student in an Organized Health Care Education/Training Program; Visit Provider Student in an Organized Health Care Education/Training Program
DX: M54.50 Low back pain, unspecified (principal); G89.29 Other chronic pain; M62.81 Muscle weakness (generalized); M25.552 Pain in left hip; M99.04 Segmental and somatic dysfunction of sacral region
CPT/HCPCS: 97014; 97110; 97140; 97162; 97530; 97535; G0283

== ENCOUNTER → 2022-08-05 09:28 | Outpatient (CLI) | payer MEDICARE, SELFPAY ==
[2022-08-05 16:32] LABS: Influenza A - CEPHEID Flu A NEGATIVE (NEGATIVE); Influenza B - CEPHEID Flu B NEGATIVE (NEGATIVE); Respiratory Syncytial Virus Negative (Negative)
[2022-08-05 16:35] LABS: COVID-19 CEPHEID 4-PLEX PCR Negative (Negative)
== END ==
PROVIDERS: Family Provider Student in an Organized Health Care Education/Training Program; PCP Student in an Organized Health Care Education/Training Program; Visit Provider Physician Assistant Medical
DX: R05.1 Acute cough (principal)
CPT/HCPCS: 0241U

== ENCOUNTER → 2022-08-05 09:58 | Outpatient (CLI) | payer MEDICARE, SELFPAY ==
--- NOTE | 2022-08-05 10:00 | DI.RAD.S_ITS ---
PROCEDURE: XR SINUS MIN 3V INDICATIONS: cough TECHNIQUE: 3 views of the sinuses were acquired. COMPARISON: None. FINDINGS: Sinuses: The visualized sinuses demonstrate no air-fluid levels or mucosal thickening. The visualized mastoids also appear clear. Bones: No suspicious bony lesions. Nasal septum is midline. IMPRESSION: Negative evaluation. CT may be helpful to evaluate for sinusitis, if clinically indicated. Dictated by: Jaime Carbajal M.D. on 08/05/2022 at 10:43 Transcribed by: SARAHY on 08/05/2022 at 10:44 Approved by: Jaime Carbajal M.D. on 08/05/2022 at 15:33
--- NOTE | 2022-08-05 10:00 | DI.RAD.S_ITS ---
PROCEDURE: XR CHEST 2V INDICATIONS: persistent cough TECHNIQUE: 2 views of the chest were acquired. COMPARISON: None. FINDINGS: Surgical changes and devices: None. Lungs and pleura: Lungs are clear. No pleural effusions or pneumothorax. Mediastinum: Mediastinal contours are normal. Heart size is normal. Bones and chest wall: No suspicious bony abnormalities. Soft tissues appear unremarkable. IMPRESSION: No acute process. Dictated by: Jaime Carbajal M.D. on 08/05/2022 at 11:12 Approved by: Jaime Carbajal M.D. on 08/05/2022 at 11:12
== END ==
PROVIDERS: Family Provider Student in an Organized Health Care Education/Training Program; PCP Student in an Organized Health Care Education/Training Program; Referring Provider Physician Assistant Medical; Visit Provider Physician Assistant Medical
DX: R05.3 Chronic cough (principal); R05.1 Acute cough
CPT/HCPCS: 0241U; 70220; 71046

== ENCOUNTER → 2022-11-11 14:21 | Outpatient (CLI) | payer MEDICARE, SELFPAY ==
--- NOTE | 2022-11-11 14:23 | DI.RAD.S_ITS ---
PROCEDURE: XR KNEE LT 4V INDICATIONS: Assess bilateral osteoarthritis TECHNIQUE: 3 views of the knee were acquired. COMPARISON: None. FINDINGS: Bones: No fractures or dislocations. No suspicious bony lesions. Mild tricompartmental osteoarthritic degenerative changes with marginal osteophytosis. Soft tissues: No joint effusion. No suspicious soft tissue calcifications. IMPRESSION: Mild tricompartmental osteoarthritis. Dictated by: Bisi Quintero MD, PhD on 11/11/2022 at 15:40 Approved by: Bisi Quintero MD, PhD on 11/11/2022 at 15:41
--- NOTE | 2022-11-11 14:23 | DI.RAD.S_ITS ---
PROCEDURE: XR KNEE RT 4V INDICATIONS: Assess bilateral osteoarthritis TECHNIQUE: 3 views of the knee were acquired. COMPARISON: None. FINDINGS: Bones: No fractures or dislocations. No suspicious bony lesions. Mild tricompartmental osteoarthritic degenerative changes. Soft tissues: No joint effusion. No suspicious soft tissue calcifications. IMPRESSION: Mild tricompartmental osteoarthritis. Dictated by: Bisi Quintero MD, PhD on 11/11/2022 at 15:39 Approved by: Bisi Quintero MD, PhD on 11/11/2022 at 15:40
== END ==
PROVIDERS: Family Provider Student in an Organized Health Care Education/Training Program; PCP Student in an Organized Health Care Education/Training Program; Referring Provider Student in an Organized Health Care Education/Training Program; Visit Provider Student in an Organized Health Care Education/Training Program
DX: M25.561 Pain in right knee (principal); M25.562 Pain in left knee; G89.29 Other chronic pain; M17.0 Bilateral primary osteoarthritis of knee
CPT/HCPCS: 73564

== ENCOUNTER 2022-12-31 09:30 | Outpatient (RCR) | payer MEDICARE, SELFPAY ==
--- NOTE | 2022-12-02 16:48 | PT.OIE ---
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 (08/30/15) Past Surgical History (Last Reviewed 02/06/21 @ 11:49 by Buster Cobos MD) History of tonsillectomy Status post hernia repair Visit Care Team Role Provider Type Hollis Grayson MD Attending Provider Physician Family Provider Primary Care Provider Referring Provider Specialty: Internal Medicine Address: [address] [place] [address], [address], [facility] Email: [email or web address] Physical Therapy Initial Evaluation PT-OP-A Visit Information Start: 12/02/22 13:53 Freq: Status: Active Protocol: Document 12/02/22 13:54 TH (Rec: 12/02/22 16:48 TH [id number]) Out-Patient Physical Therapy Visit Information Visit Information Visit Type Initial Evaluation Visit Start Time 02:30 Visit Stop Time 03:15 Total Visit Minutes 45 Visit Number 1 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 Pain aches though if he kneels or bends knee pain is sharp ( just below knee cap). Right knee pops especially after prolonged sitting. Prior Functional Status Baseline Function- ADL's Independent Baseline Function- Mobility Independent Current Functional Impairments (Reported) Functional Limitations- ADL's IND though stairs/ramps have been difficult to navigate. kneeling is very painful. PT-OP-J Posture/Palpation/Skin Start: 12/02/22 13:53 Freq: Status: Active Protocol: Document 12/02/22 13:54 TH (Rec: 12/02/22 16:48 TH [id number]) Posture Evaluation Comments Posture Comments right knee hyperext., increased thoracic extension, PPT, flat lumbar lordosis, left LE shorter than right, PT-OP-K Range of Motion Start: 12/02/22 13:53 Freq: Status: Active Protocol: Document 12/02/22 13:54 TH (Rec: 12/02/22 16:48 TH [id number]) Knee Goniometric Range of Motion Knee Right Flexion Active (degrees) 110 Extension Active (degrees) 5 Comments right knee hyperext., increased thoracic extension, PPT, flat lumbar lordosis, left LE shorter than right, PT-OP-Q Treatments Start: 12/02/22 13:53 Freq: Status: Active Protocol: Document 12/02/22 13:54 TH (Rec: 12/02/22 16:48 TH [id number]) Therapeutic Exercises Other Exercises hip flexor stretch Comments 3x 30 sec holds PT-OP-T Assessment and Plan Start: 12/02/22 13:53 Freq: Status: Active Protocol: Document 12/02/22 13:54 TH (Rec: 12/02/22 16:48 TH [id number]) Physical Therapy Assessment Goals Navigate stairs/ramps Impairment Pt having difficultly hiking up /down steep grades/ navigating steps Short Term Goal (STG) Pt will be able to navigate steps with 4/10 bilat knee pain STG Duration 01/13/23 Intermediate Goal (LTG) Pt will be able to navigate steps with minimal to no bilat knee pain LTG Duration 02/24/23 pt will be able to kneel Impairment Unable to kneel without bilat knee pain Short Term Goal (STG) Pt will be able to kneel with 4/10 bilat knee pain STG Duration 01/13/23 Intermediate Goal (LTG) Pt will be able to kneel without pain LTG Duration 02/24/23 knee rom Impairment Difficult to flex knee past 110 degrees Short Term Goal (STG) Right knee flexion willimprove to 120 degrees STG Duration 01/13/23 Assessment Summary Assessment Pt presents with muscle imbalance of both knees leading poor patellar tracking . Pt will benefit from further PT to improve bilat. knee rom/strength. Physical Therapy Plan Frequency and Duration Frequency of Treatment 1-2x/wk Duration of treatment (weeks) 10 Plan of Care Start Date 12/02/22 Plan of Care End Date 02/24/23 Next Visit Focus/Plan Next Visit Plan Terminal knee ext., HS sets/ LAQ, IR ex.( with sidelying hip abd.)
--- NOTE | 2022-12-02 17:11 | PT.OPPOC ---
Physical, Occupational & Speech Therapy At [facility] Current Diagnoses Other chronic pain (12/02/22) Pain in right knee (12/02/22) Pain in left knee (12/02/22) Visit Care Team Role Provider Type Hollis Grayson MD Attending Provider Physician Family Provider Primary Care Provider Referring Provider Specialty: Internal Medicine Address: [address] [place] [address], [address], [facility] Email: [email or web address] Plan Of Care PT-OP-T Assessment and Plan Start: 12/02/22 13:53 Freq: Status: Active Protocol: Document 12/02/22 13:54 TH (Rec: 12/02/22 16:48 TH [id number]) Physical Therapy Assessment Goals Navigate stairs/ramps Impairment Pt having difficultly hiking up /down steep grades/ navigating steps Short Term Goal (STG) Pt will be able to navigate steps with 4/10 bilat knee pain STG Duration 01/13/23 Custodial Goal (LTG) Pt will be able to navigate steps with minimal to no bilat knee pain LTG Duration 02/24/23 pt will be able to kneel Impairment Unable to kneel without bilat knee pain Short Term Goal (STG) Pt will be able to kneel with 4/10 bilat knee pain STG Duration 01/13/23 Oil Tank Car Cleaner Goal (LTG) Pt will be able to kneel without pain LTG Duration 02/24/23 knee rom Impairment Difficult to flex knee past 110 degrees Short Term Goal (STG) Right knee flexion willimprove to 120 degrees STG Duration 01/13/23 Assessment Summary Assessment Pt presents with muscle imbalance of both knees leading poor patellar tracking . Pt will benefit from further PT to improve bilat. knee rom/strength. Physical Therapy Plan Frequency and Duration Frequency of Treatment 1-2x/wk Duration of treatment (weeks) 10 Plan of Care Start Date 12/02/22 Plan of Care End Date 02/24/23 Next Visit Focus/Plan Next Visit Plan Terminal knee ext., HS sets/ LAQ, IR ex.( with sidelying hip abd.) Plan of Care Dates Plan of Care Start Date 12/02/22 Plan of Care End Date 02/24/23 Electronically Signed by: Vijaya Crespo, PT 12/02/22 2585 If you are in agreement with this Plan of Care, please return a signed and dated copy. I have reviewed this Plan of Care and certify that the skilled therapy services above are required to meet the patient?s needs. Physician Signature Date Printed Name and Credentials Clinical Instructor Signature Printed Name and Credentials
--- NOTE | 2022-12-10 08:15 | PT.OTN ---
Current Diagnoses Other chronic pain (12/10/22) Pain in right knee (12/10/22) Pain in left knee (12/10/22) Physical Therapy Treatment Note PT-OP-A Visit Information Start: 12/02/22 13:53 Freq: Status: Active Protocol: Document 12/10/22 07:32 SP (Rec: 12/10/22 08:17 SP [id number]) Out-Patient Physical Therapy Visit Information Visit Information Visit Type Treatment Note Visit Start Time 07:32 Visit Stop Time 08:15 Total Visit Minutes 43 Visit Number 2 Number of WATER TAXI CAPTAIN Visits 1 PT-OP-B Current Condition Start: 12/02/22 13:53 Freq: Status: Active Protocol: Document 12/02/22 13:54 TH (Rec: 12/02/22 16:48 TH [id number]) Current Condition History of Current Condition History of Current Condition Pt states bilateral knee pain started about 6 months ago. 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 Pain aches though if he kneels or bends knee pain is sharp ( just below knee cap). Right knee pops especially after prolonged sitting. Prior Functional Status Baseline Function- ADL's Independent Baseline Function- Mobility Independent Current Functional Impairments (Reported) Functional Limitations- ADL's IND though stairs/ramps have been difficult to navigate. kneeling is very painful. PT-OP-C Subjective Start: 12/02/22 13:53 Freq: Status: Active Protocol: Document 12/10/22 07:32 SP (Rec: 12/10/22 08:17 SP [id number]) OP-PT Subjective Patient Comments Patient Comments Pt reports need review quad stretch, band walks, lunges and wall slides and how tiring it was. He reported did have some discomfort/low pain over distal quad sitting back on heels when tall kneeling and decline hiking when was out treking in past months that want to improve. PT-OP-J Posture/Palpation/Skin Start: 12/02/22 13:53 Freq: Status: Active Protocol: Document 12/02/22 13:54 TH (Rec: 12/02/22 16:48 TH [id number]) Posture Evaluation Comments Posture Comments right knee hyperext., increased thoracic extension, PPT, flat lumbar lordosis, left LE shorter than right, PT-OP-K Range of Motion Start: 12/02/22 13:53 Freq: Status: Active Protocol: Document 12/02/22 13:54 TH (Rec: 12/02/22 16:48 TH [id number]) Knee Goniometric Range of Motion Knee Right Flexion Active (degrees) 110 Extension Active (degrees) 5 Comments right knee hyperext., increased thoracic extension, PPT, flat lumbar lordosis, left LE shorter than right, PT-OP-Q Treatments Start: 12/02/22 13:53 Freq: Status: Active Protocol: Document 12/10/22 07:32 SP (Rec: 12/10/22 08:17 SP [id number]) Therapeutic Exercises Supine Exercises HS stretch Equipment Used strap Reps/Minutes 30 Comments good response. Prone Exercises plank Prone Exercise Name HEP reviewed: elbows toes Reps/Minutes 1 min Sidelying Exercises side plank Sidelying Exercise Name added to HEP Side bilateral Resistance AROM, TB #2 at thighs Reps/Minutes x10 each Comments cued Standing Exercises SLS Lift Standing Exercise Name added to HEP Equipment Used mirror self feedback track Reps/Minutes 2x5 reps Comments cued knee alignment with/ behind toes/soft knee, good straight back lunges Standing Exercise Name reviewed HEP given at eval: stationary Side bilateral Reps/Minutes 2x8 reps Comments cued knee with and behind toe band walk Standing Exercise Name reviewed HEP: lateral, fwd, bkwd Resistance TB #2 Reps/Minutes 15 ft x2 laps Comments cued knee with mid foot, clear trailing LE Other Exercises hip flexor stretch Other Exercise Name quad, hip flexor stretch Side right Resistance prone, standing, supine with strap leg off table w/opp LE bent KTC Reps/Minutes 3x 30 sec holds Comments cued set up and form for each position for option duriing activity Self-Care/Home Management Treatment Education Other Education Time spent stretch vs massage knows to do, cramps doc patient portal PT-OP-T Assessment and Plan Start: 12/02/22 13:53 Freq: Status: Active Protocol: Document 12/10/22 07:32 SP (Rec: 12/10/22 08:17 SP [id number]) Physical Therapy Assessment Goals Navigate stairs/ramps Impairment Pt having difficultly hiking up /down steep grades/ navigating steps Short Term Goal (STG) Pt will be able to navigate steps with 4/10 bilat knee pain STG Duration 01/13/23 Research And Development Tester Goal (LTG) Pt will be able to navigate steps with minimal to no bilat knee pain LTG Duration 02/24/23 pt will be able to kneel Impairment Unable to kneel without bilat knee pain Short Term Goal (STG) Pt will be able to kneel with 4/10 bilat knee pain STG Duration 01/13/23 Research And Development Tester Goal (LTG) Pt will be able to kneel without pain LTG Duration 02/24/23 knee rom Impairment Difficult to flex knee past 110 degrees Short Term Goal (STG) Right knee flexion willimprove to 120 degrees STG Duration 01/13/23 Three Impairment L SIJ & upper gluteals pain with radiating numbness down lateral thigh. Pain anterior L thigh rated 2- 3/10. Assessment Summary Assessment Pt good feedback response to ther ex HEP review and added today. Extra time and education on knee alignment, hip hinge for proper form and decrease tension stress over anterior knees. Discussed reaching out to physician for feedback on cramps experiencing waking him up. He stated has taken potassium and magnesium in past and didn 't seem make difference and or if benefit from nutrition referral, provided HO for patient portal access to contact Dr Cornell. Physical Therapy Plan Frequency and Duration Frequency of Treatment 1-2x/wk Duration of treatment (weeks) 10 Plan of Care Start Date 12/02/22 Plan of Care End Date 02/24/23 Next Visit Focus/Plan Next Note Type Treatment Note Next Visit Plan Recheck response to HEP and added SLS lift, band walk , side plank. POC: Next tx add previous suggested Terminal knee ext., HS sets/ LAQ, IR ex.( with sidelying hip abd.)
--- NOTE | 2022-12-16 11:08 | PT.OTN ---
Current Diagnoses Other chronic pain (12/16/22) Pain in right knee (12/16/22) Pain in left knee (12/16/22) Physical Therapy Treatment Note PT-OP-A Visit Information Start: 12/02/22 13:53 Freq: Status: Active Protocol: Document 12/16/22 11:01 TH (Rec: 12/16/22 11:08 TH [id number]) Out-Patient Physical Therapy Visit Information Visit Information Visit Type Treatment Note Visit Start Time 09:00 Visit Stop Time 09:45 Total Visit Minutes 45 Visit Number 3 Number of TRUCK GUARD Visits 0 PT-OP-B Current Condition Start: 12/02/22 13:53 Freq: Status: Active Protocol: Document 12/02/22 13:54 TH (Rec: 12/02/22 16:48 TH [id number]) Current Condition History of Current Condition History of Current Condition Pt states bilateral knee pain started about 6 months ago. 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 Pain aches though if he kneels or bends knee pain is sharp ( just below knee cap). Right knee pops especially after prolonged sitting. Prior Functional Status Baseline Function- ADL's Independent Baseline Function- Mobility Independent Current Functional Impairments (Reported) Functional Limitations- ADL's IND though stairs/ramps have been difficult to navigate. kneeling is very painful. PT-OP-C Subjective Start: 12/02/22 13:53 Freq: Status: Active Protocol: Document 12/16/22 11:01 TH (Rec: 12/16/22 11:08 TH [id number]) OP-PT Subjective Patient Comments Patient Comments Pt reports that right knee is not clicking as much as it had before though bilat. knee pain still prevalent especially with squats/walking up inclines. PT-OP-J Posture/Palpation/Skin Start: 12/02/22 13:53 Freq: Status: Active Protocol: Document 12/02/22 13:54 TH (Rec: 12/02/22 16:48 TH [id number]) Posture Evaluation Comments Posture Comments right knee hyperext., increased thoracic extension, PPT, flat lumbar lordosis, left LE shorter than right, PT-OP-K Range of Motion Start: 12/02/22 13:53 Freq: Status: Active Protocol: Document 12/02/22 13:54 TH (Rec: 12/02/22 16:48 TH [id number]) Knee Goniometric Range of Motion Knee Right Flexion Active (degrees) 110 Extension Active (degrees) 5 Comments right knee hyperext., increased thoracic extension, PPT, flat lumbar lordosis, left LE shorter than right, PT-OP-Q Treatments Start: 12/02/22 13:53 Freq: Status: Active Protocol: Document 12/16/22 11:01 TH (Rec: 12/16/22 11:08 TH [id number]) Therapeutic Exercises Other Exercises isometric hip abduction Comments 3 x 10 bilat. with TA/gluteus med activation Manual Therapy Treatment Manual Techniques patellar glides Comments patellar distraction with patellar glides in all directions. Bilat. hip flexor stretch off edge of bed Comments with massage roller to quads manual hip felxor stretch bilat. PT-OP-T Assessment and Plan Start: 12/02/22 13:53 Freq: Status: Active Protocol: Document 12/10/22 07:32 SP (Rec: 12/10/22 08:17 SP [id number]) Physical Therapy Assessment Goals Navigate stairs/ramps Impairment Pt having difficultly hiking up /down steep grades/ navigating steps Short Term Goal (STG) Pt will be able to navigate steps with 4/10 bilat knee pain STG Duration 01/13/23 Halfway Goal (LTG) Pt will be able to navigate steps with minimal to no bilat knee pain LTG Duration 02/24/23 pt will be able to kneel Impairment Unable to kneel without bilat knee pain Short Term Goal (STG) Pt will be able to kneel with 4/10 bilat knee pain STG Duration 01/13/23 Senior Controls Technician Goal (LTG) Pt will be able to kneel without pain LTG Duration 02/24/23 knee rom Impairment Difficult to flex knee past 110 degrees Short Term Goal (STG) Right knee flexion willimprove to 120 degrees STG Duration 01/13/23 Three Impairment L SIJ & upper gluteals pain with radiating numbness down lateral thigh. Pain anterior L thigh rated 2- 3/10. Assessment Summary Assessment Pt good feedback response to ther ex HEP review and added today. Extra time and education on knee alignment, hip hinge for proper form and decrease tension stress over anterior knees. Discussed reaching out to physician for feedback on cramps experiencing waking him up. He stated has taken potassium and magnesium in past and didn 't seem make difference and or if benefit from nutrition referral, provided HO for patient portal access to contact Dr Cornell. Physical Therapy Plan Frequency and Duration Frequency of Treatment 1-2x/wk Duration of treatment (weeks) 10 Plan of Care Start Date 12/02/22 Plan of Care End Date 02/24/23 Next Visit Focus/Plan Next Note Type Treatment Note Next Visit Plan Recheck response to HEP and added SLS lift, band walk , side plank. POC: Next tx add previous suggested Terminal knee ext., HS sets/ LAQ, IR ex.( with sidelying hip abd.)
--- NOTE | 2022-12-18 17:29 | PT.OTN ---
Current Diagnoses Other chronic pain (12/18/22) Pain in right knee (12/18/22) Pain in left knee (12/18/22) Physical Therapy Treatment Note PT-OP-A Visit Information Start: 12/02/22 13:53 Freq: Status: Active Protocol: Document 12/18/22 09:45 SAK (Rec: 12/18/22 10:33 [facility] [id number]) Out-Patient Physical Therapy Visit Information Visit Information Visit Type Treatment Note Visit Start Time 09:45 Visit Stop Time 10:30 Total Visit Minutes 45 Visit Number 4 Number of SCIENTIFIC DIRECTOR Visits 0 PT-OP-B Current Condition Start: 12/02/22 13:53 Freq: Status: Active Protocol: Document 12/18/22 09:45 SAK (Rec: 12/18/22 10:33 SAK [id number]) Current Condition History of Current Condition History of Current Condition Pt states bilateral knee pain started about 6 months ago. 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 Pain aches though if he kneels or bends knee pain is sharp ( just below knee cap). Right knee pops especially after prolonged sitting. PT-OP-C Subjective Start: 12/02/22 13:53 Freq: Status: Active Protocol: Document 12/18/22 09:45 SAK (Rec: 12/18/22 10:33 SAK [id number]) OP-PT Subjective Patient Comments Patient Comments Right knee has been doing better but still popping again especially after getting up out of car. States some improvement with PT, exercises have been good but pain comes on pretty quickly after he starts walking/hiking. PT-OP-J Posture/Palpation/Skin Start: 12/02/22 13:53 Freq: Status: Active Protocol: Document 12/02/22 13:54 TH (Rec: 12/02/22 16:48 TH [id number]) Posture Evaluation Comments Posture Comments right knee hyperext., increased thoracic extension, PPT, flat lumbar lordosis, left LE shorter than right, PT-OP-K Range of Motion Start: 12/02/22 13:53 Freq: Status: Active Protocol: Document 12/02/22 13:54 TH (Rec: 12/02/22 16:48 TH [id number]) Knee Goniometric Range of Motion Knee Right Flexion Active (degrees) 110 Extension Active (degrees) 5 Comments right knee hyperext., increased thoracic extension, PPT, flat lumbar lordosis, left LE shorter than right, PT-OP-Q Treatments Start: 12/02/22 13:53 Freq: Status: Active Protocol: Document 12/18/22 09:45 [facility] (Rec: 12/18/22 10:33 [facility] [id number]) Cardio Equipment Treadmill Duration (Minutes) 5 Speed 2 Incline 0 Other video with patient phone for gait assessment Gym Equipment Sport Cord green Exercise Details fwd and side Cord/Resistance green Reps/Duration 10 min Comments cues for LE alignment and gluteal activation, mirror for visual feedback Therapeutic Exercises Supine Exercises IT band Supine Exercise Name stretch Equipment Used strap Reps/Minutes 2x30 Standing Exercises SLS Lift Standing Exercise Name reviewed Equipment Used mirror self feedback track Reps/Minutes 2x10 reps Comments cued knee alignment with/ behind toes/soft knee, good straight back lunges Side bilateral Reps/Minutes 2x8 reps Comments cued knee with and behind toe Gait Training Gait Activity stairs Description 6 stairs Device Used none Level of Assistance verbal cues Treatment Focus gluteal activation, LE alignment Comments mirror for visual feedback when descending Manual Therapy Treatment Taping jourdan knees Treatment Focus support and mercado relief Type of Tape kinesiot Skin Inspection intact Comments I strip each knee 75% stretch over patellar tendon PT-OP-T Assessment and Plan Start: 12/02/22 13:53 Freq: Status: Active Protocol: Document 12/18/22 09:45 [facility] (Rec: 12/18/22 10:33 [facility] [id number]) Physical Therapy Assessment Goals Navigate stairs/ramps Impairment Pt having difficultly hiking up /down steep grades/ navigating steps Short Term Goal (STG) Pt will be able to navigate steps with 4/10 bilat knee pain STG Duration 01/13/23 General Maintenance Mechanic Goal (LTG) Pt will be able to navigate steps with minimal to no bilat knee pain LTG Duration 02/24/23 pt will be able to kneel Impairment Unable to kneel without bilat knee pain Short Term Goal (STG) Pt will be able to kneel with 4/10 bilat knee pain STG Duration 01/13/23 General Maintenance Mechanic Goal (LTG) Pt will be able to kneel without pain LTG Duration 02/24/23 knee rom Impairment Difficult to flex knee past 110 degrees Short Term Goal (STG) Right knee flexion willimprove to 120 degrees STG Duration 01/13/23 Three Impairment L SIJ & upper gluteals pain with radiating numbness down lateral thigh. Pain anterior L thigh rated 2- 3/10. Assessment Summary Assessment Today's session focused on functional exercises with verbal, tactile and visual cues for alignment, core and gluteal activation. Video taken of patient on treadmill for education and self- reference with noted excess right foot eversion. Patient able to do some self- correction especialy with visual feedback. Physical Therapy Plan Frequency and Duration Frequency of Treatment 1-2x/wk Duration of treatment (weeks) 10 Plan of Care Start Date 12/02/22 Plan of Care End Date 02/24/23 Next Visit Focus/Plan Next Note Type Treatment Note Next Visit Plan POC: Add Terminal knee ext., HS sets/ LAQ, IR ex.( with sidelying hip abd.)
--- NOTE | 2022-12-23 12:38 | PT.OTN ---
Current Diagnoses Other chronic pain (12/23/22) Pain in right knee (12/23/22) Pain in left knee (12/23/22) Physical Therapy Treatment Note PT-OP-A Visit Information Start: 12/02/22 13:53 Freq: Status: Active Protocol: Document 12/23/22 09:55 SW (Rec: 12/23/22 11:01 SW [id number]) Out-Patient Physical Therapy Visit Information Visit Information Visit Type Treatment Note Visit Start Time 10:00 Visit Stop Time 10:45 Total Visit Minutes 45 Visit Number 5 Number of CERTIFIED DRUG COUNSELOR Visits 1 PT-OP-B Current Condition Start: 12/02/22 13:53 Freq: Status: Active Protocol: Document 12/18/22 09:45 SAK (Rec: 12/18/22 10:33 SAK [id number]) Current Condition History of Current Condition History of Current Condition Pt states bilateral knee pain started about 6 months ago. 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 Pain aches though if he kneels or bends knee pain is sharp ( just below knee cap). Right knee pops especially after prolonged sitting. PT-OP-C Subjective Start: 12/02/22 13:53 Freq: Status: Active Protocol: Document 12/23/22 09:55 SW (Rec: 12/23/22 11:01 SW [id number]) OP-PT Subjective Patient Comments Patient Comments Patient reports knee pain 4-5 started at 6-7, he feels like he is making steady progress. Discontinued his K tape, due to minimal effect. He reported next session will probably be his last due to family obligations in December. Patient Reported Progress Improving PT-OP-J Posture/Palpation/Skin Start: 12/02/22 13:53 Freq: Status: Active Protocol: Document 12/02/22 13:54 TH (Rec: 12/02/22 16:48 TH [id number]) Posture Evaluation Comments Posture Comments right knee hyperext., increased thoracic extension, PPT, flat lumbar lordosis, left LE shorter than right, PT-OP-K Range of Motion Start: 12/02/22 13:53 Freq: Status: Active Protocol: Document 12/02/22 13:54 TH (Rec: 12/02/22 16:48 TH [id number]) Knee Goniometric Range of Motion Knee Right Flexion Active (degrees) 110 Extension Active (degrees) 5 Comments right knee hyperext., increased thoracic extension, PPT, flat lumbar lordosis, left LE shorter than right, PT-OP-Q Treatments Start: 12/02/22 13:53 Freq: Status: Active Protocol: Document 12/23/22 09:55 (Rec: 12/23/22 11:01 [id number]) Cardio Equipment Treadmill Duration (Minutes) 5 Speed 2 Incline 0 Other Vc for alignment foot, knee and hip Gym Equipment Sport Cord green Exercise Details fwd and side, back Cord/Resistance green Reps/Duration 10 min Comments cues for LE alignment and gluteal activation, mirror for visual feedback Therapeutic Exercises Supine Exercises Hip Flex Stretch Supine Exercise Name RLE over mat table Side right Equipment Used Therapist assist Reps/Minutes 3x30 sec hold Quad Stretch Supine Exercise Name Quad Stretch Side right Equipment Used Therapist assist Reps/Minutes 3x30 sec HS stretch Side right Equipment Used strap Reps/Minutes 30 Comments good response. Sitting Exercises Ankle inv strength Sitting Exercise Name Ankle inversion strength Side right Resistance [place] TB Reps/Minutes 2 x 10 Comments Cued for accessory motion through hip and knee Standing Exercises mini squat Side bilateral Comments Verbal/tactile cueing for alignment SLS Standing Exercise Name SLS Equipment Used Mirror feedback Reps/Minutes 2 x 20 sec Comments SLS with visual feedback for alignment with hip, knee, and foot SLS Lift Standing Exercise Name reviewed Equipment Used mirror self feedback track Reps/Minutes 2x10 reps Comments cued knee alignment with/ behind toes/soft knee, good straight back,hip stab lunges Side bilateral Reps/Minutes 2x8 reps Comments cued knee with and behind toe, Other Exercises hip flexor stretch Other Exercise Name Seated Side right Reps/Minutes 2 x 30 sec hold PT-OP-T Assessment and Plan Start: 12/02/22 13:53 Freq: Status: Active Protocol: Document 12/23/22 09:55 (Rec: 12/23/22 11:01 [id number]) Physical Therapy Assessment Goals Navigate stairs/ramps Impairment Pt having difficultly hiking up /down steep grades/ navigating steps Short Term Goal (STG) Pt will be able to navigate steps with 4/10 bilat knee pain STG Duration 01/13/23 [facility] Goal (LTG) Pt will be able to navigate steps with minimal to no bilat knee pain LTG Duration 02/24/23 pt will be able to kneel Impairment Unable to kneel without bilat knee pain Short Term Goal (STG) Pt will be able to kneel with 4/10 bilat knee pain STG Duration 01/13/23 [facility] Goal (LTG) Pt will be able to kneel without pain LTG Duration 02/24/23 knee rom Impairment Difficult to flex knee past 110 degrees Short Term Goal (STG) Right knee flexion willimprove to 120 degrees STG Duration 01/13/23 Three Impairment L SIJ & upper gluteals pain with radiating numbness down lateral thigh. Pain anterior L thigh rated 2- 3/10. Assessment Summary Assessment Continued with functional exercises today bringing awareness to alignment. SLS difficulty maintaining hip alignment, putting stress on medial knee, improved with cueing for core stabilization and mirror feedback, good response. He feels like he is making steady progress with pain at a 4-5, starting out PT with pain level at a 6-7. Reports his HEP is going well, with no issues. He had plans to discontinue PT in December but stated his last session may need to be the next appointment d/t family obligations. Knee flexion ROM today 126 degrees, met goal from initial PT visit, tested in supine AROM.Visitied ankle strength today to address increased eversion during gait analysis. Physical Therapy Plan Frequency and Duration Frequency of Treatment 1-2x/wk Duration of treatment (weeks) 10 Plan of Care Start Date 12/02/22 Plan of Care End Date 02/24/23 Next Visit Focus/Plan Next Note Type Treatment Note Next Visit Plan Per patient, appointment after today may be his last one. POC: Add Terminal knee ext., HS sets/ LAQ, IR ex.( with sidelying hip abd.)
--- NOTE | 2022-12-31 16:32 | PT.OTN ---
Current Diagnoses Other chronic pain (12/31/22) Pain in right knee (12/31/22) Pain in left knee (12/31/22) Physical Therapy Treatment Note PT-OP-A Visit Information Start: 12/02/22 13:53 Freq: Status: Active Protocol: Document 12/31/22 09:34 SAK (Rec: 12/31/22 10:23 SAK [id number]) Out-Patient Physical Therapy Visit Information Visit Information Visit Type Treatment Note Visit Start Time 09:34 Total Visit Minutes 41 Visit Number 6 Number of ASSISTANT SUPERINTENDENT Visits 0 PT-OP-B Current Condition Start: 12/02/22 13:53 Freq: Status: Active Protocol: Document 12/18/22 09:45 SAK (Rec: 12/18/22 10:33 SAK [id number]) Current Condition History of Current Condition History of Current Condition Pt states bilateral knee pain started about 6 months ago. 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 Pain aches though if he kneels or bends knee pain is sharp ( just below knee cap). Right knee pops especially after prolonged sitting. PT-OP-C Subjective Start: 12/02/22 13:53 Freq: Status: Active Protocol: Document 12/31/22 09:34 SAK (Rec: 12/31/22 10:23 SAK [id number]) OP-PT Subjective Patient Comments Patient Comments Wants help in ideas for relieving popping of knee after laying down or sitting in car, also what he can do when out hiking and feels inc pain or tightness. Today is last appointment per patient request due to busy schedule with family PT-OP-J Posture/Palpation/Skin Start: 12/02/22 13:53 Freq: Status: Active Protocol: Document 12/02/22 13:54 TH (Rec: 12/02/22 16:48 TH [id number]) Posture Evaluation Comments Posture Comments right knee hyperext., increased thoracic extension, PPT, flat lumbar lordosis, left LE shorter than right, PT-OP-K Range of Motion Start: 12/02/22 13:53 Freq: Status: Active Protocol: Document 12/02/22 13:54 TH (Rec: 12/02/22 16:48 TH [id number]) Knee Goniometric Range of Motion Knee Right Flexion Active (degrees) 110 Extension Active (degrees) 5 Comments right knee hyperext., increased thoracic extension, PPT, flat lumbar lordosis, left LE shorter than right, PT-OP-Q Treatments Start: 12/02/22 13:53 Freq: Status: Active Protocol: Document 12/31/22 09:34 [facility] (Rec: 12/31/22 10:23 [facility] [id number]) Therapeutic Exercises Supine Exercises Hip Flex Stretch Supine Exercise Name end of table Kris stretch Side bilateral Equipment Used strap Reps/Minutes 3x30 sec hold Quad Stretch Supine Exercise Name end of table Side right Reps/Minutes 3x30 sec IT band Supine Exercise Name stretch Side bilateral Equipment Used strap Reps/Minutes 2x30 HS stretch Side bilateral Equipment Used strap Reps/Minutes 30 Comments good response. Standing Exercises step ups Reps/Minutes 10x2 Comments cues for gluteal activation mini squat Side bilateral Comments Verbal/tactile cueing for alignment, gluteal activation SLS Lift Standing Exercise Name reviewed Equipment Used mirror self feedback track Reps/Minutes 2x10 reps Comments cued knee alignment with/ behind toes/soft knee, good straight back,hip stab lunges Side bilateral Reps/Minutes 2x8 reps Comments cued knee with and behind toe, PT-OP-T Assessment and Plan Start: 12/02/22 13:53 Freq: Status: Active Protocol: Document 12/31/22 09:34 [facility] (Rec: 12/31/22 10:23 [facility] [id number]) Physical Therapy Assessment Goals Navigate stairs/ramps Impairment Pt having difficultly hiking up /down steep grades/ navigating steps Short Term Goal (STG) Pt will be able to navigate steps with 4/10 bilat knee pain 12/31/22 STG Duration 01/13/23 Cut File Clerk Goal (LTG) Pt will be able to navigate steps with minimal to no bilat knee pain LTG Duration goal met pt will be able to kneel Impairment Unable to kneel without bilat knee pain Short Term Goal (STG) Pt will be able to kneel with 4/10 bilat knee pain 12/31/22: improving, especially if stretches first STG Duration 01/13/23 Cut File Clerk Goal (LTG) Pt will be able to kneel without pain 12/31/22: can with cushioning LTG Duration goal met knee rom Impairment Difficult to flex knee past 110 degrees Short Term Goal (STG) Right knee flexion willimprove to 120 degrees STG Duration goal met Three Impairment L SIJ & upper gluteals pain with radiating numbness down lateral thigh. Pain anterior L thigh rated 2- 3/10. Assessment Summary Assessment Patient demonstrated good understanding of modification of positioning, movements to decrease knee pain and popping . Also demonstrated good understanding of modification of ex for improved effect and was issued written handout. Has made good progress and should continue to improve with compliance to HEP. Discharge from PT today Physical Therapy Plan Discharge Physical Therapy Discharge Reasons Patient Request Discharge Comments Good progress, family commitments limit ability to attend.
== END 2023-01-14 09:47 | disposition home or self-care (01) ==
LOC: PHYS 09:30
PROVIDERS: Family Provider Student in an Organized Health Care Education/Training Program; PCP Student in an Organized Health Care Education/Training Program; Referring Provider Student in an Organized Health Care Education/Training Program; Visit Provider Student in an Organized Health Care Education/Training Program
DX: M25.561 Pain in right knee (principal); M25.562 Pain in left knee; G89.29 Other chronic pain
CPT/HCPCS: 97110; 97140; 97161; 97535

== ENCOUNTER → 2023-08-13 15:50 | Outpatient (CLI) | payer MEDICARE, SELFPAY ==
[2023-08-13 17:26] LABS: Add Manual Diff / Slide Review NO; Basophils Absolute Auto 0 /uL (0-100); Basophils Percent Auto 0.6 % (0-2); Eosinophils Absolute Auto 100 /uL (0-450); Eosinophils Percent Auto 2.2 % (2-4); Hematocrit 42.2 % (41-53); Hemoglobin 14.8 g/dL (13.5-17.5); Lymphocytes Absolute Auto 800 /uL (1100-4500); Lymphocytes Percent Auto 19.9 % (25-40); Mean Corpuscular Hemoglobin 30.6 PG (26-34); Mean Corpuscular Volume 87.5 fL (80-100); Monocytes Absolute Auto 300 /uL (0-900); Monocytes Percent Auto 6.7 % (3-14); Neutrophils Absolute Auto 2800 /uL (1500-7000); Neutrophils Percent Auto 70.6 % (50-75); Platelet Count 186 X10^3/uL (150-400); Red Blood Cell Count 4.82 X10^6/uL (4.5-5.9); Red Cell Distribution Width 13.3 % (11.6-14.8); White Blood Cell Count 3.9 X10^3/uL (4.5-11.0)
[2023-08-13 19:47] LABS: Alanine Aminotransferase 27 IU/L (<50); Albumin 3.9 g/dL (3.5-5.0); Albumin Globulin Ratio 1.6 (1.0-2.8); Alkaline Phosphatase 47 U/L (38-126); Aspartate Aminotransferase 29 IU/L (17-59); BUN Creatinine Ratio 22.2 (6-22); Bilirubin Total 1.3 mg/dL (0.2-1.3); Blood Urea Nitrogen 20 mg/dL (9-20); Carbon Dioxide 31 mmol/L (22-32); Chloride 100 mmol/L (98-107); Estimated Glomerular Filt Rate > 60 mL/min (>60); Globulin 2.4 g/dL (1.7-4.1); Glucose 94 mg/dL (80-110); HEMOLYSIS < 15 (0-50); Lipase 63 U/L (23-300); Potassium 3.8 mmol/L (3.4-5.1); Sodium 138 mmol/L (137-145); Total Protein 6.3 g/dL (6.3-8.2)
[2023-08-14 20:15] LABS: Prostate Specific Antigen Scrn 4.03 ng/mL (0.1-4.0)
== END ==
PROVIDERS: Family Provider Student in an Organized Health Care Education/Training Program; PCP Student in an Organized Health Care Education/Training Program; Referring Provider Physician Assistant; Visit Provider Physician Assistant
DX: R14.0 Abdominal distension (gaseous) (principal); Z12.5 Encounter for screening for malignant neoplasm of prostate; K59.00 Constipation, unspecified
CPT/HCPCS: 36415; 80053; 83690; 84443; 85025; G0103

== ENCOUNTER → 2023-08-19 08:08 | Outpatient (CLI) | payer MEDICARE, SELFPAY ==
--- NOTE | 2023-08-19 08:09 | DI.US.S_ITS ---
PROCEDURE: US ABDOMEN LIMITED INDICATIONS: RIGHT UPPER QUADRANT PAIN TECHNIQUE: Real-time focused scanning was performed of the abdomen, with image documentation. COMPARISON: None. FINDINGS: The gallbladder contains numerous shadowing calculi filling most of the gallbladder. The wall is normal thickness at 2.1 mm. There is no pericholecystic fluid or sonographic Lane sign per the technologist. The extrahepatic common duct is normal caliber measuring 2.3. No visible intrahepatic biliary dilatation. The visible portions of the proximal pancreas, liver, and right kidney appear grossly normal. No visible free fluid in the right upper quadrant. IMPRESSION: 1. Cholelithiasis without sonographic evidence of acute cholecystitis. Dictated by: Dona Camarillo M.D. on 08/21/2023 at 9:03 Approved by: Dona Camarillo M.D. on 08/21/2023 at 9:05
== END ==
PROVIDERS: Family Provider Student in an Organized Health Care Education/Training Program; PCP Family Medicine; Referring Provider Physician Assistant; Visit Provider Physician Assistant
DX: R10.11 Right upper quadrant pain (principal); K80.20 Calculus of gallbladder without cholecystitis without obstruction
CPT/HCPCS: 76705

== ENCOUNTER → 2023-08-20 09:07 | Outpatient (CLI) | payer MEDICARE, SELFPAY ==
[2023-08-21 13:03] LABS: Fecal Immunochemical Test Negative (Negative)
== END ==
PROVIDERS: Family Provider Student in an Organized Health Care Education/Training Program; PCP Family Medicine; Referring Provider Physician Assistant; Visit Provider Physician Assistant
DX: R14.0 Abdominal distension (gaseous) (principal); K59.00 Constipation, unspecified
CPT/HCPCS: 82274; 87045; 87077; 87177; 87899

== ENCOUNTER 2023-09-09 10:55 | Day surgery (SDC) | payer OTHER, SELFPAY ==
[2023-09-04 11:50] VITALS: BMI 25.0
[2023-09-09] VITALS (8 sets, daily range): BP systolic 156–186; BP diastolic 84–101; PULSE 51–81; RESP 11–18; TEMP 36.2–37.1; O2SAT 98–100; BMI 25.0
--- NOTE | 2023-09-09 | PATH_ITS ---
[facility] Accession Number: [id number] No. of containers..01 Tissue . 01 Material submitted: . gallbladder - GALLBLADDER . 01 Diagnosis: Gallbladder, Cholecystectomy: Cholelithiasis. No evidence of neoplasm. [facility] 09/14/2023 1507 Local . 01 Electronically signed: . Dexter Childs MD, PhD, Pathologist NPI- [id number] . 01 Gross description: . The specimen is received in formalin labeled with the patient's name, , and gallbladder, consists of an intact gallbladder measuring 7.5 x 3.1 x 2.7 cm with an unremarkable external surface. The cystic duct margin is inked blue, and no pericystic lymph node is identified. The lumen is filled with numerous dark brown faceted calculi measuring up to 0.6 cm in greatest dimension grossly obstructing the cystic duct and admixed with green mucoid bile. The mucosa is berman and trabecular with no yellow discoloration, polyps, or lesions identified. The oakes average 0.1 cm thick. Marketing Programs Specialist sections to include the cystic duct margin and full thickness sections are submitted in cassette A1. ([id number]) /MRV 09/10/2023 1845 Local . 01 Pathologist provided ICD-10: K80.20 . 01 CPT . 143026 Specimen Comment: A courtesy copy of this report has been sent to [phone] Performed at: [facility] [address] [place] [address], [place], [place] [id number] MD Jhonny Salinas MD Phone: [phone]
[2023-09-09] MEDS: LACTATED RINGERS 1,000 ML 100 ML IV (12:00)
[2023-09-09 12:05] LABS: COVID19 -Nasal RAPID Negative (Negative)
--- NOTE | 2023-09-09 13:06 | PM.PREOP ---
Pre-operative Note Interval Note History & Physical reviewed/Exam performed by Physician: Yes Changes to H&P: No
[2023-09-09] MEDS: CEFAZOLIN 2 GM/100 ML PREMIX 100 ML IV (13:55)
--- NOTE | 2023-09-09 14:10 | SUR.OPER ---
Supine on padded OR bed, head on pillow, safety belt at thigh, left arm padded and tucked at side. Right arm secured on padded arm board <90 degrees abduction. Legs uncrossed. Padded footboard in place. Tape over blanket to secure lower legs.
[2023-09-09] MEDS: BUPIVACAINE 0.25% (PF) VIAL 30 ML INJ (14:13)
--- NOTE | 2023-09-09 15:05 | PM.OP.1 ---
Operative Date/Time/Diagnoses Date of procedure: 09/09/23 Time of procedure: 15:05 Pre-op diagnosis: Biliary colic Post-op diagnosis: same Procedure & Clinicians Procedure: Laparoscopic cholecystectomy Same procedure as scheduled: Yes Indications: 68-year-old man with symptomatic cholelithiasis here for elective cholecystectomy Surgeon: Buster Cobos Click Yes if Unassisted: Yes Anesthesia Type: General Operative Notes Findings: Critical view of safety established. Numerous gallstones Specimen(s): other (Gallbladder) Estimated Blood Loss (mL): 20 Procedure in detail: The patient was placed supine on the table and bilateral lower extremity compression devices were applied. Anesthesia was induced they were intubated with an endotracheal tube and received 2g of Ancef. A time-out was performed. They were prepped and draped in sterile fashion. An infraumbilical incision was made. The fascia was elevated incised and the abdomen was entered atraumatically. A blunt tip 12mm balloon trocar was then inserted, pneumoperitoneum was established and inspection of the abdomen demonstrated no evidence of injury. They were placed head up and right side up and then a 11 mm port was placed high in the epigastrium and two 5mm in the right upper quadrant. The gallbladder was grasped by the fundus and retracted over the liver and retracted laterally by the infundibulum. The gallbladder was entirely filled with stones. Using electrocautery the lateral plane between the gallbladder and the liver was opened towards the fundus. The gallbladder was then retracted laterally and the medial plane was developed in the same manner. With the gallbladder mobilized the bottom of the cystic plate was visualized. The hepatocystic triangle was meticulosly skeletonized with blunt dissection of fat and fibrous tissue from both the front and the back. Only two structures were then clearly seen entering the gallbladder the cystic duct and the cystic artery. With the critical view of safety fully established the cystic duct was clipped twice proximally and once distally using the 10 mm Weck hemoclip applied under direct visualization and then sharply divided. The cystic artery was divided in the same fashion. The gallbladder was removed from the liver bed using electro cautery. The liver bed was then inspected for hemostasis and this was achieved. The abdomen was irrigated with sterile saline and inspection was made that showed the clips in good position. The specimen was removed using Endo-Catch. The abdomen was desufflated. The umbilical fascia was closed with 0 Vicryl in a [id number] fashion under direct visualization. Skin incisions were irrigated and closed with 4-0 Monocryl. 30 ml of 0.25% bupivacaine was infiltrated into the subcutaneous tissue of the incisions. The wounds were sealed with Dermabond. Patient emerged from anesthesia was extubated and transferred to recovery in stable condition. The sponge and instrument count at the end of the operation was correct. Complications: none Post-operative Condition: stable Disposition: same day surgery
[2023-09-09] MEDS: METOCLOPRAMIDE 10 MG/2 ML INJ IV (15:08)
[2023-09-09] MEDS: ONDANSETRON 4 MG/2 ML INJ IV (15:08)
[2023-09-09] MEDS: hydrOXYzine 50 MG/ML INJ 25 MG IM (15:08)
[2023-09-09] MEDS: OXYCODONE IR 5 MG TABLET PO ×2 (15:17→15:46)
[2023-09-09] MEDS: ACETAMINOPHEN 325 MG TABLET 650 MG PO (15:46)
--- NOTE | 2023-09-09 16:48 | SUR.PHASEII ---
Patient ambulated SBA to bathroom, reported voiding. He rested and reported improved pin 3-4/10. Requested to discharge.
== END 2023-09-09 16:42 | disposition home or self-care (01) ==
PROVIDERS: Family Provider Student in an Organized Health Care Education/Training Program; PCP Family Medicine; Referring Provider Surgery; Visit Provider Surgery
PROC: 0FT44ZZ Resection of Gallbladder, Percutaneous Endoscopic Approach (ICD-10-PCS; CPT 47562; principal; 2023-09-09 12:15)
DX: K80.20 Calculus of gallbladder without cholecystitis without obstruction (principal); Z23 Encounter for immunization
CPT/HCPCS: 47562; 87635; J0690; J1100; J1885; J2405; J2704; J2765; J3010; J3410

== ENCOUNTER → 2024-05-20 11:02 | Outpatient (CLI) | payer MEDICARE, SELFPAY ==
--- NOTE | 2024-05-20 11:04 | DI.RAD.S_ITS ---
PROCEDURE: XR SHOULDER LT MIN 2V INDICATIONS: L shoulder pain TECHNIQUE: < 3 views of the shoulder were acquired. COMPARISON: None. FINDINGS: Bones: A 5 mm bone island is seen in the distal clavicle. No other significant osseous abnormality. Acromioclavicular and glenohumeral joints: Moderate acromioclavicular and mild glenohumeral degeneration appreciated Soft tissues: No soft tissue swelling, calcification or mass. IMPRESSION: Degeneration. Dictated by: Marek Carpio M.D. on 05/23/2024 at 7:22 Approved by: Marek Carpio M.D. on 05/23/2024 at 7:23
== END ==
PROVIDERS: Family Provider Family Medicine; PCP Family Medicine; Referring Provider Family Medicine; Visit Provider Family Medicine
DX: M25.512 Pain in left shoulder (principal); M19.012 Primary osteoarthritis, left shoulder
CPT/HCPCS: 73030

== ENCOUNTER → 2024-05-25 13:18 | Outpatient (CLI) | payer MEDICARE, SELFPAY ==
--- NOTE | 2024-05-25 13:19 | DI.RAD.S_ITS ---
PROCEDURE: XR CERVICAL SPINE 2V OR 3V INDICATIONS: unresolved neck pain TECHNIQUE: Three views of the cervical spine were acquired. COMPARISON: None. FINDINGS: Bones: Small ossification is seen adjacent to the inferior endplate of C5 that is most likely related to degenerative changes although a small fracture fragment is not entirely excluded. No wedging compression deformity is seen. Grade 1 anterolisthesis at C5-6 measures 3 mm and at C4-5 measures 1 mm. The lateral masses of C1 appear intact on the odontoid view. No suspicious bony lesions. Multilevel disc space narrowing and degenerative endplate changes. Multilevel uncovertebral joint and facet hypertrophy. Soft tissues: Borderline thickness of the prevertebral soft tissues at the lower cervical spine. IMPRESSION: 1. Small osseous fragment anterior to the C5-6 disc space is likely degenerative in nature although a small fracture is difficult to exclude. Consider cervical spine CT or MRI for further evaluation. 2. Grade 1 anterolisthesis at C4-5 and C5-6. 3. Multilevel spondylosis. Approved by: Kevin Allan M.D. on 05/25/2024 at 20:18
== END ==
PROVIDERS: Family Provider Family Medicine; PCP Family Medicine; Referring Provider Family Medicine; Visit Provider Family Medicine
DX: M47.812 Spondylosis without myelopathy or radiculopathy, cervical region (principal); M43.12 Spondylolisthesis, cervical region; M54.2 Cervicalgia
CPT/HCPCS: 72040

== ENCOUNTER → 2024-06-02 07:03 | Outpatient (CLI) | payer MEDICARE, SELFPAY ==
[2024-06-02 08:49] LABS: Cholesterol 233 mg/dL (140-199); HDL Cholesterol 48 mg/dL (40-60); LDL Cholesterol Calculated 164 mg/dL (<100); Triglycerides 107 mg/dL (35-150)
[2024-06-02 09:15] LABS: TSH w/ Reflex to FT4 2.77 uIU/mL (0.47-4.68)
[2024-06-02 09:18] LABS: Prostate Specific Antigen 4.56 ng/mL (0.10-4.00)
== END ==
PROVIDERS: Family Provider Family Medicine; PCP Family Medicine; Referring Provider Physician Assistant; Visit Provider Physician Assistant
DX: E78.2 Mixed hyperlipidemia (principal); R97.20 Elevated prostate specific antigen [PSA]; R03.0 Elevated blood-pressure reading, without diagnosis of hypertension
CPT/HCPCS: 36415; 80061; 84153; 84443

== ENCOUNTER 2024-08-29 10:45 | Outpatient (RCR) | payer MEDICARE, SELFPAY ==
--- NOTE | 2024-05-18 15:57 | PT.OIE ---
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) Tinnitus Past Surgical History (Last Reviewed 10/06/23 @ 15:46 by Jj Frost DO) History of tonsillectomy Status post hernia repair Visit Care Team Role Provider Type Jj Frost DO Attending Provider Physician Family Provider Primary Care Provider Referring Provider Specialty: [facility] Practice Address: [address] [place] [address] Email: [email or web address] Initial Evaluation PT-OP-A Visit Information Start: 05/17/24 11:16 Freq: Status: Active Protocol: Document 05/18/24 13:47 NM (Rec: 05/18/24 15:56 NM [id number]) Out-Patient Physical Therapy Visit Information Visit Information Visit Type Initial Evaluation Visit Note KX after 19 visits Visit Start Time 13:48 Visit Stop Time 14:35 Visit Number 1 Evaluation Information Evaluation Date 05/18/24 PT-OP-B Current Condition Start: 05/17/24 11:16 Freq: Status: Active Protocol: Document 05/18/24 13:47 NM (Rec: 05/18/24 14:36 NM [id number]) Current Condition History of Current Condition Onset Date 1 week ago Current Complaints pain, weakness History of Current Condition Pt presents with after falling 1 week ago when [place] a [place]. He reports that he slid backwards on gravel, landing mainly on his back but more rotated to his L side. L arm was by his side. He denies landing on his arm. Following fall, pt states that he went sleeping in a tent, using trek poles over the weekend/week while hiking. He reports that the pain set in the days after the fall. He reports that the pain has slowly been getting worse over the L shoulder since fall, but states that he woke up feeling better this morning. He reports spasms, especially by shoulder blade (top and front). He reports that he dull ache is there all the time, and reports that it keeps him up at night. He is unable to sleep on his L side or lie on his back due to pain . Pt reports that stretching helps, especially overhead. He states he has not lost any ROM but feels little weaker. He did not have any imaging or follow up with PCP following the fall. Reports that sitting in the car, lifting (any resistance) is painful. Pt has PMH of L shoulder pain from carrying a pack with successful PT. Denies concussion symptoms, including changes in vision, headaches, balance, memory since fall. He reports that pain in his low back and his RLE was several months ago and has improved. He is unsure if the pain actually improved overall or if his L shoulder hurts so bad that his back/R hip feels better. States insidious onset of pain but slow; no known RUFINO. Reports that he has had this problem before but has resolved without intervention. He reports low back cramps/tightness and sciatic pain along RLE along the lateral side the knee; worse with sitting (especially after walking) and walking >2 mi. Occasionally goes further than his knee but usually remains in same pattern along lateral leg. Reports numbness/ tingling, dull ache. Pt also goes to chiropractor, massage therapist; he states they only help temporarily. He has muscle relaxers, which don't help manage his pain in his shoulder or his back/leg. Prior Treatments and Tests Pt reports imaging of shoulder previously but unknown results PT-OP-C Subjective Start: 05/17/24 11:16 Freq: Status: Active Protocol: Document 05/18/24 13:47 NM (Rec: 05/18/24 14:36 NM [id number]) OP-PT Subjective Patient Comments Patient Comments Pt consents to participate in evaluation. Reports that he feels better with his hand positioned up or over his head . I don't know if my sciatic pain is gone or if my shoulder hurts so bad that I forgot I had back pain Patient Questionnaires Oswestry Low Back Index Oswestry Score 17/50 Quick Dash- Upper Extremity Quick Dash UE Score 36.4% OP-PT Pain Assessment Location lumbar spine Pain Location Details R sided, R lateral hip (spasms to TFL, glute) Scale Used Numeric (0 - 10) Description Aching,Dull Radiating Location usually to knee, Pain Aggravating Factors Walking Other Pain Aggravating Factors backpacking trip, sitting in chair (cramps)- driving is worse Pain Alleviating Factors Heat Other Pain Alleviating Factors warm showers L shoulder Pain Location Details posterior shoulder, pec, top of shoulder Intensity 4 Scale Used Numeric (0 - 10) Description Aching,Dull,Sharp,Spasm, Tingling Description- Other nausea; max 7-8/10 w/ spasms or lying supine Frequency Intermittent Variations/Patterns to fingers (all 5) Pain Aggravating Factors Position,Sitting Other Pain Aggravating Factors sleeping, resting, supine position Pain Alleviating Factors Cold,Heat Other Pain Alleviating Factors movement, deep breathing, stretching, arm above head PT-OP-E Functional Tests Start: 05/17/24 11:16 Freq: Status: Active Protocol: Document 05/18/24 13:47 NM (Rec: 05/18/24 14:36 NM [id number]) Functional Tests Apley's Scratch Test Action 1- Left post cuff Action 1- Right post cuff Action 2- Left T7 Action 2- Right T5 Action 3- Left T6; winging; pulls in upper pec; mild pain Action 3- Right T7; wings Other Standing Trunk Flexion Test Name of Test measured finger to floor Score 2 PT-OP-F Manual Assessment Start: 05/17/24 11:16 Freq: Status: Active Protocol: Document 05/18/24 13:47 NM (Rec: 05/18/24 15:56 NM [id number]) Manual Assessments Soft Tissue Assessment Soft Tissue Mobility Assessment Increased restrictions along L sided cervical paraspinals and periscapulars, especially at levator scapula insertion, rhomboids. B lat tightness R glute, TFL, ITB tightness Joint Mobility Assessment Joint Mobility Assessment Full L shoulder AROM and PROM. Decreased scapular mobility, painful with palpation. Decreased cervical spine ROM into extension. Limited thoracic mobility. PT-OP-G Mobility & Gait Start: 05/17/24 11:16 Freq: Status: Active Protocol: Document 05/18/24 13:47 NM (Rec: 05/18/24 15:57 NM [id number]) OP Gait Assessment Gait Gait Assistance Required: Independent Distance (Feet) 150 Comments Gait Comments Decreased trunk mobility and L arm swing. Mild gait deviation in R stance, limited hip extension PT-OP-H Neuro Start: 05/17/24 11:16 Freq: Status: Active Protocol: Document 05/18/24 13:47 NM (Rec: 05/18/24 15:56 NM [id number]) Sensation Evaluation Comments Summary Comments BUE and BLE intact equally to light touch sensation Deep Tendon Reflex & Clonus Assessment Deep Tendon Reflex Bilateral Tricep Deep Tendon Reflex 1+ Diminished Bilateral Brachioradialis Deep Tendon Reflex 2+ Normal Bilateral Bicep Deep Tendon Reflex 2+ Normal PT-OP-J Posture/Palpation/Skin Start: 05/17/24 11:16 Freq: Status: Active Protocol: Document 05/18/24 13:47 NM (Rec: 05/18/24 15:56 NM [id number]) Posture Evaluation Position Standing Head/C-Spine Posture Forward Head Scapula Posture (R) Elevated,(L) Winged,(R) Winged Arm Posture (L) Internally Rotated,(R) Internally Rotated Pelvis Posture Anteriorly Tilted Hip Posture (L) Externally Rotated,(R) Externally Rotated Comments Posture Comments Position of comfort L arm in air above pt head or resting on top of pt head Palpation Assessment Location lumbar spine Palpation Details Mild tenderness along R lateral hip near glute and TFL , ITB No tenderness along midline of spine cervical spine Palpation Details No tenderness along midline or transverse processes L shoulder Palpation Details Mild tenderness along anterior shoulder near rotator cuff insertions and superior shoulder along AC joint Maximal tenderness along medial scapular border, especially near superior angle and thoracic paraspinals No tenderness along clavicle, humerus, scapular spine, or lateral border PT-OP-K Range of Motion Start: 05/17/24 11:16 Freq: Status: Active Protocol: Document 05/18/24 13:47 NM (Rec: 05/18/24 14:36 NM [id number]) Cervical Spine Range of Motion Cervical Spine Active Degrees Flexion 55 Extension 20 Rotation Left 75 Rotation Right 65 Lateral Flexion Left 30 Lateral Flexion Right 35 Comments LS trigger point, rhomboid; reports tightness and pulling all motions, pain with ext Lumbar Spine Range of Motion Lumbar Spine Active Percentage Flexion 90 Extension 100 Rotation Left 75 Rotation Right 100 Lateral Flexion Left 75 Lateral Flexion Right 75 Comments soreness along paraspinals with R LF, L rot Shoulder Goniometric Range of Motion Shoulder Right Flexion 170 Extension 60 Abduction 170 External Rotation at 90 degrees 80 Abduction Internal Rotation 75 Left Flexion 160 Extension 50 Abduction 170 External Rotation at 90 degrees 85 Abduction Internal Rotation 70 PT-OP-L Special Tests Start: 05/17/24 11:16 Freq: Status: Active Protocol: Document 05/18/24 13:47 NM (Rec: 05/18/24 14:36 NM [id number]) Special Tests Cervical Spine Special Tests Traction Test Results - Comments no change in symptoms Spurling's Test Test Results - Comments limited ext; no increase in symptoms Shoulder Special Tests AC Joint Compression Test Results + PT-OP-M Strength Start: 05/17/24 11:16 Freq: Status: Active Protocol: Document 05/18/24 13:47 NM (Rec: 05/18/24 14:36 NM [id number]) Cervical Spine Strength Cervical Spine Manual Muscle Testing Flexion (C1-2) 4 Good Extension 4 Good Rotation Left 4 Good Rotation Right 4 Good Lateral Flexion Left (C3) 4 Good Lateral Flexion Right (C3) 4 Good Comments No pain with resisted motion Trunk Strength Trunk Manual Muscle Testing Flexion 4 Good Extension 4 Good Rotation Left 4 Good Rotation Right 4 Good Lateral Flexion Left 4 Good Lateral Flexion Right 4 Good Comments pain free Shoulder Strength Shoulder Manual Muscle Testing Right Flexion 4+ Good+ Abduction (C5) 4+ Good+ External Rotation 4+ Good+ Internal Rotation 4+ Good+ Left Flexion 4 Good Abduction (C5) 4 Good External Rotation 4 Good Internal Rotation 4 Good Comments No pain with resisted motion PT-OP-T Assessment and Plan Start: 05/17/24 11:16 Freq: Status: Active Protocol: Document 05/18/24 13:47 NM (Rec: 05/18/24 14:36 NM [id number]) Physical Therapy Assessment Rehab Potential Rehabilitation Potential Fair Evaluation Complexity Number of Personal Factors/Comorbidities 1-2 Number of Body Systems Impaired 1-2 Clinical Presentation at Evaluation Stable Impairments Impairments Activity Tolerance,Balance, Functional Activities, Functional Mobility,Gait,Pain, Posture,ROM,Sensation,Soft Tissue Mobility,Strength, Transfers Other Concerns Barriers to Rehabilitation Currently pt has poor tolerance to lying both prone and supine Goals Four Impairment pain with walking > 2 mi Fci Goal (LTG) Pt will be able to ambulate >2 miles without increase in R hip or back pain in order to demonstrate improved symptom management and activity tolerance LTG Duration 8 weeks Two Impairment not performing HEP Carton Stamper Goal (LTG) Pt will report compliance with HEP at least 3x/wk in order to maximize progression with PT and maintain progression as pt transitions to maintenance program LTG Duration 8 weeks One Impairment quickdash score 36.4% Carton Stamper Goal (LTG) Pt will improve quickdash score by at least 15 points in order to demonstrate improvements in symptom management and QOL LTG Duration 8 weeks Three Impairment sleeping Fci Goal (LTG) Pt will report improvement in sleeping, waking fewer than 3x /wk due to L shoulder pain in order to demonstrate improvements in symptom management and QOL LTG Duration 8 weeks Assessment Summary Assessment Pt is a 69 y.o. male presenting with R sided back pain with R leg pain and L shoulder pain. Pt's back pain and R radicular symptoms are chronic; pt currently less concerned about low back due to L shoulder pain. Shoulder pain is acute, following ground level fall 1 week ago while walking down a mountain. Pt landed on his back, rolling to L side. He has significant pain at his L superior scapula and muscle spasms; pt also has pain at rotator cuff insertion and AC joint. Pt's L shoulder AROM is mildly limited at end range compared to his R side. He does have mild limitations in strength compared to his RUE; however, pt does not have pain with resisted muscle testing. Pt has most pain relief with L arm resting on his head. Pt' s cervical spine extension ROM is limited and painful; he does not have pain with resisted muscle testing of cervical spine and no change in symptoms with vertebral compression or traction. Pt denies tenderness of cervical spine; however, he is unable to tolerate supine or prone positions for further assessment of cervical spine to rule out additional pathology. Due to fall, pt's symptoms are consistent with whiplash at this time. PT educated pt on exam findings and plan of care; plan to assess further at next visit. Due to age, RUFINO, and pain levels, recommend imaging of cervical spine and L shoulder. If pt does not make improvements over 4-6 weeks, then may be beneficial to obtain advanced imaging or further assessment form specialist at that time. Physical Therapy Plan Frequency and Duration Frequency of Treatment 1-2x/wk Duration of treatment (weeks) 8 Plan of Care Start Date 05/18/24 Plan of Care End Date 07/15/24 Therapeutic Interventions Therapeutic Interventions Balance Training,Gait Training ,Home Exercise Program,Joint Mobilizations,Manual Therapy, Neuromuscular Re-education, Orthotic/Prosthetic Management ,Patient/Caregiver Education, Self-Care/Home Management, Sensory Integration,Soft Tissue Mobilization,Taping, Therapeutic Activities, Therapeutic Exercises Modalities Cold Pack/Ice Massage,Electric Stimulation,Hot Packs, Ultrasound Other Referrals/Consults Referrals/Consults Recommended Due to age, RUFINO, and pain levels, recommend imaging of cervical spine and L shoulder. Next Visit Focus/Plan Next Note Type Treatment Note Next Visit Plan Assess vertebral a, cervical spine ligaments, slump, SLR, Haywood/quadrant Soft tissue mobilization, joint mobilization to L shoulder/scapula, gentle seated strengthening
--- NOTE | 2024-05-23 13:13 | PT.OTN ---
Current Diagnoses Other chronic pain (05/23/24) Pain in left shoulder (05/23/24) Stiffness of left shoulder, not elsewhere classified (05/23/24) Low back pain, unspecified (05/23/24) Weakness (05/23/24) Physical Therapy Treatment Note PT-OP-A Visit Information Start: 05/17/24 11:16 Freq: Status: Active Protocol: Document 05/23/24 08:06 AB (Rec: 05/23/24 09:01 AB [id number]) Out-Patient Physical Therapy Visit Information Visit Information Visit Type Treatment Note Visit Note KX after 19 visits Access Code [email or web address] Visit Start Time 08:15 Visit Stop Time 08:58 Visit Number 2 Number of [employer]ICE [employer] LE[employer]ER Visits 1 Evaluation Information Evaluation Date 05/18/24 PT-OP-B Current Condition Start: 05/17/24 11:16 Freq: Status: Active Protocol: Document 05/18/24 13:47 NM (Rec: 05/18/24 14:36 NM [id number]) Current Condition History of Current Condition Onset Date 1 week ago Current Complaints pain, weakness History of Current Condition Pt presents with after falling 1 week ago [place]. He reports that he slid backwards on gravel, landing mainly on his back but more rotated to his L side. L arm was by his side. He denies landing on his arm. Following fall, pt states that he went sleeping in a tent, using trek poles over the weekend/week while hiking. He reports that the pain set in the days after the fall. He reports that the pain has slowly been getting worse over the L shoulder since fall, but states that he woke up feeling better this morning. He reports spasms, especially by shoulder blade (top and front). He reports that he dull ache is there all the time, and reports that it keeps him up at night. He is unable to sleep on his L side or lie on his back due to pain . Pt reports that stretching helps, especially overhead. He states he has not lost any ROM but feels little weaker. He did not have any imaging or follow up with PCP following the fall. Reports that sitting in the car, lifting (any resistance) is painful. Pt has PMH of L shoulder pain from carrying a pack with successful PT. Denies concussion symptoms, including changes in vision, headaches, balance, memory since fall. He reports that pain in his low back and his RLE was several months ago and has improved. He is unsure if the pain actually improved overall or if his L shoulder hurts so bad that his back/R hip feels better. States insidious onset of pain but slow; no known RUFINO. Reports that he has had this problem before but has resolved without intervention. He reports low back cramps/tightness and sciatic pain along RLE along the lateral side the knee; worse with sitting (especially after walking) and walking >2 mi. Occasionally goes further than his knee but usually remains in same pattern along lateral leg. Reports numbness/ tingling, dull ache. Pt also goes to chiropractor, massage therapist; he states they only help temporarily. He has muscle relaxers, which don't help manage his pain in his shoulder or his back/leg. Prior Treatments and Tests Pt reports imaging of shoulder previously but unknown results PT-OP-C Subjective Start: 05/17/24 11:16 Freq: Status: Active Protocol: Document 05/23/24 08:06 AB (Rec: 05/23/24 09:01 AB [id number]) OP-PT Subjective Patient Comments Patient Comments Patient reports the shoulder is the same, comments it is more painful moring and most painful end of day. Patient rates pain 4-5/10 left shoulder start of session. Left shoulder flexion AROM 150 deg. PT-OP-E Functional Tests Start: 05/17/24 11:16 Freq: Status: Active Protocol: Document 05/18/24 13:47 NM (Rec: 05/18/24 14:36 NM [id number]) Functional Tests Apley's Scratch Test Action 1- Left post cuff Action 1- Right post cuff Action 2- Left T7 Action 2- Right T5 Action 3- Left T6; winging; pulls in upper pec; mild pain Action 3- Right T7; wings Other Standing Trunk Flexion Test Name of Test measured finger to floor Score 2 PT-OP-F Manual Assessment Start: 05/17/24 11:16 Freq: Status: Active Protocol: Document 05/18/24 13:47 NM (Rec: 05/18/24 15:56 NM [id number]) Manual Assessments Soft Tissue Assessment Soft Tissue Mobility Assessment Increased restrictions along L sided cervical paraspinals and periscapulars, especially at levator scapula insertion, rhomboids. B lat tightness R glute, TFL, ITB tightness Joint Mobility Assessment Joint Mobility Assessment Full L shoulder AROM and PROM. Decreased scapular mobility, painful with palpation. Decreased cervical spine ROM into extension. Limited thoracic mobility. PT-OP-G Mobility & Gait Start: 05/17/24 11:16 Freq: Status: Active Protocol: Document 05/18/24 13:47 NM (Rec: 05/18/24 15:57 NM [id number]) OP Gait Assessment Gait Gait Assistance Required: Independent Distance (Feet) 150 Comments Gait Comments Decreased trunk mobility and L arm swing. Mild gait deviation in R stance, limited hip extension PT-OP-H Neuro Start: 05/17/24 11:16 Freq: Status: Active Protocol: Document 05/18/24 13:47 NM (Rec: 05/18/24 15:56 NM [id number]) Sensation Evaluation Comments Summary Comments BUE and BLE intact equally to light touch sensation Deep Tendon Reflex & Clonus Assessment Deep Tendon Reflex Bilateral Tricep Deep Tendon Reflex 1+ Diminished Bilateral Brachioradialis Deep Tendon Reflex 2+ Normal Bilateral Bicep Deep Tendon Reflex 2+ Normal PT-OP-J Posture/Palpation/Skin Start: 05/17/24 11:16 Freq: Status: Active Protocol: Document 05/18/24 13:47 NM (Rec: 05/18/24 15:56 NM [id number]) Posture Evaluation Position Standing Head/C-Spine Posture Forward Head Scapula Posture (R) Elevated,(L) Winged,(R) Winged Arm Posture (L) Internally Rotated,(R) Internally Rotated Pelvis Posture Anteriorly Tilted Hip Posture (L) Externally Rotated,(R) Externally Rotated Comments Posture Comments Position of comfort L arm in air above pt head or resting on top of pt head Palpation Assessment Location lumbar spine Palpation Details Mild tenderness along R lateral hip near glute and TFL , ITB No tenderness along midline of spine cervical spine Palpation Details No tenderness along midline or transverse processes L shoulder Palpation Details Mild tenderness along anterior shoulder near rotator cuff insertions and superior shoulder along AC joint Maximal tenderness along medial scapular border, especially near superior angle and thoracic paraspinals No tenderness along clavicle, humerus, scapular spine, or lateral border PT-OP-K Range of Motion Start: 05/17/24 11:16 Freq: Status: Active Protocol: Document 05/18/24 13:47 NM (Rec: 05/18/24 14:36 NM [id number]) Cervical Spine Range of Motion Cervical Spine Active Degrees Flexion 55 Extension 20 Rotation Left 75 Rotation Right 65 Lateral Flexion Left 30 Lateral Flexion Right 35 Comments LS trigger point, rhomboid; reports tightness and pulling all motions, pain with ext Lumbar Spine Range of Motion Lumbar Spine Active Percentage Flexion 90 Extension 100 Rotation Left 75 Rotation Right 100 Lateral Flexion Left 75 Lateral Flexion Right 75 Comments soreness along paraspinals with R LF, L rot Shoulder Goniometric Range of Motion Shoulder Right Flexion 170 Extension 60 Abduction 170 External Rotation at 90 degrees 80 Abduction Internal Rotation 75 Left Flexion 160 Extension 50 Abduction 170 External Rotation at 90 degrees 85 Abduction Internal Rotation 70 PT-OP-L Special Tests Start: 05/17/24 11:16 Freq: Status: Active Protocol: Document 05/18/24 13:47 NM (Rec: 05/18/24 14:36 NM [id number]) Special Tests Cervical Spine Special Tests Traction Test Results - Comments no change in symptoms Spurling's Test Test Results - Comments limited ext; no increase in symptoms Shoulder Special Tests AC Joint Compression Test Results + PT-OP-M Strength Start: 05/17/24 11:16 Freq: Status: Active Protocol: Document 05/18/24 13:47 NM (Rec: 05/18/24 14:36 NM [id number]) Cervical Spine Strength Cervical Spine Manual Muscle Testing Flexion (C1-2) 4 Good Extension 4 Good Rotation Left 4 Good Rotation Right 4 Good Lateral Flexion Left (C3) 4 Good Lateral Flexion Right (C3) 4 Good Comments No pain with resisted motion Trunk Strength Trunk Manual Muscle Testing Flexion 4 Good Extension 4 Good Rotation Left 4 Good Rotation Right 4 Good Lateral Flexion Left 4 Good Lateral Flexion Right 4 Good Comments pain free Shoulder Strength Shoulder Manual Muscle Testing Right Flexion 4+ Good+ Abduction (C5) 4+ Good+ External Rotation 4+ Good+ Internal Rotation 4+ Good+ Left Flexion 4 Good Abduction (C5) 4 Good External Rotation 4 Good Internal Rotation 4 Good Comments No pain with resisted motion PT-OP-Q Treatments Start: 05/17/24 11:16 Freq: Status: Active Protocol: Document 05/23/24 08:06 AB (Rec: 05/23/24 09:01 AB [id number]) Therapeutic Exercises Sitting Exercises shoulder ER AROM Sitting Exercise Name UE resting on mat at table height HEP Side left Reps/Minutes X10 Comments verbal cues, monitored for pain scapular depression Sitting Exercise Name HEP Side left Reps/Minutes X10 shoulder flexion with hands clasped Sitting Exercise Name HEP Side bilateral Reps/Minutes X10 Comments Verbal cues to perform pain free scap squeeze Sitting Exercise Name HEP Reps/Minutes X15, X10 Comments limited by pain on second attempt pec stretch Sitting Exercise Name hands behind head HEP Side bilateral Reps/Minutes 30 seconds X2 Manual Therapy Treatment Consent Patient gave verbal consent for manual Yes treatment Soft Tissue Mobilization left shoulder Body Location UT, levator scap, post cuff, periscapular muscles, pec Body Position seated Comments and sidelying superficial levator scap and UT, moderate for all else. Joint Mobilizations scapular mobilization Joint left scapula Direction into depression and adduction Grade III Body Position Sidelying Reps/Duration X10 X 2 each left shoulder Joint GH Grade II Body Position Sitting Comments x15 each PT-OP-T Assessment and Plan Start: 05/17/24 11:16 Freq: Status: Active Protocol: Document 05/23/24 08:06 AB (Rec: 05/23/24 09:01 [id number]) Physical Therapy Assessment Goals Four Impairment pain with walking > 2 mi Stretcher Drier Operator Goal (LTG) Pt will be able to ambulate >2 miles without increase in R hip or back pain in order to demonstrate improved symptom management and activity tolerance LTG Duration 8 weeks Two Impairment not performing HEP Shelter Goal (LTG) Pt will report compliance with HEP at least 3x/wk in order to maximize progression with PT and maintain progression as pt transitions to maintenance program LTG Duration 8 weeks One Impairment quickdash score 36.4% Stretcher Drier Operator Goal (LTG) Pt will improve quickdash score by at least 15 points in order to demonstrate improvements in symptom management and QOL LTG Duration 8 weeks Three Impairment sleeping Impairment L SIJ & upper gluteals pain with radiating numbness down lateral thigh. Pain anterior L thigh rated 2- 3/10. Stretcher Drier Operator Goal (LTG) Pt will report improvement in sleeping, waking fewer than 3x /wk due to L shoulder pain in order to demonstrate improvements in symptom management and QOL LTG Duration 8 weeks Assessment Summary Assessment AROM left shoulder flexion end of session 155 deg. Bill rates pain 3-4/10 left shoulder end of session. Physical Therapy Plan Frequency and Duration Frequency of Treatment 1-2x/wk Duration of treatment (weeks) 8 Plan of Care Start Date 05/18/24 Plan of Care End Date 07/15/24 Next Visit Focus/Plan Next Note Type Treatment Note Next Visit Plan Assess vertebral a, cervical spine ligaments, slump, SLR, [place]wood/quadrant Soft tissue mobilization, joint mobilization to L shoulder/scapula, gentle seated strengthening
--- NOTE | 2024-05-25 12:48 | PT.OTN ---
Current Diagnoses Other chronic pain (05/25/24) Pain in left shoulder (05/25/24) Stiffness of left shoulder, not elsewhere classified (05/25/24) Low back pain, unspecified (05/25/24) Weakness (05/25/24) Physical Therapy Treatment Note PT-OP-A Visit Information Start: 05/17/24 11:16 Freq: Status: Active Protocol: Document 05/25/24 11:16 NM (Rec: 05/25/24 12:06 NM [id number]) Out-Patient Physical Therapy Visit Information Visit Information Visit Type Treatment Note Visit Note KX after 19 visits Access Code [email or web address] Visit Start Time 11:18 Visit Stop Time 11:45 Visit Number 3 Evaluation Information Evaluation Date 05/18/24 PT-OP-B Current Condition Start: 05/17/24 11:16 Freq: Status: Active Protocol: Document 05/18/24 13:47 NM (Rec: 05/18/24 14:36 NM [id number]) Current Condition History of Current Condition Onset Date 1 week ago Current Complaints pain, weakness History of Current Condition Pt presents with after falling 1 week ago [place]. He reports that he slid backwards on gravel, landing mainly on his back but more rotated to his L side. L arm was by his side. He denies landing on his arm. Following fall, pt states that he went sleeping in a tent, using trek poles over the weekend/week while hiking. He reports that the pain set in the days after the fall. He reports that the pain has slowly been getting worse over the L shoulder since fall, but states that he woke up feeling better this morning. He reports spasms, especially by shoulder blade (top and front). He reports that he dull ache is there all the time, and reports that it keeps him up at night. He is unable to sleep on his L side or lie on his back due to pain . Pt reports that stretching helps, especially overhead. He states he has not lost any ROM but feels little weaker. He did not have any imaging or follow up with PCP following the fall. Reports that sitting in the car, lifting (any resistance) is painful. Pt has PMH of L shoulder pain from carrying a pack with successful PT. Denies concussion symptoms, including changes in vision, headaches, balance, memory since fall. He reports that pain in his low back and his RLE was several months ago and has improved. He is unsure if the pain actually improved overall or if his L shoulder hurts so bad that his back/R hip feels better. States insidious onset of pain but slow; no known RUFINO. Reports that he has had this problem before but has resolved without intervention. He reports low back cramps/tightness and sciatic pain along RLE along the lateral side the knee; worse with sitting (especially after walking) and walking >2 mi. Occasionally goes further than his knee but usually remains in same pattern along lateral leg. Reports numbness/ tingling, dull ache. Pt also goes to chiropractor, massage therapist; he states they only help temporarily. He has muscle relaxers, which don't help manage his pain in his shoulder or his back/leg. Prior Treatments and Tests Pt reports imaging of shoulder previously but unknown results PT-OP-C Subjective Start: 05/17/24 11:16 Freq: Status: Active Protocol: Document 05/25/24 11:16 NM (Rec: 05/25/24 12:06 NM [id number]) OP-PT Subjective Patient Comments Patient Comments States having increased tingling into entirety of L hand since initial evaluation. Pt reports that he felt good after last session until the evening, but reports that the evening he could only cause his symptoms with a hot shower . He reports that the evenings are the worse. He had a phone call with Dr. Frost. Reports that lifting arm overhead still only reduced tingling symptom with arm overhead and folding arms. Still reports that he has not been sleeping. PT-OP-E Functional Tests Start: 05/17/24 11:16 Freq: Status: Active Protocol: Document 05/18/24 13:47 NM (Rec: 05/18/24 14:36 NM [id number]) Functional Tests Yogeshey's Scratch Test Action 1- Left post cuff Action 1- Right post cuff Action 2- Left T7 Action 2- Right T5 Action 3- Left T6; winging; pulls in upper pec; mild pain Action 3- Right T7; wings Other Standing Trunk Flexion Test Name of Test measured finger to floor Score 2 PT-OP-F Manual Assessment Start: 05/17/24 11:16 Freq: Status: Active Protocol: Document 05/18/24 13:47 NM (Rec: 05/18/24 15:56 NM [id number]) Manual Assessments Soft Tissue Assessment Soft Tissue Mobility Assessment Increased restrictions along L sided cervical paraspinals and periscapulars, especially at levator scapula insertion, rhomboids. B lat tightness R glute, TFL, ITB tightness Joint Mobility Assessment Joint Mobility Assessment Full L shoulder AROM and PROM. Decreased scapular mobility, painful with palpation. Decreased cervical spine ROM into extension. Limited thoracic mobility. PT-OP-G Mobility & Gait Start: 05/17/24 11:16 Freq: Status: Active Protocol: Document 05/18/24 13:47 NM (Rec: 05/18/24 15:57 NM [id number]) OP Gait Assessment Gait Gait Assistance Required: Independent Distance (Feet) 150 Comments Gait Comments Decreased trunk mobility and L arm swing. Mild gait deviation in R stance, limited hip extension PT-OP-H Neuro Start: 05/17/24 11:16 Freq: Status: Active Protocol: Document 05/18/24 13:47 NM (Rec: 05/18/24 15:56 NM [id number]) Sensation Evaluation Comments Summary Comments BUE and BLE intact equally to light touch sensation Deep Tendon Reflex & Clonus Assessment Deep Tendon Reflex Bilateral Tricep Deep Tendon Reflex 1+ Diminished Bilateral Brachioradialis Deep Tendon Reflex 2+ Normal Bilateral Bicep Deep Tendon Reflex 2+ Normal PT-OP-J Posture/Palpation/Skin Start: 05/17/24 11:16 Freq: Status: Active Protocol: Document 05/18/24 13:47 NM (Rec: 05/18/24 15:56 NM [id number]) Posture Evaluation Position Standing Head/C-Spine Posture Forward Head Scapula Posture (R) Elevated,(L) Winged,(R) Winged Arm Posture (L) Internally Rotated,(R) Internally Rotated Pelvis Posture Anteriorly Tilted Hip Posture (L) Externally Rotated,(R) Externally Rotated Comments Posture Comments Position of comfort L arm in air above pt head or resting on top of pt head Palpation Assessment Location lumbar spine Palpation Details Mild tenderness along R lateral hip near glute and TFL , ITB No tenderness along midline of spine cervical spine Palpation Details No tenderness along midline or transverse processes L shoulder Palpation Details Mild tenderness along anterior shoulder near rotator cuff insertions and superior shoulder along AC joint Maximal tenderness along medial scapular border, especially near superior angle and thoracic paraspinals No tenderness along clavicle, humerus, scapular spine, or lateral border PT-OP-K Range of Motion Start: 05/17/24 11:16 Freq: Status: Active Protocol: Document 05/18/24 13:47 NM (Rec: 05/18/24 14:36 NM [id number]) Cervical Spine Range of Motion Cervical Spine Active Degrees Flexion 55 Extension 20 Rotation Left 75 Rotation Right 65 Lateral Flexion Left 30 Lateral Flexion Right 35 Comments LS trigger point, rhomboid; reports tightness and pulling all motions, pain with ext Lumbar Spine Range of Motion Lumbar Spine Active Percentage Flexion 90 Extension 100 Rotation Left 75 Rotation Right 100 Lateral Flexion Left 75 Lateral Flexion Right 75 Comments soreness along paraspinals with R LF, L rot Shoulder Goniometric Range of Motion Shoulder Right Flexion 170 Extension 60 Abduction 170 External Rotation at 90 degrees 80 Abduction Internal Rotation 75 Left Flexion 160 Extension 50 Abduction 170 External Rotation at 90 degrees 85 Abduction Internal Rotation 70 PT-OP-L Special Tests Start: 05/17/24 11:16 Freq: Status: Active Protocol: Document 05/25/24 11:16 NM (Rec: 05/25/24 12:06 NM [id number]) Special Tests Cervical Spine Special Tests Vertebral Artery Test Results unable to test positionally d/ t pain; BP: 156/100, 147/103 mmHg Comments Cranial n WNL, palpation/ auscultation of carotid a. WNL Traction Test Results - Comments no change in symptoms Shoulder Special Tests Passive ER Rotator Cuff Test Results - Baugh Andres Impingement Test Results - Drop Arm Rotator Cuff Test Results - Empty Can Test Results - AC Joint Compression Test Results + PT-OP-M Strength Start: 05/17/24 11:16 Freq: Status: Active Protocol: Document 05/18/24 13:47 NM (Rec: 05/18/24 14:36 NM [id number]) Cervical Spine Strength Cervical Spine Manual Muscle Testing Flexion (C1-2) 4 Good Extension 4 Good Rotation Left 4 Good Rotation Right 4 Good Lateral Flexion Left (C3) 4 Good Lateral Flexion Right (C3) 4 Good Comments No pain with resisted motion Trunk Strength Trunk Manual Muscle Testing Flexion 4 Good Extension 4 Good Rotation Left 4 Good Rotation Right 4 Good Lateral Flexion Left 4 Good Lateral Flexion Right 4 Good Comments pain free Shoulder Strength Shoulder Manual Muscle Testing Right Flexion 4+ Good+ Abduction (C5) 4+ Good+ External Rotation 4+ Good+ Internal Rotation 4+ Good+ Left Flexion 4 Good Abduction (C5) 4 Good External Rotation 4 Good Internal Rotation 4 Good Comments No pain with resisted motion PT-OP-Q Treatments Start: 05/17/24 11:16 Freq: Status: Active Protocol: Document 05/25/24 11:16 NM (Rec: 05/25/24 12:06 NM [id number]) Manual Therapy Treatment Consent Patient gave verbal consent for manual Yes treatment Soft Tissue Mobilization left shoulder Body Location UT, levator scap, post cuff, periscapular muscles, pec Intensity/Depth Superficial Body Position seated Comments Increased tightness and restriction along L sided periscapulars, LS, posterior cuff and pec. Reports decrease neural symptoms into L hand with gentle mobilization Self-Care/Home Management Treatment Education Patient Education Safety Other Education 15 minutes: Educated on normal blood pressure readings. Pt's R brachial blood pressure readings at rest: 156/100 mmHg , then after 10 minute break 147/103 mmHg. PT educated pt on normal blood pressure values and recommended ED visit since pt's BP values were too high to safely participate in any exercise today. PT-OP-T Assessment and Plan Start: 05/17/24 11:16 Freq: Status: Active Protocol: Document 05/25/24 11:16 NM (Rec: 05/25/24 12:06 NM [id number]) Physical Therapy Assessment Goals Four Impairment pain with walking > 2 mi Revenue Accountant Goal (LTG) Pt will be able to ambulate >2 miles without increase in R hip or back pain in order to demonstrate improved symptom management and activity tolerance LTG Duration 8 weeks Two Impairment not performing HEP Revenue Accountant Goal (LTG) Pt will report compliance with HEP at least 3x/wk in order to maximize progression with PT and maintain progression as pt transitions to maintenance program LTG Duration 8 weeks One Impairment quickdash score 36.4% Senior Care Goal (LTG) Pt will improve quickdash score by at least 15 points in order to demonstrate improvements in symptom management and QOL LTG Duration 8 weeks Three Impairment sleeping Impairment . Revenue Accountant Goal (LTG) Pt will report improvement in sleeping, waking fewer than 3x /wk due to L shoulder pain in order to demonstrate improvements in symptom management and QOL LTG Duration 8 weeks Assessment Summary Assessment Pt presents with L hand tingling, reports reduced with gentle soft tissue mobilization to L periscapulars and rotator cuff . Soft tissue mobilization performed in between BP readings as pt also presents with elevated blood pressure during start of session while performing remainder of vertebral artery testing. Pt's R brachial blood pressure readings at rest: 156/100 mmHg , then after 10 minute break 147/103 mmHg. PT educated pt on normal blood pressure values and recommended ED visit since pt's BP values were too high to safely participate in any exercise today. Pt verbalizes understanding but declines going to the ED. PT then recommended that pt follow up with PCP regarding both high BP (as pt reports not his normal) and to re-recommended cervical spine x-ray. Pt verbalizes understanding and reports planning to follow up in person with PCP today. Physical Therapy Plan Frequency and Duration Frequency of Treatment 1-2x/wk Duration of treatment (weeks) 8 Plan of Care Start Date 05/18/24 Plan of Care End Date 07/15/24 Therapeutic Interventions Therapeutic Interventions Balance Training,Gait Training ,Home Exercise Program,Joint Mobilizations,Manual Therapy, Neuromuscular Re-education, Orthotic/Prosthetic Management ,Patient/Caregiver Education, Self-Care/Home Management, Sensory Integration,Soft Tissue Mobilization,Taping, Therapeutic Activities, Therapeutic Exercises Modalities Cold Pack/Ice Massage,Electric Stimulation,Hot Packs, Ultrasound Other Referrals/Consults Referrals/Consults Recommended Due to age, RUFINO, and pain levels, recommend imaging of cervical spine and L shoulder. Next Visit Focus/Plan Next Note Type Treatment Note Next Visit Plan check BP; Assess cervical spine ligaments, slump, SLR, Haywood/quadrant Soft tissue mobilization, joint mobilization to L shoulder/scapula, gentle seated strengthening
--- NOTE | 2024-05-25 12:48 | PT-OP ANOTE ---
Spoke with Josseline ROGER from Dr. Frost's office after pt left PT clinic due to high blood pressure. PT informed RN of pt's blood pressures, asked for Dr. Frost to clear pt to come back to PT. PT also recommended cervical spine Xray due to fall. RN agrees and ordered xray for pt
--- NOTE | 2024-05-30 12:27 | PT-OP ANOTE ---
PT called and spoke to Dr. Holloway(referring provider) about concerns with cervical spine xray and high blood pressure readings. R brachial 176/116 mmHg, 204/114 mmHg after rest; then 198/104 mHg. PT had recommended pt go to ED although asymptomatic, which pt declined. Physician asked PT to have pt follow up with Dr within 2 weeks to assess blood pressure. Did recommend further imaging due to xray results. Physician planning to discuss with pt
--- NOTE | 2024-05-30 16:20 | PT.OTN ---
Current Diagnoses Other chronic pain (05/30/24) Pain in left shoulder (05/30/24) Stiffness of left shoulder, not elsewhere classified (05/30/24) Low back pain, unspecified (05/30/24) Weakness (05/30/24) Physical Therapy Treatment Note PT-OP-A Visit Information Start: 05/17/24 11:16 Freq: Status: Active Protocol: Document 05/30/24 11:16 NM (Rec: 05/30/24 12:25 NM [id number]) Out-Patient Physical Therapy Visit Information Visit Information Visit Type Treatment Note Visit Note KX after 19 visits Visit Start Time 11:17 Visit Stop Time 12:00 Visit Number 4 Evaluation Information Evaluation Date 05/18/24 PT-OP-B Current Condition Start: 05/17/24 11:16 Freq: Status: Active Protocol: Document 05/18/24 13:47 NM (Rec: 05/18/24 14:36 NM [id number]) Current Condition History of Current Condition Onset Date 1 week ago Current Complaints pain, weakness History of Current Condition Pt presents with after falling 1 week ago [place]. He reports that he slid backwards on gravel, landing mainly on his back but more rotated to his L side. L arm was by his side. He denies landing on his arm. Following fall, pt states that he went sleeping in a tent, using trek poles over the weekend/week while hiking. He reports that the pain set in the days after the fall. He reports that the pain has slowly been getting worse over the L shoulder since fall, but states that he woke up feeling better this morning. He reports spasms, especially by shoulder blade (top and front). He reports that he dull ache is there all the time, and reports that it keeps him up at night. He is unable to sleep on his L side or lie on his back due to pain . Pt reports that stretching helps, especially overhead. He states he has not lost any ROM but feels little weaker. He did not have any imaging or follow up with PCP following the fall. Reports that sitting in the car, lifting (any resistance) is painful. Pt has PMH of L shoulder pain from carrying a pack with successful PT. Denies concussion symptoms, including changes in vision, headaches, balance, memory since fall. He reports that pain in his low back and his RLE was several months ago and has improved. He is unsure if the pain actually improved overall or if his L shoulder hurts so bad that his back/R hip feels better. States insidious onset of pain but slow; no known RUFINO. Reports that he has had this problem before but has resolved without intervention. He reports low back cramps/tightness and sciatic pain along RLE along the lateral side the knee; worse with sitting (especially after walking) and walking >2 mi. Occasionally goes further than his knee but usually remains in same pattern along lateral leg. Reports numbness/ tingling, dull ache. Pt also goes to chiropractor, massage therapist; he states they only help temporarily. He has muscle relaxers, which don't help manage his pain in his shoulder or his back/leg. Prior Treatments and Tests Pt reports imaging of shoulder previously but unknown results PT-OP-C Subjective Start: 05/17/24 11:16 Freq: Status: Active Protocol: Document 05/30/24 11:16 NM (Rec: 05/30/24 12:25 NM [id number]) OP-PT Subjective Patient Comments Patient Comments Pt reports that he is improving due to numbness/ tingling, reports that it resolves with soft tissue mobilization to the L pec ( massage ball and fingers) and into arm pit. He reports that the pec is worse in the morning but he feels it more in his scapular region in the afternoon. He reports that he feels it when driving. Denies chest pain. He reports that he got a call from SHAYY Gilbert about his neck; showed arthritis. Pt reports that he is having minor sciatic symptoms, better wiht stretches. PT-OP-E Functional Tests Start: 05/17/24 11:16 Freq: Status: Active Protocol: Document 05/18/24 13:47 NM (Rec: 05/18/24 14:36 NM [id number]) Functional Tests Apley's Scratch Test Action 1- Left post cuff Action 1- Right post cuff Action 2- Left T7 Action 2- Right T5 Action 3- Left T6; winging; pulls in upper pec; mild pain Action 3- Right T7; wings Other Standing Trunk Flexion Test Name of Test measured finger to floor Score 2 PT-OP-F Manual Assessment Start: 05/17/24 11:16 Freq: Status: Active Protocol: Document 05/18/24 13:47 NM (Rec: 05/18/24 15:56 NM [id number]) Manual Assessments Soft Tissue Assessment Soft Tissue Mobility Assessment Increased restrictions along L sided cervical paraspinals and periscapulars, especially at levator scapula insertion, rhomboids. B lat tightness R glute, TFL, ITB tightness Joint Mobility Assessment Joint Mobility Assessment Full L shoulder AROM and PROM. Decreased scapular mobility, painful with palpation. Decreased cervical spine ROM into extension. Limited thoracic mobility. PT-OP-G Mobility & Gait Start: 05/17/24 11:16 Freq: Status: Active Protocol: Document 05/18/24 13:47 NM (Rec: 05/18/24 15:57 NM [id number]) OP Gait Assessment Gait Gait Assistance Required: Independent Distance (Feet) 150 Comments Gait Comments Decreased trunk mobility and L arm swing. Mild gait deviation in R stance, limited hip extension PT-OP-H Neuro Start: 05/17/24 11:16 Freq: Status: Active Protocol: Document 05/18/24 13:47 NM (Rec: 05/18/24 15:56 NM [id number]) Sensation Evaluation Comments Summary Comments BUE and BLE intact equally to light touch sensation Deep Tendon Reflex & Clonus Assessment Deep Tendon Reflex Bilateral Tricep Deep Tendon Reflex 1+ Diminished Bilateral Brachioradialis Deep Tendon Reflex 2+ Normal Bilateral Bicep Deep Tendon Reflex 2+ Normal PT-OP-J Posture/Palpation/Skin Start: 05/17/24 11:16 Freq: Status: Active Protocol: Document 05/18/24 13:47 NM (Rec: 05/18/24 15:56 NM [id number]) Posture Evaluation Position Standing Head/C-Spine Posture Forward Head Scapula Posture (R) Elevated,(L) Winged,(R) Winged Arm Posture (L) Internally Rotated,(R) Internally Rotated Pelvis Posture Anteriorly Tilted Hip Posture (L) Externally Rotated,(R) Externally Rotated Comments Posture Comments Position of comfort L arm in air above pt head or resting on top of pt head Palpation Assessment Location lumbar spine Palpation Details Mild tenderness along R lateral hip near glute and TFL , ITB No tenderness along midline of spine cervical spine Palpation Details No tenderness along midline or transverse processes L shoulder Palpation Details Mild tenderness along anterior shoulder near rotator cuff insertions and superior shoulder along AC joint Maximal tenderness along medial scapular border, especially near superior angle and thoracic paraspinals No tenderness along clavicle, humerus, scapular spine, or lateral border PT-OP-K Range of Motion Start: 05/17/24 11:16 Freq: Status: Active Protocol: Document 05/18/24 13:47 NM (Rec: 05/18/24 14:36 NM [id number]) Cervical Spine Range of Motion Cervical Spine Active Degrees Flexion 55 Extension 20 Rotation Left 75 Rotation Right 65 Lateral Flexion Left 30 Lateral Flexion Right 35 Comments LS trigger point, rhomboid; reports tightness and pulling all motions, pain with ext Lumbar Spine Range of Motion Lumbar Spine Active Percentage Flexion 90 Extension 100 Rotation Left 75 Rotation Right 100 Lateral Flexion Left 75 Lateral Flexion Right 75 Comments soreness along paraspinals with R LF, L rot Shoulder Goniometric Range of Motion Shoulder Right Flexion 170 Extension 60 Abduction 170 External Rotation at 90 degrees 80 Abduction Internal Rotation 75 Left Flexion 160 Extension 50 Abduction 170 External Rotation at 90 degrees 85 Abduction Internal Rotation 70 PT-OP-L Special Tests Start: 05/17/24 11:16 Freq: Status: Active Protocol: Document 05/25/24 11:16 NM (Rec: 05/25/24 12:06 NM [id number]) Special Tests Cervical Spine Special Tests Vertebral Artery Test Results unable to test positionally d/ t pain; BP: 156/100, 147/103 mmHg Comments Cranial n WNL, palpation/ auscultation of carotid a. WNL Traction Test Results - Comments no change in symptoms Shoulder Special Tests Passive ER Rotator Cuff Test Results - Baugh Andres Impingement Test Results - Drop Arm Rotator Cuff Test Results - Empty Can Test Results - AC Joint Compression Test Results + PT-OP-M Strength Start: 05/17/24 11:16 Freq: Status: Active Protocol: Document 05/18/24 13:47 NM (Rec: 05/18/24 14:36 NM [id number]) Cervical Spine Strength Cervical Spine Manual Muscle Testing Flexion (C1-2) 4 Good Extension 4 Good Rotation Left 4 Good Rotation Right 4 Good Lateral Flexion Left (C3) 4 Good Lateral Flexion Right (C3) 4 Good Comments No pain with resisted motion Trunk Strength Trunk Manual Muscle Testing Flexion 4 Good Extension 4 Good Rotation Left 4 Good Rotation Right 4 Good Lateral Flexion Left 4 Good Lateral Flexion Right 4 Good Comments pain free Shoulder Strength Shoulder Manual Muscle Testing Right Flexion 4+ Good+ Abduction (C5) 4+ Good+ External Rotation 4+ Good+ Internal Rotation 4+ Good+ Left Flexion 4 Good Abduction (C5) 4 Good External Rotation 4 Good Internal Rotation 4 Good Comments No pain with resisted motion PT-OP-Q Treatments Start: 05/17/24 11:16 Freq: Status: Active Protocol: Document 05/30/24 11:16 NM (Rec: 05/30/24 12:25 NM [id number]) Therapeutic Exercises Supine Exercises deep neck flexor Supine Exercise Name chin tuck Side bilateral Reps/Minutes 5 Sidelying Exercises open book Sidelying Exercise Name TS mobility w/o CS rotation Side left Reps/Minutes 15 Comments neutral cervical spine position Sitting Exercises Middle trapezius Sitting Exercise Name HABD with elbow flexed Side bilateral Reps/Minutes 15 deep neck flexor Sitting Exercise Name trialed in sitting Side bilateral Reps/Minutes 5 Comments reports tingling down arm d/c Standing Exercises pec stretch/mobilization Standing Exercise Name racquetball w/ arm abd from 45 to 120 deg Side left Reps/Minutes 60 Comments cued to limit ROM reports no neural symptoms Manual Therapy Treatment Consent Patient gave verbal consent for manual Yes treatment Soft Tissue Mobilization left shoulder Body Location UT, levator scap, post cuff, periscapular muscles, pec Intensity/Depth Superficial Body Position Sitting Comments Reports decreased neural symptoms with pec mobilization especially into the axilla. Increased restrictions of trapezius, rhomboids Self-Care/Home Management Treatment Education Other Education Blood pressure (seated, brachial, at rest, feet on floor, not talking, measured at heart level, 5 min in between ea reading) R arm 176/116 mmHg, 204/114 mmHg; L arm 198/104 mmHg Education 20 minutes- Educated again on blood pressure norms , in addition to signs and symptoms of stroke, red flags regarding cervical spine (e.g. loss of consciousness, blurry vision, black/spotty vision, etc...) as pt asymptomatic. Due to 2 sessions with significantly high blood pressure readings, PT educated pt on holding PT at this time both during session and after session until pt assessed by MD. PT also educated pt on avoiding end range cervical spine ROM especially into flexion and extension, in addition to avoiding jolting/ impact, lifting heavy objects especially overhead, and to maintain neutral spine position in strengthening. 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 Detention Goal (LTG) Pt will report improvement in sleeping, waking fewer than 3x /wk due to L shoulder pain in order to demonstrate improvements in symptom management and QOL LTG Duration 8 weeks Assessment Summary Assessment Pt reports less tingling into L hand at end of session following seated manual treatment. Continues to report that mobilization to his L pectoralis muscle decreases symptoms while waiting for pt to rest prior to taking blood pressure readings. Trialed seated and supine deep neck flexor training while in discussion about neutral spine positioning. Seated cervical retractions increased neural symptoms into L hand, so discontinued. Standing and sidelying exercises performed only during training about neutral spine positioning; pt maintained neutral spine. Due to imaging results, PT educated pt extensively on avoiding end range ROM, especially flexion and extension. PT also educated pt on maintaining neutral cervical spine position while sleeping, sitting, and driving . During education on posture for safety, trialed gentle deep neck flexor activation Pt 's blood pressure tested at multiple points throughout session using several devices and checking both R and L arm. Blood pressure readings at middle-end of session, all seated at brachial artery: 176 /116 mmHg (R arm), 204/114 mm Hg (R arm), 198/104 mmHg (L arm). Pt not safe to exercise following readings, so did not continue with exercise during session, only education. Pt not symptomatic for high blood pressure or signs/symptoms of stroke; however, PT recommended that pt go to ED, which pt declines, or at minimum to PCP following blood pressure; PT also called referring provider to inform of both blood pressure readings and concerns about radiograph results. PT and pt discussed holding PT temporarily until blood pressure is better managed and pt has seen physician. Pt verbalizes understanding and agreement. Physical Therapy Plan Frequency and Duration Frequency of Treatment 1-2x/wk Duration of treatment (weeks) 8 Plan of Care Start Date 05/18/24 Plan of Care End Date 07/15/24 Therapeutic Interventions Therapeutic Interventions Balance Training,Gait Training ,Home Exercise Program,Joint Mobilizations,Manual Therapy, Neuromuscular Re-education, Orthotic/Prosthetic Management ,Patient/Caregiver Education, Self-Care/Home Management, Sensory Integration,Soft Tissue Mobilization,Taping, Therapeutic Activities, Therapeutic Exercises Modalities Cold Pack/Ice Massage,Electric Stimulation,Hot Packs, Ultrasound Other Referrals/Consults Referrals/Consults Recommended Due to age, RUFINO, and pain levels, recommend imaging of cervical spine and L shoulder. Hold Physical Therapy Reason For Hold Hold PT until pt further assessed by MD for blood pressure and to discuss pt imaging; recommend MRI or CT to assess impact on spinal cord Next Visit Focus/Plan Next Note Type Treatment Note Next Visit Plan check BP. No end range cervical spine ROM, no upper- mid cervical STM or mobilizations Thoracic extension and rotation, assess 1st and 2nd rib Soft tissue mobilization, joint mobilization to L shoulder/scapula, gentle seated strengthening
--- NOTE | 2024-06-15 09:55 | PT.OTN ---
Current Diagnoses Other chronic pain (06/15/24) Pain in left shoulder (06/15/24) Stiffness of left shoulder, not elsewhere classified (06/15/24) Low back pain, unspecified (06/15/24) Weakness (06/15/24) Physical Therapy Treatment Note PT-OP-A Visit Information Start: 05/17/24 11:16 Freq: Status: Active Protocol: Document 06/15/24 08:14 NM (Rec: 06/15/24 09:01 NM [id number]) Out-Patient Physical Therapy Visit Information Visit Information Visit Type Progress Note Visit Note KX after 19 visits L arm: 160/98 mmHg R arm: 167/91 mmHg (5 min rest ) Visit Start Time 08:15 Visit Stop Time 09:00 Visit Number 5 Evaluation Information Evaluation Date 05/18/24 PT-OP-B Current Condition Start: 05/17/24 11:16 Freq: Status: Active Protocol: Document 05/18/24 13:47 NM (Rec: 05/18/24 14:36 NM [id number]) Current Condition History of Current Condition Onset Date 1 week ago Current Complaints pain, weakness History of Current Condition Pt presents with after falling 1 week ago [place]. He reports that he slid backwards on gravel, landing mainly on his back but more rotated to his L side. L arm was by his side. He denies landing on his arm. Following fall, pt states that he went sleeping in a tent, using trek poles over the weekend/week while hiking. He reports that the pain set in the days after the fall. He reports that the pain has slowly been getting worse over the L shoulder since fall, but states that he woke up feeling better this morning. He reports spasms, especially by shoulder blade (top and front). He reports that he dull ache is there all the time, and reports that it keeps him up at night. He is unable to sleep on his L side or lie on his back due to pain . Pt reports that stretching helps, especially overhead. He states he has not lost any ROM but feels little weaker. He did not have any imaging or follow up with PCP following the fall. Reports that sitting in the car, lifting (any resistance) is painful. Pt has PMH of L shoulder pain from carrying a pack with successful PT. Denies concussion symptoms, including changes in vision, headaches, balance, memory since fall. He reports that pain in his low back and his RLE was several months ago and has improved. He is unsure if the pain actually improved overall or if his L shoulder hurts so bad that his back/R hip feels better. States insidious onset of pain but slow; no known RUFINO. Reports that he has had this problem before but has resolved without intervention. He reports low back cramps/tightness and sciatic pain along RLE along the lateral side the knee; worse with sitting (especially after walking) and walking >2 mi. Occasionally goes further than his knee but usually remains in same pattern along lateral leg. Reports numbness/ tingling, dull ache. Pt also goes to chiropractor, massage therapist; he states they only help temporarily. He has muscle relaxers, which don't help manage his pain in his shoulder or his back/leg. Prior Treatments and Tests Pt reports imaging of shoulder previously but unknown results PT-OP-C Subjective Start: 05/17/24 11:16 Freq: Status: Active Protocol: Document 06/15/24 08:14 NM (Rec: 06/15/24 09:01 NM [id number]) OP-PT Subjective Patient Comments Patient Comments Pt cleared for PT by MD, currently on lisinopril. Reports mornings are ok, states pm is worse. He is alternating heat/cold, warm showers, stretching (juma doorway pec stretch). Drove over to [facility], reports increased pain while driving in L arm. Still getting tingling into L arm (whole arm , all 5 fingers). He went over the radiographs with GP and chiro; both say no red flags . States reports 3/10 at start of session, states comes and gos, alternating between front/back of chest. Pt reports still intermittently taking blood pressure, has been 130s/80-90s at home. He has been doing pec stretching which helps. Cleared for PT by MD following hold. PT-OP-E Functional Tests Start: 05/17/24 11:16 Freq: Status: Active Protocol: Document 05/18/24 13:47 NM (Rec: 05/18/24 14:36 NM [id number]) Functional Tests Yogeshey's Scratch Test Action 1- Left post cuff Action 1- Right post cuff Action 2- Left T7 Action 2- Right T5 Action 3- Left T6; winging; pulls in upper pec; mild pain Action 3- Right T7; wings Other Standing Trunk Flexion Test Name of Test measured finger to floor Score 2 PT-OP-F Manual Assessment Start: 05/17/24 11:16 Freq: Status: Active Protocol: Document 05/18/24 13:47 NM (Rec: 05/18/24 15:56 NM [id number]) Manual Assessments Soft Tissue Assessment Soft Tissue Mobility Assessment Increased restrictions along L sided cervical paraspinals and periscapulars, especially at levator scapula insertion, rhomboids. B lat tightness R glute, TFL, ITB tightness Joint Mobility Assessment Joint Mobility Assessment Full L shoulder AROM and PROM. Decreased scapular mobility, painful with palpation. Decreased cervical spine ROM into extension. Limited thoracic mobility. PT-OP-G Mobility & Gait Start: 05/17/24 11:16 Freq: Status: Active Protocol: Document 05/18/24 13:47 NM (Rec: 05/18/24 15:57 NM [id number]) OP Gait Assessment Gait Gait Assistance Required: Independent Distance (Feet) 150 Comments Gait Comments Decreased trunk mobility and L arm swing. Mild gait deviation in R stance, limited hip extension PT-OP-H Neuro Start: 05/17/24 11:16 Freq: Status: Active Protocol: Document 05/18/24 13:47 NM (Rec: 05/18/24 15:56 NM [id number]) Sensation Evaluation Comments Summary Comments BUE and BLE intact equally to light touch sensation Deep Tendon Reflex & Clonus Assessment Deep Tendon Reflex Bilateral Tricep Deep Tendon Reflex 1+ Diminished Bilateral Brachioradialis Deep Tendon Reflex 2+ Normal Bilateral Bicep Deep Tendon Reflex 2+ Normal PT-OP-J Posture/Palpation/Skin Start: 05/17/24 11:16 Freq: Status: Active Protocol: Document 05/18/24 13:47 NM (Rec: 05/18/24 15:56 NM [id number]) Posture Evaluation Position Standing Head/C-Spine Posture Forward Head Scapula Posture (R) Elevated,(L) Winged,(R) Winged Arm Posture (L) Internally Rotated,(R) Internally Rotated Pelvis Posture Anteriorly Tilted Hip Posture (L) Externally Rotated,(R) Externally Rotated Comments Posture Comments Position of comfort L arm in air above pt head or resting on top of pt head Palpation Assessment Location lumbar spine Palpation Details Mild tenderness along R lateral hip near glute and TFL , ITB No tenderness along midline of spine cervical spine Palpation Details No tenderness along midline or transverse processes L shoulder Palpation Details Mild tenderness along anterior shoulder near rotator cuff insertions and superior shoulder along AC joint Maximal tenderness along medial scapular border, especially near superior angle and thoracic paraspinals No tenderness along clavicle, humerus, scapular spine, or lateral border PT-OP-K Range of Motion Start: 05/17/24 11:16 Freq: Status: Active Protocol: Document 06/15/24 08:14 NM (Rec: 06/15/24 09:01 NM [id number]) Cervical Spine Range of Motion Cervical Spine Active Degrees Flexion 40 Extension 10 Rotation Left 55 Rotation Right 60 Lateral Flexion Left 20 Lateral Flexion Right 30 Comments IE: 55 deg flex, 20 deg ext, 75 deg L rot, 65 deg R rot, 30 deg L LF, 35 deg R LF; LS trigger point, rhomboid; reports tightness and pulling all motions, pain with ext 06/15/24: 40 flex, 10 ext, 30 R LF, 20 L LF, 55 L rot, 60 R rot; pulling and tightness with all motions; denies pain Shoulder Goniometric Range of Motion Shoulder Left Flexion 155 Extension 50 Abduction 170 External Rotation at 90 degrees 85 Abduction Internal Rotation 70 Comments IE: 160 deg flexion 06/15/24: no other changes except flexion 155 deg, pain free AROM for all PT-OP-L Special Tests Start: 05/17/24 11:16 Freq: Status: Active Protocol: Document 05/25/24 11:16 NM (Rec: 05/25/24 12:06 NM [id number]) Special Tests Cervical Spine Special Tests Vertebral Artery Test Results unable to test positionally d/ t pain; BP: 156/100, 147/103 mmHg Comments Cranial n WNL, palpation/ auscultation of carotid a. WNL Traction Test Results - Comments no change in symptoms Shoulder Special Tests Passive ER Rotator Cuff Test Results - Baugh Andres Impingement Test Results - Drop Arm Rotator Cuff Test Results - Empty Can Test Results - AC Joint Compression Test Results + PT-OP-M Strength Start: 05/17/24 11:16 Freq: Status: Active Protocol: Document 06/15/24 08:14 NM (Rec: 06/15/24 09:01 NM [id number]) Cervical Spine Strength Cervical Spine Manual Muscle Testing Flexion (C1-2) 4 Good Extension 4 Good Rotation Left 4 Good Rotation Right 4 Good Lateral Flexion Left (C3) 4 Good Lateral Flexion Right (C3) 4 Good Comments No pain with resisted motion 06/15/24: no change with IE Shoulder Strength Shoulder Manual Muscle Testing Left Flexion 4 Good Abduction (C5) 4 Good External Rotation 4 Good Internal Rotation 4 Good Comments No pain with resisted motion 06/15/14: no change since IE PT-OP-Q Treatments Start: 05/17/24 11:16 Freq: Status: Active Protocol: Document 06/15/24 08:14 NM (Rec: 06/15/24 09:01 NM [id number]) Therapeutic Exercises Sidelying Exercises sidelying trio Sidelying Exercise Name 1. flex, 2. abd, 3. ER Side left Resistance AROM for 1&2, 2# ER Reps/Minutes 10 ea Comments pain free; weaker L arm open book Sidelying Exercise Name TS mobility w/ CS rotation to tolerance Side left Reps/Minutes 10 Comments reports pulling at pec; reports tingle if L not in fist Standing Exercises 1st rib mobilization Side left Equipment Used towel for caudal mobilization, mild CS LF Reps/Minutes 10x5 Manual Therapy Treatment Consent Patient gave verbal consent for manual Yes treatment Soft Tissue Mobilization left shoulder Body Location UT, levator scap, post cuff, periscapular muscles, pec Intensity/Depth Superficial Body Position Sitting,sidelying Comments Reports decreased neural symptoms with pec mobilization especially into the axilla. Increased restrictions of trapezius, rhomboids Joint Mobilizations L Ribs Joint 1st and 2nd Direction caudal Grade III Body Position Sidelying Reps/Duration 10 Comments Elevated. MWM with sidelying flex and abd scapular mobilization Joint left scapula Direction into depression and adduction Grade III Body Position Sidelying Reps/Duration 10 Self-Care/Home Management Treatment Education Patient Education Safety Other Education Blood pressure: L arm at rest 160/98 and R arm after 5 min rest 167/91 mmHg PT-OP-T Assessment and Plan Start: 05/17/24 11:16 Freq: Status: Active Protocol: Document 06/15/24 08:14 NM (Rec: 06/15/24 09:01 NM [id number]) Physical Therapy Assessment Goals Four Impairment pain with walking > 2 mi Extrusion Process Operator Goal (LTG) Pt will be able to ambulate >2 miles without increase in R hip or back pain in order to demonstrate improved symptom management and activity tolerance LTG Duration 8 weeks Two Impairment not performing HEP Extrusion Process Operator Goal (LTG) Pt will report compliance with HEP at least 3x/wk in order to maximize progression with PT and maintain progression as pt transitions to maintenance program LTG Duration 8 weeks One Impairment quickdash score 36.4% (IE) Shelter Goal (LTG) Pt will improve quickdash score by at least 15 points in order to demonstrate improvements in symptom management and QOL 06/15/24: NDI 13/50 (26/100) and Quickdash 31.4% impaired LTG Duration 8 weeks Three Impairment sleeping Impairment . Extrusion Process Operator Goal (LTG) Pt will report improvement in sleeping, waking fewer than 3x /wk due to L shoulder pain in order to demonstrate improvements in symptom management and QOL LTG Duration 8 weeks Assessment Summary Assessment Pt responds well to manual treatment. Blood pressure still elevated but pt is medicated and non-symptomatic: 160/98 and 167/91 mmHg at start of session with 5 min rest between ea reading. Exhibits elevated 1st-2nd ribs on L side, mild decreased with joint mobilizations; although still elevated. Trialed sitting 1st rib self mobilization with towel, gentle lateral flexion stretch . Continues to have significant soft tissue restrictions of pectorals, periscapulars. Pt has been educated on self soft tissue mobilization as part of HEP in previous sessions. Trialed sidelying L shoulder trio for gentle rotator cuff strengthening; pt reports feeling weaker on L side compared to R side. Demos rapid scapulohumeral rhythm on L side compared to R, 1st rib elevates with overhead motion . Pt would benefit from skilled PT for progressive L shoulder flexibility and strengthening in order to improve symptom management and ADL tolerance. Physical Therapy Plan Frequency and Duration Frequency of Treatment 1-2x/wk Duration of treatment (weeks) 8 Plan of Care Start Date 05/18/24 Plan of Care End Date 07/15/24 Therapeutic Interventions Therapeutic Interventions Balance Training,Gait Training ,Home Exercise Program,Joint Mobilizations,Manual Therapy, Neuromuscular Re-education, Orthotic/Prosthetic Management ,Patient/Caregiver Education, Self-Care/Home Management, Sensory Integration,Soft Tissue Mobilization,Taping, Therapeutic Activities, Therapeutic Exercises Modalities Cold Pack/Ice Massage,Electric Stimulation,Hot Packs, Ultrasound Other Referrals/Consults Referrals/Consults Recommended . Hold Physical Therapy Reason For Hold Pt cleared for PT by PCP Next Visit Focus/Plan Next Note Type Treatment Note Next Visit Plan check BP ea sesssion. No end range cervical spine ROM, no upper-mid cervical STM or mobilizations Address sidelying trio w/ wt if able, scapular activation and strengthening, MT/LT/ protraction Thoracic extension and rotation, assess 1st and 2nd rib Soft tissue mobilization, joint mobilization to L shoulder/scapula, gentle seated strengthening
--- NOTE | 2024-06-17 08:38 | PT.OTN ---
Current Diagnoses Other chronic pain (06/17/24) Pain in left shoulder (06/17/24) Stiffness of left shoulder, not elsewhere classified (06/17/24) Low back pain, unspecified (06/17/24) Weakness (06/17/24) Physical Therapy Treatment Note PT-OP-A Visit Information Start: 05/17/24 11:16 Freq: Status: Active Protocol: Document 06/17/24 07:30 NM (Rec: 06/17/24 08:37 NM [id number]) Out-Patient Physical Therapy Visit Information Visit Information Visit Type Treatment Note Visit Note KX after 19 visits Visit Start Time 07:32 Visit Stop Time 08:18 Visit Number 6 Evaluation Information Evaluation Date 05/18/24 Precautions Precautions Blood pressure PT-OP-B Current Condition Start: 05/17/24 11:16 Freq: Status: Active Protocol: Document 05/18/24 13:47 NM (Rec: 05/18/24 14:36 NM [id number]) Current Condition History of Current Condition Onset Date 1 week ago Current Complaints pain, weakness History of Current Condition Pt presents with after falling 1 week ago when [place]. He reports that he slid backwards on gravel, landing mainly on his back but more rotated to his L side. L arm was by his side. He denies landing on his arm. Following fall, pt states that he went sleeping in a tent, using trek poles over the weekend/week while hiking. He reports that the pain set in the days after the fall. He reports that the pain has slowly been getting worse over the L shoulder since fall, but states that he woke up feeling better this morning. He reports spasms, especially by shoulder blade (top and front). He reports that he dull ache is there all the time, and reports that it keeps him up at night. He is unable to sleep on his L side or lie on his back due to pain . Pt reports that stretching helps, especially overhead. He states he has not lost any ROM but feels little weaker. He did not have any imaging or follow up with PCP following the fall. Reports that sitting in the car, lifting (any resistance) is painful. Pt has PMH of L shoulder pain from carrying a pack with successful PT. Denies concussion symptoms, including changes in vision, headaches, balance, memory since fall. He reports that pain in his low back and his RLE was several months ago and has improved. He is unsure if the pain actually improved overall or if his L shoulder hurts so bad that his back/R hip feels better. States insidious onset of pain but slow; no known RUFINO. Reports that he has had this problem before but has resolved without intervention. He reports low back cramps/tightness and sciatic pain along RLE along the lateral side the knee; worse with sitting (especially after walking) and walking >2 mi. Occasionally goes further than his knee but usually remains in same pattern along lateral leg. Reports numbness/ tingling, dull ache. Pt also goes to chiropractor, massage therapist; he states they only help temporarily. He has muscle relaxers, which don't help manage his pain in his shoulder or his back/leg. Prior Treatments and Tests Pt reports imaging of shoulder previously but unknown results PT-OP-C Subjective Start: 05/17/24 11:16 Freq: Status: Active Protocol: Document 06/17/24 07:30 NM (Rec: 06/17/24 08:37 NM [id number]) OP-PT Subjective Patient Comments Patient Comments Pt reports that his pain levels have been down, states less tingling in arm. He got up a couple times ea night, states tingling in L arm for a while. He did the open book without tingling at home with open hand. Feels like manual last time very helpful PT-OP-E Functional Tests Start: 05/17/24 11:16 Freq: Status: Active Protocol: Document 05/18/24 13:47 NM (Rec: 05/18/24 14:36 NM [id number]) Functional Tests Apley's Scratch Test Action 1- Left post cuff Action 1- Right post cuff Action 2- Left T7 Action 2- Right T5 Action 3- Left T6; winging; pulls in upper pec; mild pain Action 3- Right T7; wings Other Standing Trunk Flexion Test Name of Test measured finger to floor Score 2 PT-OP-F Manual Assessment Start: 05/17/24 11:16 Freq: Status: Active Protocol: Document 05/18/24 13:47 NM (Rec: 05/18/24 15:56 NM [id number]) Manual Assessments Soft Tissue Assessment Soft Tissue Mobility Assessment Increased restrictions along L sided cervical paraspinals and periscapulars, especially at levator scapula insertion, rhomboids. B lat tightness R glute, TFL, ITB tightness Joint Mobility Assessment Joint Mobility Assessment Full L shoulder AROM and PROM. Decreased scapular mobility, painful with palpation. Decreased cervical spine ROM into extension. Limited thoracic mobility. PT-OP-G Mobility & Gait Start: 05/17/24 11:16 Freq: Status: Active Protocol: Document 05/18/24 13:47 NM (Rec: 05/18/24 15:57 NM [id number]) OP Gait Assessment Gait Gait Assistance Required: Independent Distance (Feet) 150 Comments Gait Comments Decreased trunk mobility and L arm swing. Mild gait deviation in R stance, limited hip extension PT-OP-H Neuro Start: 05/17/24 11:16 Freq: Status: Active Protocol: Document 05/18/24 13:47 NM (Rec: 05/18/24 15:56 NM [id number]) Sensation Evaluation Comments Summary Comments BUE and BLE intact equally to light touch sensation Deep Tendon Reflex & Clonus Assessment Deep Tendon Reflex Bilateral Tricep Deep Tendon Reflex 1+ Diminished Bilateral Brachioradialis Deep Tendon Reflex 2+ Normal Bilateral Bicep Deep Tendon Reflex 2+ Normal PT-OP-J Posture/Palpation/Skin Start: 05/17/24 11:16 Freq: Status: Active Protocol: Document 05/18/24 13:47 NM (Rec: 05/18/24 15:56 NM [id number]) Posture Evaluation Position Standing Head/C-Spine Posture Forward Head Scapula Posture (R) Elevated,(L) Winged,(R) Winged Arm Posture (L) Internally Rotated,(R) Internally Rotated Pelvis Posture Anteriorly Tilted Hip Posture (L) Externally Rotated,(R) Externally Rotated Comments Posture Comments Position of comfort L arm in air above pt head or resting on top of pt head Palpation Assessment Location lumbar spine Palpation Details Mild tenderness along R lateral hip near glute and TFL , ITB No tenderness along midline of spine cervical spine Palpation Details No tenderness along midline or transverse processes L shoulder Palpation Details Mild tenderness along anterior shoulder near rotator cuff insertions and superior shoulder along AC joint Maximal tenderness along medial scapular border, especially near superior angle and thoracic paraspinals No tenderness along clavicle, humerus, scapular spine, or lateral border PT-OP-K Range of Motion Start: 05/17/24 11:16 Freq: Status: Active Protocol: Document 06/15/24 08:14 NM (Rec: 06/15/24 09:01 NM [id number]) Cervical Spine Range of Motion Cervical Spine Active Degrees Flexion 40 Extension 10 Rotation Left 55 Rotation Right 60 Lateral Flexion Left 20 Lateral Flexion Right 30 Comments IE: 55 deg flex, 20 deg ext, 75 deg L rot, 65 deg R rot, 30 deg L LF, 35 deg R LF; LS trigger point, rhomboid; reports tightness and pulling all motions, pain with ext 06/15/24: 40 flex, 10 ext, 30 R LF, 20 L LF, 55 L rot, 60 R rot; pulling and tightness with all motions; denies pain Shoulder Goniometric Range of Motion Shoulder Left Flexion 155 Extension 50 Abduction 170 External Rotation at 90 degrees 85 Abduction Internal Rotation 70 Comments IE: 160 deg flexion 06/15/24: no other changes except flexion 155 deg, pain free AROM for all PT-OP-L Special Tests Start: 05/17/24 11:16 Freq: Status: Active Protocol: Document 05/25/24 11:16 NM (Rec: 05/25/24 12:06 NM [id number]) Special Tests Cervical Spine Special Tests Vertebral Artery Test Results unable to test positionally d/ t pain; BP: 156/100, 147/103 mmHg Comments Cranial n WNL, palpation/ auscultation of carotid a. WNL Traction Test Results - Comments no change in symptoms Shoulder Special Tests Passive ER Rotator Cuff Test Results - Baugh Andres Impingement Test Results - Drop Arm Rotator Cuff Test Results - Empty Can Test Results - AC Joint Compression Test Results + PT-OP-M Strength Start: 05/17/24 11:16 Freq: Status: Active Protocol: Document 06/15/24 08:14 NM (Rec: 06/15/24 09:01 NM [id number]) Cervical Spine Strength Cervical Spine Manual Muscle Testing Flexion (C1-2) 4 Good Extension 4 Good Rotation Left 4 Good Rotation Right 4 Good Lateral Flexion Left (C3) 4 Good Lateral Flexion Right (C3) 4 Good Comments No pain with resisted motion 06/15/24: no change with IE Shoulder Strength Shoulder Manual Muscle Testing Left Flexion 4 Good Abduction (C5) 4 Good External Rotation 4 Good Internal Rotation 4 Good Comments No pain with resisted motion 06/15/14: no change since IE PT-OP-Q Treatments Start: 05/17/24 11:16 Freq: Status: Active Protocol: Document 06/17/24 07:30 NM (Rec: 06/17/24 08:37 NM [id number]) Therapeutic Exercises Supine Exercises flexion + ER Supine Exercise Name miniband Side bilateral Resistance level 1 band Reps/Minutes 10 Comments pain free, no tingling Sidelying Exercises sidelying trio Sidelying Exercise Name 1. flex, 2. abd, 3. ER Side left Resistance 1#for 1&2, 2# ER Reps/Minutes 10 ea AROM, 1# 10 flex/abd, 2x10 2# Comments pain free; weaker L arm Manual Therapy Treatment Consent Patient gave verbal consent for manual Yes treatment Soft Tissue Mobilization left shoulder Body Location UT, levator scap, post cuff, periscapular muscles, pec Intensity/Depth Superficial Body Position Sitting,sidelying Comments Reports decreased neural symptoms with pec mobilization especially into the axilla. Increased restrictions of trapezius, rhomboids Requires 2 pillows to avoid tingling Joint Mobilizations L Ribs Joint 1st and 2nd Direction caudal Grade III Body Position Sidelying Reps/Duration 15 Comments Elevated. MWM with sidelying flex and abd scapular mobilization Joint left scapula Direction into depression and adduction Grade III Body Position Sidelying Reps/Duration 10 PT-OP-R Modalities Start: 05/17/24 11:16 Freq: Status: Active Protocol: Document 06/17/24 07:30 NM (Rec: 06/17/24 08:37 NM [id number]) Electric Stimulation Electric Stimulation Interferential Current (IFC) Body Location L distal levator scapula, L infraspinatus Frequency 10 Patient Position Sitting Combined With Heat/Cold Hot Pack Comments Trialed but pt has increased tingling into L arm after 2 minutes so d/c. Skin monitoed before, during, after treatment. Collins within reach. Hot Pack/Cold Pack Treatment Hot Pack Location L shoulder Patient Position Sitting Patient Tolerance Good Comments Positioned on L shoulder in sitting. Skin assessed before, during, after treatment. Collins within reach. PT-OP-T Assessment and Plan Start: 05/17/24 11:16 Freq: Status: Active Protocol: Document 06/17/24 07:30 NM (Rec: 06/17/24 08:37 NM [id number]) Physical Therapy Assessment Goals Four Impairment pain with walking > 2 mi [employer] Goal (LTG) Pt will be able to ambulate >2 miles without increase in R hip or back pain in order to demonstrate improved symptom management and activity tolerance LTG Duration 8 weeks Two Impairment not performing HEP Senior Living Goal (LTG) Pt will report compliance with HEP at least 3x/wk in order to maximize progression with PT and maintain progression as pt transitions to maintenance program LTG Duration 8 weeks One Impairment quickdash score 36.4% (IE) [employer] Goal (LTG) Pt will improve quickdash score by at least 15 points in order to demonstrate improvements in symptom management and QOL 06/15/24: NDI 13/50 (26/100) and Quickdash 31.4% impaired LTG Duration 8 weeks Three Impairment sleeping Impairment . Senior Living Goal (LTG) Pt will report improvement in sleeping, waking fewer than 3x /wk due to L shoulder pain in order to demonstrate improvements in symptom management and QOL LTG Duration 8 weeks Assessment Summary Assessment Pt continues to respond well to manual treatment, especially rib mobilizations and pectoralist soft tissue mobilization. Less tingling into L hand today with/ following activity. Pt does report soreness near 1st rib at end of session. Trialed 1# dumbbell progression with L shoulder sidelying trio; pt tolerates increase in resistance well except for abduction after several reps. Increased symptoms with cervical retraction; will continue with deep neck flexor activation without retraction in future sessions depending on pt symptoms. Trialed IFC for pain management but pt reports increased tingling into L arm, so discontinued. Pt would benefit from skilled PT for symptom management in order to improve tolerance for sleeping, lifting, reaching. Physical Therapy Plan Frequency and Duration Frequency of Treatment 1-2x/wk Duration of treatment (weeks) 8 Plan of Care Start Date 05/18/24 Plan of Care End Date 07/15/24 Therapeutic Interventions Therapeutic Interventions Balance Training,Gait Training ,Home Exercise Program,Joint Mobilizations,Manual Therapy, Neuromuscular Re-education, Orthotic/Prosthetic Management ,Patient/Caregiver Education, Self-Care/Home Management, Sensory Integration,Soft Tissue Mobilization,Taping, Therapeutic Activities, Therapeutic Exercises Modalities Cold Pack/Ice Massage,Electric Stimulation,Hot Packs, Ultrasound Other Referrals/Consults Referrals/Consults Recommended . Hold Physical Therapy Reason For Hold Pt cleared for PT by PCP Next Visit Focus/Plan Next Note Type Treatment Note Next Visit Plan check BP ea session. No end range cervical spine ROM, no upper-mid cervical STM or mobilizations Can trial supine heat/IFC vs d /c. Review miniband, scapular activation and strengthening, MT/LT/protraction. Trial wall vs egyptian ball periscapular Thoracic extension and rotation, assess 1st and 2nd rib Soft tissue mobilization, joint mobilization to L shoulder/scapula, gentle seated strengthening
--- NOTE | 2024-06-17 08:38 | PT.OTN ---
Current Diagnoses Other chronic pain (06/17/24) Pain in left shoulder (06/17/24) Stiffness of left shoulder, not elsewhere classified (06/17/24) Low back pain, unspecified (06/17/24) Weakness (06/17/24) Physical Therapy Treatment Note PT-OP-A Visit Information Start: 05/17/24 11:16 Freq: Status: Active Protocol: Document 06/17/24 07:30 NM (Rec: 06/17/24 08:37 NM [id number]) Out-Patient Physical Therapy Visit Information Visit Information Visit Type Treatment Note Visit Note KX after 19 visits Visit Start Time 07:32 Visit Stop Time 08:15 Visit Number 6 Evaluation Information Evaluation Date 05/18/24 Precautions Precautions Blood pressure PT-OP-B Current Condition Start: 05/17/24 11:16 Freq: Status: Active Protocol: Document 05/18/24 13:47 NM (Rec: 05/18/24 14:36 NM [id number]) Current Condition History of Current Condition Onset Date 1 week ago Current Complaints pain, weakness History of Current Condition Pt presents with after falling 1 week ago [place]. He reports that he slid backwards on gravel, landing mainly on his back but more rotated to his L side. L arm was by his side. He denies landing on his arm. Following fall, pt states that he went sleeping in a tent, using trek poles over the weekend/week while hiking. He reports that the pain set in the days after the fall. He reports that the pain has slowly been getting worse over the L shoulder since fall, but states that he woke up feeling better this morning. He reports spasms, especially by shoulder blade (top and front). He reports that he dull ache is there all the time, and reports that it keeps him up at night. He is unable to sleep on his L side or lie on his back due to pain . Pt reports that stretching helps, especially overhead. He states he has not lost any ROM but feels little weaker. He did not have any imaging or follow up with PCP following the fall. Reports that sitting in the car, lifting (any resistance) is painful. Pt has PMH of L shoulder pain from carrying a pack with successful PT. Denies concussion symptoms, including changes in vision, headaches, balance, memory since fall. He reports that pain in his low back and his RLE was several months ago and has improved. He is unsure if the pain actually improved overall or if his L shoulder hurts so bad that his back/R hip feels better. States insidious onset of pain but slow; no known RUFINO. Reports that he has had this problem before but has resolved without intervention. He reports low back cramps/tightness and sciatic pain along RLE along the lateral side the knee; worse with sitting (especially after walking) and walking >2 mi. Occasionally goes further than his knee but usually remains in same pattern along lateral leg. Reports numbness/ tingling, dull ache. Pt also goes to chiropractor, massage therapist; he states they only help temporarily. He has muscle relaxers, which don't help manage his pain in his shoulder or his back/leg. Prior Treatments and Tests Pt reports imaging of shoulder previously but unknown results PT-OP-C Subjective Start: 05/17/24 11:16 Freq: Status: Active Protocol: Document 06/17/24 07:30 NM (Rec: 06/17/24 08:37 NM [id number]) OP-PT Subjective Patient Comments Patient Comments Pt reports that his pain levels have been down, states less tingling in arm. He got up a couple times ea night, states tingling in L arm for a while. He did the open book without tingling at home with open hand. Feels like manual last time very helpful PT-OP-E Functional Tests Start: 05/17/24 11:16 Freq: Status: Active Protocol: Document 05/18/24 13:47 NM (Rec: 05/18/24 14:36 NM [id number]) Functional Tests Apley's Scratch Test Action 1- Left post cuff Action 1- Right post cuff Action 2- Left T7 Action 2- Right T5 Action 3- Left T6; winging; pulls in upper pec; mild pain Action 3- Right T7; wings Other Standing Trunk Flexion Test Name of Test measured finger to floor Score 2 PT-OP-F Manual Assessment Start: 05/17/24 11:16 Freq: Status: Active Protocol: Document 05/18/24 13:47 NM (Rec: 05/18/24 15:56 NM [id number]) Manual Assessments Soft Tissue Assessment Soft Tissue Mobility Assessment Increased restrictions along L sided cervical paraspinals and periscapulars, especially at levator scapula insertion, rhomboids. B lat tightness R glute, TFL, ITB tightness Joint Mobility Assessment Joint Mobility Assessment Full L shoulder AROM and PROM. Decreased scapular mobility, painful with palpation. Decreased cervical spine ROM into extension. Limited thoracic mobility. PT-OP-G Mobility & Gait Start: 05/17/24 11:16 Freq: Status: Active Protocol: Document 05/18/24 13:47 NM (Rec: 05/18/24 15:57 NM [id number]) OP Gait Assessment Gait Gait Assistance Required: Independent Distance (Feet) 150 Comments Gait Comments Decreased trunk mobility and L arm swing. Mild gait deviation in R stance, limited hip extension PT-OP-H Neuro Start: 05/17/24 11:16 Freq: Status: Active Protocol: Document 05/18/24 13:47 NM (Rec: 05/18/24 15:56 NM [id number]) Sensation Evaluation Comments Summary Comments BUE and BLE intact equally to light touch sensation Deep Tendon Reflex & Clonus Assessment Deep Tendon Reflex Bilateral Tricep Deep Tendon Reflex 1+ Diminished Bilateral Brachioradialis Deep Tendon Reflex 2+ Normal Bilateral Bicep Deep Tendon Reflex 2+ Normal PT-OP-J Posture/Palpation/Skin Start: 05/17/24 11:16 Freq: Status: Active Protocol: Document 05/18/24 13:47 NM (Rec: 05/18/24 15:56 NM [id number]) Posture Evaluation Position Standing Head/C-Spine Posture Forward Head Scapula Posture (R) Elevated,(L) Winged,(R) Winged Arm Posture (L) Internally Rotated,(R) Internally Rotated Pelvis Posture Anteriorly Tilted Hip Posture (L) Externally Rotated,(R) Externally Rotated Comments Posture Comments Position of comfort L arm in air above pt head or resting on top of pt head Palpation Assessment Location lumbar spine Palpation Details Mild tenderness along R lateral hip near glute and TFL , ITB No tenderness along midline of spine cervical spine Palpation Details No tenderness along midline or transverse processes L shoulder Palpation Details Mild tenderness along anterior shoulder near rotator cuff insertions and superior shoulder along AC joint Maximal tenderness along medial scapular border, especially near superior angle and thoracic paraspinals No tenderness along clavicle, humerus, scapular spine, or lateral border PT-OP-K Range of Motion Start: 05/17/24 11:16 Freq: Status: Active Protocol: Document 06/15/24 08:14 NM (Rec: 06/15/24 09:01 NM [id number]) Cervical Spine Range of Motion Cervical Spine Active Degrees Flexion 40 Extension 10 Rotation Left 55 Rotation Right 60 Lateral Flexion Left 20 Lateral Flexion Right 30 Comments IE: 55 deg flex, 20 deg ext, 75 deg L rot, 65 deg R rot, 30 deg L LF, 35 deg R LF; LS trigger point, rhomboid; reports tightness and pulling all motions, pain with ext 06/15/24: 40 flex, 10 ext, 30 R LF, 20 L LF, 55 L rot, 60 R rot; pulling and tightness with all motions; denies pain Shoulder Goniometric Range of Motion Shoulder Left Flexion 155 Extension 50 Abduction 170 External Rotation at 90 degrees 85 Abduction Internal Rotation 70 Comments IE: 160 deg flexion 06/15/24: no other changes except flexion 155 deg, pain free AROM for all PT-OP-L Special Tests Start: 05/17/24 11:16 Freq: Status: Active Protocol: Document 05/25/24 11:16 NM (Rec: 05/25/24 12:06 NM [id number]) Special Tests Cervical Spine Special Tests Vertebral Artery Test Results unable to test positionally d/ t pain; BP: 156/100, 147/103 mmHg Comments Cranial n WNL, palpation/ auscultation of carotid a. WNL Traction Test Results - Comments no change in symptoms Shoulder Special Tests Passive ER Rotator Cuff Test Results - B[place] Andres Impingement Test Results - Drop Arm Rotator Cuff Test Results - Empty Can Test Results - AC Joint Compression Test Results + PT-OP-M Strength Start: 05/17/24 11:16 Freq: Status: Active Protocol: Document 06/15/24 08:14 NM (Rec: 06/15/24 09:01 NM [id number]) Cervical Spine Strength Cervical Spine Manual Muscle Testing Flexion (C1-2) 4 Good Extension 4 Good Rotation Left 4 Good Rotation Right 4 Good Lateral Flexion Left (C3) 4 Good Lateral Flexion Right (C3) 4 Good Comments No pain with resisted motion 06/15/24: no change with IE Shoulder Strength Shoulder Manual Muscle Testing Left Flexion 4 Good Abduction (C5) 4 Good External Rotation 4 Good Internal Rotation 4 Good Comments No pain with resisted motion 06/15/14: no change since IE PT-OP-Q Treatments Start: 05/17/24 11:16 Freq: Status: Active Protocol: Document 06/17/24 07:30 NM (Rec: 06/17/24 08:37 NM [id number]) Therapeutic Exercises Supine Exercises flexion + ER Supine Exercise Name miniband Side bilateral Resistance level 1 band Reps/Minutes 10 Comments pain free, no tingling Sidelying Exercises sidelying trio Sidelying Exercise Name 1. flex, 2. abd, 3. ER Side left Resistance 1#for 1&2, 2# ER Reps/Minutes 10 ea AROM, 1# 10 flex/abd, 2x10 2# Comments pain free; weaker L arm Manual Therapy Treatment Consent Patient gave verbal consent for manual Yes treatment Soft Tissue Mobilization left shoulder Body Location UT, levator scap, post cuff, periscapular muscles, pec Intensity/Depth Superficial Body Position Sitting,sidelying Comments Reports decreased neural symptoms with pec mobilization especially into the axilla. Increased restrictions of trapezius, rhomboids Requires 2 pillows to avoid tingling Joint Mobilizations L Ribs Joint 1st and 2nd Direction caudal Grade III Body Position Sidelying Reps/Duration 15 Comments Elevated. MWM with sidelying flex and abd scapular mobilization Joint left scapula Direction into depression and adduction Grade III Body Position Sidelying Reps/Duration 10 PT-OP-R Modalities Start: 05/17/24 11:16 Freq: Status: Active Protocol: Document 06/17/24 07:30 NM (Rec: 06/17/24 08:37 NM [id number]) Electric Stimulation Electric Stimulation Interferential Current (IFC) Body Location L distal levator scapula, L infraspinatus Frequency 10 Patient Position Sitting Combined With Heat/Cold Hot Pack Comments Trialed but pt has increased tingling into L arm after 2 minutes so d/c. Skin monitoed before, during, after treatment. Collins within reach. Hot Pack/Cold Pack Treatment Hot Pack Location L shoulder Patient Position Sitting Patient Tolerance Good Comments Positioned on L shoulder in sitting. Skin assessed before, during, after treatment. Collins within reach. PT-OP-T Assessment and Plan Start: 05/17/24 11:16 Freq: Status: Active Protocol: Document 06/17/24 07:30 NM (Rec: 06/17/24 08:37 NM [id number]) Physical Therapy Assessment Goals Four Impairment pain with walking > 2 mi Director Of Tax Services Goal (LTG) Pt will be able to ambulate >2 miles without increase in R hip or back pain in order to demonstrate improved symptom management and activity tolerance LTG Duration 8 weeks Two Impairment not performing HEP Detention Goal (LTG) Pt will report compliance with HEP at least 3x/wk in order to maximize progression with PT and maintain progression as pt transitions to maintenance program LTG Duration 8 weeks One Impairment quickdash score 36.4% (IE) Director Of [employer] Services Goal (LTG) Pt will improve quickdash score by at least 15 points in order to demonstrate improvements in symptom management and QOL 06/15/24: NDI 13/50 (26/100) and Quickdash 31.4% impaired LTG Duration 8 weeks Three Impairment sleeping Impairment . Detention Goal (LTG) Pt will report improvement in sleeping, waking fewer than 3x /wk due to L shoulder pain in order to demonstrate improvements in symptom management and QOL LTG Duration 8 weeks Assessment Summary Assessment Pt continues to respond well to manual treatment, especially rib mobilizations and pectoralist soft tissue mobilization. Less tingling into L hand today with/ following activity. Pt does report soreness near 1st rib at end of session. Trialed 1# dumbbell progression with L shoulder sidelying trio; pt tolerates increase in resistance well except for abduction after several reps. Increased symptoms with cervical retraction; will continue with deep neck flexor activation without retraction in future sessions depending on pt symptoms. Trialed IFC for pain management but pt reports increased tingling into L arm, so discontinued. Pt would benefit from skilled PT for symptom management in order to improve tolerance for sleeping, lifting, reaching. Physical Therapy Plan Frequency and Duration Frequency of Treatment 1-2x/wk Duration of treatment (weeks) 8 Plan of Care Start Date 05/18/24 Plan of Care End Date 07/15/24 Therapeutic Interventions Therapeutic Interventions Balance Training,Gait Training ,Home Exercise Program,Joint Mobilizations,Manual Therapy, Neuromuscular Re-education, Orthotic/Prosthetic Management ,Patient/Caregiver Education, Self-Care/Home Management, Sensory Integration,Soft Tissue Mobilization,Taping, Therapeutic Activities, Therapeutic Exercises Modalities Cold Pack/Ice Massage,Electric Stimulation,Hot Packs, Ultrasound Other Referrals/Consults Referrals/Consults Recommended . Hold Physical Therapy Reason For Hold Pt cleared for PT by PCP Next Visit Focus/Plan Next Note Type Treatment Note Next Visit Plan check BP ea sesssion. No end range cervical spine ROM, no upper-mid cervical STM or mobilizations Review miniband, scapular activation and strengthening, MT/LT/protraction. Trial wall vs [place] ball periscapular Thoracic extension and rotation, assess 1st and 2nd rib Soft tissue mobilization, joint mobilization to L shoulder/scapula, gentle seated strengthening
--- NOTE | 2024-06-22 15:39 | PT.OTN ---
Current Diagnoses Other chronic pain (06/22/24) Pain in left shoulder (06/22/24) Stiffness of left shoulder, not elsewhere classified (06/22/24) Low back pain, unspecified (06/22/24) Weakness (06/22/24) Physical Therapy Treatment Note PT-OP-A Visit Information Start: 05/17/24 11:16 Freq: Status: Active Protocol: Document 06/22/24 14:33 NM (Rec: 06/22/24 15:39 NM [id number]) Out-Patient Physical Therapy Visit Information Visit Information Visit Type Treatment Note Visit Note KX after 19 visits R arm: 165/98 mmHg, 143/83 mmHG Visit Start Time 14:33 Visit Stop Time 15:13 Visit Number 7 Evaluation Information Evaluation Date 05/18/24 Precautions Precautions Blood pressure PT-OP-B Current Condition Start: 05/17/24 11:16 Freq: Status: Active Protocol: Document 05/18/24 13:47 NM (Rec: 05/18/24 14:36 NM [id number]) Current Condition History of Current Condition Onset Date 1 week ago Current Complaints pain, weakness History of Current Condition Pt presents with after falling 1 week ago when [place]. He reports that he slid backwards on gravel, landing mainly on his back but more rotated to his L side. L arm was by his side. He denies landing on his arm. Following fall, pt states that he went sleeping in a tent, using trek poles over the weekend/week while hiking. He reports that the pain set in the days after the fall. He reports that the pain has slowly been getting worse over the L shoulder since fall, but states that he woke up feeling better this morning. He reports spasms, especially by shoulder blade (top and front). He reports that he dull ache is there all the time, and reports that it keeps him up at night. He is unable to sleep on his L side or lie on his back due to pain . Pt reports that stretching helps, especially overhead. He states he has not lost any ROM but feels little weaker. He did not have any imaging or follow up with PCP following the fall. Reports that sitting in the car, lifting (any resistance) is painful. Pt has PMH of L shoulder pain from carrying a pack with successful PT. Denies concussion symptoms, including changes in vision, headaches, balance, memory since fall. He reports that pain in his low back and his RLE was several months ago and has improved. He is unsure if the pain actually improved overall or if his L shoulder hurts so bad that his back/R hip feels better. States insidious onset of pain but slow; no known RUFINO. Reports that he has had this problem before but has resolved without intervention. He reports low back cramps/tightness and sciatic pain along RLE along the lateral side the knee; worse with sitting (especially after walking) and walking >2 mi. Occasionally goes further than his knee but usually remains in same pattern along lateral leg. Reports numbness/ tingling, dull ache. Pt also goes to chiropractor, massage therapist; he states they only help temporarily. He has muscle relaxers, which don't help manage his pain in his shoulder or his back/leg. Prior Treatments and Tests Pt reports imaging of shoulder previously but unknown results PT-OP-C Subjective Start: 05/17/24 11:16 Freq: Status: Active Protocol: Document 06/22/24 14:33 NM (Rec: 06/22/24 15:39 NM [id number]) OP-PT Subjective Patient Comments Patient Comments Pt reports that his L shoulder is feeling better overall. Reporst that he spent a lot in the car today, reports that ppt position with forward shoulder position is worse. He reports more neck strain on L side. Asked chiropractor about possibility of slipped disc. He thinks that he got whiplash when he fell. Reports that he is having spasms. Planning to visit family in [place] in 2 weeks. States that the rib mobilization with towel caused more pain. He states that the tingling is subsiding more in the whole hand, only fingers 2-3. Has been sleeping better. [place] fine after last session. He is stating that his blood pressure is different on ea side when he takes his BP ( states usually takes BP immediately) PT-OP-E Functional Tests Start: 05/17/24 11:16 Freq: Status: Active Protocol: Document 05/18/24 13:47 NM (Rec: 05/18/24 14:36 NM [id number]) Functional Tests Yogeshey's Scratch Test Action 1- Left post cuff Action 1- Right post cuff Action 2- Left T7 Action 2- Right T5 Action 3- Left T6; winging; pulls in upper pec; mild pain Action 3- Right T7; wings Other Standing Trunk Flexion Test Name of Test measured finger to floor Score 2 PT-OP-F Manual Assessment Start: 05/17/24 11:16 Freq: Status: Active Protocol: Document 05/18/24 13:47 NM (Rec: 05/18/24 15:56 NM [id number]) Manual Assessments Soft Tissue Assessment Soft Tissue Mobility Assessment Increased restrictions along L sided cervical paraspinals and periscapulars, especially at levator scapula insertion, rhomboids. B lat tightness R glute, TFL, ITB tightness Joint Mobility Assessment Joint Mobility Assessment Full L shoulder AROM and PROM. Decreased scapular mobility, painful with palpation. Decreased cervical spine ROM into extension. Limited thoracic mobility. PT-OP-G Mobility & Gait Start: 05/17/24 11:16 Freq: Status: Active Protocol: Document 05/18/24 13:47 NM (Rec: 05/18/24 15:57 NM [id number]) OP Gait Assessment Gait Gait Assistance Required: Independent Distance (Feet) 150 Comments Gait Comments Decreased trunk mobility and L arm swing. Mild gait deviation in R stance, limited hip extension PT-OP-H Neuro Start: 05/17/24 11:16 Freq: Status: Active Protocol: Document 05/18/24 13:47 NM (Rec: 05/18/24 15:56 NM [id number]) Sensation Evaluation Comments Summary Comments BUE and BLE intact equally to light touch sensation Deep Tendon Reflex & Clonus Assessment Deep Tendon Reflex Bilateral Tricep Deep Tendon Reflex 1+ Diminished Bilateral Brachioradialis Deep Tendon Reflex 2+ Normal Bilateral Bicep Deep Tendon Reflex 2+ Normal PT-OP-J Posture/Palpation/Skin Start: 05/17/24 11:16 Freq: Status: Active Protocol: Document 05/18/24 13:47 NM (Rec: 05/18/24 15:56 NM [id number]) Posture Evaluation Position Standing Head/C-Spine Posture Forward Head Scapula Posture (R) Elevated,(L) Winged,(R) Winged Arm Posture (L) Internally Rotated,(R) Internally Rotated Pelvis Posture Anteriorly Tilted Hip Posture (L) Externally Rotated,(R) Externally Rotated Comments Posture Comments Position of comfort L arm in air above pt head or resting on top of pt head Palpation Assessment Location lumbar spine Palpation Details Mild tenderness along R lateral hip near glute and TFL , ITB No tenderness along midline of spine cervical spine Palpation Details No tenderness along midline or transverse processes L shoulder Palpation Details Mild tenderness along anterior shoulder near rotator cuff insertions and superior shoulder along AC joint Maximal tenderness along medial scapular border, especially near superior angle and thoracic paraspinals No tenderness along clavicle, humerus, scapular spine, or lateral border PT-OP-K Range of Motion Start: 05/17/24 11:16 Freq: Status: Active Protocol: Document 06/15/24 08:14 NM (Rec: 06/15/24 09:01 NM [id number]) Cervical Spine Range of Motion Cervical Spine Active Degrees Flexion 40 Extension 10 Rotation Left 55 Rotation Right 60 Lateral Flexion Left 20 Lateral Flexion Right 30 Comments IE: 55 deg flex, 20 deg ext, 75 deg L rot, 65 deg R rot, 30 deg L LF, 35 deg R LF; LS trigger point, rhomboid; reports tightness and pulling all motions, pain with ext 06/15/24: 40 flex, 10 ext, 30 R LF, 20 L LF, 55 L rot, 60 R rot; pulling and tightness with all motions; denies pain Shoulder Goniometric Range of Motion Shoulder Left Flexion 155 Extension 50 Abduction 170 External Rotation at 90 degrees 85 Abduction Internal Rotation 70 Comments IE: 160 deg flexion 06/15/24: no other changes except flexion 155 deg, pain free AROM for all PT-OP-L Special Tests Start: 05/17/24 11:16 Freq: Status: Active Protocol: Document 05/25/24 11:16 NM (Rec: 05/25/24 12:06 NM [id number]) Special Tests Cervical Spine Special Tests Vertebral Artery Test Results unable to test positionally d/ t pain; BP: 156/100, 147/103 mmHg Comments Cranial n WNL, palpation/ auscultation of carotid a. WNL Traction Test Results - Comments no change in symptoms Shoulder Special Tests Passive ER Rotator Cuff Test Results - [place] Andres Impingement Test Results - Drop Arm Rotator Cuff Test Results - Empty Can Test Results - AC Joint Compression Test Results + PT-OP-M Strength Start: 05/17/24 11:16 Freq: Status: Active Protocol: Document 06/15/24 08:14 NM (Rec: 06/15/24 09:01 NM [id number]) Cervical Spine Strength Cervical Spine Manual Muscle Testing Flexion (C1-2) 4 Good Extension 4 Good Rotation Left 4 Good Rotation Right 4 Good Lateral Flexion Left (C3) 4 Good Lateral Flexion Right (C3) 4 Good Comments No pain with resisted motion 06/15/24: no change with IE Shoulder Strength Shoulder Manual Muscle Testing Left Flexion 4 Good Abduction (C5) 4 Good External Rotation 4 Good Internal Rotation 4 Good Comments No pain with resisted motion 06/15/14: no change since IE PT-OP-Q Treatments Start: 05/17/24 11:16 Freq: Status: Active Protocol: Document 06/22/24 14:33 NM (Rec: 06/22/24 15:39 NM [id number]) Therapeutic Exercises Supine Exercises pool noodle Supine Exercise Name pull aparts horizontals- HEP trialed Side bilateral Equipment Used pool noodle, 2 pillows under head Reps/Minutes 15 Comments tingling in L arm after 10; more comfortable thoracic extension Supine Exercise Name 1. w/ hands supporting neutral head, 2. neutral head w/ level 1 shldr flex Side bilateral Equipment Used full foam roller, mat on ground Reps/Minutes 1. 5, 2. 10 foam roller Supine Exercise Name trialed but has increased tingling in L hand so d/c Comments uncomfortable on scapula Standing Exercises posterior capsule stretch Standing Exercise Name arm across body Side left Reps/Minutes 30 Comments reports scapular relief 1st rib mobilization Standing Exercise Name edu to d/c from HEP d/t soreness and inc tingling at home Manual Therapy Treatment Consent Patient gave verbal consent for manual Yes treatment Soft Tissue Mobilization left shoulder Body Location UT, levator scap, post cuff, periscapular muscles, pec, subscap Intensity/Depth Superficial Body Position Sitting,sidelying Comments Reports decreased neural symptoms with pec mobilization especially into the axilla. Increased restrictions of trapezius, rhomboids Requires 2 pillows to avoid tingling Joint Mobilizations L Ribs Joint 2nd and 3rd rib Direction caudal Grade III Body Position Sidelying Comments Elevated and tender. Monitored for pain Self-Care/Home Management Treatment Education Patient Education Pain Management Other Education Educated on sitting position in car with pool noodle and support for cervical spine to reduce symptoms while driving Also educated pt to follow up with PCP regarding blood pressure PT-OP-R Modalities Start: 05/17/24 11:16 Freq: Status: Active Protocol: Document 06/17/24 07:30 NM (Rec: 06/17/24 08:37 NM [id number]) Electric Stimulation Electric Stimulation Interferential Current (IFC) Body Location L distal levator scapula, L infraspinatus Frequency 10 Patient Position Sitting Combined With Heat/Cold Hot Pack Comments Trialed but pt has increased tingling into L arm after 2 minutes so d/c. Skin monitoed before, during, after treatment. [place] within reach. Hot Pack/Cold Pack Treatment Hot Pack Location L shoulder Patient Position Sitting Patient Tolerance Good Comments Positioned on L shoulder in sitting. Skin assessed before, during, after treatment. [place] within reach. PT-OP-T Assessment and Plan Start: 05/17/24 11:16 Freq: Status: Active Protocol: Document 06/22/24 14:33 NM (Rec: 06/22/24 15:39 NM [id number]) Physical Therapy Assessment Goals Four Impairment pain with walking > 2 mi Geographic Information Systems Director Goal (LTG) Pt will be able to ambulate >2 miles without increase in R hip or back pain in order to demonstrate improved symptom management and activity tolerance LTG Duration 8 weeks Two Impairment not performing HEP [employer] Director Goal (LTG) Pt will report compliance with HEP at least 3x/wk in order to maximize progression with PT and maintain progression as pt transitions to maintenance program LTG Duration 8 weeks One Impairment quickdash score 36.4% (IE) Residential Goal (LTG) Pt will improve quickdash score by at least 15 points in order to demonstrate improvements in symptom management and QOL 06/15/24: NDI 13/50 (26/100) and Quickdash 31.4% impaired LTG Duration 8 weeks Three Impairment sleeping Impairment . Geographic Information [employer] Director Goal (LTG) Pt will report improvement in sleeping, waking fewer than 3x /wk due to L shoulder pain in order to demonstrate improvements in symptom management and QOL LTG Duration 8 weeks Assessment Summary Assessment Pt slowly progressing with symptom management. Continues to have intermittent nerve pain into L arm. Reduced with stretching in cross body adduction/posterior capsule stretch, L arm resting on head , pec stretch/mobilization, and soft tissue mobilization. Still responds best to manual therapy of scapula and periscapular region. Trialed foam roller vs pool noodle for thoracic mobility. Better response to pool noodle for thoracic extension and periscapular activation. Pt maintaining neutral cervical spine throughout time but only able to perform limited reps before symptom onset. PT recommended that pt inform PCP of blood pressure differences between sides. Pt would benefit from skilled PT for periscapular, L shoulder mobility and strengthening in order to improve symptom management and ADL tolerance. Physical Therapy Plan Frequency and Duration Frequency of Treatment 1-2x/wk Duration of treatment (weeks) 8 Plan of Care Start Date 05/18/24 Plan of Care End Date 07/15/24 Therapeutic Interventions Therapeutic Interventions Balance Training,Gait Training ,Home Exercise Program,Joint Mobilizations,Manual Therapy, Neuromuscular Re-education, Orthotic/Prosthetic Management ,Patient/Caregiver Education, Self-Care/Home Management, Sensory Integration,Soft Tissue Mobilization,Taping, Therapeutic Activities, Therapeutic Exercises Modalities Cold Pack/Ice Massage,Electric Stimulation,Hot Packs, Ultrasound Other Referrals/Consults Referrals/Consults Recommended . Hold Physical Therapy Reason For Hold Pt cleared for PT by PCP Next Visit Focus/Plan Next Note Type Treatment Note Next Visit Plan check BP ea session. No end range cervical spine Retrial pool noodle with HABD and diagonals. ROM, no upper-mid cervical STM or mobilizations* * Review miniband, scapular activation and strengthening, MT/LT/protraction. Trial wall vs tanz[place] ball periscapular Thoracic extension and rotation, assess 1st and 2nd rib Soft tissue mobilization, joint mobilization to L shoulder/scapula, gentle seated strengthening
--- NOTE | 2024-06-28 15:36 | PT.OTN ---
Current Diagnoses Other chronic pain (06/28/24) Pain in left shoulder (06/28/24) Stiffness of left shoulder, not elsewhere classified (06/28/24) Low back pain, unspecified (06/28/24) Weakness (06/28/24) Physical Therapy Treatment Note PT-OP-A Visit Information Start: 05/17/24 11:16 Freq: Status: Active Protocol: Document 06/28/24 14:34 NM (Rec: 06/28/24 15:27 NM [id number]) Out-Patient Physical Therapy Visit Information Visit Information Visit Type Treatment Note Visit Note KX after 19 visits Visit Start Time 14:34 Visit Stop Time 15:15 Visit Number 8 PT-OP-B Current Condition Start: 05/17/24 11:16 Freq: Status: Active Protocol: Document 05/18/24 13:47 NM (Rec: 05/18/24 14:36 NM [id number]) Current Condition History of Current Condition Onset Date 1 week ago Current Complaints pain, weakness History of Current Condition Pt presents with after falling 1 week ago when [place] a [place]. He reports that he slid backwards on gravel, landing mainly on his back but more rotated to his L side. L arm was by his side. He denies landing on his arm. Following fall, pt states that he went sleeping in a tent, using trek poles over the weekend/week while hiking. He reports that the pain set in the days after the fall. He reports that the pain has slowly been getting worse over the L shoulder since fall, but states that he woke up feeling better this morning. He reports spasms, especially by shoulder blade (top and front). He reports that he dull ache is there all the time, and reports that it keeps him up at night. He is unable to sleep on his L side or lie on his back due to pain . Pt reports that stretching helps, especially overhead. He states he has not lost any ROM but feels little weaker. He did not have any imaging or follow up with PCP following the fall. Reports that sitting in the car, lifting (any resistance) is painful. Pt has PMH of L shoulder pain from carrying a pack with successful PT. Denies concussion symptoms, including changes in vision, headaches, balance, memory since fall. He reports that pain in his low back and his RLE was several months ago and has improved. He is unsure if the pain actually improved overall or if his L shoulder hurts so bad that his back/R hip feels better. States insidious onset of pain but slow; no known RUFINO. Reports that he has had this problem before but has resolved without intervention. He reports low back cramps/tightness and sciatic pain along RLE along the lateral side the knee; worse with sitting (especially after walking) and walking >2 mi. Occasionally goes further than his knee but usually remains in same pattern along lateral leg. Reports numbness/ tingling, dull ache. Pt also goes to chiropractor, massage therapist; he states they only help temporarily. He has muscle relaxers, which don't help manage his pain in his shoulder or his back/leg. Prior Treatments and Tests Pt reports imaging of shoulder previously but unknown results PT-OP-C Subjective Start: 05/17/24 11:16 Freq: Status: Active Protocol: Document 06/28/24 14:34 NM (Rec: 06/28/24 15:27 NM [id number]) OP-PT Subjective Patient Comments Patient Comments Pt reports less shoulder pain, tingling but states still constant into first 2 fingers. Noticing connection between pec spasms and tingling. Reports sleeping better. He is noticing sciatic better, states that means that calming down. States down from 7-8/10 and 3-4/10, less in scapula and front at pec. Getting more sleep and exercise. He had a little steback this weekend, hiked with trekking poles, reports that hurt a lot more to sleep and repors also lifted 15-20# pumpkins. Reports felt good after last session, states really good last weekend. Reports BP at home before visit 130s/80s to 150/90s. PT-OP-E Functional Tests Start: 05/17/24 11:16 Freq: Status: Active Protocol: Document 05/18/24 13:47 NM (Rec: 05/18/24 14:36 NM [id number]) Functional Tests Yogeshey's Scratch Test Action 1- Left post cuff Action 1- Right post cuff Action 2- Left T7 Action 2- Right T5 Action 3- Left T6; winging; pulls in upper pec; mild pain Action 3- Right T7; wings Other Standing Trunk Flexion Test Name of Test measured finger to floor Score 2 PT-OP-F Manual Assessment Start: 05/17/24 11:16 Freq: Status: Active Protocol: Document 05/18/24 13:47 NM (Rec: 05/18/24 15:56 NM [id number]) Manual Assessments Soft Tissue Assessment Soft Tissue Mobility Assessment Increased restrictions along L sided cervical paraspinals and periscapulars, especially at levator scapula insertion, rhomboids. B lat tightness R glute, TFL, ITB tightness Joint Mobility Assessment Joint Mobility Assessment Full L shoulder AROM and PROM. Decreased scapular mobility, painful with palpation. Decreased cervical spine ROM into extension. Limited thoracic mobility. PT-OP-G Mobility & Gait Start: 05/17/24 11:16 Freq: Status: Active Protocol: Document 05/18/24 13:47 NM (Rec: 05/18/24 15:57 NM [id number]) OP Gait Assessment Gait Gait Assistance Required: Independent Distance (Feet) 150 Comments Gait Comments Decreased trunk mobility and L arm swing. Mild gait deviation in R stance, limited hip extension PT-OP-H Neuro Start: 05/17/24 11:16 Freq: Status: Active Protocol: Document 05/18/24 13:47 NM (Rec: 05/18/24 15:56 NM [id number]) Sensation Evaluation Comments Summary Comments BUE and BLE intact equally to light touch sensation Deep Tendon Reflex & Clonus Assessment Deep Tendon Reflex Bilateral Tricep Deep Tendon Reflex 1+ Diminished Bilateral Brachioradialis Deep Tendon Reflex 2+ Normal Bilateral Bicep Deep Tendon Reflex 2+ Normal PT-OP-J Posture/Palpation/Skin Start: 05/17/24 11:16 Freq: Status: Active Protocol: Document 05/18/24 13:47 NM (Rec: 05/18/24 15:56 NM [id number]) Posture Evaluation Position Standing Head/C-Spine Posture Forward Head Scapula Posture (R) Elevated,(L) Winged,(R) Winged Arm Posture (L) Internally Rotated,(R) Internally Rotated Pelvis Posture Anteriorly Tilted Hip Posture (L) Externally Rotated,(R) Externally Rotated Comments Posture Comments Position of comfort L arm in air above pt head or resting on top of pt head Palpation Assessment Location lumbar spine Palpation Details Mild tenderness along R lateral hip near glute and TFL , ITB No tenderness along midline of spine cervical spine Palpation Details No tenderness along midline or transverse processes L shoulder Palpation Details Mild tenderness along anterior shoulder near rotator cuff insertions and superior shoulder along AC joint Maximal tenderness along medial scapular border, especially near superior angle and thoracic paraspinals No tenderness along clavicle, humerus, scapular spine, or lateral border PT-OP-K Range of Motion Start: 05/17/24 11:16 Freq: Status: Active Protocol: Document 06/15/24 08:14 NM (Rec: 06/15/24 09:01 NM [id number]) Cervical Spine Range of Motion Cervical Spine Active Degrees Flexion 40 Extension 10 Rotation Left 55 Rotation Right 60 Lateral Flexion Left 20 Lateral Flexion Right 30 Comments IE: 55 deg flex, 20 deg ext, 75 deg L rot, 65 deg R rot, 30 deg L LF, 35 deg R LF; LS trigger point, rhomboid; reports tightness and pulling all motions, pain with ext 06/15/24: 40 flex, 10 ext, 30 R LF, 20 L LF, 55 L rot, 60 R rot; pulling and tightness with all motions; denies pain Shoulder Goniometric Range of Motion Shoulder Left Flexion 155 Extension 50 Abduction 170 External Rotation at 90 degrees 85 Abduction Internal Rotation 70 Comments IE: 160 deg flexion 06/15/24: no other changes except flexion 155 deg, pain free AROM for all PT-OP-L Special Tests Start: 05/17/24 11:16 Freq: Status: Active Protocol: Document 05/25/24 11:16 NM (Rec: 05/25/24 12:06 NM [id number]) Special Tests Cervical Spine Special Tests Vertebral Artery Test Results unable to test positionally d/ t pain; BP: 156/100, 147/103 mmHg Comments Cranial n WNL, palpation/ auscultation of carotid a. WNL Traction Test Results - Comments no change in symptoms Shoulder Special Tests Passive ER Rotator Cuff Test Results - Baugh Andres Impingement Test Results - Drop Arm Rotator Cuff Test Results - Empty Can Test Results - AC Joint Compression Test Results + PT-OP-M Strength Start: 05/17/24 11:16 Freq: Status: Active Protocol: Document 06/15/24 08:14 NM (Rec: 06/15/24 09:01 NM [id number]) Cervical Spine Strength Cervical Spine Manual Muscle Testing Flexion (C1-2) 4 Good Extension 4 Good Rotation Left 4 Good Rotation Right 4 Good Lateral Flexion Left (C3) 4 Good Lateral Flexion Right (C3) 4 Good Comments No pain with resisted motion 06/15/24: no change with IE Shoulder Strength Shoulder Manual Muscle Testing Left Flexion 4 Good Abduction (C5) 4 Good External Rotation 4 Good Internal Rotation 4 Good Comments No pain with resisted motion 06/15/14: no change since IE PT-OP-Q Treatments Start: 05/17/24 11:16 Freq: Status: Active Protocol: Document 06/28/24 14:34 NM (Rec: 06/28/24 15:27 NM [id number]) Therapeutic Exercises Standing Exercises thread needle Standing Exercise Name no head rotation Side bilateral Reps/Minutes 5 ea Comments pain free, no symptom increase into L arm periscapular Standing Exercise Name HEP: 1. row, 2. low row Side bilateral Resistance level 2 band Reps/Minutes 2x10 ea Comments no symptom increase rotator cuff Standing Exercise Name 1. ER, 2. IR, 3. B ER (HEP) Side left Resistance level 1 > level 2 > level 1 Reps/Minutes 2x10 ER, 10 IR, 10 B ER Comments edu to low reps d/t pain w/ ER at towel nerve glide Standing Exercise Name median (HEP) Side left Equipment Used slight finger flexion w/ wrist flex/ext Reps/Minutes 20 total Comments reports less tingling; arm by side self mobilization Standing Exercise Name lateral flexion with self lateral glide L Side left Reps/Minutes 10x1 Comments reports no tingling into L arm Manual Therapy Treatment Consent Patient gave verbal consent for manual Yes treatment Soft Tissue Mobilization left shoulder Body Location UT, levator scap, post cuff, periscapular muscles, pec, subscap Intensity/Depth Superficial Body Position supine,sidelying Comments Reports decreased neural symptoms with pec mobilization especially into the axilla. Less tenderness except at subscapularis and fewer trigger points around scapula Requires 2 pillows to avoid tingling Joint Mobilizations L Ribs Joint 1st, 2nd and 3rd rib Direction caudal Grade III Body Position Sidelying Comments Elevated but not tender. Monitored for pain left shoulder Joint GHJ Direction post Grade III Body Position Hooklying Reps/Duration 2x10 Comments Monitored for pain, reports less tingling into L fingers PT-OP-R Modalities Start: 05/17/24 11:16 Freq: Status: Active Protocol: Document 06/17/24 07:30 NM (Rec: 06/17/24 08:37 NM [id number]) Electric Stimulation Electric Stimulation Interferential Current (IFC) Body Location L distal levator scapula, L infraspinatus Frequency 10 Patient Position Sitting Combined With Heat/Cold Hot Pack Comments Trialed but pt has increased tingling into L arm after 2 minutes so d/c. Skin monitoed before, during, after treatment. Collins within reach. Hot Pack/Cold Pack Treatment Hot Pack Location L shoulder Patient Position Sitting Patient Tolerance Good Comments Positioned on L shoulder in sitting. Skin assessed before, during, after treatment. Collins within reach. PT-OP-T Assessment and Plan Start: 05/17/24 11:16 Freq: Status: Active Protocol: Document 06/28/24 14:34 NM (Rec: 06/28/24 15:27 NM [id number]) Physical Therapy Assessment Goals Four Impairment pain with walking > 2 mi Penitentiary Goal (LTG) Pt will be able to ambulate >2 miles without increase in R hip or back pain in order to demonstrate improved symptom management and activity tolerance LTG Duration 8 weeks Two Impairment not performing HEP Penitentiary Goal (LTG) Pt will report compliance with HEP at least 3x/wk in order to maximize progression with PT and maintain progression as pt transitions to maintenance program LTG Duration 8 weeks One Impairment quickdash score 36.4% (IE) Sand Conditioner Goal (LTG) Pt will improve quickdash score by at least 15 points in order to demonstrate improvements in symptom management and QOL 06/15/24: NDI 13/50 (26/100) and Quickdash 31.4% impaired LTG Duration 8 weeks Three Impairment sleeping Impairment . Penitentiary Goal (LTG) Pt will report improvement in sleeping, waking fewer than 3x /wk due to L shoulder pain in order to demonstrate improvements in symptom management and QOL LTG Duration 8 weeks Assessment Summary Assessment Pt responds well with strengthening of rotator cuff but requires fewer reps due to easy symptom exacerbation. Trialed banded rotator cuff and periscapular strengthening , able to do more reps of pericapular strength. When pt does L rotation in supine, has increased symptoms into L hand; however, has improvement in overall symptoms with gentle self lateral glide mobilization and and thread needle without head rotation. Trialed median nerve glides, better with decreased arm elevation but does not have increased symptoms. Pt reports 2/10 L shoulder pain at end of session and decreased tingling into L arm. Pt would benefit from skilled PT for progressive symptom management and ROM to improve ability to perform ADLs. Physical Therapy Plan Frequency and Duration Frequency of Treatment 1-2x/wk Duration of treatment (weeks) 8 Plan of Care Start Date 05/18/24 Plan of Care End Date 07/15/24 Therapeutic Interventions Therapeutic Interventions Balance Training,Gait Training ,Home Exercise Program,Joint Mobilizations,Manual Therapy, Neuromuscular Re-education, Orthotic/Prosthetic Management ,Patient/Caregiver Education, Self-Care/Home Management, Sensory Integration,Soft Tissue Mobilization,Taping, Therapeutic Activities, Therapeutic Exercises Modalities Cold Pack/Ice Massage,Electric Stimulation,Hot Packs, Ultrasound Other Referrals/Consults Referrals/Consults Recommended . Hold Physical Therapy Reason For Hold Pt cleared for PT by PCP Next Visit Focus/Plan Next Note Type Treatment Note Next Visit Plan check BP ea session. No end range cervical spine Retrial pool noodle with HABD and diagonals. ROM, no upper-mid cervical STM or mobilizations* * Trial wall walks/clock, review jose to HEP. Trial banded snow angels.
--- NOTE | 2024-07-01 14:10 | PT.OTN ---
Current Diagnoses Other chronic pain (07/01/24) Pain in left shoulder (07/01/24) Stiffness of left shoulder, not elsewhere classified (07/01/24) Low back pain, unspecified (07/01/24) Weakness (07/01/24) Physical Therapy Treatment Note PT-OP-A Visit Information Start: 05/17/24 11:16 Freq: Status: Active Protocol: Document 07/01/24 12:56 NM (Rec: 07/01/24 14:09 NM [id number]) Out-Patient Physical Therapy Visit Information Visit Information Visit Type Treatment Note Visit Note KX after 19 visits Visit Start Time 13:00 Visit Stop Time 13:45 Evaluation Information Evaluation Date 05/18/24 Precautions Precautions Blood pressure PT-OP-B Current Condition Start: 05/17/24 11:16 Freq: Status: Active Protocol: Document 05/18/24 13:47 NM (Rec: 05/18/24 14:36 NM [id number]) Current Condition History of Current Condition Onset Date 1 week ago Current Complaints pain, weakness History of Current Condition Pt presents with after falling 1 week ago when [place]. He reports that he slid backwards on gravel, landing mainly on his back but more rotated to his L side. L arm was by his side. He denies landing on his arm. Following fall, pt states that he went sleeping in a tent, using trek poles over the weekend/week while hiking. He reports that the pain set in the days after the fall. He reports that the pain has slowly been getting worse over the L shoulder since fall, but states that he woke up feeling better this morning. He reports spasms, especially by shoulder blade (top and front). He reports that he dull ache is there all the time, and reports that it keeps him up at night. He is unable to sleep on his L side or lie on his back due to pain . Pt reports that stretching helps, especially overhead. He states he has not lost any ROM but feels little weaker. He did not have any imaging or follow up with PCP following the fall. Reports that sitting in the car, lifting (any resistance) is painful. Pt has PMH of L shoulder pain from carrying a pack with successful PT. Denies concussion symptoms, including changes in vision, headaches, balance, memory since fall. He reports that pain in his low back and his RLE was several months ago and has improved. He is unsure if the pain actually improved overall or if his L shoulder hurts so bad that his back/R hip feels better. States insidious onset of pain but slow; no known RUFINO. Reports that he has had this problem before but has resolved without intervention. He reports low back cramps/tightness and sciatic pain along RLE along the lateral side the knee; worse with sitting (especially after walking) and walking >2 mi. Occasionally goes further than his knee but usually remains in same pattern along lateral leg. Reports numbness/ tingling, dull ache. Pt also goes to chiropractor, massage therapist; he states they only help temporarily. He has muscle relaxers, which don't help manage his pain in his shoulder or his back/leg. Prior Treatments and Tests Pt reports imaging of shoulder previously but unknown results PT-OP-C Subjective Start: 05/17/24 11:16 Freq: Status: Active Protocol: Document 07/01/24 12:56 NM (Rec: 07/01/24 14:09 NM [id number]) OP-PT Subjective Patient Comments Patient Comments Pt reports very sore after last session. States that he did exercises yesterday. He reports that starts after 6 pm , he gets very sore every night until about midnight then he can go to sleep. Pt reports that in general he is making improvement. Reports getting more feeling back in his first 2 fingers. Has been PT-OP-E Functional Tests Start: 05/17/24 11:16 Freq: Status: Active Protocol: Document 05/18/24 13:47 NM (Rec: 05/18/24 14:36 NM [id number]) Functional Tests Apley's Scratch Test Action 1- Left post cuff Action 1- Right post cuff Action 2- Left T7 Action 2- Right T5 Action 3- Left T6; winging; pulls in upper pec; mild pain Action 3- Right T7; wings Other Standing Trunk Flexion Test Name of Test measured finger to floor Score 2 PT-OP-F Manual Assessment Start: 05/17/24 11:16 Freq: Status: Active Protocol: Document 05/18/24 13:47 NM (Rec: 05/18/24 15:56 NM [id number]) Manual Assessments Soft Tissue Assessment Soft Tissue Mobility Assessment Increased restrictions along L sided cervical paraspinals and periscapulars, especially at levator scapula insertion, rhomboids. B lat tightness R glute, TFL, ITB tightness Joint Mobility Assessment Joint Mobility Assessment Full L shoulder AROM and PROM. Decreased scapular mobility, painful with palpation. Decreased cervical spine ROM into extension. Limited thoracic mobility. PT-OP-G Mobility & Gait Start: 05/17/24 11:16 Freq: Status: Active Protocol: Document 05/18/24 13:47 NM (Rec: 05/18/24 15:57 NM [id number]) OP Gait Assessment Gait Gait Assistance Required: Independent Distance (Feet) 150 Comments Gait Comments Decreased trunk mobility and L arm swing. Mild gait deviation in R stance, limited hip extension PT-OP-H Neuro Start: 05/17/24 11:16 Freq: Status: Active Protocol: Document 05/18/24 13:47 NM (Rec: 05/18/24 15:56 NM [id number]) Sensation Evaluation Comments Summary Comments BUE and BLE intact equally to light touch sensation Deep Tendon Reflex & Clonus Assessment Deep Tendon Reflex Bilateral Tricep Deep Tendon Reflex 1+ Diminished Bilateral Brachioradialis Deep Tendon Reflex 2+ Normal Bilateral Bicep Deep Tendon Reflex 2+ Normal PT-OP-J Posture/Palpation/Skin Start: 05/17/24 11:16 Freq: Status: Active Protocol: Document 05/18/24 13:47 NM (Rec: 05/18/24 15:56 NM [id number]) Posture Evaluation Position Standing Head/C-Spine Posture Forward Head Scapula Posture (R) Elevated,(L) Winged,(R) Winged Arm Posture (L) Internally Rotated,(R) Internally Rotated Pelvis Posture Anteriorly Tilted Hip Posture (L) Externally Rotated,(R) Externally Rotated Comments Posture Comments Position of comfort L arm in air above pt head or resting on top of pt head Palpation Assessment Location lumbar spine Palpation Details Mild tenderness along R lateral hip near glute and TFL , ITB No tenderness along midline of spine cervical spine Palpation Details No tenderness along midline or transverse processes L shoulder Palpation Details Mild tenderness along anterior shoulder near rotator cuff insertions and superior shoulder along AC joint Maximal tenderness along medial scapular border, especially near superior angle and thoracic paraspinals No tenderness along clavicle, humerus, scapular spine, or lateral border PT-OP-K Range of Motion Start: 05/17/24 11:16 Freq: Status: Active Protocol: Document 06/15/24 08:14 NM (Rec: 06/15/24 09:01 NM [id number]) Cervical Spine Range of Motion Cervical Spine Active Degrees Flexion 40 Extension 10 Rotation Left 55 Rotation Right 60 Lateral Flexion Left 20 Lateral Flexion Right 30 Comments IE: 55 deg flex, 20 deg ext, 75 deg L rot, 65 deg R rot, 30 deg L LF, 35 deg R LF; LS trigger point, rhomboid; reports tightness and pulling all motions, pain with ext 06/15/24: 40 flex, 10 ext, 30 R LF, 20 L LF, 55 L rot, 60 R rot; pulling and tightness with all motions; denies pain Shoulder Goniometric Range of Motion Shoulder Left Flexion 155 Extension 50 Abduction 170 External Rotation at 90 degrees 85 Abduction Internal Rotation 70 Comments IE: 160 deg flexion 06/15/24: no other changes except flexion 155 deg, pain free AROM for all PT-OP-L Special Tests Start: 05/17/24 11:16 Freq: Status: Active Protocol: Document 05/25/24 11:16 NM (Rec: 05/25/24 12:06 NM [id number]) Special Tests Cervical Spine Special Tests Vertebral Artery Test Results unable to test positionally d/ t pain; BP: 156/100, 147/103 mmHg Comments Cranial n WNL, palpation/ auscultation of carotid a. WNL Traction Test Results - Comments no change in symptoms Shoulder Special Tests Passive ER Rotator Cuff Test Results - Baugh Andres Impingement Test Results - Drop Arm Rotator Cuff Test Results - Empty Can Test Results - AC Joint Compression Test Results + PT-OP-M Strength Start: 05/17/24 11:16 Freq: Status: Active Protocol: Document 06/15/24 08:14 NM (Rec: 06/15/24 09:01 NM [id number]) Cervical Spine Strength Cervical Spine Manual Muscle Testing Flexion (C1-2) 4 Good Extension 4 Good Rotation Left 4 Good Rotation Right 4 Good Lateral Flexion Left (C3) 4 Good Lateral Flexion Right (C3) 4 Good Comments No pain with resisted motion 06/15/24: no change with IE Shoulder Strength Shoulder Manual Muscle Testing Left Flexion 4 Good Abduction (C5) 4 Good External Rotation 4 Good Internal Rotation 4 Good Comments No pain with resisted motion 06/15/14: no change since IE PT-OP-Q Treatments Start: 05/17/24 11:16 Freq: Status: Active Protocol: Document 07/01/24 12:56 NM (Rec: 07/01/24 14:09 NM [id number]) Therapeutic Exercises Supine Exercises disc rehydration Supine Exercise Name legs elevated on bolster, head supported on pillow Side bilateral Reps/Minutes 2 minutes pool noodle Supine Exercise Name 1. miniband, 2. horiz pull aparts (edu not w/ band HEP) Side bilateral Equipment Used pool noodle, 1 folded pillows under head Reps/Minutes 1. 10, 2. 5 B then 10 R w/ L arm stabilize Sitting Exercises overhead press Sitting Exercise Name 1. overhead/behind head dowel, 2. with band Side bilateral Resistance level 1 band Reps/Minutes 10 ea Comments no symptom increase Standing Exercises rotator cuff Standing Exercise Name snow jalil Side bilateral Resistance level 1 band Reps/Minutes 8 Comments reports spasms Other Exercises lat stretch Other Exercise Name trialed in standing Side bilateral Equipment Used treadmill balls Reps/Minutes 2x10 Comments reports increase in L arm tingling so d/c Manual Therapy Treatment Consent Patient gave verbal consent for manual Yes treatment Soft Tissue Mobilization left shoulder Body Location UT, levator scap, post cuff, periscapular muscles, pec, subscap Mobilization Type Rolling,Sustained Pressure, Trigger Point Release Intensity/Depth Superficial Body Position supine,sidelying Comments Reports decreased neural symptoms with pec mobilization especially into the axilla. Less tenderness except at subscapularis and fewer trigger points around scapula. Trigger point mobilization at L rhomboids and near LS border Requires 2 pillows to avoid tingling Joint Mobilizations scapular mobilization Joint left scapula Direction into depression and adduction Grade III Body Position Sidelying Reps/Duration 10 Self-Care/Home Management Treatment Education Other Education Educated and handouts provided for sitting ergonomics and sleeping ergonomics Education also on disc rehydration (see supine exercises)- recommend trying at 6 pm when pt feels soreness onset PT-OP-R Modalities Start: 05/17/24 11:16 Freq: Status: Active Protocol: Document 06/17/24 07:30 NM (Rec: 06/17/24 08:37 NM [id number]) Electric Stimulation Electric Stimulation Interferential Current (IFC) Body Location L distal levator scapula, L infraspinatus Frequency 10 Patient Position Sitting Combined With Heat/Cold Hot Pack Comments Trialed but pt has increased tingling into L arm after 2 minutes so d/c. Skin monitoed before, during, after treatment. Collins within reach. Hot Pack/Cold Pack Treatment Hot Pack Location L shoulder Patient Position Sitting Patient Tolerance Good Comments Positioned on L shoulder in sitting. Skin assessed before, during, after treatment. Collins within reach. PT-OP-T Assessment and Plan Start: 05/17/24 11:16 Freq: Status: Active Protocol: Document 07/01/24 12:56 NM (Rec: 07/01/24 14:09 NM [id number]) Physical Therapy Assessment Goals Four Impairment pain with walking > 2 mi Chcf Goal (LTG) Pt will be able to ambulate >2 miles without increase in R hip or back pain in order to demonstrate improved symptom management and activity tolerance LTG Duration 8 weeks Two Impairment not performing HEP Chain Saw Driver Goal (LTG) Pt will report compliance with HEP at least 3x/wk in order to maximize progression with PT and maintain progression as pt transitions to maintenance program 07/01/24: performing HEP daily LTG Duration 8 weeks MET One Impairment quickdash score 36.4% (IE) Chcf Goal (LTG) Pt will improve quickdash score by at least 15 points in order to demonstrate improvements in symptom management and QOL 06/15/24: NDI 13/50 (26/100) and Quickdash 31.4% impaired LTG Duration 8 weeks Three Impairment sleeping Impairment . Chain Saw Driver Goal (LTG) Pt will report improvement in sleeping, waking fewer than 3x /wk due to L shoulder pain in order to demonstrate improvements in symptom management and QOL LTG Duration 8 weeks Assessment Summary Assessment Pt reports 50% improvement in tingling into L hand at end of session. Has increase in tingling during lat stretch and pool noodle HABD. Pt also reports spasms in scapula today, which also lead to increased symptoms in L hand. However, good response to soft tissue mobilization near L scapula when pt has muscle spasms, facilitates muscle relaxation and decreased symptoms. Trialed periscapular strengthening and postural maintenance with snow angels and overhead press. Leads to improvement in muscle pain and overall neural symptoms. Bill would continue to benefit from skilled PT for improved symptom management to improve sleeping and activity tolerance. Physical Therapy Plan Frequency and Duration Frequency of Treatment 1-2x/wk Duration of treatment (weeks) 8 Plan of Care Start Date 05/18/24 Plan of Care End Date 07/15/24 Therapeutic Interventions Therapeutic Interventions Balance Training,Gait Training ,Home Exercise Program,Joint Mobilizations,Manual Therapy, Neuromuscular Re-education, Orthotic/Prosthetic Management ,Patient/Caregiver Education, Self-Care/Home Management, Sensory Integration,Soft Tissue Mobilization,Taping, Therapeutic Activities, Therapeutic Exercises Modalities Cold Pack/Ice Massage,Electric Stimulation,Hot Packs, Ultrasound Other Referrals/Consults Referrals/Consults Recommended . Hold Physical Therapy Reason For Hold Pt cleared for PT by PCP Next Visit Focus/Plan Next Note Type Progress Note Next Visit Plan check BP ea session. No end range cervical spine Assess tolerance to overhead press and snow jalil. Cont with periscap strength. Retrial pool noodle with HABD and diagonals. ROM, no upper-mid cervical STM or mobilizations* * Trial wall walks/clock
--- NOTE | 2024-07-06 12:57 | PT.OTN ---
Current Diagnoses Other chronic pain (07/06/24) Pain in left shoulder (07/06/24) Stiffness of left shoulder, not elsewhere classified (07/06/24) Low back pain, unspecified (07/06/24) Weakness (07/06/24) Physical Therapy Treatment Note PT-OP-A Visit Information Start: 05/17/24 11:16 Freq: Status: Active Protocol: Document 07/06/24 10:45 NM (Rec: 07/06/24 11:33 NM [id number]) Out-Patient Physical Therapy Visit Information Visit Information Visit Type Treatment Note Visit Note KX after 19 visits L arm SOS: 155/90 mmHg Visit Start Time 10:46 Visit Stop Time 11:30 Visit Number 10 Evaluation Information Evaluation Date 05/18/24 Precautions Precautions Blood pressure PT-OP-B Current Condition Start: 05/17/24 11:16 Freq: Status: Active Protocol: Document 05/18/24 13:47 NM (Rec: 05/18/24 14:36 NM [id number]) Current Condition History of Current Condition Onset Date 1 week ago Current Complaints pain, weakness History of Current Condition Pt presents with after falling 1 week ago when [place] a [place]. He reports that he slid backwards on gravel, landing mainly on his back but more rotated to his L side. L arm was by his side. He denies landing on his arm. Following fall, pt states that he went sleeping in a tent, using trek poles over the weekend/week while hiking. He reports that the pain set in the days after the fall. He reports that the pain has slowly been getting worse over the L shoulder since fall, but states that he woke up feeling better this morning. He reports spasms, especially by shoulder blade (top and front). He reports that he dull ache is there all the time, and reports that it keeps him up at night. He is unable to sleep on his L side or lie on his back due to pain . Pt reports that stretching helps, especially overhead. He states he has not lost any ROM but feels little weaker. He did not have any imaging or follow up with PCP following the fall. Reports that sitting in the car, lifting (any resistance) is painful. Pt has PMH of L shoulder pain from carrying a pack with successful PT. Denies concussion symptoms, including changes in vision, headaches, balance, memory since fall. He reports that pain in his low back and his RLE was several months ago and has improved. He is unsure if the pain actually improved overall or if his L shoulder hurts so bad that his back/R hip feels better. States insidious onset of pain but slow; no known RUFINO. Reports that he has had this problem before but has resolved without intervention. He reports low back cramps/tightness and sciatic pain along RLE along the lateral side the knee; worse with sitting (especially after walking) and walking >2 mi. Occasionally goes further than his knee but usually remains in same pattern along lateral leg. Reports numbness/ tingling, dull ache. Pt also goes to chiropractor, massage therapist; he states they only help temporarily. He has muscle relaxers, which don't help manage his pain in his shoulder or his back/leg. Prior Treatments and Tests Pt reports imaging of shoulder previously but unknown results PT-OP-C Subjective Start: 05/17/24 11:16 Freq: Status: Active Protocol: Document 07/06/24 10:45 NM (Rec: 07/06/24 11:33 NM [id number]) OP-PT Subjective Patient Comments Patient Comments Pt reports that he did a lot of yard work and lifting, states no increased symptoms into his L arm. Reports that he did exercises yesterday, felt great. States that at 6-7 in evening, felt cramping; reports that he had trouble sleeping, woke up every half hour. He tried pillow changes but hard to get comfortable. He has requested a refill on tramadol at night. He states pain Comes and goes, reports sharp pain between shoulder blades on drive over. Has experimented with pillows on driving, reports pillows with driving overall (pillow to lower-mid back). Warm better than cold. Has increased tingling again (consistant) into 2-3rd fingers. Reports more pain in low back distribution and lateral leg to foot. PT-OP-E Functional Tests Start: 05/17/24 11:16 Freq: Status: Active Protocol: Document 05/18/24 13:47 NM (Rec: 05/18/24 14:36 NM [id number]) Functional Tests Yogeshey's Scratch Test Action 1- Left post cuff Action 1- Right post cuff Action 2- Left T7 Action 2- Right T5 Action 3- Left T6; winging; pulls in upper pec; mild pain Action 3- Right T7; wings Other Standing Trunk Flexion Test Name of Test measured finger to floor Score 2 PT-OP-F Manual Assessment Start: 05/17/24 11:16 Freq: Status: Active Protocol: Document 05/18/24 13:47 NM (Rec: 05/18/24 15:56 NM [id number]) Manual Assessments Soft Tissue Assessment Soft Tissue Mobility Assessment Increased restrictions along L sided cervical paraspinals and periscapulars, especially at levator scapula insertion, rhomboids. B lat tightness R glute, TFL, ITB tightness Joint Mobility Assessment Joint Mobility Assessment Full L shoulder AROM and PROM. Decreased scapular mobility, painful with palpation. Decreased cervical spine ROM into extension. Limited thoracic mobility. PT-OP-G Mobility & Gait Start: 05/17/24 11:16 Freq: Status: Active Protocol: Document 05/18/24 13:47 NM (Rec: 05/18/24 15:57 NM [id number]) OP Gait Assessment Gait Gait Assistance Required: Independent Distance (Feet) 150 Comments Gait Comments Decreased trunk mobility and L arm swing. Mild gait deviation in R stance, limited hip extension PT-OP-H Neuro Start: 05/17/24 11:16 Freq: Status: Active Protocol: Document 05/18/24 13:47 NM (Rec: 05/18/24 15:56 NM [id number]) Sensation Evaluation Comments Summary Comments BUE and BLE intact equally to light touch sensation Deep Tendon Reflex & Clonus Assessment Deep Tendon Reflex Bilateral Tricep Deep Tendon Reflex 1+ Diminished Bilateral Brachioradialis Deep Tendon Reflex 2+ Normal Bilateral Bicep Deep Tendon Reflex 2+ Normal PT-OP-J Posture/Palpation/Skin Start: 05/17/24 11:16 Freq: Status: Active Protocol: Document 05/18/24 13:47 NM (Rec: 05/18/24 15:56 NM [id number]) Posture Evaluation Position Standing Head/C-Spine Posture Forward Head Scapula Posture (R) Elevated,(L) Winged,(R) Winged Arm Posture (L) Internally Rotated,(R) Internally Rotated Pelvis Posture Anteriorly Tilted Hip Posture (L) Externally Rotated,(R) Externally Rotated Comments Posture Comments Position of comfort L arm in air above pt head or resting on top of pt head Palpation Assessment Location lumbar spine Palpation Details Mild tenderness along R lateral hip near glute and TFL , ITB No tenderness along midline of spine cervical spine Palpation Details No tenderness along midline or transverse processes L shoulder Palpation Details Mild tenderness along anterior shoulder near rotator cuff insertions and superior shoulder along AC joint Maximal tenderness along medial scapular border, especially near superior angle and thoracic paraspinals No tenderness along clavicle, humerus, scapular spine, or lateral border PT-OP-K Range of Motion Start: 05/17/24 11:16 Freq: Status: Active Protocol: Document 06/15/24 08:14 NM (Rec: 06/15/24 09:01 NM [id number]) Cervical Spine Range of Motion Cervical Spine Active Degrees Flexion 40 Extension 10 Rotation Left 55 Rotation Right 60 Lateral Flexion Left 20 Lateral Flexion Right 30 Comments IE: 55 deg flex, 20 deg ext, 75 deg L rot, 65 deg R rot, 30 deg L LF, 35 deg R LF; LS trigger point, rhomboid; reports tightness and pulling all motions, pain with ext 06/15/24: 40 flex, 10 ext, 30 R LF, 20 L LF, 55 L rot, 60 R rot; pulling and tightness with all motions; denies pain Shoulder Goniometric Range of Motion Shoulder Left Flexion 155 Extension 50 Abduction 170 External Rotation at 90 degrees 85 Abduction Internal Rotation 70 Comments IE: 160 deg flexion 06/15/24: no other changes except flexion 155 deg, pain free AROM for all PT-OP-L Special Tests Start: 05/17/24 11:16 Freq: Status: Active Protocol: Document 05/25/24 11:16 NM (Rec: 05/25/24 12:06 NM [id number]) Special Tests Cervical Spine Special Tests Vertebral Artery Test Results unable to test positionally d/ t pain; BP: 156/100, 147/103 mmHg Comments Cranial n WNL, palpation/ auscultation of carotid a. WNL Traction Test Results - Comments no change in symptoms Shoulder Special Tests Passive ER Rotator Cuff Test Results - Baugh Andres Impingement Test Results - Drop Arm Rotator Cuff Test Results - Empty Can Test Results - AC Joint Compression Test Results + PT-OP-M Strength Start: 05/17/24 11:16 Freq: Status: Active Protocol: Document 06/15/24 08:14 NM (Rec: 06/15/24 09:01 NM [id number]) Cervical Spine Strength Cervical Spine Manual Muscle Testing Flexion (C1-2) 4 Good Extension 4 Good Rotation Left 4 Good Rotation Right 4 Good Lateral Flexion Left (C3) 4 Good Lateral Flexion Right (C3) 4 Good Comments No pain with resisted motion 06/15/24: no change with IE Shoulder Strength Shoulder Manual Muscle Testing Left Flexion 4 Good Abduction (C5) 4 Good External Rotation 4 Good Internal Rotation 4 Good Comments No pain with resisted motion 06/15/14: no change since IE PT-OP-Q Treatments Start: 05/17/24 11:16 Freq: Status: Active Protocol: Document 07/06/24 10:45 NM (Rec: 07/06/24 11:33 NM [id number]) Therapeutic Exercises Sidelying Exercises lateral flexion Sidelying Exercise Name 1. stretch, 2. IR+lateral flexion Side right Reps/Minutes 1. 30, 2. 10 Comments reports good stretch hip IR/ER Sidelying Exercise Name 1. reverse clam, 2. clam Side right Equipment Used small orange ball btwn reverse clam Reps/Minutes 15 ea Sitting Exercises thoracic extension Sitting Exercise Name heads positioned at ear- no tension at head Side bilateral Equipment Used pillow behind back in chair Reps/Minutes 15x2 cervical spine reactive isometrics Sitting Exercise Name retraction Side bilateral Resistance level 1 band Reps/Minutes 10 Comments no increase in symptoms Standing Exercises rotator cuff Standing Exercise Name 1. ER + lift, 2. snow jalil Side left Resistance level 1 band Reps/Minutes 1. 10, 2. 8 Manual Therapy Treatment Consent Patient gave verbal consent for manual Yes treatment Soft Tissue Mobilization lumbar spine/RLE Body Location calf, HS, glute, paraspinals, QL Mobilization Type Rolling,Strumming,Sustained Pressure Intensity/Depth Moderate Body Position Sidelying Comments Performed distal to proximal. Performed with lateral flexion and distraction left shoulder Body Location UT, levator scap, post cuff, periscapular muscles, pec, subscap Mobilization Type Rolling,Sustained Pressure, Trigger Point Release Intensity/Depth Superficial Body Position supine,sidelying Comments Less tenderness and fewer trigger points overall. Reports increase in symptoms with pec mobilization today. Fewer symptoms with rhomboid and subscapularis/lat mobilization Requires 2 pillows to avoid tingling Joint Mobilizations left shoulder Joint GHJ Direction post Grade III Body Position Hooklying Reps/Duration 2x10 Comments Monitored for pain, reports increase symptoms Self-Care/Home Management Treatment Education Other Education Educated on d/c pull aparts on pool noodle d/t increased symptoms. Recommended trialing disc rehydration at 6-7 pm when gets symptom onset. Educated to break up tasks so not performing all at same time or same day PT-OP-R Modalities Start: 05/17/24 11:16 Freq: Status: Active Protocol: Document 06/17/24 07:30 NM (Rec: 06/17/24 08:37 NM [id number]) Electric Stimulation Electric Stimulation Interferential Current (IFC) Body Location L distal levator scapula, L infraspinatus Frequency 10 Patient Position Sitting Combined With Heat/Cold Hot Pack Comments Trialed but pt has increased tingling into L arm after 2 minutes so d/c. Skin monitoed before, during, after treatment. Collins within reach. Hot Pack/Cold Pack Treatment Hot Pack Location L shoulder Patient Position Sitting Patient Tolerance Good Comments Positioned on L shoulder in sitting. Skin assessed before, during, after treatment. Collins within reach. PT-OP-T Assessment and Plan Start: 05/17/24 11:16 Freq: Status: Active Protocol: Document 07/06/24 10:45 NM (Rec: 07/06/24 11:33 NM [id number]) Physical Therapy Assessment Goals Four Impairment pain with walking > 2 mi Mcc Goal (LTG) Pt will be able to ambulate >2 miles without increase in R hip or back pain in order to demonstrate improved symptom management and activity tolerance LTG Duration 8 weeks Two Impairment not performing HEP Production Specialist Goal (LTG) Pt will report compliance with HEP at least 3x/wk in order to maximize progression with PT and maintain progression as pt transitions to maintenance program 07/01/24: performing HEP daily LTG Duration 8 weeks MET One Impairment quickdash score 36.4% (IE) Mcc Goal (LTG) Pt will improve quickdash score by at least 15 points in order to demonstrate improvements in symptom management and QOL 06/15/24: NDI 13/50 (26/100) and Quickdash 31.4% impaired LTG Duration 8 weeks Three Impairment sleeping Impairment . Mcc Goal (LTG) Pt will report improvement in sleeping, waking fewer than 3x /wk due to L shoulder pain in order to demonstrate improvements in symptom management and QOL LTG Duration 8 weeks Assessment Summary Assessment Pt reports no pain in shoulder blade or pec, no change tingling and a little sore overall in shoulder; he reports no radicular symptoms into RLE at end of session despite presence at start of session. Pt has intermittent increase in LUE neural symptoms today with manual treatment and exercise. Continues to report decrease in tingling into finger post soft tissue mobilization into L axilla. Better tolerance for periscapular strengthening in standing and reactive isometrics in sitting. Trialed stretching and initiated gentle low back/hip strengthening to address neural symptoms into RLE. Pt would continue to benefit from skilled PT for progressive flexibility and strengthening of LUE/cervical spine and RLE/ trunk in order to improve symptom management with ADLs. Physical Therapy Plan Frequency and Duration Frequency of Treatment 1-2x/wk Duration of treatment (weeks) 8 Plan of Care Start Date 05/18/24 Plan of Care End Date 07/15/24 Therapeutic Interventions Therapeutic Interventions Balance Training,Gait Training ,Home Exercise Program,Joint Mobilizations,Manual Therapy, Neuromuscular Re-education, Orthotic/Prosthetic Management ,Patient/Caregiver Education, Self-Care/Home Management, Sensory Integration,Soft Tissue Mobilization,Taping, Therapeutic Activities, Therapeutic Exercises Modalities Cold Pack/Ice Massage,Electric Stimulation,Hot Packs, Ultrasound Other Referrals/Consults Referrals/Consults Recommended . Hold Physical Therapy Reason For Hold Pt cleared for PT by PCP Next Visit Focus/Plan Next Note Type Progress Note Next Visit Plan check BP ea session. No end range cervical spine Assess tolerance to overhead press and snow jalil. Cont with periscap strength. Retrial pool noodle with HABD and diagonals. ROM, no upper-mid cervical STM or mobilizations* * Trial wall walks/clock lateral flexion, bird dog, quadruped scap press, reactive sylvain CS, stretch scalenes, abd/er walkouts
--- NOTE | 2024-07-11 15:20 | PT.OTN ---
Current Diagnoses Other chronic pain (07/11/24) Pain in left shoulder (07/11/24) Stiffness of left shoulder, not elsewhere classified (07/11/24) Low back pain, unspecified (07/11/24) Weakness (07/11/24) Physical Therapy Treatment Note PT-OP-A Visit Information Start: 05/17/24 11:16 Freq: Status: Active Protocol: Document 07/11/24 10:43 NM (Rec: 07/11/24 11:31 NM [id number]) Out-Patient Physical Therapy Visit Information Visit Information Visit Type Progress Note Visit Note KX after 19 visits L arm SOS: 155/90 mmHg Visit Start Time 10:45 Visit Stop Time 11:30 Visit Number 11 Evaluation Information Evaluation Date 05/18/24 Precautions Precautions Blood pressure PT-OP-B Current Condition Start: 05/17/24 11:16 Freq: Status: Active Protocol: Document 05/18/24 13:47 NM (Rec: 05/18/24 14:36 NM [id number]) Current Condition History of Current Condition Onset Date 1 week ago Current Complaints pain, weakness History of Current Condition Pt presents with after falling 1 week ago when coming [place] a mountain. He reports that he slid backwards on gravel, landing mainly on his back but more rotated to his L side. L arm was by his side. He denies landing on his arm. Following fall, pt states that he went sleeping in a tent, using trek poles over the weekend/week while hiking. He reports that the pain set in the days after the fall. He reports that the pain has slowly been getting worse over the L shoulder since fall, but states that he woke up feeling better this morning. He reports spasms, especially by shoulder blade (top and front). He reports that he dull ache is there all the time, and reports that it keeps him up at night. He is unable to sleep on his L side or lie on his back due to pain . Pt reports that stretching helps, especially overhead. He states he has not lost any ROM but feels little weaker. He did not have any imaging or follow up with PCP following the fall. Reports that sitting in the car, lifting (any resistance) is painful. Pt has PMH of L shoulder pain from carrying a pack with successful PT. Denies concussion symptoms, including changes in vision, headaches, balance, memory since fall. He reports that pain in his low back and his RLE was several months ago and has improved. He is unsure if the pain actually improved overall or if his L shoulder hurts so bad that his back/R hip feels better. States insidious onset of pain but slow; no known RUFINO. Reports that he has had this problem before but has resolved without intervention. He reports low back cramps/tightness and sciatic pain along RLE along the lateral side the knee; worse with sitting (especially after walking) and walking >2 mi. Occasionally goes further than his knee but usually remains in same pattern along lateral leg. Reports numbness/ tingling, dull ache. Pt also goes to chiropractor, massage therapist; he states they only help temporarily. He has muscle relaxers, which don't help manage his pain in his shoulder or his back/leg. Prior Treatments and Tests Pt reports imaging of shoulder previously but unknown results PT-OP-C Subjective Start: 05/17/24 11:16 Freq: Status: Active Protocol: Document 07/11/24 10:43 NM (Rec: 07/11/24 11:31 NM [id number]) OP-PT Subjective Patient Comments Patient Comments Pt reports that he was doing well after last session. He felt really good yesteday until he washed his car. Still felt in shoulder but states did well overall. He is planning to go on flight yesterday. Middle finger on L hand feels less consistently tingly, index still constant tingling. Massage at wrist. He went hiking yesterday 3 mi and felt cramping/neural feeling in RLE but states that felt good with stretching. Reporting that symptoms are going away faster when present PT-OP-E Functional Tests Start: 05/17/24 11:16 Freq: Status: Active Protocol: Document 05/18/24 13:47 NM (Rec: 05/18/24 14:36 NM [id number]) Functional Tests Yogeshey's Scratch Test Action 1- Left post cuff Action 1- Right post cuff Action 2- Left T7 Action 2- Right T5 Action 3- Left T6; winging; pulls in upper pec; mild pain Action 3- Right T7; wings Other Standing Trunk Flexion Test Name of Test measured finger to floor Score 2 PT-OP-F Manual Assessment Start: 05/17/24 11:16 Freq: Status: Active Protocol: Document 05/18/24 13:47 NM (Rec: 05/18/24 15:56 NM [id number]) Manual Assessments Soft Tissue Assessment Soft Tissue Mobility Assessment Increased restrictions along L sided cervical paraspinals and periscapulars, especially at levator scapula insertion, rhomboids. B lat tightness R glute, TFL, ITB tightness Joint Mobility Assessment Joint Mobility Assessment Full L shoulder AROM and PROM. Decreased scapular mobility, painful with palpation. Decreased cervical spine ROM into extension. Limited thoracic mobility. PT-OP-G Mobility & Gait Start: 05/17/24 11:16 Freq: Status: Active Protocol: Document 05/18/24 13:47 NM (Rec: 05/18/24 15:57 NM [id number]) OP Gait Assessment Gait Gait Assistance Required: Independent Distance (Feet) 150 Comments Gait Comments Decreased trunk mobility and L arm swing. Mild gait deviation in R stance, limited hip extension PT-OP-H Neuro Start: 05/17/24 11:16 Freq: Status: Active Protocol: Document 05/18/24 13:47 NM (Rec: 05/18/24 15:56 NM [id number]) Sensation Evaluation Comments Summary Comments BUE and BLE intact equally to light touch sensation Deep Tendon Reflex & Clonus Assessment Deep Tendon Reflex Bilateral Tricep Deep Tendon Reflex 1+ Diminished Bilateral Brachioradialis Deep Tendon Reflex 2+ Normal Bilateral Bicep Deep Tendon Reflex 2+ Normal PT-OP-J Posture/Palpation/Skin Start: 05/17/24 11:16 Freq: Status: Active Protocol: Document 05/18/24 13:47 NM (Rec: 05/18/24 15:56 NM [id number]) Posture Evaluation Position Standing Head/C-Spine Posture Forward Head Scapula Posture (R) Elevated,(L) Winged,(R) Winged Arm Posture (L) Internally Rotated,(R) Internally Rotated Pelvis Posture Anteriorly Tilted Hip Posture (L) Externally Rotated,(R) Externally Rotated Comments Posture Comments Position of comfort L arm in air above pt head or resting on top of pt head Palpation Assessment Location lumbar spine Palpation Details Mild tenderness along R lateral hip near glute and TFL , ITB No tenderness along midline of spine cervical spine Palpation Details No tenderness along midline or transverse processes L shoulder Palpation Details Mild tenderness along anterior shoulder near rotator cuff insertions and superior shoulder along AC joint Maximal tenderness along medial scapular border, especially near superior angle and thoracic paraspinals No tenderness along clavicle, humerus, scapular spine, or lateral border PT-OP-K Range of Motion Start: 05/17/24 11:16 Freq: Status: Active Protocol: Document 07/11/24 10:43 NM (Rec: 07/11/24 11:31 NM [id number]) Cervical Spine Range of Motion Cervical Spine Active Degrees Flexion 50 Extension 20 Rotation Left 62 Rotation Right 60 Lateral Flexion Left 30 Lateral Flexion Right 40 Comments IE: 55 deg flex, 20 deg ext, 75 deg L rot, 65 deg R rot, 30 deg L LF, 35 deg R LF; LS trigger point, rhomboid; reports tightness and pulling all motions, pain with ext 06/15/24: 40 flex, 10 ext, 30 R LF, 20 L LF, 55 L rot, 60 R rot; pulling and tightness with all motions; denies pain 07/11/24: no increased symptoms with any motion Lumbar Spine Range of Motion Lumbar Spine Active Percentage Flexion 100 Extension 100 Rotation Left 100 Rotation Right 100 Lateral Flexion Left 100 Lateral Flexion Right 75 Comments soreness along paraspinals with R LF, L rot 07/11/24: tightness in low back with LF and rotation PT-OP-L Special Tests Start: 05/17/24 11:16 Freq: Status: Active Protocol: Document 05/25/24 11:16 NM (Rec: 05/25/24 12:06 NM [id number]) Special Tests Cervical Spine Special Tests Vertebral Artery Test Results unable to test positionally d/ t pain; BP: 156/100, 147/103 mmHg Comments Cranial n WNL, palpation/ auscultation of carotid a. WNL Traction Test Results - Comments no change in symptoms Shoulder Special Tests Passive ER Rotator Cuff Test Results - Baugh Andres Impingement Test Results - Drop Arm Rotator Cuff Test Results - Empty Can Test Results - AC Joint Compression Test Results + PT-OP-M Strength Start: 05/17/24 11:16 Freq: Status: Active Protocol: Document 07/11/24 10:43 NM (Rec: 07/11/24 11:31 NM [id number]) Trunk Strength Trunk Manual Muscle Testing Flexion 4 Good Extension 4 Good Rotation Left 4 Good Rotation Right 4 Good Lateral Flexion Left 4 Good Lateral Flexion Right 4 Good Comments pain free 07/11/24: 4/5, no pain PT-OP-Q Treatments Start: 05/17/24 11:16 Freq: Status: Active Protocol: Document 07/11/24 10:43 NM (Rec: 07/11/24 11:31 NM [id number]) Therapeutic Exercises Supine Exercises stretching Supine Exercise Name 1. figure 4 w/ max hip flex, 2 . fig 4 w/ rotation Side bilateral Reps/Minutes 30 ea Comments reports symptoms improvement Prone Exercises scapular planks Prone Exercise Name quadruped Side bilateral Reps/Minutes 15 Comments initial L tingling but stops w / inc reps Standing Exercises hip 3 way Standing Exercise Name hip flex, hip abd, hip ext Side bilateral Resistance level 1 band at ankles Equipment Used 1 hand support balance Reps/Minutes 8 ea direction Comments cued trunk control in stance Other Exercises plane mobility Other Exercise Name 1. sylvain rows, 2. TS ext w/ pillow, 3. open book, 4. pec str. behind head Side bilateral Equipment Used neutral spine Reps/Minutes 10 ea Comments edu to do 5 per 30 min w/o prolonged holds; walk every 30 min quadruped Other Exercise Name 1. modified child pose w/o UE support, 2. sidesit/pigeon, 3. hip IR mob Side bilateral Reps/Minutes 1. 10x5, 2, 30 ea, 3. 10x5 Comments chair for #3 Manual Therapy Treatment Consent Patient gave verbal consent for manual Yes treatment Soft Tissue Mobilization lumbar spine/RLE Body Location paraspinals, QL Mobilization Type Rolling,Strumming,Sustained Pressure Intensity/Depth Moderate Body Position Sidelying Comments Performed with lateral flexion and distraction. Monitored for pain left shoulder Body Location UT, levator scap, post cuff, periscapular muscles, pec, subscap Mobilization Type Rolling,Sustained Pressure, Trigger Point Release Intensity/Depth Superficial Body Position supine,sidelying Comments Less tenderness and fewer trigger points overall but boggy feeling over L rotator cuff and subscapular area. Reports increase in symptoms with pec mobilization today. Fewer symptoms with rhomboid and subscapularis/lat mobilization Requires 2 pillows to avoid tingling Self-Care/Home Management Treatment Education Patient Education Joint Protection,Pain Management Other Education Educated on ambulating frequently (e.g. every 30 min) and performing gentle mobility to assist with stiffness and symptom management (see above) PT-OP-R Modalities Start: 05/17/24 11:16 Freq: Status: Active Protocol: Document 06/17/24 07:30 NM (Rec: 06/17/24 08:37 NM [id number]) Electric Stimulation Electric Stimulation Interferential Current (IFC) Body Location L distal levator scapula, L infraspinatus Frequency 10 Patient Position Sitting Combined With Heat/Cold Hot Pack Comments Trialed but pt has increased tingling into L arm after 2 minutes so d/c. Skin monitoed before, during, after treatment. Collins within reach. Hot Pack/Cold Pack Treatment Hot Pack Location L shoulder Patient Position Sitting Patient Tolerance Good Comments Positioned on L shoulder in sitting. Skin assessed before, during, after treatment. Collins within reach. PT-OP-T Assessment and Plan Start: 05/17/24 11:16 Freq: Status: Active Protocol: Document 07/11/24 10:43 NM (Rec: 07/11/24 11:31 NM [id number]) Physical Therapy Assessment Goals Four Impairment pain with walking > 2 mi Detention Goal (LTG) Pt will be able to ambulate >2 miles without increase in R hip or back pain in order to demonstrate improved symptom management and activity tolerance 07/11/24: 3 mi hike w/o hip/ back pain but slight increase in neural symptoms; improved with stretching LTG Duration 8 weeks PROGRESSING 07/11/24 Two Impairment not performing HEP Maintenance Assistant Goal (LTG) Pt will report compliance with HEP at least 3x/wk in order to maximize progression with PT and maintain progression as pt transitions to maintenance program 07/01/24: performing HEP daily LTG Duration 8 weeks MET One Impairment quickdash score 36.4% (IE) Detention Goal (LTG) Pt will improve quickdash score by at least 15 points in order to demonstrate improvements in symptom management and QOL 06/15/24: NDI 13/50 (26/100) and Quickdash 31.4% impaired 07/11/24: 15.9% impaired LTG Duration 8 weeks MET 07/11/24 Three Impairment sleeping Impairment . Maintenance Assistant Goal (LTG) Pt will report improvement in sleeping, waking fewer than 3x /wk due to L shoulder pain in order to demonstrate improvements in symptom management and QOL 07/11/24: reports that not waking up at night due to L shoulder or neck pain; reports still feels achy in am but not waking him at night LTG Duration 8 weeks MET 07/11/24 Progress Towards Goals Progress Towards Goals Goals Met Progress Comments Met 3/4 goals and progressing toward last goal Assessment Summary Assessment Pt reports no L tingling, no scapular pain, R neural symptoms at end of session. Pt responds well to gentle hip mobility but not with large reps due to tolerance and knee discomfort; modified with chair for improved tolerance. Trialed quadruped positioning for both core strength, spinal mobility, and hip mobility; modified for comfort and moderate cueing for correct execution. Pt's RLE symptoms reduced with stretching and gentle strengthening. Intermittent LUE symptoms into fingers with scapular mobility but improved with reps. Educated on gentle mobility routine for plane ride to decrease symptoms. Educated to ambulate frequently during plane ride. Physical Therapy Plan Frequency and Duration Frequency of Treatment 1-2x/wk Duration of treatment (weeks) 8 Plan of Care Start Date 07/11/24 Plan of Care End Date 09/09/24 Therapeutic Interventions Therapeutic Interventions Balance Training,Gait Training ,Home Exercise Program,Joint Mobilizations,Manual Therapy, Neuromuscular Re-education, Orthotic/Prosthetic Management ,Patient/Caregiver Education, Self-Care/Home Management, Sensory Integration,Soft Tissue Mobilization,Taping, Therapeutic Activities, Therapeutic Exercises Modalities Cold Pack/Ice Massage,Electric Stimulation,Hot Packs, Ultrasound Other Referrals/Consults Referrals/Consults Recommended . Hold Physical Therapy Reason For Hold Pt cleared for PT by PCP Next Visit Focus/Plan Next Note Type Treatment Note Next Visit Plan check BP ea session. No end range cervical spine ROM, no upper-mid cervical STM or mobilizations Trial wall walks/clock, upright rows and bent over rows/seated rows for full ROM. Cont with scapular stabilization Hhip 3 way, lateral flexion, bird dog, quadruped scap press , reactive sylvain CS, stretch scalenes, abd/er walkouts, hip swivels, cat cow
--- NOTE | 2024-07-11 15:22 | PT.OPPOC ---
Physical, Occupational & Speech Therapy At [facility] Current Diagnoses Other chronic pain (07/11/24) Pain in left shoulder (07/11/24) Stiffness of left shoulder, not elsewhere classified (07/11/24) Low back pain, unspecified (07/11/24) Weakness (07/11/24) Visit Care Team Role Provider Type Jj Frost DO Attending Provider Physician Family Provider Primary Care Provider Referring Provider Specialty: Family Practice Address: [address] [place] [address], [facility] Email: [email or web address] Plan Of Care PT-OP-B Current Condition Start: 05/17/24 11:16 Freq: Status: Active Protocol: Document 05/18/24 13:47 NM (Rec: 05/18/24 14:36 NM [id number]) Current Condition History of Current Condition Onset Date 1 week ago Current Complaints pain, weakness History of Current Condition Pt presents with after falling 1 week ago when coming [place] a mountain. He reports that he slid backwards on gravel, landing mainly on his back but more rotated to his L side. L arm was by his side. He denies landing on his arm. Following fall, pt states that he went sleeping in a tent, using trek poles over the weekend/week while hiking. He reports that the pain set in the days after the fall. He reports that the pain has slowly been getting worse over the L shoulder since fall, but states that he woke up feeling better this morning. He reports spasms, especially by shoulder blade (top and front). He reports that he dull ache is there all the time, and reports that it keeps him up at night. He is unable to sleep on his L side or lie on his back due to pain . Pt reports that stretching helps, especially overhead. He states he has not lost any ROM but feels little weaker. He did not have any imaging or follow up with PCP following the fall. Reports that sitting in the car, lifting (any resistance) is painful. Pt has PMH of L shoulder pain from carrying a pack with successful PT. Denies concussion symptoms, including changes in vision, headaches, balance, memory since fall. He reports that pain in his low back and his RLE was several months ago and has improved. He is unsure if the pain actually improved overall or if his L shoulder hurts so bad that his back/R hip feels better. States insidious onset of pain but slow; no known RUFINO. Reports that he has had this problem before but has resolved without intervention. He reports low back cramps/tightness and sciatic pain along RLE along the lateral side the knee; worse with sitting (especially after walking) and walking >2 mi. Occasionally goes further than his knee but usually remains in same pattern along lateral leg. Reports numbness/ tingling, dull ache. Pt also goes to chiropractor, massage therapist; he states they only help temporarily. He has muscle relaxers, which don't help manage his pain in his shoulder or his back/leg. Prior Treatments and Tests Pt reports imaging of shoulder previously but unknown results PT-OP-T Assessment and Plan Start: 05/17/24 11:16 Freq: Status: Active Protocol: Document 07/11/24 10:43 NM (Rec: 07/11/24 11:31 NM [id number]) Physical Therapy Assessment Goals Four Impairment pain with walking > 2 mi Alf Goal (LTG) Pt will be able to ambulate >2 miles without increase in R hip or back pain in order to demonstrate improved symptom management and activity tolerance 07/11/24: 3 mi hike w/o hip/ back pain but slight increase in neural symptoms; improved with stretching LTG Duration 8 weeks PROGRESSING 07/11/24 Two Impairment not performing HEP Data Miner Goal (LTG) Pt will report compliance with HEP at least 3x/wk in order to maximize progression with PT and maintain progression as pt transitions to maintenance program 07/01/24: performing HEP daily LTG Duration 8 weeks MET One Impairment quickdash score 36.4% (IE) Alf Goal (LTG) Pt will improve quickdash score by at least 15 points in order to demonstrate improvements in symptom management and QOL 06/15/24: NDI 13/50 (26/100) and Quickdash 31.4% impaired 07/11/24: 15.9% impaired LTG Duration 8 weeks MET 07/11/24 Three Impairment sleeping Impairment . Data Miner Goal (LTG) Pt will report improvement in sleeping, waking fewer than 3x /wk due to L shoulder pain in order to demonstrate improvements in symptom management and QOL 07/11/24: reports that not waking up at night due to L shoulder or neck pain; reports still feels achy in am but not waking him at night LTG Duration 8 weeks MET 07/11/24 Progress Towards Goals Progress Towards Goals Goals Met Progress Comments Met 3/4 goals and progressing toward last goal Assessment Summary Assessment Pt has attended x10 visits since initial evaluation. Demonstrates improvements in cervical and lumbar AROM without increase in symptoms into extremities. End range cervical AROM not performed in clinic following pt imaging. Pt continues to have tingling into LUE fingers; however, reports reduction in frequency , severity, and intensity. No longer waking at night due to pain. Neural symptoms into LUe still worse in evening, especially after activity. Pt has been compliant with HEP but is not able to tolerate increased reps of exercises because increases symptoms. Pt 's radicular symptoms from low back also continuing to improve. Responds well to stretching and gentle strengthening. Pt has returned to hiking but not at same intensity due to still intermittent reports of radicular symptoms. Pt had to take several week break in PT due to high blood pressure; better managed now with medication. As a result, most of PT treatment has been focused on LUE and only recently transitioned toward treating low back and R radicular symptoms as well. Pt has met 3 out of 4 LTGs. He would continue to benefit from skilled PT for progressive flexibility, strengthening and symptom management. If pt LUE radicular symptoms do not continue to improve, he would benefit from more advanced imaging and referral to software implementation specialist. Physical Therapy Plan Frequency and Duration Frequency of Treatment 1-2x/wk Duration of treatment (weeks) 8 Plan of Care Start Date 07/11/24 Plan of Care End Date 09/09/24 Therapeutic Interventions Therapeutic Interventions Balance Training,Gait Training ,Home Exercise Program,Joint Mobilizations,Manual Therapy, Neuromuscular Re-education, Orthotic/Prosthetic Management ,Patient/Caregiver Education, Self-Care/Home Management, Sensory Integration,Soft Tissue Mobilization,Taping, Therapeutic Activities, Therapeutic Exercises Modalities Cold Pack/Ice Massage,Electric Stimulation,Hot Packs, Ultrasound Other Referrals/Consults Referrals/Consults Recommended . Hold Physical Therapy Reason For Hold Pt cleared for PT by PCP Next Visit Focus/Plan Next Note Type Treatment Note Next Visit Plan check BP ea session. No end range cervical spine ROM, no upper-mid cervical STM or mobilizations Trial wall walks/clock, upright rows and bent over rows/seated rows for full ROM. Cont with scapular stabilization Hhip 3 way, lateral flexion, bird dog, quadruped scap press , reactive sylvain CS, stretch scalenes, abd/er walkouts, hip swivels, cat cow Plan of Care Dates Plan of Care Start Date 07/11/24 Plan of Care End Date 09/09/24 Electronically Signed by: Mona Martinez, PT 07/12/24 3099 If you are in agreement with this Plan of Care, please return a signed and dated copy. I have reviewed this Plan of Care and certify that the skilled therapy services above are required to meet the patient?s needs. Physician Signature Date Printed Name and Credentials Clinical Instructor Signature Printed Name and Credentials
--- NOTE | 2024-07-26 13:43 | PT.OTN ---
Current Diagnoses Other chronic pain (07/26/24) Pain in left shoulder (07/26/24) Stiffness of left shoulder, not elsewhere classified (07/26/24) Low back pain, unspecified (07/26/24) Weakness (07/26/24) Physical Therapy Treatment Note PT-OP-A Visit Information Start: 05/17/24 11:16 Freq: Status: Active Protocol: Document 07/26/24 12:59 NM (Rec: 07/26/24 13:43 NM [id number]) Out-Patient Physical Therapy Visit Information Visit Information Visit Type Treatment Note Visit Note KX after 19 visits R arm SOS: 154/90 mmHg Visit Start Time 13:01 Visit Stop Time 13:41 Visit Number 12 Evaluation Information Evaluation Date 05/18/24 Precautions Precautions Blood pressure PT-OP-B Current Condition Start: 05/17/24 11:16 Freq: Status: Active Protocol: Document 05/18/24 13:47 NM (Rec: 05/18/24 14:36 NM [id number]) Current Condition History of Current Condition Onset Date 1 week ago Current Complaints pain, weakness History of Current Condition Pt presents with after falling 1 week ago when [place]. He reports that he slid backwards on gravel, landing mainly on his back but more rotated to his L side. L arm was by his side. He denies landing on his arm. Following fall, pt states that he went sleeping in a tent, using trek poles over the weekend/week while hiking. He reports that the pain set in the days after the fall. He reports that the pain has slowly been getting worse over the L shoulder since fall, but states that he woke up feeling better this morning. He reports spasms, especially by shoulder blade (top and front). He reports that he dull ache is there all the time, and reports that it keeps him up at night. He is unable to sleep on his L side or lie on his back due to pain . Pt reports that stretching helps, especially overhead. He states he has not lost any ROM but feels little weaker. He did not have any imaging or follow up with PCP following the fall. Reports that sitting in the car, lifting (any resistance) is painful. Pt has PMH of L shoulder pain from carrying a pack with successful PT. Denies concussion symptoms, including changes in vision, headaches, balance, memory since fall. He reports that pain in his low back and his RLE was several months ago and has improved. He is unsure if the pain actually improved overall or if his L shoulder hurts so bad that his back/R hip feels better. States insidious onset of pain but slow; no known RUFINO. Reports that he has had this problem before but has resolved without intervention. He reports low back cramps/tightness and sciatic pain along RLE along the lateral side the knee; worse with sitting (especially after walking) and walking >2 mi. Occasionally goes further than his knee but usually remains in same pattern along lateral leg. Reports numbness/ tingling, dull ache. Pt also goes to chiropractor, massage therapist; he states they only help temporarily. He has muscle relaxers, which don't help manage his pain in his shoulder or his back/leg. Prior Treatments and Tests Pt reports imaging of shoulder previously but unknown results PT-OP-C Subjective Start: 05/17/24 11:16 Freq: Status: Active Protocol: Document 07/26/24 12:59 NM (Rec: 07/26/24 13:43 NM [id number]) OP-PT Subjective Patient Comments Patient Comments Pt reports that he is feeling a lot better since coming back following trip. He continues to have L radicular symptoms, reports occasional pec muscle spasms. Gets pain with sitting . Reports hardly no pain between shoulder blades, 1-2/ 10 in general. Only has tingling in pointer finger, less in middle finger. He continues to report sciatic type pain in R leg, outside of R leg; no pain in lower back. Only in morning. Has been walking >2 mi/day. PT-OP-E Functional Tests Start: 05/17/24 11:16 Freq: Status: Active Protocol: Document 05/18/24 13:47 NM (Rec: 05/18/24 14:36 NM [id number]) Functional Tests Yogeshey's Scratch Test Action 1- Left post cuff Action 1- Right post cuff Action 2- Left T7 Action 2- Right T5 Action 3- Left T6; winging; pulls in upper pec; mild pain Action 3- Right T7; wings Other Standing Trunk Flexion Test Name of Test measured finger to floor Score 2 PT-OP-F Manual Assessment Start: 05/17/24 11:16 Freq: Status: Active Protocol: Document 05/18/24 13:47 NM (Rec: 05/18/24 15:56 NM [id number]) Manual Assessments Soft Tissue Assessment Soft Tissue Mobility Assessment Increased restrictions along L sided cervical paraspinals and periscapulars, especially at levator scapula insertion, rhomboids. B lat tightness R glute, TFL, ITB tightness Joint Mobility Assessment Joint Mobility Assessment Full L shoulder AROM and PROM. Decreased scapular mobility, painful with palpation. Decreased cervical spine ROM into extension. Limited thoracic mobility. PT-OP-G Mobility & Gait Start: 05/17/24 11:16 Freq: Status: Active Protocol: Document 05/18/24 13:47 NM (Rec: 05/18/24 15:57 NM [id number]) OP Gait Assessment Gait Gait Assistance Required: Independent Distance (Feet) 150 Comments Gait Comments Decreased trunk mobility and L arm swing. Mild gait deviation in R stance, limited hip extension PT-OP-H Neuro Start: 05/17/24 11:16 Freq: Status: Active Protocol: Document 05/18/24 13:47 NM (Rec: 05/18/24 15:56 NM [id number]) Sensation Evaluation Comments Summary Comments BUE and BLE intact equally to light touch sensation Deep Tendon Reflex & Clonus Assessment Deep Tendon Reflex Bilateral Tricep Deep Tendon Reflex 1+ Diminished Bilateral Brachioradialis Deep Tendon Reflex 2+ Normal Bilateral Bicep Deep Tendon Reflex 2+ Normal PT-OP-J Posture/Palpation/Skin Start: 05/17/24 11:16 Freq: Status: Active Protocol: Document 05/18/24 13:47 NM (Rec: 05/18/24 15:56 NM [id number]) Posture Evaluation Position Standing Head/C-Spine Posture Forward Head Scapula Posture (R) Elevated,(L) Winged,(R) Winged Arm Posture (L) Internally Rotated,(R) Internally Rotated Pelvis Posture Anteriorly Tilted Hip Posture (L) Externally Rotated,(R) Externally Rotated Comments Posture Comments Position of comfort L arm in air above pt head or resting on top of pt head Palpation Assessment Location lumbar spine Palpation Details Mild tenderness along R lateral hip near glute and TFL , ITB No tenderness along midline of spine cervical spine Palpation Details No tenderness along midline or transverse processes L shoulder Palpation Details Mild tenderness along anterior shoulder near rotator cuff insertions and superior shoulder along AC joint Maximal tenderness along medial scapular border, especially near superior angle and thoracic paraspinals No tenderness along clavicle, humerus, scapular spine, or lateral border PT-OP-K Range of Motion Start: 05/17/24 11:16 Freq: Status: Active Protocol: Document 07/11/24 10:43 NM (Rec: 07/11/24 11:31 NM [id number]) Cervical Spine Range of Motion Cervical Spine Active Degrees Flexion 50 Extension 20 Rotation Left 62 Rotation Right 60 Lateral Flexion Left 30 Lateral Flexion Right 40 Comments IE: 55 deg flex, 20 deg ext, 75 deg L rot, 65 deg R rot, 30 deg L LF, 35 deg R LF; LS trigger point, rhomboid; reports tightness and pulling all motions, pain with ext 06/15/24: 40 flex, 10 ext, 30 R LF, 20 L LF, 55 L rot, 60 R rot; pulling and tightness with all motions; denies pain 07/11/24: no increased symptoms with any motion Lumbar Spine Range of Motion Lumbar Spine Active Percentage Flexion 100 Extension 100 Rotation Left 100 Rotation Right 100 Lateral Flexion Left 100 Lateral Flexion Right 75 Comments soreness along paraspinals with R LF, L rot 07/11/24: tightness in low back with LF and rotation PT-OP-L Special Tests Start: 05/17/24 11:16 Freq: Status: Active Protocol: Document 05/25/24 11:16 NM (Rec: 05/25/24 12:06 NM [id number]) Special Tests Cervical Spine Special Tests Vertebral Artery Test Results unable to test positionally d/ t pain; BP: 156/100, 147/103 mmHg Comments Cranial n WNL, palpation/ auscultation of carotid a. WNL Traction Test Results - Comments no change in symptoms Shoulder Special Tests Passive ER Rotator Cuff Test Results - Baugh Andres Impingement Test Results - Drop Arm Rotator Cuff Test Results - Empty Can Test Results - AC Joint Compression Test Results + PT-OP-M Strength Start: 05/17/24 11:16 Freq: Status: Active Protocol: Document 07/11/24 10:43 NM (Rec: 07/11/24 11:31 NM [id number]) Trunk Strength Trunk Manual Muscle Testing Flexion 4 Good Extension 4 Good Rotation Left 4 Good Rotation Right 4 Good Lateral Flexion Left 4 Good Lateral Flexion Right 4 Good Comments pain free 07/11/24: 4/5, no pain PT-OP-Q Treatments Start: 05/17/24 11:16 Freq: Status: Active Protocol: Document 07/26/24 12:59 NM (Rec: 07/26/24 13:43 NM [id number]) Therapeutic Exercises Supine Exercises stretching Supine Exercise Name 1. figure 4 w/ rotation, 2. pauline stretch HEP Reps/Minutes 1. 10x5 hold ea direction, 2. 2x60 Comments w/ ppt for pauline stretch, no symptom increase Sitting Exercises hip IR Sitting Exercise Name with band Side bilateral Equipment Used small teal ball btwn legs Reps/Minutes 10 AROM, 2x10 with lvl 1 band Standing Exercises hip 3 way Standing Exercise Name hip flex, hip abd, hip ext ( HEP) Side bilateral Resistance level 1 band at ankles> lvl 2 band at ankles Equipment Used 1 hand support balance Reps/Minutes 10 ea direction lvl 1 band, 10 ea direction lvl 2 band Comments cued trunk control in stance periscapular Standing Exercise Name @ wall: 1. Y lift off, 2. W lift off, 3. shoulder ext w/ band Side bilateral Resistance AROM Reps/Minutes 10 ea Comments cued scapular motion; L shoulder tingling w/ Y lift off-d/c Other Exercises quadruped Other Exercise Name hip IR and ER rockbacks Side bilateral Reps/Minutes 10 ea with brief pause at end range Manual Therapy Treatment Consent Patient gave verbal consent for manual Yes treatment Soft Tissue Mobilization lumbar spine/RLE Body Location paraspinals, QL, R calf > HS > glutes Mobilization Type Rolling,Strumming,Sustained Pressure Intensity/Depth Moderate Body Position Sidelying Comments Performed with lateral flexion and distraction. Monitored for pain. Tightness following nerve PT-OP-R Modalities Start: 05/17/24 11:16 Freq: Status: Active Protocol: Document 06/17/24 07:30 NM (Rec: 06/17/24 08:37 NM [id number]) Electric Stimulation Electric Stimulation Interferential Current (IFC) Body Location L distal levator scapula, L infraspinatus Frequency 10 Patient Position Sitting Combined With Heat/Cold Hot Pack Comments Trialed but pt has increased tingling into L arm after 2 minutes so d/c. Skin monitoed before, during, after treatment. Collins within reach. Hot Pack/Cold Pack Treatment Hot Pack Location L shoulder Patient Position Sitting Patient Tolerance Good Comments Positioned on L shoulder in sitting. Skin assessed before, during, after treatment. Collins within reach. PT-OP-T Assessment and Plan Start: 05/17/24 11:16 Freq: Status: Active Protocol: Document 07/26/24 12:59 NM (Rec: 07/26/24 13:43 NM [id number]) Physical Therapy Assessment Goals Four Impairment pain with walking > 2 mi Mcfp Goal (LTG) Pt will be able to ambulate >2 miles without increase in R hip or back pain in order to demonstrate improved symptom management and activity tolerance 07/11/24: 3 mi hike w/o hip/ back pain but slight increase in neural symptoms; improved with stretching LTG Duration 8 weeks PROGRESSING 07/11/24 Two Impairment not performing HEP Mcfp Goal (LTG) Pt will report compliance with HEP at least 3x/wk in order to maximize progression with PT and maintain progression as pt transitions to maintenance program 07/01/24: performing HEP daily LTG Duration 8 weeks MET One Impairment quickdash score 36.4% (IE) Mcfp Goal (LTG) Pt will improve quickdash score by at least 15 points in order to demonstrate improvements in symptom management and QOL 06/15/24: NDI 13/50 (26/100) and Quickdash 31.4% impaired 07/11/24: 15.9% impaired LTG Duration 8 weeks MET 07/11/24 Three Impairment sleeping Impairment . 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 Continued with hip mobility and strengthening of BLE to create lumbopelvic stabiluity; cueing for correct execution and to facilitate more efficient positioning. One episode of sharp L shooting pain down L arm during pauline stretch. Trialed wall periscapular activation to promote posterior chain strengthening; no pain in shoulder or back. Pt would continue to benefit from skilled PT for progressive mobility and strengthening in order to improve symptom management and ADLs. Physical Therapy Plan Frequency and Duration Frequency of Treatment 1-2x/wk Duration of treatment (weeks) 8 Plan of Care Start Date 07/11/24 Plan of Care End Date 09/09/24 Therapeutic Interventions Therapeutic Interventions Balance Training,Gait Training ,Home Exercise Program,Joint Mobilizations,Manual Therapy, Neuromuscular Re-education, Orthotic/Prosthetic Management ,Patient/Caregiver Education, Self-Care/Home Management, Sensory Integration,Soft Tissue Mobilization,Taping, Therapeutic Activities, Therapeutic Exercises Modalities Cold Pack/Ice Massage,Electric Stimulation,Hot Packs, Ultrasound Other Referrals/Consults Referrals/Consults Recommended . Hold Physical Therapy Reason For Hold Pt cleared for PT by PCP Next Visit Focus/Plan Next Note Type Treatment Note Next Visit Plan check BP ea session. No end range cervical spine ROM, no upper-mid cervical STM or mobilizations Trial bridge w/ band and STS. Assess jose to wall walks/clock , upright rows and bent over rows/seated rows for full ROM w/ respect for LUE. Cont with scapular stabilization Glute strength. STS, leg press , cont hip 3 way, resisted stepping, lateral flexion, bird dog, quadruped scap press , reactive sylvain CS, stretch scalenes, abd/er walkouts, hip swivels, cat cow
--- NOTE | 2024-08-02 10:31 | PT.OTN ---
Current Diagnoses Other chronic pain (08/02/24) Pain in left shoulder (08/02/24) Stiffness of left shoulder, not elsewhere classified (08/02/24) Low back pain, unspecified (08/02/24) Weakness (08/02/24) Physical Therapy Treatment Note PT-OP-A Visit Information Start: 05/17/24 11:16 Freq: Status: Active Protocol: Document 08/02/24 09:51 SP (Rec: 08/02/24 10:46 SP [id number]) Out-Patient Physical Therapy Visit Information Visit Information Visit Type Treatment Note Visit Note KX after 19 visits R arm SOS: 154/90 mmHg Visit Start Time 09:51 Visit Stop Time 10:31 Visit Number 13 Number of [employer] Visits 1 Evaluation Information Evaluation Date 05/18/24 Precautions Precautions Blood pressure PT-OP-B Current Condition Start: 05/17/24 11:16 Freq: Status: Active Protocol: Document 05/18/24 13:47 NM (Rec: 05/18/24 14:36 NM [id number]) Current Condition History of Current Condition Onset Date 1 week ago Current Complaints pain, weakness History of Current Condition Pt presents with after falling 1 week ago when coming [place] a mountain. He reports that he slid backwards on gravel, landing mainly on his back but more rotated to his L side. L arm was by his side. He denies landing on his arm. Following fall, pt states that he went sleeping in a tent, using trek poles over the weekend/week while hiking. He reports that the pain set in the days after the fall. He reports that the pain has slowly been getting worse over the L shoulder since fall, but states that he woke up feeling better this morning. He reports spasms, especially by shoulder blade (top and front). He reports that he dull ache is there all the time, and reports that it keeps him up at night. He is unable to sleep on his L side or lie on his back due to pain . Pt reports that stretching helps, especially overhead. He states he has not lost any ROM but feels little weaker. He did not have any imaging or follow up with PCP following the fall. Reports that sitting in the car, lifting (any resistance) is painful. Pt has PMH of L shoulder pain from carrying a pack with successful PT. Denies concussion symptoms, including changes in vision, headaches, balance, memory since fall. He reports that pain in his low back and his RLE was several months ago and has improved. He is unsure if the pain actually improved overall or if his L shoulder hurts so bad that his back/R hip feels better. States insidious onset of pain but slow; no known RUFINO. Reports that he has had this problem before but has resolved without intervention. He reports low back cramps/tightness and sciatic pain along RLE along the lateral side the knee; worse with sitting (especially after walking) and walking >2 mi. Occasionally goes further than his knee but usually remains in same pattern along lateral leg. Reports numbness/ tingling, dull ache. Pt also goes to chiropractor, massage therapist; he states they only help temporarily. He has muscle relaxers, which don't help manage his pain in his shoulder or his back/leg. Prior Treatments and Tests Pt reports imaging of shoulder previously but unknown results PT-OP-C Subjective Start: 05/17/24 11:16 Freq: Status: Active Protocol: Document 08/02/24 09:51 SP (Rec: 08/02/24 10:46 SP [id number]) OP-PT Subjective Patient Comments Patient Comments Pt reports L shld and sciatic radicular symtpoms laterally down R leg cramping during his hike. He seems to be tightenin up after his hike in [place] and legs 2-4 miles, not to strenuous incline/declines in [place]. Having tingling into L UE 2-3 fingers over padded surface. Get strong tingling down L arm durng pec stretch and reclined at another appt unable to tolerate, since May 09. Has been taking lysinapril perscribed by Dr Frost and better controlling BP> PT-OP-E Functional Tests Start: 05/17/24 11:16 Freq: Status: Active Protocol: Document 05/18/24 13:47 NM (Rec: 05/18/24 14:36 NM [id number]) Functional Tests Yogeshey's Scratch Test Action 1- Left post cuff Action 1- Right post cuff Action 2- Left T7 Action 2- Right T5 Action 3- Left T6; winging; pulls in upper pec; mild pain Action 3- Right T7; wings Other Standing Trunk Flexion Test Name of Test measured finger to floor Score 2 PT-OP-F Manual Assessment Start: 05/17/24 11:16 Freq: Status: Active Protocol: Document 05/18/24 13:47 NM (Rec: 05/18/24 15:56 NM [id number]) Manual Assessments Soft Tissue Assessment Soft Tissue Mobility Assessment Increased restrictions along L sided cervical paraspinals and periscapulars, especially at levator scapula insertion, rhomboids. B lat tightness R glute, TFL, ITB tightness Joint Mobility Assessment Joint Mobility Assessment Full L shoulder AROM and PROM. Decreased scapular mobility, painful with palpation. Decreased cervical spine ROM into extension. Limited thoracic mobility. PT-OP-G Mobility & Gait Start: 05/17/24 11:16 Freq: Status: Active Protocol: Document 05/18/24 13:47 NM (Rec: 05/18/24 15:57 NM [id number]) OP Gait Assessment Gait Gait Assistance Required: Independent Distance (Feet) 150 Comments Gait Comments Decreased trunk mobility and L arm swing. Mild gait deviation in R stance, limited hip extension PT-OP-H Neuro Start: 05/17/24 11:16 Freq: Status: Active Protocol: Document 05/18/24 13:47 NM (Rec: 05/18/24 15:56 NM [id number]) Sensation Evaluation Comments Summary Comments BUE and BLE intact equally to light touch sensation Deep Tendon Reflex & Clonus Assessment Deep Tendon Reflex Bilateral Tricep Deep Tendon Reflex 1+ Diminished Bilateral Brachioradialis Deep Tendon Reflex 2+ Normal Bilateral Bicep Deep Tendon Reflex 2+ Normal PT-OP-J Posture/Palpation/Skin Start: 05/17/24 11:16 Freq: Status: Active Protocol: Document 05/18/24 13:47 NM (Rec: 05/18/24 15:56 NM [id number]) Posture Evaluation Position Standing Head/C-Spine Posture Forward Head Scapula Posture (R) Elevated,(L) Winged,(R) Winged Arm Posture (L) Internally Rotated,(R) Internally Rotated Pelvis Posture Anteriorly Tilted Hip Posture (L) Externally Rotated,(R) Externally Rotated Comments Posture Comments Position of comfort L arm in air above pt head or resting on top of pt head Palpation Assessment Location lumbar spine Palpation Details Mild tenderness along R lateral hip near glute and TFL , ITB No tenderness along midline of spine cervical spine Palpation Details No tenderness along midline or transverse processes L shoulder Palpation Details Mild tenderness along anterior shoulder near rotator cuff insertions and superior shoulder along AC joint Maximal tenderness along medial scapular border, especially near superior angle and thoracic paraspinals No tenderness along clavicle, humerus, scapular spine, or lateral border PT-OP-K Range of Motion Start: 05/17/24 11:16 Freq: Status: Active Protocol: Document 07/11/24 10:43 NM (Rec: 07/11/24 11:31 NM [id number]) Cervical Spine Range of Motion Cervical Spine Active Degrees Flexion 50 Extension 20 Rotation Left 62 Rotation Right 60 Lateral Flexion Left 30 Lateral Flexion Right 40 Comments IE: 55 deg flex, 20 deg ext, 75 deg L rot, 65 deg R rot, 30 deg L LF, 35 deg R LF; LS trigger point, rhomboid; reports tightness and pulling all motions, pain with ext 06/15/24: 40 flex, 10 ext, 30 R LF, 20 L LF, 55 L rot, 60 R rot; pulling and tightness with all motions; denies pain 07/11/24: no increased symptoms with any motion Lumbar Spine Range of Motion Lumbar Spine Active Percentage Flexion 100 Extension 100 Rotation Left 100 Rotation Right 100 Lateral Flexion Left 100 Lateral Flexion Right 75 Comments soreness along paraspinals with R LF, L rot 07/11/24: tightness in low back with LF and rotation PT-OP-L Special Tests Start: 05/17/24 11:16 Freq: Status: Active Protocol: Document 05/25/24 11:16 NM (Rec: 05/25/24 12:06 NM [id number]) Special Tests Cervical Spine Special Tests Vertebral Artery Test Results unable to test positionally d/ t pain; BP: 156/100, 147/103 mmHg Comments Cranial n WNL, palpation/ auscultation of carotid a. WNL Traction Test Results - Comments no change in symptoms Shoulder Special Tests Passive ER Rotator Cuff Test Results - Baugh Andres Impingement Test Results - Drop Arm Rotator Cuff Test Results - Empty Can Test Results - AC Joint Compression Test Results + PT-OP-M Strength Start: 05/17/24 11:16 Freq: Status: Active Protocol: Document 07/11/24 10:43 NM (Rec: 07/11/24 11:31 NM [id number]) Trunk Strength Trunk Manual Muscle Testing Flexion 4 Good Extension 4 Good Rotation Left 4 Good Rotation Right 4 Good Lateral Flexion Left 4 Good Lateral Flexion Right 4 Good Comments pain free 07/11/24: 4/5, no pain PT-OP-Q Treatments Start: 05/17/24 11:16 Freq: Status: Active Protocol: Document 08/02/24 09:51 SP (Rec: 08/02/24 10:46 SP [id number]) Therapeutic Exercises Supine Exercises foam roller Supine Exercise Name noodle and foam roller: serratus press & FF- DC sec to radicular symptoms. Resistance AROM and TB #2 teal Equipment Used 2 pillows under Reps/Minutes 5 reps each Comments trialed post manual for scapular mobility deep neck flexor Supine Exercise Name chin tuck Side bilateral Reps/Minutes 5 Sidelying Exercises sidelying trio Sidelying Exercise Name ABD Side left Reps/Minutes 10 ea AROM Comments pain and symptom free open book Sidelying Exercise Name TS mobility w/ CS rotation to tolerance Side left Resistance aROM Reps/Minutes 10 Comments reports decreased symtoms post manual Standing Exercises ITB stretch Standing Exercise Name reviewed self ITB stretch Side right Reps/Minutes 30 SH Comments ed performance while out on walks for tightness recovery hip 3 way Standing Exercise Name hip flex, hip abd, hip ext ( HEP) Side bilateral Resistance lvl 2 band at ankles Equipment Used 1 rail light contact support Reps/Minutes 10 ea direction lvl 2 band Comments cued tall posture, CS DNF neutral repeated each 10 reps then next position posterior capsule stretch Standing Exercise Name arm across body Side left Reps/Minutes 30 Comments reports scapular relief Other Exercises self STMs Other Exercise Name scm, pec manual STM and MWM; distal lat, SA, infrasp ball wall Comments improved symptom relief Manual Therapy Treatment Consent Patient gave verbal consent for manual Yes treatment Soft Tissue Mobilization neck Body Location L Scalene, SCM Comments gentle STMs and ed self left shoulder Body Location UT, levator scap, post cuff, periscapular muscles, pec, SA, Lat Mobilization Type Cross-Friction,Rolling, Sustained Pressure,Other Intensity/Depth Superficial Body Position supine,sidelying Comments Lessened tingling into R arm: pec major, minor, serratus, bicep, pronator teres- STMs and MWM arms mobiltiy: punching, humeral IR/ER, elbow flex/ext, forearm pron/ supination, breath (pec, scalene). Requires 3 pillows: 2 under head and 1 under L arm to avoid tingling Joint Mobilizations scapular mobilization Joint left scapula Direction into depression and adduction Grade II Body Position RSidelying Reps/Duration 10 Comments scapulothoracic with STMs PT-OP-R Modalities Start: 05/17/24 11:16 Freq: Status: Active Protocol: Document 06/17/24 07:30 NM (Rec: 06/17/24 08:37 NM [id number]) Electric Stimulation Electric Stimulation Interferential Current (IFC) Body Location L distal levator scapula, L infraspinatus Frequency 10 Patient Position Sitting Combined With Heat/Cold Hot Pack Comments Trialed but pt has increased tingling into L arm after 2 minutes so d/c. Skin monitoed before, during, after treatment. Collins within reach. Hot Pack/Cold Pack Treatment Hot Pack Location L shoulder Patient Position Sitting Patient Tolerance Good Comments Positioned on L shoulder in sitting. Skin assessed before, during, after treatment. Collins within reach. PT-OP-T Assessment and Plan Start: 05/17/24 11:16 Freq: Status: Active Protocol: Document 08/02/24 09:51 SP (Rec: 08/02/24 10:46 SP [id number]) Physical Therapy Assessment Goals Four Impairment pain with walking > 2 mi [facility] Goal (LTG) Pt will be able to ambulate >2 miles without increase in R hip or back pain in order to demonstrate improved symptom management and activity tolerance 07/11/24: 3 mi hike w/o hip/ back pain but slight increase in neural symptoms; improved with stretching LTG Duration 8 weeks PROGRESSING 07/11/24 Two Impairment not performing HEP [facility] Goal (LTG) Pt will report compliance with HEP at least 3x/wk in order to maximize progression with PT and maintain progression as pt transitions to maintenance program 07/01/24: performing HEP daily LTG Duration 8 weeks MET One Impairment quickdash score 36.4% (IE) [facility] Goal (LTG) Pt will improve quickdash score by at least 15 points in order to demonstrate improvements in symptom management and QOL 06/15/24: NDI 13/50 (26/100) and Quickdash 31.4% impaired 07/11/24: 15.9% impaired LTG Duration 8 weeks MET 07/11/24 Three Impairment sleeping Impairment . [facility] Goal (LTG) Pt will report improvement in sleeping, waking fewer than 3x /wk due to L shoulder pain in order to demonstrate improvements in symptom management and QOL 07/11/24: reports that not waking up at night due to L shoulder or neck pain; reports still feels achy in am but not waking him at night LTG Duration 8 weeks MET 07/11/24 Assessment Summary Assessment Pt improved symptom relief during manual primarily to pec , SA, Lat, bicep, pronator teres STMs and MWM nearby jt mobility and better understanding how apply self. Continues to have tingling symptoms with supine over foam roller and noodle, will DC at this time. SUggested discussing with Dr Frost possible further assessment at upcoming appt. Decreased ITB tightness review standing use tree/sign support out on walks with understanding continue performing 3 way hip for supportive strengtening. Physical Therapy Plan Frequency and Duration Frequency of Treatment 1-2x/wk Duration of treatment (weeks) 8 Plan of Care Start Date 07/11/24 Plan of Care End Date 09/09/24 Therapeutic Interventions Therapeutic Interventions Balance Training,Gait Training ,Home Exercise Program,Joint Mobilizations,Manual Therapy, Neuromuscular Re-education, Orthotic/Prosthetic Management ,Patient/Caregiver Education, Self-Care/Home Management, Sensory Integration,Soft Tissue Mobilization,Taping, Therapeutic Activities, Therapeutic Exercises Modalities Cold Pack/Ice Massage,Electric Stimulation,Hot Packs, Ultrasound Other Referrals/Consults Referrals/Consults Recommended 08/02/24: Discussion with Dr Frost further assessment L 2-3 finger tingling continues experience. Next Visit Focus/Plan Next Note Type Treatment Note Next Visit Plan check BP ea session. No end range cervical spine ROM, no upper-mid cervical STM or mobilizations Trial bridge w/ band and STS. Assess jose to wall walks/clock , upright rows and bent over rows/seated rows for full ROM w/ respect for LUE. Cont with scapular stabilization Glute strength. STS, leg press , cont hip 3 way, resisted stepping, lateral flexion, bird dog, quadruped scap press , reactive sylvain CS, stretch scalenes, abd/er walkouts, hip swivels, cat cow
--- NOTE | 2024-08-04 13:46 | PT.OTN ---
Current Diagnoses Other chronic pain (08/04/24) Pain in left shoulder (08/04/24) Stiffness of left shoulder, not elsewhere classified (08/04/24) Low back pain, unspecified (08/04/24) Weakness (08/04/24) Physical Therapy Treatment Note PT-OP-A Visit Information Start: 05/17/24 11:16 Freq: Status: Active Protocol: Document 08/04/24 13:01 SP (Rec: 08/04/24 13:48 SP [id number]) Out-Patient Physical Therapy Visit Information Visit Information Visit Type Treatment Note Visit Note KX after 19 visits R arm SOS: 154/90 mmHg Visit Start Time 13:01 Visit Stop Time 13:46 Visit Number 14 Number of AIRLINE TICKET AGENT Visits 2 Evaluation Information Evaluation Date 05/18/24 Precautions Precautions Blood pressure PT-OP-B Current Condition Start: 05/17/24 11:16 Freq: Status: Active Protocol: Document 05/18/24 13:47 NM (Rec: 05/18/24 14:36 NM [id number]) Current Condition History of Current Condition Onset Date 1 week ago Current Complaints pain, weakness History of Current Condition Pt presents with after falling 1 week ago when [place]. He reports that he slid backwards on gravel, landing mainly on his back but more rotated to his L side. L arm was by his side. He denies landing on his arm. Following fall, pt states that he went sleeping in a tent, using trek poles over the weekend/week while hiking. He reports that the pain set in the days after the fall. He reports that the pain has slowly been getting worse over the L shoulder since fall, but states that he woke up feeling better this morning. He reports spasms, especially by shoulder blade (top and front). He reports that he dull ache is there all the time, and reports that it keeps him up at night. He is unable to sleep on his L side or lie on his back due to pain . Pt reports that stretching helps, especially overhead. He states he has not lost any ROM but feels little weaker. He did not have any imaging or follow up with PCP following the fall. Reports that sitting in the car, lifting (any resistance) is painful. Pt has PMH of L shoulder pain from carrying a pack with successful PT. Denies concussion symptoms, including changes in vision, headaches, balance, memory since fall. He reports that pain in his low back and his RLE was several months ago and has improved. He is unsure if the pain actually improved overall or if his L shoulder hurts so bad that his back/R hip feels better. States insidious onset of pain but slow; no known RUFINO. Reports that he has had this problem before but has resolved without intervention. He reports low back cramps/tightness and sciatic pain along RLE along the lateral side the knee; worse with sitting (especially after walking) and walking >2 mi. Occasionally goes further than his knee but usually remains in same pattern along lateral leg. Reports numbness/ tingling, dull ache. Pt also goes to chiropractor, massage therapist; he states they only help temporarily. He has muscle relaxers, which don't help manage his pain in his shoulder or his back/leg. Prior Treatments and Tests Pt reports imaging of shoulder previously but unknown results PT-OP-C Subjective Start: 05/17/24 11:16 Freq: Status: Active Protocol: Document 08/04/24 13:01 SP (Rec: 08/04/24 13:48 SP [id number]) OP-PT Subjective Patient Comments Patient Comments Pt reports has been hiking recently and had 1 instance sciatic response and performed ITB stretch made it go away. Performs piriformis stretch positioning supine with LTR rotation in am with good opeining spine, no symtoms. Seeing chiropractor for his neck and helping stiffness in neck. Seeing slow progression overall but still tingling in L 2-[address] Frost coming up in 1.5 weeks or so, and possible request neurologist referral further assessment. At arrival backing feeling ok, when wakes up and after walking, chronic twinge. PT-OP-E Functional Tests Start: 05/17/24 11:16 Freq: Status: Active Protocol: Document 05/18/24 13:47 NM (Rec: 05/18/24 14:36 NM [id number]) Functional Tests Yogeshey's Scratch Test Action 1- Left post cuff Action 1- Right post cuff Action 2- Left T7 Action 2- Right T5 Action 3- Left T6; winging; pulls in upper pec; mild pain Action 3- Right T7; wings Other Standing Trunk Flexion Test Name of Test measured finger to floor Score 2 PT-OP-F Manual Assessment Start: 05/17/24 11:16 Freq: Status: Active Protocol: Document 05/18/24 13:47 NM (Rec: 05/18/24 15:56 NM [id number]) Manual Assessments Soft Tissue Assessment Soft Tissue Mobility Assessment Increased restrictions along L sided cervical paraspinals and periscapulars, especially at levator scapula insertion, rhomboids. B lat tightness R glute, TFL, ITB tightness Joint Mobility Assessment Joint Mobility Assessment Full L shoulder AROM and PROM. Decreased scapular mobility, painful with palpation. Decreased cervical spine ROM into extension. Limited thoracic mobility. PT-OP-G Mobility & Gait Start: 05/17/24 11:16 Freq: Status: Active Protocol: Document 05/18/24 13:47 NM (Rec: 05/18/24 15:57 NM [id number]) OP Gait Assessment Gait Gait Assistance Required: Independent Distance (Feet) 150 Comments Gait Comments Decreased trunk mobility and L arm swing. Mild gait deviation in R stance, limited hip extension PT-OP-H Neuro Start: 05/17/24 11:16 Freq: Status: Active Protocol: Document 05/18/24 13:47 NM (Rec: 05/18/24 15:56 NM [id number]) Sensation Evaluation Comments Summary Comments BUE and BLE intact equally to light touch sensation Deep Tendon Reflex & Clonus Assessment Deep Tendon Reflex Bilateral Tricep Deep Tendon Reflex 1+ Diminished Bilateral Brachioradialis Deep Tendon Reflex 2+ Normal Bilateral Bicep Deep Tendon Reflex 2+ Normal PT-OP-J Posture/Palpation/Skin Start: 05/17/24 11:16 Freq: Status: Active Protocol: Document 05/18/24 13:47 NM (Rec: 05/18/24 15:56 NM [id number]) Posture Evaluation Position Standing Head/C-Spine Posture Forward Head Scapula Posture (R) Elevated,(L) Winged,(R) Winged Arm Posture (L) Internally Rotated,(R) Internally Rotated Pelvis Posture Anteriorly Tilted Hip Posture (L) Externally Rotated,(R) Externally Rotated Comments Posture Comments Position of comfort L arm in air above pt head or resting on top of pt head Palpation Assessment Location lumbar spine Palpation Details Mild tenderness along R lateral hip near glute and TFL , ITB No tenderness along midline of spine cervical spine Palpation Details No tenderness along midline or transverse processes L shoulder Palpation Details Mild tenderness along anterior shoulder near rotator cuff insertions and superior shoulder along AC joint Maximal tenderness along medial scapular border, especially near superior angle and thoracic paraspinals No tenderness along clavicle, humerus, scapular spine, or lateral border PT-OP-K Range of Motion Start: 05/17/24 11:16 Freq: Status: Active Protocol: Document 07/11/24 10:43 NM (Rec: 07/11/24 11:31 NM [id number]) Cervical Spine Range of Motion Cervical Spine Active Degrees Flexion 50 Extension 20 Rotation Left 62 Rotation Right 60 Lateral Flexion Left 30 Lateral Flexion Right 40 Comments IE: 55 deg flex, 20 deg ext, 75 deg L rot, 65 deg R rot, 30 deg L LF, 35 deg R LF; LS trigger point, rhomboid; reports tightness and pulling all motions, pain with ext 06/15/24: 40 flex, 10 ext, 30 R LF, 20 L LF, 55 L rot, 60 R rot; pulling and tightness with all motions; denies pain 07/11/24: no increased symptoms with any motion Lumbar Spine Range of Motion Lumbar Spine Active Percentage Flexion 100 Extension 100 Rotation Left 100 Rotation Right 100 Lateral Flexion Left 100 Lateral Flexion Right 75 Comments soreness along paraspinals with R LF, L rot 07/11/24: tightness in low back with LF and rotation PT-OP-L Special Tests Start: 05/17/24 11:16 Freq: Status: Active Protocol: Document 05/25/24 11:16 NM (Rec: 05/25/24 12:06 NM [id number]) Special Tests Cervical Spine Special Tests Vertebral Artery Test Results unable to test positionally d/ t pain; BP: 156/100, 147/103 mmHg Comments Cranial n WNL, palpation/ auscultation of carotid a. WNL Traction Test Results - Comments no change in symptoms Shoulder Special Tests Passive ER Rotator Cuff Test Results - [place] Impingement Test Results - Drop Arm Rotator Cuff Test Results - Empty Can Test Results - AC Joint Compression Test Results + PT-OP-M Strength Start: 05/17/24 11:16 Freq: Status: Active Protocol: Document 07/11/24 10:43 NM (Rec: 07/11/24 11:31 NM [id number]) Trunk Strength Trunk Manual Muscle Testing Flexion 4 Good Extension 4 Good Rotation Left 4 Good Rotation Right 4 Good Lateral Flexion Left 4 Good Lateral Flexion Right 4 Good Comments pain free 07/11/24: 4/5, no pain PT-OP-Q Treatments Start: 05/17/24 11:16 Freq: Status: Active Protocol: Document 08/04/24 13:01 SP (Rec: 08/04/24 13:48 SP [id number]) Therapeutic Exercises Supine Exercises stretching Supine Exercise Name 1. figure 4 w/ rotation, 2. kris stretch HEP Side bilateral Equipment Used 2 pillows under head needed for diminishing tingling down L arm Reps/Minutes 1. 10x5 hold ea direction, 2. 2x60 Comments cues for 1. 5 SH each side 2. opp KTC- good stretch Standing Exercises Wall clock arc Standing Exercise Name added to HEP /c HO- rainbow arnc Side left Resistance AROM Equipment Used facing wall Reps/Minutes x10 Comments scapular mobility, very little tingling fingers, feels good shoulder ROM> upright rows Standing Exercise Name added to HEP /c HO Side bilateral Resistance Tb #3 [place] Reps/Minutes 2x10 Comments cued elbows shld height. periscapular Standing Exercise Name @ wall: 1. Y lift off- DC, 2. W lift off-DC, 3. shoulder ext w/ band Side bilateral Resistance 3. TB #3 [place] Equipment Used facing wall, towel at forehead symptomatic but no towel symtpom delay 4 rep Reps/Minutes 3. 20 ea 1-2. towel immediat symptoms but no towel delay symptom 4 reps Comments cued scapular motion; L shoulder tingling w/ Y & W lift off-d/c Other Exercises 1/2 knee hip flexor stretch Other Exercise Name added Side bilateral Equipment Used arm OH Reps/Minutes 30 SH Comments good feedback stretch Manual Therapy Treatment Consent Patient gave verbal consent for manual Yes treatment Soft Tissue Mobilization left shoulder Body Location UT, levator scap, post cuff, periscapular muscles, pec, SA, Lat Mobilization Type Cross-Friction,Rolling, Sustained Pressure,Other Intensity/Depth Superficial Body Position supine,sidelying Comments STM /c scapulothoracic retraction/depression, while providing education on use pillows behind back support R SL, under L arm for neutral supportive positioning and neck fwd neutral positioning for support symptom reduction. Self-Care/Home Management Treatment Education Patient Education Body Mechanics,Joint Protection,Pain Management, Posture,Safety Other Education Education on anatomy and positional support: use pillows behind back support R SL, under L arm for neutral supportive positioning and neck fwd neutral positioning for support tingling into RUE symptom reduction. PT-OP-R Modalities Start: 05/17/24 11:16 Freq: Status: Active Protocol: Document 06/17/24 07:30 NM (Rec: 06/17/24 08:37 NM [id number]) Electric Stimulation Electric Stimulation Interferential Current (IFC) Body Location L distal levator scapula, L infraspinatus Frequency 10 Patient Position Sitting Combined With Heat/Cold Hot Pack Comments Trialed but pt has increased tingling into L arm after 2 minutes so d/c. Skin monitoed before, during, after treatment. Collins within reach. Hot Pack/Cold Pack Treatment Hot Pack Location L shoulder Patient Position Sitting Patient Tolerance Good Comments Positioned on L shoulder in sitting. Skin assessed before, during, after treatment. [place] within reach. PT-OP-T Assessment and Plan Start: 05/17/24 11:16 Freq: Status: Active Protocol: Document 08/04/24 13:01 SP (Rec: 08/04/24 13:48 SP [id number]) Physical Therapy Assessment Goals Four Impairment pain with walking > 2 mi Skilled Nursing Goal (LTG) Pt will be able to ambulate >2 miles without increase in R hip or back pain in order to demonstrate improved symptom management and activity tolerance 07/11/24: 3 mi hike w/o hip/ back pain but slight increase in neural symptoms; improved with stretching LTG Duration 8 weeks PROGRESSING 07/11/24 Two Impairment not performing HEP Director Of In Service Education Goal (LTG) Pt will report compliance with HEP at least 3x/wk in order to maximize progression with PT and maintain progression as pt transitions to maintenance program 07/01/24: performing HEP daily LTG Duration 8 weeks MET One Impairment quickdash score 36.4% (IE) Director Of In Service Education Goal (LTG) Pt will improve quickdash score by at least 15 points in order to demonstrate improvements in symptom management and QOL 06/15/24: NDI 13/50 (26/100) and Quickdash 31.4% impaired 07/11/24: 15.9% impaired LTG Duration 8 weeks MET 07/11/24 Three Impairment sleeping Impairment . Director Of In Service Education Goal (LTG) Pt will report improvement in sleeping, waking fewer than 3x /wk due to L shoulder pain in order to demonstrate improvements in symptom management and QOL 07/11/24: reports that not waking up at night due to L shoulder or neck pain; reports still feels achy in am but not waking him at night LTG Duration 8 weeks MET 07/11/24 Assessment Summary Assessment Pt continues to have radicular symptoms supine, seated and standing into R UE if head is in CS retraction neutral positioning, reduction or diminished if allow head to move forward. AIRLINE TICKET AGENT discussed with pt to notify Dr Frost when has follow up of positional symtpoms and possible further assessment needed, pt in agreement. Improved tingling symptom reduction during gentle manual over pec minor but short time . Good performance and no LB pain/radicular symptoms during supine stretching, good form. Updated Kris Stretch (not havign bed high enough) to 1/2 kneel stretching with good feedback decreased tension hip flexion stretch. Initiated /c HO wall arcs and resisted upright rows to support overhead mobility and strength with occasional cues for CS positioning safety and no adverse tingling symptom reported. Physical Therapy Plan Frequency and Duration Frequency of Treatment 1-2x/wk Duration of treatment (weeks) 8 Plan of Care Start Date 07/11/24 Plan of Care End Date 09/09/24 Therapeutic Interventions Therapeutic Interventions Balance Training,Gait Training ,Home Exercise Program,Joint Mobilizations,Manual Therapy, Neuromuscular Re-education, Orthotic/Prosthetic Management ,Patient/Caregiver Education, Self-Care/Home Management, Sensory Integration,Soft Tissue Mobilization,Taping, Therapeutic Activities, Therapeutic Exercises Modalities Cold Pack/Ice Massage,Electric Stimulation,Hot Packs, Ultrasound Other Referrals/Consults Referrals/Consults Recommended 08/02/24: Discussion with Dr Frost further assessment L 2-3 finger tingling continues experience. Hold Physical Therapy Reason For Hold Pt cleared for PT by PCP Next Visit Focus/Plan Next Note Type Treatment Note Next Visit Plan check BP ea session. No end range cervical spine ROM, no upper-mid cervical STM or mobilizations NExt: Trial bridge w/ band and STS. REcheck initiated wall clock arcs and upright rows, vs if need modify bent over rows/seated rows for full ROM w/ respect for LUE. Cont with scapular stabilization Glute strength. HEP: STS, leg press, cont hip 3 way, resisted stepping, lateral flexion, bird dog, quadruped scap press, reactive sylvain CS, stretch scalenes, abd/er walkouts, hip swivels, cat cow
--- NOTE | 2024-08-10 11:32 | PT.OTN ---
Current Diagnoses Other chronic pain (08/10/24) Pain in left shoulder (08/10/24) Stiffness of left shoulder, not elsewhere classified (08/10/24) Low back pain, unspecified (08/10/24) Weakness (08/10/24) Physical Therapy Treatment Note PT-OP-A Visit Information Start: 05/17/24 11:16 Freq: Status: Active Protocol: Document 08/10/24 10:46 SP (Rec: 08/10/24 11:35 SP [id number]) Out-Patient Physical Therapy Visit Information Visit Information Visit Type Treatment Note Visit Note KX after 19 visits R arm SOS: 154/90 mmHg Visit Start Time 10:46 Visit Stop Time 11:32 Visit Number 15 (01/07 with PN) Number of WEATHERIZATION AND 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 He reports that he slid backwards on gravel, landing mainly on his back but more rotated to his L side. L arm was by his side. He denies landing on his arm. Following fall, pt states that he went sleeping in a tent, using trek poles over the weekend/week while hiking. He reports that the pain set in the days after the fall. He reports that the pain has slowly been getting worse over the L shoulder since fall, but states that he woke up feeling better this morning. He reports spasms, especially by shoulder blade (top and front). He reports that he dull ache is there all the time, and reports that it keeps him up at night. He is unable to sleep on his L side or lie on his back due to pain . Pt reports that stretching helps, especially overhead. He states he has not lost any ROM but feels little weaker. He did not have any imaging or follow up with PCP following the fall. Reports that sitting in the car, lifting (any resistance) is painful. Pt has PMH of L shoulder pain from carrying a pack with successful PT. Denies concussion symptoms, including changes in vision, headaches, balance, memory since fall. He reports that pain in his low back and his RLE was several months ago and has improved. He is unsure if the pain actually improved overall or if his L shoulder hurts so bad that his back/R hip feels better. States insidious onset of pain but slow; no known RUFINO. Reports that he has had this problem before but has resolved without intervention. He reports low back cramps/tightness and sciatic pain along RLE along the lateral side the knee; worse with sitting (especially after walking) and walking >2 mi. Occasionally goes further than his knee but usually remains in same pattern along lateral leg. Reports numbness/ tingling, dull ache. Pt also goes to chiropractor, massage therapist; he states they only help temporarily. He has muscle relaxers, which don't help manage his pain in his shoulder or his back/leg. Prior Treatments and Tests Pt reports imaging of shoulder previously but unknown results PT-OP-C Subjective Start: 05/17/24 11:16 Freq: Status: Active Protocol: Document 08/10/24 10:46 SP (Rec: 08/10/24 11:35 SP [id number]) OP-PT Subjective Patient Comments Patient Comments Pt was [place]. Got some tingling down R leg being passenger on longer drive since last tx. Performed sciatic nerve glide and PF stretch with little relief riding in car. Stated when stops, performs ITB stretch eliminates radicular LE symptoms. Still continuing to have tingling down L arm and isnt just pec tightness but feels lateral sternum rib tightness a contributer. Sees Dr Frost next week, will request further neurologist assessment/appt. Challenged with L UE symptom relief due to motions mostly HABD LUE causes radicular symptoms into arm/hand, especially with cervical retraction neutral, better if can be more forward posturing, especially noted last tx. PT-OP-E Functional Tests Start: 05/17/24 11:16 Freq: Status: Active Protocol: Document 05/18/24 13:47 NM (Rec: 05/18/24 14:36 NM [id number]) Functional Tests Yogeshey's Scratch Test Action 1- Left post cuff Action 1- Right post cuff Action 2- Left T7 Action 2- Right T5 Action 3- Left T6; winging; pulls in upper pec; mild pain Action 3- Right T7; wings Other Standing Trunk Flexion Test Name of Test measured finger to floor Score 2 PT-OP-F Manual Assessment Start: 05/17/24 11:16 Freq: Status: Active Protocol: Document 05/18/24 13:47 NM (Rec: 05/18/24 15:56 NM [id number]) Manual Assessments Soft Tissue Assessment Soft Tissue Mobility Assessment Increased restrictions along L sided cervical paraspinals and periscapulars, especially at levator scapula insertion, rhomboids. B lat tightness R glute, TFL, ITB tightness Joint Mobility Assessment Joint Mobility Assessment Full L shoulder AROM and PROM. Decreased scapular mobility, painful with palpation. Decreased cervical spine ROM into extension. Limited thoracic mobility. PT-OP-G Mobility & Gait Start: 05/17/24 11:16 Freq: Status: Active Protocol: Document 05/18/24 13:47 NM (Rec: 05/18/24 15:57 NM [id number]) OP Gait Assessment Gait Gait Assistance Required: Independent Distance (Feet) 150 Comments Gait Comments Decreased trunk mobility and L arm swing. Mild gait deviation in R stance, limited hip extension PT-OP-H Neuro Start: 05/17/24 11:16 Freq: Status: Active Protocol: Document 05/18/24 13:47 NM (Rec: 05/18/24 15:56 NM [id number]) Sensation Evaluation Comments Summary Comments BUE and BLE intact equally to light touch sensation Deep Tendon Reflex & Clonus Assessment Deep Tendon Reflex Bilateral Tricep Deep Tendon Reflex 1+ Diminished Bilateral Brachioradialis Deep Tendon Reflex 2+ Normal Bilateral Bicep Deep Tendon Reflex 2+ Normal PT-OP-J Posture/Palpation/Skin Start: 05/17/24 11:16 Freq: Status: Active Protocol: Document 05/18/24 13:47 NM (Rec: 05/18/24 15:56 NM [id number]) Posture Evaluation Position Standing Head/C-Spine Posture Forward Head Scapula Posture (R) Elevated,(L) Winged,(R) Winged Arm Posture (L) Internally Rotated,(R) Internally Rotated Pelvis Posture Anteriorly Tilted Hip Posture (L) Externally Rotated,(R) Externally Rotated Comments Posture Comments Position of comfort L arm in air above pt head or resting on top of pt head Palpation Assessment Location lumbar spine Palpation Details Mild tenderness along R lateral hip near glute and TFL , ITB No tenderness along midline of spine cervical spine Palpation Details No tenderness along midline or transverse processes L shoulder Palpation Details Mild tenderness along anterior shoulder near rotator cuff insertions and superior shoulder along AC joint Maximal tenderness along medial scapular border, especially near superior angle and thoracic paraspinals No tenderness along clavicle, humerus, scapular spine, or lateral border PT-OP-K Range of Motion Start: 05/17/24 11:16 Freq: Status: Active Protocol: Document 07/11/24 10:43 NM (Rec: 07/11/24 11:31 NM [id number]) Cervical Spine Range of Motion Cervical Spine Active Degrees Flexion 50 Extension 20 Rotation Left 62 Rotation Right 60 Lateral Flexion Left 30 Lateral Flexion Right 40 Comments IE: 55 deg flex, 20 deg ext, 75 deg L rot, 65 deg R rot, 30 deg L LF, 35 deg R LF; LS trigger point, rhomboid; reports tightness and pulling all motions, pain with ext 06/15/24: 40 flex, 10 ext, 30 R LF, 20 L LF, 55 L rot, 60 R rot; pulling and tightness with all motions; denies pain 07/11/24: no increased symptoms with any motion Lumbar Spine Range of Motion Lumbar Spine Active Percentage Flexion 100 Extension 100 Rotation Left 100 Rotation Right 100 Lateral Flexion Left 100 Lateral Flexion Right 75 Comments soreness along paraspinals with R LF, L rot 07/11/24: tightness in low back with LF and rotation PT-OP-L Special Tests Start: 05/17/24 11:16 Freq: Status: Active Protocol: Document 05/25/24 11:16 NM (Rec: 05/25/24 12:06 NM [id number]) Special Tests Cervical Spine Special Tests Vertebral Artery Test Results unable to test positionally d/ t pain; BP: 156/100, 147/103 mmHg Comments Cranial n WNL, palpation/ auscultation of carotid a. WNL Traction Test Results - Comments no change in symptoms Shoulder Special Tests Passive ER Rotator Cuff Test Results - Baugh Andres Impingement Test Results - Drop Arm Rotator Cuff Test Results - Empty Can Test Results - AC Joint Compression Test Results + PT-OP-M Strength Start: 05/17/24 11:16 Freq: Status: Active Protocol: Document 07/11/24 10:43 NM (Rec: 07/11/24 11:31 NM [id number]) Trunk Strength Trunk Manual Muscle Testing Flexion 4 Good Extension 4 Good Rotation Left 4 Good Rotation Right 4 Good Lateral Flexion Left 4 Good Lateral Flexion Right 4 Good Comments pain free 07/11/24: 4/5, no pain PT-OP-Q Treatments Start: 05/17/24 11:16 Freq: Status: Active Protocol: Document 08/10/24 10:46 SP (Rec: 08/10/24 11:35 SP [id number]) Therapeutic Exercises Supine Exercises foam roller Supine Exercise Name TS ext and rolling Equipment Used head supported, e lbows front Reps/Minutes 4 min total Comments good feedback response less tension spine, ribcage posterior Sidelying Exercises sidelying trio Sidelying Exercise Name ABD, FF, HABD Side left Resistance AROM Reps/Minutes 10 ea Comments good response: pain and symptom free- occ cues scapular glide postioning Manual Therapy Treatment Consent Patient gave verbal consent for manual Yes treatment Soft Tissue Mobilization neck Body Location L Scalene, SCM Comments gentle STMs and ed self left shoulder Body Location UT, levator scap, post cuff, periscapular muscles, pec, SA, Lat Mobilization Type Cross-Friction,Rolling, Sustained Pressure,Other Intensity/Depth Superficial Body Position supine,sidelying Comments MWM SCM hand pincer pressure, punger pec plunger, SA Self-Care/Home Management Treatment Education Patient Education Body Mechanics,Joint Protection,Pain Management, Posture,Safety Other Education Time spent pillow/rolled towel behind LS/ TS for spinal alignment support. Continue neutral glides needed for symptom relief and stopping longer trips to provide mobility relief. PT-OP-R Modalities Start: 05/17/24 11:16 Freq: Status: Active Protocol: Document 06/17/24 07:30 NM (Rec: 06/17/24 08:37 NM [id number]) Electric Stimulation Electric Stimulation Interferential Current (IFC) Body Location L distal levator scapula, L infraspinatus Frequency 10 Patient Position Sitting Combined With Heat/Cold Hot Pack Comments Trialed but pt has increased tingling into L arm after 2 minutes so d/c. Skin monitoed before, during, after treatment. Collins within reach. Hot Pack/Cold Pack Treatment Hot Pack Location L shoulder Patient Position Sitting Patient Tolerance Good Comments Positioned on L shoulder in sitting. Skin assessed before, during, after treatment. Collins within reach. PT-OP-T Assessment and Plan Start: 05/17/24 11:16 Freq: Status: Active Protocol: Document 08/10/24 10:46 SP (Rec: 08/10/24 11:35 SP [id number]) Physical Therapy Assessment Goals Four Impairment pain with walking > 2 mi Forest Engineer Goal (LTG) Pt will be able to ambulate >2 miles without increase in R hip or back pain in order to demonstrate improved symptom management and activity tolerance 07/11/24: 3 mi hike w/o hip/ back pain but slight increase in neural symptoms; improved with stretching LTG Duration 8 weeks PROGRESSING 07/11/24 Two Impairment not performing HEP Senior Living Goal (LTG) Pt will report compliance with HEP at least 3x/wk in order to maximize progression with PT and maintain progression as pt transitions to maintenance program 07/01/24: performing HEP daily LTG Duration 8 weeks MET One Impairment quickdash score 36.4% (IE) Forest Engineer Goal (LTG) Pt will improve quickdash score by at least 15 points in order to demonstrate improvements in symptom management and QOL 06/15/24: NDI 13/50 (26/100) and Quickdash 31.4% impaired 07/11/24: 15.9% impaired LTG Duration 8 weeks MET 07/11/24 Three Impairment sleeping Impairment . Senior Living Goal (LTG) Pt will report improvement in sleeping, waking fewer than 3x /wk due to L shoulder pain in order to demonstrate improvements in symptom management and QOL 07/11/24: reports that not waking up at night due to L shoulder or neck pain; reports still feels achy in am but not waking him at night LTG Duration 8 weeks MET 07/11/24 Assessment Summary Assessment Pt tolerated tx well, radicular symtoms reduction/ elimination into LUE post manual and good response to addition of TS extension and rolling over foam roller, UE supported head close chain positioning. Provided further education on use towel roll/ pillow for postural support behind back at various spinal level sitting needed for symptom relief with verbalized understanding and performance carryover. Didn't have enough time today, pt would benefit from continued progression core strengthening per PT recommendation in plan to support reduction radicular symptoms into LE. Although states position ITB stretching gives him this relief. Physical Therapy Plan Frequency and Duration Frequency of Treatment 1-2x/wk Duration of treatment (weeks) 8 Plan of Care Start Date 07/11/24 Plan of Care End Date 09/09/24 Therapeutic Interventions Therapeutic Interventions Balance Training,Gait Training ,Home Exercise Program,Joint Mobilizations,Manual Therapy, Neuromuscular Re-education, Orthotic/Prosthetic Management ,Patient/Caregiver Education, Self-Care/Home Management, Sensory Integration,Soft Tissue Mobilization,Taping, Therapeutic Activities, Therapeutic Exercises Modalities Cold Pack/Ice Massage,Electric Stimulation,Hot Packs, Ultrasound Other Referrals/Consults Referrals/Consults Recommended 08/02/24: Discussion with Dr Frost further assessment L 2-3 finger tingling continues experience. Hold Physical Therapy Reason For Hold Pt cleared for PT by PCP Next Visit Focus/Plan Next Note Type Treatment Note Next Visit Plan check BP ea session. No end range cervical spine ROM, no upper-mid cervical STM or mobilizations NExt: Trial bridge w/ band and STS. REcheck initiated wall clock arcs and upright rows, vs if need modify bent over rows/seated rows for full ROM w/ respect for LUE. Cont with scapular stabilization Glute strength. HEP: STS, leg press, cont hip 3 way, resisted stepping, lateral flexion, bird dog, quadruped scap press, reactive sylvain CS, stretch scalenes, abd/er walkouts, hip swivels, cat cow
--- NOTE | 2024-08-12 11:32 | PT.OTN ---
Current Diagnoses Other chronic pain (08/12/24) Pain in left shoulder (08/12/24) Stiffness of left shoulder, not elsewhere classified (08/12/24) Low back pain, unspecified (08/12/24) Weakness (08/12/24) Physical Therapy Treatment Note PT-OP-A Visit Information Start: 05/17/24 11:16 Freq: Status: Active Protocol: Document 08/12/24 10:46 NM (Rec: 08/12/24 11:32 NM [id number]) Out-Patient Physical Therapy Visit Information Visit Information Visit Type Treatment Note Visit Note KX after 19 visits L arm SOS: 177/99 mmHg, 162/86 mmHg Visit Start Time 10:48 Visit Stop Time 11:30 Visit Number 16 Evaluation Information Evaluation Date 05/18/24 Precautions Precautions Blood pressure PT-OP-B Current Condition Start: 05/17/24 11:16 Freq: Status: Active Protocol: Document 05/18/24 13:47 NM (Rec: 05/18/24 14:36 NM [id number]) Current Condition History of Current Condition Onset Date 1 week ago Current Complaints pain, weakness History of Current Condition Pt presents with after falling 1 week ago when [place]. He reports that he slid backwards on gravel, landing mainly on his back but more rotated to his L side. L arm was by his side. He denies landing on his arm. Following fall, pt states that he went sleeping in a tent, using trek poles over the weekend/week while hiking. He reports that the pain set in the days after the fall. He reports that the pain has slowly been getting worse over the L shoulder since fall, but states that he woke up feeling better this morning. He reports spasms, especially by shoulder blade (top and front). He reports that he dull ache is there all the time, and reports that it keeps him up at night. He is unable to sleep on his L side or lie on his back due to pain . Pt reports that stretching helps, especially overhead. He states he has not lost any ROM but feels little weaker. He did not have any imaging or follow up with PCP following the fall. Reports that sitting in the car, lifting (any resistance) is painful. Pt has PMH of L shoulder pain from carrying a pack with successful PT. Denies concussion symptoms, including changes in vision, headaches, balance, memory since fall. He reports that pain in his low back and his RLE was several months ago and has improved. He is unsure if the pain actually improved overall or if his L shoulder hurts so bad that his back/R hip feels better. States insidious onset of pain but slow; no known RUFINO. Reports that he has had this problem before but has resolved without intervention. He reports low back cramps/tightness and sciatic pain along RLE along the lateral side the knee; worse with sitting (especially after walking) and walking >2 mi. Occasionally goes further than his knee but usually remains in same pattern along lateral leg. Reports numbness/ tingling, dull ache. Pt also goes to chiropractor, massage therapist; he states they only help temporarily. He has muscle relaxers, which don't help manage his pain in his shoulder or his back/leg. Prior Treatments and Tests Pt reports imaging of shoulder previously but unknown results PT-OP-C Subjective Start: 05/17/24 11:16 Freq: Status: Active Protocol: Document 08/12/24 10:46 NM (Rec: 08/12/24 11:32 NM [id number]) OP-PT Subjective Patient Comments Patient Comments Pt reports that the last 24 hrs have been rough for his L shoulder. He reports that Thursday, he bathed his daughter's 40# dog, had to lift into tub. Muscles feel like clinched/cramped. He attempted massage, feels like a step or two backward. Every time he feels good, he does something to go backward. PT-OP-E Functional Tests Start: 05/17/24 11:16 Freq: Status: Active Protocol: Document 05/18/24 13:47 NM (Rec: 05/18/24 14:36 NM [id number]) Functional Tests Apley's Scratch Test Action 1- Left post cuff Action 1- Right post cuff Action 2- Left T7 Action 2- Right T5 Action 3- Left T6; winging; pulls in upper pec; mild pain Action 3- Right T7; wings Other Standing Trunk Flexion Test Name of Test measured finger to floor Score 2 PT-OP-F Manual Assessment Start: 05/17/24 11:16 Freq: Status: Active Protocol: Document 05/18/24 13:47 NM (Rec: 05/18/24 15:56 NM [id number]) Manual Assessments Soft Tissue Assessment Soft Tissue Mobility Assessment Increased restrictions along L sided cervical paraspinals and periscapulars, especially at levator scapula insertion, rhomboids. B lat tightness R glute, TFL, ITB tightness Joint Mobility Assessment Joint Mobility Assessment Full L shoulder AROM and PROM. Decreased scapular mobility, painful with palpation. Decreased cervical spine ROM into extension. Limited thoracic mobility. PT-OP-G Mobility & Gait Start: 05/17/24 11:16 Freq: Status: Active Protocol: Document 05/18/24 13:47 NM (Rec: 05/18/24 15:57 NM [id number]) OP Gait Assessment Gait Gait Assistance Required: Independent Distance (Feet) 150 Comments Gait Comments Decreased trunk mobility and L arm swing. Mild gait deviation in R stance, limited hip extension PT-OP-H Neuro Start: 05/17/24 11:16 Freq: Status: Active Protocol: Document 05/18/24 13:47 NM (Rec: 05/18/24 15:56 NM [id number]) Sensation Evaluation Comments Summary Comments BUE and BLE intact equally to light touch sensation Deep Tendon Reflex & Clonus Assessment Deep Tendon Reflex Bilateral Tricep Deep Tendon Reflex 1+ Diminished Bilateral Brachioradialis Deep Tendon Reflex 2+ Normal Bilateral Bicep Deep Tendon Reflex 2+ Normal PT-OP-J Posture/Palpation/Skin Start: 05/17/24 11:16 Freq: Status: Active Protocol: Document 05/18/24 13:47 NM (Rec: 05/18/24 15:56 NM [id number]) Posture Evaluation Position Standing Head/C-Spine Posture Forward Head Scapula Posture (R) Elevated,(L) Winged,(R) Winged Arm Posture (L) Internally Rotated,(R) Internally Rotated Pelvis Posture Anteriorly Tilted Hip Posture (L) Externally Rotated,(R) Externally Rotated Comments Posture Comments Position of comfort L arm in air above pt head or resting on top of pt head Palpation Assessment Location lumbar spine Palpation Details Mild tenderness along R lateral hip near glute and TFL , ITB No tenderness along midline of spine cervical spine Palpation Details No tenderness along midline or transverse processes L shoulder Palpation Details Mild tenderness along anterior shoulder near rotator cuff insertions and superior shoulder along AC joint Maximal tenderness along medial scapular border, especially near superior angle and thoracic paraspinals No tenderness along clavicle, humerus, scapular spine, or lateral border PT-OP-K Range of Motion Start: 05/17/24 11:16 Freq: Status: Active Protocol: Document 07/11/24 10:43 NM (Rec: 07/11/24 11:31 NM [id number]) Cervical Spine Range of Motion Cervical Spine Active Degrees Flexion 50 Extension 20 Rotation Left 62 Rotation Right 60 Lateral Flexion Left 30 Lateral Flexion Right 40 Comments IE: 55 deg flex, 20 deg ext, 75 deg L rot, 65 deg R rot, 30 deg L LF, 35 deg R LF; LS trigger point, rhomboid; reports tightness and pulling all motions, pain with ext 06/15/24: 40 flex, 10 ext, 30 R LF, 20 L LF, 55 L rot, 60 R rot; pulling and tightness with all motions; denies pain 07/11/24: no increased symptoms with any motion Lumbar Spine Range of Motion Lumbar Spine Active Percentage Flexion 100 Extension 100 Rotation Left 100 Rotation Right 100 Lateral Flexion Left 100 Lateral Flexion Right 75 Comments soreness along paraspinals with R LF, L rot 07/11/24: tightness in low back with LF and rotation PT-OP-L Special Tests Start: 05/17/24 11:16 Freq: Status: Active Protocol: Document 05/25/24 11:16 NM (Rec: 05/25/24 12:06 NM [id number]) Special Tests Cervical Spine Special Tests Vertebral Artery Test Results unable to test positionally d/ t pain; BP: 156/100, 147/103 mmHg Comments Cranial n WNL, palpation/ auscultation of carotid a. WNL Traction Test Results - Comments no change in symptoms Shoulder Special Tests Passive ER Rotator Cuff Test Results - Baugh Andres Impingement Test Results - Drop Arm Rotator Cuff Test Results - Empty Can Test Results - AC Joint Compression Test Results + PT-OP-M Strength Start: 05/17/24 11:16 Freq: Status: Active Protocol: Document 07/11/24 10:43 NM (Rec: 07/11/24 11:31 NM [id number]) Trunk Strength Trunk Manual Muscle Testing Flexion 4 Good Extension 4 Good Rotation Left 4 Good Rotation Right 4 Good Lateral Flexion Left 4 Good Lateral Flexion Right 4 Good Comments pain free 07/11/24: 4/5, no pain PT-OP-Q Treatments Start: 05/17/24 11:16 Freq: Status: Active Protocol: Document 08/12/24 10:46 NM (Rec: 08/12/24 11:32 NM [id number]) Therapeutic Exercises Supine Exercises bridge Side bilateral Resistance level 3 band at thighs Reps/Minutes 2x10 Standing Exercises wall posture Standing Exercise Name 1. B ER 0 deg abd, 2. B ER W w /o band Side bilateral Resistance level 1 band Reps/Minutes 1. 10, 2. 5 w/ good scap squeezing Comments cued neutral spine, head not touching wall but not fwd position Wall clock arc Standing Exercise Name 1. open book, 2. rainbow arch (facing wall), 3. barrel rolls Side left Reps/Minutes 1. 10 ea, 2. 10, 3. 3 ea direction Comments mild inc symptoms w/ open book , reduced w/ ROM reduction Manual Therapy Treatment Consent Patient gave verbal consent for manual Yes treatment Soft Tissue Mobilization neck Body Location B LS, trap, scalenes, SCM, rhomboids, paraspinals Mobilization Type Instrument Assisted,Strain/ Counterstrain,Strumming, Sustained Pressure Intensity/Depth Moderate Body Position Sitting Comments More restricted on L side but also on R side. cupping performed at L trap/LS. skin assessed prior and after, no redness following manual PT-OP-R Modalities Start: 05/17/24 11:16 Freq: Status: Active Protocol: Document 06/17/24 07:30 NM (Rec: 06/17/24 08:37 NM [id number]) Electric Stimulation Electric Stimulation Interferential Current (IFC) Body Location L distal levator scapula, L infraspinatus Frequency 10 Patient Position Sitting Combined With Heat/Cold Hot Pack Comments Trialed but pt has increased tingling into L arm after 2 minutes so d/c. Skin monitoed before, during, after treatment. Collins within reach. Hot Pack/Cold Pack Treatment Hot Pack Location L shoulder Patient Position Sitting Patient Tolerance Good Comments Positioned on L shoulder in sitting. Skin assessed before, during, after treatment. Collins within reach. PT-OP-T Assessment and Plan Start: 05/17/24 11:16 Freq: Status: Active Protocol: Document 08/12/24 10:46 NM (Rec: 08/12/24 11:32 NM [id number]) Physical Therapy Assessment Goals Four Impairment pain with walking > 2 mi Snf Goal (LTG) Pt will be able to ambulate >2 miles without increase in R hip or back pain in order to demonstrate improved symptom management and activity tolerance 07/11/24: 3 mi hike w/o hip/ back pain but slight increase in neural symptoms; improved with stretching LTG Duration 8 weeks PROGRESSING 07/11/24 Two Impairment not performing HEP [employer] Goal (LTG) Pt will report compliance with HEP at least 3x/wk in order to maximize progression with PT and maintain progression as pt transitions to maintenance program 07/01/24: performing HEP daily LTG Duration 8 weeks MET One Impairment quickdash score 36.4% (IE) [employer] Goal (LTG) Pt will improve quickdash score by at least 15 points in order to demonstrate improvements in symptom management and QOL 06/15/24: NDI 13/50 (26/100) and Quickdash 31.4% impaired 07/11/24: 15.9% impaired LTG Duration 8 weeks MET 07/11/24 Three Impairment sleeping Impairment . [employer] Goal (LTG) Pt will report improvement in sleeping, waking fewer than 3x /wk due to L shoulder pain in order to demonstrate improvements in symptom management and QOL 07/11/24: reports that not waking up at night due to L shoulder or neck pain; reports still feels achy in am but not waking him at night LTG Duration 8 weeks MET 07/11/24 Assessment Summary Assessment Pt presents with increased restrictions in cervical paraspinals and periscapular muscles following lifting a 40 # dog 2 days ago. Cueing needed for head position and posture for more neutral spine and to limit compensations to L. Still has radicular symptoms into LUE with most overhead motions, thoracic mobility, and with increased reps. Need continual cueing for correct execution and to avoid end range motions which aggravate symptoms. Pt would benefit from lifting and body mechanics education. Physical Therapy Plan Frequency and Duration Frequency of Treatment 1-2x/wk Duration of treatment (weeks) 8 Plan of Care Start Date 07/11/24 Plan of Care End Date 09/09/24 Therapeutic Interventions Therapeutic Interventions Balance Training,Gait Training ,Home Exercise Program,Joint Mobilizations,Manual Therapy, Neuromuscular Re-education, Orthotic/Prosthetic Management ,Patient/Caregiver Education, Self-Care/Home Management, Sensory Integration,Soft Tissue Mobilization,Taping, Therapeutic Activities, Therapeutic Exercises Modalities Cold Pack/Ice Massage,Electric Stimulation,Hot Packs, Ultrasound Other Referrals/Consults Referrals/Consults Recommended 08/02/24: Discussion with Dr Frost further assessment L 2-3 finger tingling continues experience. Hold Physical Therapy Reason For Hold Pt cleared for PT by PCP Next Visit Focus/Plan Next Note Type Treatment Note Next Visit Plan check BP ea session. No end range cervical spine ROM, no upper-mid cervical STM or mobilizations STS w/ band. wall posture w/ neutral spine - add pillow or towel. progress rows and low rows, can cont to trial upright rows. In future, trial lifting edu and mechanics with low load. Cont with scapular stabilization Glute strength. HEP: STS, leg press, cont hip 3 way, resisted stepping, lateral flexion, bird dog, quadruped scap press, reactive sylvain CS, stretch scalenes, abd/er walkouts, hip swivels, cat cow
--- NOTE | 2024-08-12 11:32 | PT.OTN ---
Current Diagnoses Other chronic pain (08/12/24) Pain in left shoulder (08/12/24) Stiffness of left shoulder, not elsewhere classified (08/12/24) Low back pain, unspecified (08/12/24) Weakness (08/12/24) Physical Therapy Treatment Note PT-OP-A Visit Information Start: 05/17/24 11:16 Freq: Status: Active Protocol: Document 08/12/24 10:46 NM (Rec: 08/12/24 11:32 NM [id number]) Out-Patient Physical Therapy Visit Information Visit Information Visit Type Treatment Note Visit Note KX after 19 visits L arm SOS: 177/99 mmHg, 162/86 mmHg Visit Start Time 10:48 Visit Stop Time 11:30 Visit Number 16 Evaluation Information Evaluation Date 05/18/24 Precautions Precautions Blood pressure PT-OP-B Current Condition Start: 05/17/24 11:16 Freq: Status: Active Protocol: Document 05/18/24 13:47 NM (Rec: 05/18/24 14:36 NM [id number]) Current Condition History of Current Condition Onset Date 1 week ago Current Complaints pain, weakness History of Current Condition Pt presents with after falling 1 week ago when [place]. He reports that he slid backwards on gravel, landing mainly on his back but more rotated to his L side. L arm was by his side. He denies landing on his arm. Following fall, pt states that he went sleeping in a tent, using trek poles over the weekend/week while hiking. He reports that the pain set in the days after the fall. He reports that the pain has slowly been getting worse over the L shoulder since fall, but states that he woke up feeling better this morning. He reports spasms, especially by shoulder blade (top and front). He reports that he dull ache is there all the time, and reports that it keeps him up at night. He is unable to sleep on his L side or lie on his back due to pain . Pt reports that stretching helps, especially overhead. He states he has not lost any ROM but feels little weaker. He did not have any imaging or follow up with PCP following the fall. Reports that sitting in the car, lifting (any resistance) is painful. Pt has PMH of L shoulder pain from carrying a pack with successful PT. Denies concussion symptoms, including changes in vision, headaches, balance, memory since fall. He reports that pain in his low back and his RLE was several months ago and has improved. He is unsure if the pain actually improved overall or if his L shoulder hurts so bad that his back/R hip feels better. States insidious onset of pain but slow; no known RUFINO. Reports that he has had this problem before but has resolved without intervention. He reports low back cramps/tightness and sciatic pain along RLE along the lateral side the knee; worse with sitting (especially after walking) and walking >2 mi. Occasionally goes further than his knee but usually remains in same pattern along lateral leg. Reports numbness/ tingling, dull ache. Pt also goes to chiropractor, massage therapist; he states they only help temporarily. He has muscle relaxers, which don't help manage his pain in his shoulder or his back/leg. Prior Treatments and Tests Pt reports imaging of shoulder previously but unknown results PT-OP-C Subjective Start: 05/17/24 11:16 Freq: Status: Active Protocol: Document 08/12/24 10:46 NM (Rec: 08/12/24 11:32 NM [id number]) OP-PT Subjective Patient Comments Patient Comments Pt reports that the last 24 hrs have been rough for his L shoulder. He reports that Thursday, he bathed his daughter's 40# dog, had to lift into tub. Muscles feel like clinched/cramped. He attempted massage, feels like a step or two backward. Every time he feels good, he does something to go backward. PT-OP-E Functional Tests Start: 05/17/24 11:16 Freq: Status: Active Protocol: Document 05/18/24 13:47 NM (Rec: 05/18/24 14:36 NM [id number]) Functional Tests Apley's Scratch Test Action 1- Left post cuff Action 1- Right post cuff Action 2- Left T7 Action 2- Right T5 Action 3- Left T6; winging; pulls in upper pec; mild pain Action 3- Right T7; wings Other Standing Trunk Flexion Test Name of Test measured finger to floor Score 2 PT-OP-F Manual Assessment Start: 05/17/24 11:16 Freq: Status: Active Protocol: Document 05/18/24 13:47 NM (Rec: 05/18/24 15:56 NM [id number]) Manual Assessments Soft Tissue Assessment Soft Tissue Mobility Assessment Increased restrictions along L sided cervical paraspinals and periscapulars, especially at levator scapula insertion, rhomboids. B lat tightness R glute, TFL, ITB tightness Joint Mobility Assessment Joint Mobility Assessment Full L shoulder AROM and PROM. Decreased scapular mobility, painful with palpation. Decreased cervical spine ROM into extension. Limited thoracic mobility. PT-OP-G Mobility & Gait Start: 05/17/24 11:16 Freq: Status: Active Protocol: Document 05/18/24 13:47 NM (Rec: 05/18/24 15:57 NM [id number]) OP Gait Assessment Gait Gait Assistance Required: Independent Distance (Feet) 150 Comments Gait Comments Decreased trunk mobility and L arm swing. Mild gait deviation in R stance, limited hip extension PT-OP-H Neuro Start: 05/17/24 11:16 Freq: Status: Active Protocol: Document 05/18/24 13:47 NM (Rec: 05/18/24 15:56 NM [id number]) Sensation Evaluation Comments Summary Comments BUE and BLE intact equally to light touch sensation Deep Tendon Reflex & Clonus Assessment Deep Tendon Reflex Bilateral Tricep Deep Tendon Reflex 1+ Diminished Bilateral Brachioradialis Deep Tendon Reflex 2+ Normal Bilateral Bicep Deep Tendon Reflex 2+ Normal PT-OP-J Posture/Palpation/Skin Start: 05/17/24 11:16 Freq: Status: Active Protocol: Document 05/18/24 13:47 NM (Rec: 05/18/24 15:56 NM [id number]) Posture Evaluation Position Standing Head/C-Spine Posture Forward Head Scapula Posture (R) Elevated,(L) Winged,(R) Winged Arm Posture (L) Internally Rotated,(R) Internally Rotated Pelvis Posture Anteriorly Tilted Hip Posture (L) Externally Rotated,(R) Externally Rotated Comments Posture Comments Position of comfort L arm in air above pt head or resting on top of pt head Palpation Assessment Location lumbar spine Palpation Details Mild tenderness along R lateral hip near glute and TFL , ITB No tenderness along midline of spine cervical spine Palpation Details No tenderness along midline or transverse processes L shoulder Palpation Details Mild tenderness along anterior shoulder near rotator cuff insertions and superior shoulder along AC joint Maximal tenderness along medial scapular border, especially near superior angle and thoracic paraspinals No tenderness along clavicle, humerus, scapular spine, or lateral border PT-OP-K Range of Motion Start: 05/17/24 11:16 Freq: Status: Active Protocol: Document 07/11/24 10:43 NM (Rec: 07/11/24 11:31 NM [id number]) Cervical Spine Range of Motion Cervical Spine Active Degrees Flexion 50 Extension 20 Rotation Left 62 Rotation Right 60 Lateral Flexion Left 30 Lateral Flexion Right 40 Comments IE: 55 deg flex, 20 deg ext, 75 deg L rot, 65 deg R rot, 30 deg L LF, 35 deg R LF; LS trigger point, rhomboid; reports tightness and pulling all motions, pain with ext 06/15/24: 40 flex, 10 ext, 30 R LF, 20 L LF, 55 L rot, 60 R rot; pulling and tightness with all motions; denies pain 07/11/24: no increased symptoms with any motion Lumbar Spine Range of Motion Lumbar Spine Active Percentage Flexion 100 Extension 100 Rotation Left 100 Rotation Right 100 Lateral Flexion Left 100 Lateral Flexion Right 75 Comments soreness along paraspinals with R LF, L rot 07/11/24: tightness in low back with LF and rotation PT-OP-L Special Tests Start: 05/17/24 11:16 Freq: Status: Active Protocol: Document 05/25/24 11:16 NM (Rec: 05/25/24 12:06 NM [id number]) Special Tests Cervical Spine Special Tests Vertebral Artery Test Results unable to test positionally d/ t pain; BP: 156/100, 147/103 mmHg Comments Cranial n WNL, palpation/ auscultation of carotid a. WNL Traction Test Results - Comments no change in symptoms Shoulder Special Tests Passive ER Rotator Cuff Test Results - Baugh Andres Impingement Test Results - Drop Arm Rotator Cuff Test Results - Empty Can Test Results - AC Joint Compression Test Results + PT-OP-M Strength Start: 05/17/24 11:16 Freq: Status: Active Protocol: Document 07/11/24 10:43 NM (Rec: 07/11/24 11:31 NM [id number]) Trunk Strength Trunk Manual Muscle Testing Flexion 4 Good Extension 4 Good Rotation Left 4 Good Rotation Right 4 Good Lateral Flexion Left 4 Good Lateral Flexion Right 4 Good Comments pain free 07/11/24: 4/5, no pain PT-OP-Q Treatments Start: 05/17/24 11:16 Freq: Status: Active Protocol: Document 08/12/24 10:46 NM (Rec: 08/12/24 11:32 NM [id number]) Therapeutic Exercises Supine Exercises bridge Side bilateral Resistance level 3 band at thighs Reps/Minutes 2x10 Standing Exercises wall posture Standing Exercise Name 1. B ER 0 deg abd, 2. B ER W w /o band Side bilateral Resistance level 1 band Reps/Minutes 1. 10, 2. 5 w/ good scap squeezing Comments cued neutral spine, head not touching wall but not fwd position Wall clock arc Standing Exercise Name 1. open book, 2. rainbow arch (facing wall), 3. barrel rolls Side left Reps/Minutes 1. 10 ea, 2. 10, 3. 3 ea direction Comments mild inc symptoms w/ open book , reduced w/ ROM reduction Manual Therapy Treatment Consent Patient gave verbal consent for manual Yes treatment Soft Tissue Mobilization neck Body Location B LS, trap, scalenes, SCM, rhomboids, paraspinals Mobilization Type Strain/Counterstrain,Strumming ,Sustained Pressure Intensity/Depth Moderate Body Position Sitting Comments More restricted on L side but also on R side PT-OP-R Modalities Start: 05/17/24 11:16 Freq: Status: Active Protocol: Document 06/17/24 07:30 NM (Rec: 06/17/24 08:37 NM [id number]) Electric Stimulation Electric Stimulation Interferential Current (IFC) Body Location L distal levator scapula, L infraspinatus Frequency 10 Patient Position Sitting Combined With Heat/Cold Hot Pack Comments Trialed but pt has increased tingling into L arm after 2 minutes so d/c. Skin monitoed before, during, after treatment. Collins within reach. Hot Pack/Cold Pack Treatment Hot Pack Location L shoulder Patient Position Sitting Patient Tolerance Good Comments Positioned on L shoulder in sitting. Skin assessed before, during, after treatment. Collins within reach. PT-OP-T Assessment and Plan Start: 05/17/24 11:16 Freq: Status: Active Protocol: Document 08/12/24 10:46 NM (Rec: 08/12/24 11:32 NM [id number]) Physical Therapy Assessment Goals Four Impairment pain with walking > 2 mi Penitentiary Goal (LTG) Pt will be able to ambulate >2 miles without increase in R hip or back pain in order to demonstrate improved symptom management and activity tolerance 07/11/24: 3 mi hike w/o hip/ back pain but slight increase in neural symptoms; improved with stretching LTG Duration 8 weeks PROGRESSING 07/11/24 Two Impairment not performing HEP Penitentiary Goal (LTG) Pt will report compliance with HEP at least 3x/wk in order to maximize progression with PT and maintain progression as pt transitions to maintenance program 07/01/24: performing HEP daily LTG Duration 8 weeks MET One Impairment quickdash score 36.4% (IE) Poster Goal (LTG) Pt will improve quickdash score by at least 15 points in order to demonstrate improvements in symptom management and QOL 06/15/24: NDI 13/50 (26/100) and Quickdash 31.4% impaired 07/11/24: 15.9% impaired LTG Duration 8 weeks MET 07/11/24 Three Impairment sleeping Impairment . Penitentiary Goal (LTG) Pt will report improvement in sleeping, waking fewer than 3x /wk due to L shoulder pain in order to demonstrate improvements in symptom management and QOL 07/11/24: reports that not waking up at night due to L shoulder or neck pain; reports still feels achy in am but not waking him at night LTG Duration 8 weeks MET 07/11/24 Assessment Summary Assessment Pt presents with increased restrictions in cervical paraspinals and periscapular muscles following lifting a 40 # dog 2 days ago. Cueing needed for head position and posture for more neutral spine and to limit compensations to L. Still has radicular symptoms into LUE with most overhead motions, thoracic mobility, and with increased reps. Need continual cueing for correct execution and to avoid end range motions which aggravate symptoms. Pt would benefit from lifting and body mechanics education. Physical Therapy Plan Frequency and Duration Frequency of Treatment 1-2x/wk Duration of treatment (weeks) 8 Plan of Care Start Date 07/11/24 Plan of Care End Date 09/09/24 Therapeutic Interventions Therapeutic Interventions Balance Training,Gait Training ,Home Exercise Program,Joint Mobilizations,Manual Therapy, Neuromuscular Re-education, Orthotic/Prosthetic Management ,Patient/Caregiver Education, Self-Care/Home Management, Sensory Integration,Soft Tissue Mobilization,Taping, Therapeutic Activities, Therapeutic Exercises Modalities Cold Pack/Ice Massage,Electric Stimulation,Hot Packs, Ultrasound Other Referrals/Consults Referrals/Consults Recommended 08/02/24: Discussion with Dr Frost further assessment L 2-3 finger tingling continues experience. Hold Physical Therapy Reason For Hold Pt cleared for PT by PCP Next Visit Focus/Plan Next Note Type Treatment Note Next Visit Plan check BP ea session. No end range cervical spine ROM, no upper-mid cervical STM or mobilizations STS w/ band. wall posture w/ neutral spine - add pillow or towel. progress rows and low rows, can cont to trial upright rows. In future, trial lifting edu and mechanics with low load. Cont with scapular stabilization Glute strength. HEP: STS, leg press, cont hip 3 way, resisted stepping, lateral flexion, bird dog, quadruped scap press, reactive sylvain CS, stretch scalenes, abd/er walkouts, hip swivels, cat cow
--- NOTE | 2024-08-18 12:57 | PT.OTN ---
Current Diagnoses Other chronic pain (08/18/24) Pain in left shoulder (08/18/24) Stiffness of left shoulder, not elsewhere classified (08/18/24) Low back pain, unspecified (08/18/24) Weakness (08/18/24) Physical Therapy Treatment Note PT-OP-A Visit Information Start: 05/17/24 11:16 Freq: Status: Active Protocol: Document 08/18/24 09:02 NM (Rec: 08/18/24 09:46 NM [id number]) Out-Patient Physical Therapy Visit Information Visit Information Visit Type Progress Note Visit Note KX after 19 visits Visit Start Time 09:03 Visit Stop Time 09:45 Visit Number 17 Evaluation Information Evaluation Date 05/18/24 Precautions Precautions Blood pressure PT-OP-B Current Condition Start: 05/17/24 11:16 Freq: Status: Active Protocol: Document 05/18/24 13:47 NM (Rec: 05/18/24 14:36 NM [id number]) Current Condition History of Current Condition Onset Date 1 week ago Current Complaints pain, weakness History of Current Condition Pt presents with after falling 1 week ago when [place]. He reports that he slid backwards on gravel, landing mainly on his back but more rotated to his L side. L arm was by his side. He denies landing on his arm. Following fall, pt states that he went sleeping in a tent, using trek poles over the weekend/week while hiking. He reports that the pain set in the days after the fall. He reports that the pain has slowly been getting worse over the L shoulder since fall, but states that he woke up feeling better this morning. He reports spasms, especially by shoulder blade (top and front). He reports that he dull ache is there all the time, and reports that it keeps him up at night. He is unable to sleep on his L side or lie on his back due to pain . Pt reports that stretching helps, especially overhead. He states he has not lost any ROM but feels little weaker. He did not have any imaging or follow up with PCP following the fall. Reports that sitting in the car, lifting (any resistance) is painful. Pt has PMH of L shoulder pain from carrying a pack with successful PT. Denies concussion symptoms, including changes in vision, headaches, balance, memory since fall. He reports that pain in his low back and his RLE was several months ago and has improved. He is unsure if the pain actually improved overall or if his L shoulder hurts so bad that his back/R hip feels better. States insidious onset of pain but slow; no known RUFINO. Reports that he has had this problem before but has resolved without intervention. He reports low back cramps/tightness and sciatic pain along RLE along the lateral side the knee; worse with sitting (especially after walking) and walking >2 mi. Occasionally goes further than his knee but usually remains in same pattern along lateral leg. Reports numbness/ tingling, dull ache. Pt also goes to chiropractor, massage therapist; he states they only help temporarily. He has muscle relaxers, which don't help manage his pain in his shoulder or his back/leg. Prior Treatments and Tests Pt reports imaging of shoulder previously but unknown results PT-OP-C Subjective Start: 05/17/24 11:16 Freq: Status: Active Protocol: Document 08/18/24 09:02 NM (Rec: 08/18/24 09:46 NM [id number]) OP-PT Subjective Patient Comments Patient Comments Pt reports that the weekend was poor due to pain and increased radicular symptoms following washing dog on Thursday. He had to take hot showers, ice, ibuprofen following increase in pain levels. He reports that improved over the Thursday- Thursday. Able to start doing the exercises which helped ( low rows, mid rows, arm ROM, thoracic mobility at wall) to improve symptoms. Now also have L sided posterior arm pain to elbow, tender to touch , started over the weekend following washing cast iron pot. Still having trouble with sleeping, was improving but no longer. Reports symptoms onset with lifting >10# and pain, e.g. unable to lift cast iron. Pt continues to report improvement in RLE radicular symptoms, but still feels following a walk, first thing in the morning. Has appt with Dr. Holloway PT-OP-E Functional Tests Start: 05/17/24 11:16 Freq: Status: Active Protocol: Document 05/18/24 13:47 NM (Rec: 05/18/24 14:36 NM [id number]) Functional Tests Alireza's Scratch Test Action 1- Left post cuff Action 1- Right post cuff Action 2- Left T7 Action 2- Right T5 Action 3- Left T6; winging; pulls in upper pec; mild pain Action 3- Right T7; wings Other Standing Trunk Flexion Test Name of Test measured finger to floor Score 2 PT-OP-F Manual Assessment Start: 05/17/24 11:16 Freq: Status: Active Protocol: Document 05/18/24 13:47 NM (Rec: 05/18/24 15:56 NM [id number]) Manual Assessments Soft Tissue Assessment Soft Tissue Mobility Assessment Increased restrictions along L sided cervical paraspinals and periscapulars, especially at levator scapula insertion, rhomboids. B lat tightness R glute, TFL, ITB tightness Joint Mobility Assessment Joint Mobility Assessment Full L shoulder AROM and PROM. Decreased scapular mobility, painful with palpation. Decreased cervical spine ROM into extension. Limited thoracic mobility. PT-OP-G Mobility & Gait Start: 05/17/24 11:16 Freq: Status: Active Protocol: Document 05/18/24 13:47 NM (Rec: 05/18/24 15:57 NM [id number]) OP Gait Assessment Gait Gait Assistance Required: Independent Distance (Feet) 150 Comments Gait Comments Decreased trunk mobility and L arm swing. Mild gait deviation in R stance, limited hip extension PT-OP-H Neuro Start: 05/17/24 11:16 Freq: Status: Active Protocol: Document 05/18/24 13:47 NM (Rec: 05/18/24 15:56 NM [id number]) Sensation Evaluation Comments Summary Comments BUE and BLE intact equally to light touch sensation Deep Tendon Reflex & Clonus Assessment Deep Tendon Reflex Bilateral Tricep Deep Tendon Reflex 1+ Diminished Bilateral Brachioradialis Deep Tendon Reflex 2+ Normal Bilateral Bicep Deep Tendon Reflex 2+ Normal PT-OP-J Posture/Palpation/Skin Start: 05/17/24 11:16 Freq: Status: Active Protocol: Document 05/18/24 13:47 NM (Rec: 05/18/24 15:56 NM [id number]) Posture Evaluation Position Standing Head/C-Spine Posture Forward Head Scapula Posture (R) Elevated,(L) Winged,(R) Winged Arm Posture (L) Internally Rotated,(R) Internally Rotated Pelvis Posture Anteriorly Tilted Hip Posture (L) Externally Rotated,(R) Externally Rotated Comments Posture Comments Position of comfort L arm in air above pt head or resting on top of pt head Palpation Assessment Location lumbar spine Palpation Details Mild tenderness along R lateral hip near glute and TFL , ITB No tenderness along midline of spine cervical spine Palpation Details No tenderness along midline or transverse processes L shoulder Palpation Details Mild tenderness along anterior shoulder near rotator cuff insertions and superior shoulder along AC joint Maximal tenderness along medial scapular border, especially near superior angle and thoracic paraspinals No tenderness along clavicle, humerus, scapular spine, or lateral border PT-OP-K Range of Motion Start: 05/17/24 11:16 Freq: Status: Active Protocol: Document 08/18/24 09:02 NM (Rec: 08/18/24 09:46 NM [id number]) Cervical Spine Range of Motion Cervical Spine Active Degrees Flexion 50 Extension 25 Rotation Left 62 Rotation Right 60 Lateral Flexion Left 35 Lateral Flexion Right 40 Comments IE: 55 deg flex, 20 deg ext, 75 deg L rot, 65 deg R rot, 30 deg L LF, 35 deg R LF; LS trigger point, rhomboid; reports tightness and pulling all motions, pain with ext 06/15/24: 40 flex, 10 ext, 30 R LF, 20 L LF, 55 L rot, 60 R rot; pulling and tightness with all motions; denies pain 07/11/24: no increased symptoms with any motion 08/18/24: 50 deg R rot, 60 deg L rot Lumbar Spine Range of Motion Lumbar Spine Active Percentage Flexion 100 Extension 100 Rotation Left 100 Rotation Right 100 Lateral Flexion Left 100 Lateral Flexion Right 100 Comments soreness along paraspinals with R LF, L rot 07/11/24: tightness in low back with LF and rotation 08/18/24: full trunk rotation today PT-OP-L Special Tests Start: 05/17/24 11:16 Freq: Status: Active Protocol: Document 05/25/24 11:16 NM (Rec: 05/25/24 12:06 NM [id number]) Special Tests Cervical Spine Special Tests Vertebral Artery Test Results unable to test positionally d/ t pain; BP: 156/100, 147/103 mmHg Comments Cranial n WNL, palpation/ auscultation of carotid a. WNL Traction Test Results - Comments no change in symptoms Shoulder Special Tests Passive ER Rotator Cuff Test Results - Baugh Andres Impingement Test Results - Drop Arm Rotator Cuff Test Results - Empty Can Test Results - AC Joint Compression Test Results + PT-OP-M Strength Start: 05/17/24 11:16 Freq: Status: Active Protocol: Document 08/18/24 09:02 NM (Rec: 08/18/24 09:46 NM [id number]) Cervical Spine Strength Cervical Spine Manual Muscle Testing Flexion (C1-2) 4 Good Extension 4 Good Rotation Left 4 Good Rotation Right 4 Good Lateral Flexion Left (C3) 4 Good Lateral Flexion Right (C3) 4 Good Comments No pain with resisted motion 06/15/24: no change with IE Trunk Strength Trunk Manual Muscle Testing Flexion 4 Good Extension 4 Good Rotation Left 4 Good Rotation Right 4 Good Lateral Flexion Left 4 Good Lateral Flexion Right 4 Good Comments pain free 07/11/24: 4/5, no pain 08/18/24: 4/5 no pain PT-OP-Q Treatments Start: 05/17/24 11:16 Freq: Status: Active Protocol: Document 08/18/24 09:02 NM (Rec: 08/18/24 09:46 NM [id number]) Therapeutic Exercises Sitting Exercises thoracic mobility Sitting Exercise Name trunk flex w/ rotation Side bilateral Reps/Minutes 5 Comments reports soreness cervical SNAGs Sitting Exercise Name Trialed: lateral flexion Side left Equipment Used towel assist Reps/Minutes 5 to L only, R assist L Comments increased pain with reps upon stopping Middle trapezius Sitting Exercise Name HABD with 1. elbow flexed, 2. arms ext Side bilateral Resistance AROM Reps/Minutes 10 Standing Exercises periscapular Standing Exercise Name 1. mid row, 2. shoulder ext w/ band Side bilateral Resistance level 4 band Reps/Minutes 20 ea Comments no radicular symptoms nerve glide Standing Exercise Name 1. radial n, 2. median n., 3. ulnar n. Side left Reps/Minutes 10 Comments no inc in radicular symptom Manual Therapy Treatment Consent Patient gave verbal consent for manual Yes treatment Soft Tissue Mobilization neck Body Location B LS, trap, scalenes, SCM, rhomboids, paraspinals Mobilization Type Instrument Assisted,Strain/ Counterstrain,Strumming, Sustained Pressure Intensity/Depth Moderate Body Position Sidelying left shoulder Body Location UT, levator scap, post cuff, periscapular muscles, pec, SA, Lat Mobilization Type Cross-Friction,Rolling, Sustained Pressure,Other Intensity/Depth Superficial Body Position Sidelying Comments Trigger point at rhomboid, posterior cuff. Minimal changes with soft tissue mobility today PT-OP-R Modalities Start: 05/17/24 11:16 Freq: Status: Active Protocol: Document 06/17/24 07:30 NM (Rec: 06/17/24 08:37 NM [id number]) Electric Stimulation Electric Stimulation Interferential Current (IFC) Body Location L distal levator scapula, L infraspinatus Frequency 10 Patient Position Sitting Combined With Heat/Cold Hot Pack Comments Trialed but pt has increased tingling into L arm after 2 minutes so d/c. Skin monitoed before, during, after treatment. Collins within reach. Hot Pack/Cold Pack Treatment Hot Pack Location L shoulder Patient Position Sitting Patient Tolerance Good Comments Positioned on L shoulder in sitting. Skin assessed before, during, after treatment. Collins within reach. PT-OP-T Assessment and Plan Start: 05/17/24 11:16 Freq: Status: Active Protocol: Document 08/18/24 09:02 NM (Rec: 08/18/24 09:46 NM [id number]) Physical Therapy Assessment Goals Four Impairment pain with walking > 2 mi Fpc Goal (LTG) Pt will be able to ambulate >2 miles without increase in R hip or back pain in order to demonstrate improved symptom management and activity tolerance 07/11/24: 3 mi hike w/o hip/ back pain but slight increase in neural symptoms; improved with stretching LTG Duration 8 weeks PROGRESSING 07/11/24 Two Impairment not performing HEP Fpc Goal (LTG) Pt will report compliance with HEP at least 3x/wk in order to maximize progression with PT and maintain progression as pt transitions to maintenance program 07/01/24: performing HEP daily LTG Duration 8 weeks MET One Impairment quickdash score 36.4% (IE) Fpc Goal (LTG) Pt will improve quickdash score by at least 15 points in order to demonstrate improvements in symptom management and QOL 06/15/24: NDI 13/50 (26/100) and Quickdash 31.4% impaired 07/11/24: 15.9% impaired LTG Duration 8 weeks MET 07/11/24 Three Impairment sleeping Impairment . Fpc Goal (LTG) Pt will report improvement in sleeping, waking fewer than 3x /wk due to L shoulder pain in order to demonstrate improvements in symptom management and QOL 07/11/24: reports that not waking up at night due to L shoulder or neck pain; reports still feels achy in am but not waking him at night LTG Duration 8 weeks MET 07/11/24 Progress Towards Goals Progress Comments No change toward goals since last session. Assessment Summary Assessment Pt tolerated session well. Able to perform gentle nerve glides, no increased symptoms; no reduction in ROM today. Able to progress periscapular strengthening to increased resistance band; pt able to maintain better postural position with rows and low rows. However, he still need frequent cueing to prevent forward head posture in sitting and standing, along with maintaining alignment during ADLs. Good feedback for middle trap activation today in sitting, no symptom aggravation. PT condensed HEP for both cervical spine/L shoulder and back/RLE. Increased radicular symptoms and soreness with trialed cervical SNAGs and seated thoracic mobility today; did not continue during treatment. Physical Therapy Plan Frequency and Duration Frequency of Treatment 1-2x/wk Duration of treatment (weeks) 8 Plan of Care Start Date 07/11/24 Plan of Care End Date 09/09/24 Therapeutic Interventions Therapeutic Interventions Balance Training,Gait Training ,Home Exercise Program,Joint Mobilizations,Manual Therapy, Neuromuscular Re-education, Orthotic/Prosthetic Management ,Patient/Caregiver Education, Self-Care/Home Management, Sensory Integration,Soft Tissue Mobilization,Taping, Therapeutic Activities, Therapeutic Exercises Modalities Cold Pack/Ice Massage,Electric Stimulation,Hot Packs, Ultrasound Other Referrals/Consults Referrals/Consults Recommended 08/18/24: Pt would beneifit from further assessment at this time, likely from a neurosurgeon as radicular symptoms are continuing in both frequency and intensity with little provocation. 08/02/24: Discussion with Dr Frost further assessment L 2-3 finger tingling continues experience. Hold Physical Therapy Reason For Hold Pt cleared for PT by PCP Next Visit Focus/Plan Next Note Type Treatment Note Next Visit Plan check BP ea session. No end range cervical spine ROM, no upper-mid cervical STM or mobilizations cont with LUE radicular symptom management, RLE radicular symptom management. STS w/ band. wall posture w/ neutral spine - add pillow or towel, progress to banded resistance w/ elevation. Trial lat pull down. In future, trial lifting edu and mechanics with low load. Cont with scapular stabilization at wall or plinth. Can trial lifting assessment to look at posture d/t frequent excaberations. Assess sitting posture for comfort in car to prevent radicular onset
--- NOTE | 2024-08-22 10:31 | PT.OTN ---
Current Diagnoses Other chronic pain (08/22/24) Pain in left shoulder (08/22/24) Stiffness of left shoulder, not elsewhere classified (08/22/24) Low back pain, unspecified (08/22/24) Weakness (08/22/24) Physical Therapy Treatment Note PT-OP-A Visit Information Start: 05/17/24 11:16 Freq: Status: Active Protocol: Document 08/22/24 09:53 SP (Rec: 08/22/24 10:49 SP [id number]) Out-Patient Physical Therapy Visit Information Visit Information Visit Type Treatment Note Visit Note KX after 19 visits Visit Start Time 09:53 Visit Stop Time 10:31 Visit Number 18 Number of ELDER COUNSELOR Visits 1 Evaluation Information Evaluation Date 05/18/24 Precautions Precautions Blood pressure PT-OP-B Current Condition Start: 05/17/24 11:16 Freq: Status: Active Protocol: Document 05/18/24 13:47 NM (Rec: 05/18/24 14:36 NM [id number]) Current Condition History of Current Condition Onset Date 1 week ago Current Complaints pain, weakness History of Current Condition Pt presents with after falling 1 week ago when [place]. He reports that he slid backwards on gravel, landing mainly on his back but more rotated to his L side. L arm was by his side. He denies landing on his arm. Following fall, pt states that he went sleeping in a tent, using trek poles over the weekend/week while hiking. He reports that the pain set in the days after the fall. He reports that the pain has slowly been getting worse over the L shoulder since fall, but states that he woke up feeling better this morning. He reports spasms, especially by shoulder blade (top and front). He reports that he dull ache is there all the time, and reports that it keeps him up at night. He is unable to sleep on his L side or lie on his back due to pain . Pt reports that stretching helps, especially overhead. He states he has not lost any ROM but feels little weaker. He did not have any imaging or follow up with PCP following the fall. Reports that sitting in the car, lifting (any resistance) is painful. Pt has PMH of L shoulder pain from carrying a pack with successful PT. Denies concussion symptoms, including changes in vision, headaches, balance, memory since fall. He reports that pain in his low back and his RLE was several months ago and has improved. He is unsure if the pain actually improved overall or if his L shoulder hurts so bad that his back/R hip feels better. States insidious onset of pain but slow; no known RUFINO. Reports that he has had this problem before but has resolved without intervention. He reports low back cramps/tightness and sciatic pain along RLE along the lateral side the knee; worse with sitting (especially after walking) and walking >2 mi. Occasionally goes further than his knee but usually remains in same pattern along lateral leg. Reports numbness/ tingling, dull ache. Pt also goes to chiropractor, massage therapist; he states they only help temporarily. He has muscle relaxers, which don't help manage his pain in his shoulder or his back/leg. 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 Saw Dr Frost and putting in referral for CT scan and potentially MRI and wants him to continue PT in to Aug. Pt stated will have new insurance in Aug. PT-OP-E Functional Tests Start: 05/17/24 11:16 Freq: Status: Active Protocol: Document 05/18/24 13:47 NM (Rec: 05/18/24 14:36 NM [id number]) Functional Tests Yogeshey's Scratch Test Action 1- Left post cuff Action 1- Right post cuff Action 2- Left T7 Action 2- Right T5 Action 3- Left T6; winging; pulls in upper pec; mild pain Action 3- Right T7; wings Other Standing Trunk Flexion Test Name of Test measured finger to floor Score 2 PT-OP-F Manual Assessment Start: 05/17/24 11:16 Freq: Status: Active Protocol: Document 05/18/24 13:47 NM (Rec: 05/18/24 15:56 NM [id number]) Manual Assessments Soft Tissue Assessment Soft Tissue Mobility Assessment Increased restrictions along L sided cervical paraspinals and periscapulars, especially at levator scapula insertion, rhomboids. B lat tightness R glute, TFL, ITB tightness Joint Mobility Assessment Joint Mobility Assessment Full L shoulder AROM and PROM. Decreased scapular mobility, painful with palpation. Decreased cervical spine ROM into extension. Limited thoracic mobility. PT-OP-G Mobility & Gait Start: 05/17/24 11:16 Freq: Status: Active Protocol: Document 05/18/24 13:47 NM (Rec: 05/18/24 15:57 NM [id number]) OP Gait Assessment Gait Gait Assistance Required: Independent Distance (Feet) 150 Comments Gait Comments Decreased trunk mobility and L arm swing. Mild gait deviation in R stance, limited hip extension PT-OP-H Neuro Start: 05/17/24 11:16 Freq: Status: Active Protocol: Document 05/18/24 13:47 NM (Rec: 05/18/24 15:56 NM [id number]) Sensation Evaluation Comments Summary Comments BUE and BLE intact equally to light touch sensation Deep Tendon Reflex & Clonus Assessment Deep Tendon Reflex Bilateral Tricep Deep Tendon Reflex 1+ Diminished Bilateral Brachioradialis Deep Tendon Reflex 2+ Normal Bilateral Bicep Deep Tendon Reflex 2+ Normal PT-OP-J Posture/Palpation/Skin Start: 05/17/24 11:16 Freq: Status: Active Protocol: Document 05/18/24 13:47 NM (Rec: 05/18/24 15:56 NM [id number]) Posture Evaluation Position Standing Head/C-Spine Posture Forward Head Scapula Posture (R) Elevated,(L) Winged,(R) Winged Arm Posture (L) Internally Rotated,(R) Internally Rotated Pelvis Posture Anteriorly Tilted Hip Posture (L) Externally Rotated,(R) Externally Rotated Comments Posture Comments Position of comfort L arm in air above pt head or resting on top of pt head Palpation Assessment Location lumbar spine Palpation Details Mild tenderness along R lateral hip near glute and TFL , ITB No tenderness along midline of spine cervical spine Palpation Details No tenderness along midline or transverse processes L shoulder Palpation Details Mild tenderness along anterior shoulder near rotator cuff insertions and superior shoulder along AC joint Maximal tenderness along medial scapular border, especially near superior angle and thoracic paraspinals No tenderness along clavicle, humerus, scapular spine, or lateral border PT-OP-K Range of Motion Start: 05/17/24 11:16 Freq: Status: Active Protocol: Document 08/18/24 09:02 NM (Rec: 08/18/24 09:46 NM [id number]) Cervical Spine Range of Motion Cervical Spine Active Degrees Flexion 50 Extension 25 Rotation Left 62 Rotation Right 60 Lateral Flexion Left 35 Lateral Flexion Right 40 Comments IE: 55 deg flex, 20 deg ext, 75 deg L rot, 65 deg R rot, 30 deg L LF, 35 deg R LF; LS trigger point, rhomboid; reports tightness and pulling all motions, pain with ext 06/15/24: 40 flex, 10 ext, 30 R LF, 20 L LF, 55 L rot, 60 R rot; pulling and tightness with all motions; denies pain 07/11/24: no increased symptoms with any motion 08/18/24: 50 deg R rot, 60 deg L rot Lumbar Spine Range of Motion Lumbar Spine Active Percentage Flexion 100 Extension 100 Rotation Left 100 Rotation Right 100 Lateral Flexion Left 100 Lateral Flexion Right 100 Comments soreness along paraspinals with R LF, L rot 07/11/24: tightness in low back with LF and rotation 08/18/24: full trunk rotation today PT-OP-L Special Tests Start: 05/17/24 11:16 Freq: Status: Active Protocol: Document 05/25/24 11:16 NM (Rec: 05/25/24 12:06 NM [id number]) Special Tests Cervical Spine Special Tests Vertebral Artery Test Results unable to test positionally d/ t pain; BP: 156/100, 147/103 mmHg Comments Cranial n WNL, palpation/ auscultation of carotid a. WNL Traction Test Results - Comments no change in symptoms Shoulder Special Tests Passive ER Rotator Cuff Test Results - Baugh Andres Impingement Test Results - Drop Arm Rotator Cuff Test Results - Empty Can Test Results - AC Joint Compression Test Results + PT-OP-M Strength Start: 05/17/24 11:16 Freq: Status: Active Protocol: Document 08/18/24 09:02 NM (Rec: 08/18/24 09:46 NM [id number]) Cervical Spine Strength Cervical Spine Manual Muscle Testing Flexion (C1-2) 4 Good Extension 4 Good Rotation Left 4 Good Rotation Right 4 Good Lateral Flexion Left (C3) 4 Good Lateral Flexion Right (C3) 4 Good Comments No pain with resisted motion 06/15/24: no change with IE Trunk Strength Trunk Manual Muscle Testing Flexion 4 Good Extension 4 Good Rotation Left 4 Good Rotation Right 4 Good Lateral Flexion Left 4 Good Lateral Flexion Right 4 Good Comments pain free 07/11/24: 4/5, no pain 08/18/24: 4/5 no pain PT-OP-Q Treatments Start: 05/17/24 11:16 Freq: Status: Active Protocol: Document 08/22/24 09:53 SP (Rec: 08/22/24 10:49 SP [id number]) Therapeutic Exercises Sidelying Exercises sidelying trio Sidelying Exercise Name FF, HABD, ABD Side left Resistance AROM>2#DB FF, HABD; ABD 1# DB Reps/Minutes 10 ea Comments good response: pain and symptom free- occ cues scapular glide postioning Sitting Exercises STS /c TB Sitting Exercise Name added to HEP for core/hip strengthening- added to HEP- declinced HO Resistance 3# ambler green TB at thighs Reps/Minutes x10 Comments cued hip hinge, slow descend last 1 no flop Standing Exercises wall posture Standing Exercise Name 1. B ER 0 deg abd, 2. B ER W w /o band Side bilateral Resistance AROM today Equipment Used towel roll behind head & neck Comments just wall posture 5 sec 1. caused symptoms L arm& hand today so stopped Wall clock arc Standing Exercise Name rainbow arch Side left Reps/Minutes 10 reps post manual Comments slight symptom reduction Manual Therapy Treatment Consent Patient gave verbal consent for manual Yes treatment Soft Tissue Mobilization neck Body Location L LS, UT, scalenes, rhomboids, paraspinals Mobilization Type Instrument Assisted,Strain/ Counterstrain,Strumming, Sustained Pressure Intensity/Depth Moderate Body Position R Sidelying left shoulder Body Location L post cuff, periscapular muscles, pec, SA, Lat Mobilization Type Cross-Friction,Rolling, Sustained Pressure,Other Intensity/Depth Moderate Body Position R Sidelying & stand Comments Trigger point at rhomboid, SA posterior cuff. No symptoms R SL good tightness reduction. Symptom reduction post SA, Lat able wall arc less tingling. PT-OP-R Modalities Start: 05/17/24 11:16 Freq: Status: Active Protocol: Document 06/17/24 07:30 NM (Rec: 06/17/24 08:37 NM [id number]) Electric Stimulation Electric Stimulation Interferential Current (IFC) Body Location L distal levator scapula, L infraspinatus Frequency 10 Patient Position Sitting Combined With Heat/Cold Hot Pack Comments Trialed but pt has increased tingling into L arm after 2 minutes so d/c. Skin monitoed before, during, after treatment. Collins within reach. Hot Pack/Cold Pack Treatment Hot Pack Location L shoulder Patient Position Sitting Patient Tolerance Good Comments Positioned on L shoulder in sitting. Skin assessed before, during, after treatment. Collins within reach. PT-OP-T Assessment and Plan Start: 05/17/24 11:16 Freq: Status: Active Protocol: Document 08/22/24 09:53 SP (Rec: 08/22/24 10:49 SP [id number]) Physical Therapy Assessment Goals Four Impairment pain with walking > 2 mi Residential Goal (LTG) Pt will be able to ambulate >2 miles without increase in R hip or back pain in order to demonstrate improved symptom management and activity tolerance 07/11/24: 3 mi hike w/o hip/ back pain but slight increase in neural symptoms; improved with stretching LTG Duration 8 weeks PROGRESSING 07/11/24 Two Impairment not performing HEP Real Estate Administrative Assistant Goal (LTG) Pt will report compliance with HEP at least 3x/wk in order to maximize progression with PT and maintain progression as pt transitions to maintenance program 07/01/24: performing HEP daily LTG Duration 8 weeks MET One Impairment quickdash score 36.4% (IE) Real Estate Administrative Assistant Goal (LTG) Pt will improve quickdash score by at least 15 points in order to demonstrate improvements in symptom management and QOL 06/15/24: NDI 13/50 (26/100) and Quickdash 31.4% impaired 07/11/24: 15.9% impaired LTG Duration 8 weeks MET 07/11/24 Three Impairment sleeping Impairment . Residential Goal (LTG) Pt will report improvement in sleeping, waking fewer than 3x /wk due to L shoulder pain in order to demonstrate improvements in symptom management and QOL 07/11/24: reports that not waking up at night due to L shoulder or neck pain; reports still feels achy in am but not waking him at night LTG Duration 8 weeks MET 07/11/24 Assessment Summary Assessment Pt able to progress resistance R SL during LUE ABD, HABD and FF for strengthening post manual L scap & neck symptom free. Good response to resisted STS for core& hip strengthening, symptom free, cued hip hinge controlled desc last 1, declined HO. Reviewed wall posture head supported CS slight flexion with radicular symptoms into LUE within 5 sec so stopped. Improved symptom reduction after continued manual L lat, SA standing able perform wall arc. Pt stated will call insurance and see if can expedite referral and CT scan if can before Aug. Physical Therapy Plan Frequency and Duration Frequency of Treatment 1-2x/wk Duration of treatment (weeks) 8 Plan of Care Start Date 07/11/24 Plan of Care End Date 09/09/24 Therapeutic Interventions Therapeutic Interventions Balance Training,Gait Training ,Home Exercise Program,Joint Mobilizations,Manual Therapy, Neuromuscular Re-education, Orthotic/Prosthetic Management ,Patient/Caregiver Education, Self-Care/Home Management, Sensory Integration,Soft Tissue Mobilization,Taping, Therapeutic Activities, Therapeutic Exercises Modalities Cold Pack/Ice Massage,Electric Stimulation,Hot Packs, Ultrasound Other Referrals/Consults Referrals/Consults Recommended 08/18/24: Pt would beneifit from further assessment at this time, likely from a neurosurgeon as radicular symptoms are continuing in both frequency and intensity with little provocation. 08/02/24: Discussion with Dr Frost further assessment L 2-3 finger tingling continues experience. Hold Physical Therapy Reason For Hold Pt cleared for PT by PCP Next Visit Focus/Plan Next Note Type Treatment Note Next Visit Plan check BP ea session. No end range cervical spine ROM, no upper-mid cervical STM or mobilizations Next tx: add more appts per Dr Frost into Aug cont with LUE radicular symptom management, RLE radicular symptom management. STS w/ band. wall posture w/ neutral spine - add pillow or towel, progress to banded resistance w/ elevation. Trial lat pull down. In future, trial lifting edu and mechanics with low load. Cont with scapular stabilization at wall or plinth. Can trial lifting assessment to look at posture d/t frequent excaberations. Assess sitting posture for comfort in car to prevent radicular onset
--- NOTE | 2024-08-26 10:36 | PT.OTN ---
Current Diagnoses Other chronic pain (08/26/24) Pain in left shoulder (08/26/24) Stiffness of left shoulder, not elsewhere classified (08/26/24) Low back pain, unspecified (08/26/24) Weakness (08/26/24) Physical Therapy Treatment Note PT-OP-A Visit Information Start: 05/17/24 11:16 Freq: Status: Active Protocol: Document 08/26/24 09:48 NM (Rec: 08/26/24 10:21 NM [id number]) Out-Patient Physical Therapy Visit Information Visit Information Visit Type Treatment Note Visit Note KX after 19 visits Visit Start Time 09:50 Visit Stop Time 10:32 Visit Number 19 Evaluation Information Evaluation Date 05/18/24 Precautions Precautions Blood pressure PT-OP-B Current Condition Start: 05/17/24 11:16 Freq: Status: Active Protocol: Document 05/18/24 13:47 NM (Rec: 05/18/24 14:36 NM [id number]) Current Condition History of Current Condition Onset Date 1 week ago Current Complaints pain, weakness History of Current Condition Pt presents with after falling 1 week ago when [place]. He reports that he slid backwards on gravel, landing mainly on his back but more rotated to his L side. L arm was by his side. He denies landing on his arm. Following fall, pt states that he went sleeping in a tent, using trek poles over the weekend/week while hiking. He reports that the pain set in the days after the fall. He reports that the pain has slowly been getting worse over the L shoulder since fall, but states that he woke up feeling better this morning. He reports spasms, especially by shoulder blade (top and front). He reports that he dull ache is there all the time, and reports that it keeps him up at night. He is unable to sleep on his L side or lie on his back due to pain . Pt reports that stretching helps, especially overhead. He states he has not lost any ROM but feels little weaker. He did not have any imaging or follow up with PCP following the fall. Reports that sitting in the car, lifting (any resistance) is painful. Pt has PMH of L shoulder pain from carrying a pack with successful PT. Denies concussion symptoms, including changes in vision, headaches, balance, memory since fall. He reports that pain in his low back and his RLE was several months ago and has improved. He is unsure if the pain actually improved overall or if his L shoulder hurts so bad that his back/R hip feels better. States insidious onset of pain but slow; no known RUFINO. Reports that he has had this problem before but has resolved without intervention. He reports low back cramps/tightness and sciatic pain along RLE along the lateral side the knee; worse with sitting (especially after walking) and walking >2 mi. Occasionally goes further than his knee but usually remains in same pattern along lateral leg. Reports numbness/ tingling, dull ache. Pt also goes to chiropractor, massage therapist; he states they only help temporarily. He has muscle relaxers, which don't help manage his pain in his shoulder or his back/leg. Prior Treatments and Tests Pt reports imaging of shoulder previously but unknown results PT-OP-C Subjective Start: 05/17/24 11:16 Freq: Status: Active Protocol: Document 08/26/24 09:48 NM (Rec: 08/26/24 10:21 NM [id number]) OP-PT Subjective Patient Comments Patient Comments Pt reports that things are going pretty good. He reports that Dr. Frost has set up him for a CT scan, pt will be changing insurances, unsure if he will be getting before the end of the year; recommended that pt continue with PT into August. Depending on CT scan will depend on referral to ortho vs neurology. Pt reports that 24 hrs ago, he did a stretching exercise (behind neck shicken wings), L pec tightened up. He has also been walking 4-5 mi/ day, all hiking and exertion increases cramping in shoulder . PT-OP-E Functional Tests Start: 05/17/24 11:16 Freq: Status: Active Protocol: Document 05/18/24 13:47 NM (Rec: 05/18/24 14:36 NM [id number]) Functional Tests Yogeshey's Scratch Test Action 1- Left post cuff Action 1- Right post cuff Action 2- Left T7 Action 2- Right T5 Action 3- Left T6; winging; pulls in upper pec; mild pain Action 3- Right T7; wings Other Standing Trunk Flexion Test Name of Test measured finger to floor Score 2 PT-OP-F Manual Assessment Start: 05/17/24 11:16 Freq: Status: Active Protocol: Document 05/18/24 13:47 NM (Rec: 05/18/24 15:56 NM [id number]) Manual Assessments Soft Tissue Assessment Soft Tissue Mobility Assessment Increased restrictions along L sided cervical paraspinals and periscapulars, especially at levator scapula insertion, rhomboids. B lat tightness R glute, TFL, ITB tightness Joint Mobility Assessment Joint Mobility Assessment Full L shoulder AROM and PROM. Decreased scapular mobility, painful with palpation. Decreased cervical spine ROM into extension. Limited thoracic mobility. PT-OP-G Mobility & Gait Start: 05/17/24 11:16 Freq: Status: Active Protocol: Document 05/18/24 13:47 NM (Rec: 05/18/24 15:57 NM [id number]) OP Gait Assessment Gait Gait Assistance Required: Independent Distance (Feet) 150 Comments Gait Comments Decreased trunk mobility and L arm swing. Mild gait deviation in R stance, limited hip extension PT-OP-H Neuro Start: 05/17/24 11:16 Freq: Status: Active Protocol: Document 05/18/24 13:47 NM (Rec: 05/18/24 15:56 NM [id number]) Sensation Evaluation Comments Summary Comments BUE and BLE intact equally to light touch sensation Deep Tendon Reflex & Clonus Assessment Deep Tendon Reflex Bilateral Tricep Deep Tendon Reflex 1+ Diminished Bilateral Brachioradialis Deep Tendon Reflex 2+ Normal Bilateral Bicep Deep Tendon Reflex 2+ Normal PT-OP-J Posture/Palpation/Skin Start: 05/17/24 11:16 Freq: Status: Active Protocol: Document 05/18/24 13:47 NM (Rec: 05/18/24 15:56 NM [id number]) Posture Evaluation Position Standing Head/C-Spine Posture Forward Head Scapula Posture (R) Elevated,(L) Winged,(R) Winged Arm Posture (L) Internally Rotated,(R) Internally Rotated Pelvis Posture Anteriorly Tilted Hip Posture (L) Externally Rotated,(R) Externally Rotated Comments Posture Comments Position of comfort L arm in air above pt head or resting on top of pt head Palpation Assessment Location lumbar spine Palpation Details Mild tenderness along R lateral hip near glute and TFL , ITB No tenderness along midline of spine cervical spine Palpation Details No tenderness along midline or transverse processes L shoulder Palpation Details Mild tenderness along anterior shoulder near rotator cuff insertions and superior shoulder along AC joint Maximal tenderness along medial scapular border, especially near superior angle and thoracic paraspinals No tenderness along clavicle, humerus, scapular spine, or lateral border PT-OP-K Range of Motion Start: 05/17/24 11:16 Freq: Status: Active Protocol: Document 08/18/24 09:02 NM (Rec: 08/18/24 09:46 NM [id number]) Cervical Spine Range of Motion Cervical Spine Active Degrees Flexion 50 Extension 25 Rotation Left 62 Rotation Right 60 Lateral Flexion Left 35 Lateral Flexion Right 40 Comments IE: 55 deg flex, 20 deg ext, 75 deg L rot, 65 deg R rot, 30 deg L LF, 35 deg R LF; LS trigger point, rhomboid; reports tightness and pulling all motions, pain with ext 06/15/24: 40 flex, 10 ext, 30 R LF, 20 L LF, 55 L rot, 60 R rot; pulling and tightness with all motions; denies pain 07/11/24: no increased symptoms with any motion 08/18/24: 50 deg R rot, 60 deg L rot Lumbar Spine Range of Motion Lumbar Spine Active Percentage Flexion 100 Extension 100 Rotation Left 100 Rotation Right 100 Lateral Flexion Left 100 Lateral Flexion Right 100 Comments soreness along paraspinals with R LF, L rot 07/11/24: tightness in low back with LF and rotation 08/18/24: full trunk rotation today PT-OP-L Special Tests Start: 05/17/24 11:16 Freq: Status: Active Protocol: Document 05/25/24 11:16 NM (Rec: 05/25/24 12:06 NM [id number]) Special Tests Cervical Spine Special Tests Vertebral Artery Test Results unable to test positionally d/ t pain; BP: 156/100, 147/103 mmHg Comments Cranial n WNL, palpation/ auscultation of carotid a. WNL Traction Test Results - Comments no change in symptoms Shoulder Special Tests Passive ER Rotator Cuff Test Results - Baugh Andres Impingement Test Results - Drop Arm Rotator Cuff Test Results - Empty Can Test Results - AC Joint Compression Test Results + PT-OP-M Strength Start: 05/17/24 11:16 Freq: Status: Active Protocol: Document 08/18/24 09:02 NM (Rec: 08/18/24 09:46 NM [id number]) Cervical Spine Strength Cervical Spine Manual Muscle Testing Flexion (C1-2) 4 Good Extension 4 Good Rotation Left 4 Good Rotation Right 4 Good Lateral Flexion Left (C3) 4 Good Lateral Flexion Right (C3) 4 Good Comments No pain with resisted motion 06/15/24: no change with IE Trunk Strength Trunk Manual Muscle Testing Flexion 4 Good Extension 4 Good Rotation Left 4 Good Rotation Right 4 Good Lateral Flexion Left 4 Good Lateral Flexion Right 4 Good Comments pain free 07/11/24: 4/5, no pain 08/18/24: 4/5 no pain PT-OP-Q Treatments Start: 05/17/24 11:16 Freq: Status: Active Protocol: Document 08/26/24 09:48 NM (Rec: 08/26/24 10:21 NM [id number]) Therapeutic Exercises Standing Exercises raises Standing Exercise Name trialed in PT: 1. front raise, 2. lateral raise Side bilateral Resistance 1# db Equipment Used towel roll behind head Reps/Minutes 2x5 Comments no radicular symptoms thread needle Standing Exercise Name min cervical spine rotation Side bilateral Reps/Minutes 10 ea Other Exercises plane mobility Other Exercise Name modified bird dog Side bilateral Equipment Used on plinth Reps/Minutes 10 ea Comments reports spasms on LUE with holding position Therapeutic Activity Therapeutic Activity lifting mechanics Reps/Minutes 8 minutes Comments 1. 10 with ball from floor Cueing to drop hips, more neutral spine at neck 2. crate pick ups from ground, no weight cueing for dealift/squat combination, neutral spine, no cervical extension Manual Therapy Treatment Consent Patient gave verbal consent for manual Yes treatment Soft Tissue Mobilization neck Body Location L LS, UT, scalenes, rhomboids, paraspinals Mobilization Type Instrument Assisted,Strain/ Counterstrain,Strumming, Sustained Pressure Intensity/Depth Moderate Body Position R Sidelying Comments Increased tightness today in post shoulder lumbar spine/RLE Body Location paraspinals, QL, R calf > HS > glutes Mobilization Type Rolling,Strumming,Sustained Pressure Intensity/Depth Moderate Body Position Sidelying Comments Performed with lateral flexion and distraction at iliact crest. Monitored for pain. Tightness following nerve left shoulder Body Location L post cuff, periscapular muscles, pec, SA, Lat Mobilization Type Cross-Friction,Rolling, Sustained Pressure,Other Intensity/Depth Moderate Body Position R sidelying Comments Trigger point at rhomboid, SA posterior cuff. No symptoms R SL good tightness reduction. Symptom reduction post SA, Lat able wall arc less tingling. Joint Mobilizations L Ribs Joint 1st, 2nd and 3rd rib Direction caudal Grade III Body Position Sidelying Comments Elevated, not tender. Monitored for pain scapular mobilization Joint left scapula Direction into depression and adduction Grade II Body Position Sidelying Reps/Duration 10 PT-OP-R Modalities Start: 05/17/24 11:16 Freq: Status: Active Protocol: Document 06/17/24 07:30 NM (Rec: 06/17/24 08:37 NM [id number]) Electric Stimulation Electric Stimulation Interferential Current (IFC) Body Location L distal levator scapula, L infraspinatus Frequency 10 Patient Position Sitting Combined With Heat/Cold Hot Pack Comments Trialed but pt has increased tingling into L arm after 2 minutes so d/c. Skin monitoed before, during, after treatment. Collins within reach. Hot Pack/Cold Pack Treatment Hot Pack Location L shoulder Patient Position Sitting Patient Tolerance Good Comments Positioned on L shoulder in sitting. Skin assessed before, during, after treatment. Collins within reach. PT-OP-T Assessment and Plan Start: 05/17/24 11:16 Freq: Status: Active Protocol: Document 08/26/24 09:48 NM (Rec: 08/26/24 10:21 NM [id number]) Physical Therapy Assessment Goals Four Impairment pain with walking > 2 mi Penitentiary Goal (LTG) Pt will be able to ambulate >2 miles without increase in R hip or back pain in order to demonstrate improved symptom management and activity tolerance 07/11/24: 3 mi hike w/o hip/ back pain but slight increase in neural symptoms; improved with stretching LTG Duration 8 weeks PROGRESSING 07/11/24 Two Impairment not performing HEP Penitentiary Goal (LTG) Pt will report compliance with HEP at least 3x/wk in order to maximize progression with PT and maintain progression as pt transitions to maintenance program 07/01/24: performing HEP daily LTG Duration 8 weeks MET One Impairment quickdash score 36.4% (IE) Bungy Jump Master Goal (LTG) Pt will improve quickdash score by at least 15 points in order to demonstrate improvements in symptom management and QOL 06/15/24: NDI 13/50 (26/100) and Quickdash 31.4% impaired 07/11/24: 15.9% impaired LTG Duration 8 weeks MET 07/11/24 Three Impairment sleeping Impairment . Bungy Jump Master Goal (LTG) Pt will report improvement in sleeping, waking fewer than 3x /wk due to L shoulder pain in order to demonstrate improvements in symptom management and QOL 07/11/24: reports that not waking up at night due to L shoulder or neck pain; reports still feels achy in am but not waking him at night LTG Duration 8 weeks MET 07/11/24 Assessment Summary Assessment Pt has no LUE radicular symptoms during session. Continued with soft tissue mobilization to improve soft tissue restrictions especially at L pec and periscapulars; continued with offloading RLE to decrease radicular symptoms on RLE when present (did not occur during session). Initiated body mechanics training with lifting mechanics in order to address pt concerns about increased radicular symptoms in past with lifting; no resistance during session to avoid symptom aggravation. Moderate cueing for neutral spine positioning especially of cervical spine and to limit forward head protrusion during hip hinge. Able to tolerate 1 # front and lateral raises, no radicular symptoms or spasms. PT and pt also discussed that pt's symptoms tend to be exacerbated with PT and certain positions, have not made progressions as previously anticipate. Pt has currently plateaued with PT; PT at this time recommending further assessment from specialist; Pt verbalizes understanding and planning to d/c from PT at next session. Physical Therapy Plan Frequency and Duration Frequency of Treatment 1-2x/wk Duration of treatment (weeks) 8 Plan of Care Start Date 07/11/24 Plan of Care End Date 09/09/24 Therapeutic Interventions Therapeutic Interventions Balance Training,Gait Training ,Home Exercise Program,Joint Mobilizations,Manual Therapy, Neuromuscular Re-education, Orthotic/Prosthetic Management ,Patient/Caregiver Education, Self-Care/Home Management, Sensory Integration,Soft Tissue Mobilization,Taping, Therapeutic Activities, Therapeutic Exercises Modalities Cold Pack/Ice Massage,Electric Stimulation,Hot Packs, Ultrasound Other Referrals/Consults Referrals/Consults Recommended 08/18/24: Pt would beneifit from further assessment at this time, likely from a neurosurgeon as radicular symptoms are continuing in both frequency and intensity with little provocation. 08/02/24: Discussion with Dr Frost further assessment L 2-3 finger tingling continues experience. Hold Physical Therapy Reason For Hold Pt cleared for PT by PCP Next Visit Focus/Plan Next Note Type Discharge Summary Next Visit Plan check BP ea session. No end range cervical spine ROM, no upper-mid cervical STM or mobilizations TS and CS mobility. Cont with hip hinge during deadlift/ lifting and STS cont with LUE radicular symptom management, RLE radicular symptom management. Address sitting in car
--- NOTE | 2024-08-29 12:56 | PT.OTN ---
Current Diagnoses Other chronic pain (08/29/24) Pain in left shoulder (08/29/24) Stiffness of left shoulder, not elsewhere classified (08/29/24) Low back pain, unspecified (08/29/24) Weakness (08/29/24) Physical Therapy Treatment Note PT-OP-A Visit Information Start: 05/17/24 11:16 Freq: Status: Active Protocol: Document 08/29/24 10:34 NM (Rec: 08/29/24 11:32 NM [id number]) Out-Patient Physical Therapy Visit Information Visit Information Visit Type Discharge Summary Visit Note KX after 19 visits Visit Start Time 10:45 Visit Stop Time 11:28 Visit Number 20 Evaluation Information Evaluation Date 05/18/24 Precautions Precautions Blood pressure PT-OP-B Current Condition Start: 05/17/24 11:16 Freq: Status: Active Protocol: Document 05/18/24 13:47 NM (Rec: 05/18/24 14:36 NM [id number]) Current Condition History of Current Condition Onset Date 1 week ago Current Complaints pain, weakness History of Current Condition Pt presents with after falling 1 week ago when [place]. He reports that he slid backwards on gravel, landing mainly on his back but more rotated to his L side. L arm was by his side. He denies landing on his arm. Following fall, pt states that he went sleeping in a tent, using trek poles over the weekend/week while hiking. He reports that the pain set in the days after the fall. He reports that the pain has slowly been getting worse over the L shoulder since fall, but states that he woke up feeling better this morning. He reports spasms, especially by shoulder blade (top and front). He reports that he dull ache is there all the time, and reports that it keeps him up at night. He is unable to sleep on his L side or lie on his back due to pain . Pt reports that stretching helps, especially overhead. He states he has not lost any ROM but feels little weaker. He did not have any imaging or follow up with PCP following the fall. Reports that sitting in the car, lifting (any resistance) is painful. Pt has PMH of L shoulder pain from carrying a pack with successful PT. Denies concussion symptoms, including changes in vision, headaches, balance, memory since fall. He reports that pain in his low back and his RLE was several months ago and has improved. He is unsure if the pain actually improved overall or if his L shoulder hurts so bad that his back/R hip feels better. States insidious onset of pain but slow; no known RUFINO. Reports that he has had this problem before but has resolved without intervention. He reports low back cramps/tightness and sciatic pain along RLE along the lateral side the knee; worse with sitting (especially after walking) and walking >2 mi. Occasionally goes further than his knee but usually remains in same pattern along lateral leg. Reports numbness/ tingling, dull ache. Pt also goes to chiropractor, massage therapist; he states they only help temporarily. He has muscle relaxers, which don't help manage his pain in his shoulder or his back/leg. Prior Treatments and Tests Pt reports imaging of shoulder previously but unknown results PT-OP-C Subjective Start: 05/17/24 11:16 Freq: Status: Active Protocol: Document 08/29/24 10:34 NM (Rec: 08/29/24 11:32 NM [id number]) OP-PT Subjective Patient Comments Patient Comments Pt reports doing really well today. He reports that he had sciatic symptoms over the weekend, tried stretches which improved. He had soreness after session in pec resolved over weekend, still having some spasms still along with radicular symptoms. Still having constant tingling into 4th and 5th fingers on L hand. He still waiting for CT scan, but insturance with switch. Planning to go [facility] PT-OP-E Functional Tests Start: 05/17/24 11:16 Freq: Status: Active Protocol: Document 05/18/24 13:47 NM (Rec: 05/18/24 14:36 NM [id number]) Functional Tests Apley's Scratch Test Action 1- Left post cuff Action 1- Right post cuff Action 2- Left T7 Action 2- Right T5 Action 3- Left T6; winging; pulls in upper pec; mild pain Action 3- Right T7; wings Other Standing Trunk Flexion Test Name of Test measured finger to floor Score 2 PT-OP-F Manual Assessment Start: 05/17/24 11:16 Freq: Status: Active Protocol: Document 05/18/24 13:47 NM (Rec: 05/18/24 15:56 NM [id number]) Manual Assessments Soft Tissue Assessment Soft Tissue Mobility Assessment Increased restrictions along L sided cervical paraspinals and periscapulars, especially at levator scapula insertion, rhomboids. B lat tightness R glute, TFL, ITB tightness Joint Mobility Assessment Joint Mobility Assessment Full L shoulder AROM and PROM. Decreased scapular mobility, painful with palpation. Decreased cervical spine ROM into extension. Limited thoracic mobility. PT-OP-G Mobility & Gait Start: 05/17/24 11:16 Freq: Status: Active Protocol: Document 05/18/24 13:47 NM (Rec: 05/18/24 15:57 NM [id number]) OP Gait Assessment Gait Gait Assistance Required: Independent Distance (Feet) 150 Comments Gait Comments Decreased trunk mobility and L arm swing. Mild gait deviation in R stance, limited hip extension PT-OP-H Neuro Start: 05/17/24 11:16 Freq: Status: Active Protocol: Document 05/18/24 13:47 NM (Rec: 05/18/24 15:56 NM [id number]) Sensation Evaluation Comments Summary Comments BUE and BLE intact equally to light touch sensation Deep Tendon Reflex & Clonus Assessment Deep Tendon Reflex Bilateral Tricep Deep Tendon Reflex 1+ Diminished Bilateral Brachioradialis Deep Tendon Reflex 2+ Normal Bilateral Bicep Deep Tendon Reflex 2+ Normal PT-OP-J Posture/Palpation/Skin Start: 05/17/24 11:16 Freq: Status: Active Protocol: Document 05/18/24 13:47 NM (Rec: 05/18/24 15:56 NM [id number]) Posture Evaluation Position Standing Head/C-Spine Posture Forward Head Scapula Posture (R) Elevated,(L) Winged,(R) Winged Arm Posture (L) Internally Rotated,(R) Internally Rotated Pelvis Posture Anteriorly Tilted Hip Posture (L) Externally Rotated,(R) Externally Rotated Comments Posture Comments Position of comfort L arm in air above pt head or resting on top of pt head Palpation Assessment Location lumbar spine Palpation Details Mild tenderness along R lateral hip near glute and TFL , ITB No tenderness along midline of spine cervical spine Palpation Details No tenderness along midline or transverse processes L shoulder Palpation Details Mild tenderness along anterior shoulder near rotator cuff insertions and superior shoulder along AC joint Maximal tenderness along medial scapular border, especially near superior angle and thoracic paraspinals No tenderness along clavicle, humerus, scapular spine, or lateral border PT-OP-K Range of Motion Start: 05/17/24 11:16 Freq: Status: Active Protocol: Document 08/29/24 10:34 NM (Rec: 08/29/24 11:32 NM [id number]) Cervical Spine Range of Motion Cervical Spine Active Degrees Flexion 50 Extension 25 Rotation Left 62 Rotation Right 60 Lateral Flexion Left 35 Lateral Flexion Right 40 Comments IE: 55 deg flex, 20 deg ext, 75 deg L rot, 65 deg R rot, 30 deg L LF, 35 deg R LF; LS trigger point, rhomboid; reports tightness and pulling all motions, pain with ext 06/15/24: 40 flex, 10 ext, 30 R LF, 20 L LF, 55 L rot, 60 R rot; pulling and tightness with all motions; denies pain 07/11/24: no increased symptoms with any motion 08/18/24: 50 deg R rot, 60 deg L rot Lumbar Spine Range of Motion Lumbar Spine Active Percentage Flexion 100 Extension 100 Rotation Left 100 Rotation Right 100 Lateral Flexion Left 100 Lateral Flexion Right 100 Comments soreness along paraspinals with R LF, L rot 07/11/24: tightness in low back with LF and rotation 08/18/24: full trunk rotation today PT-OP-L Special Tests Start: 05/17/24 11:16 Freq: Status: Active Protocol: Document 05/25/24 11:16 NM (Rec: 05/25/24 12:06 NM [id number]) Special Tests Cervical Spine Special Tests Vertebral Artery Test Results unable to test positionally d/ t pain; BP: 156/100, 147/103 mmHg Comments Cranial n WNL, palpation/ auscultation of carotid a. WNL Traction Test Results - Comments no change in symptoms Shoulder Special Tests Passive ER Rotator Cuff Test Results - Baugh Andres Impingement Test Results - Drop Arm Rotator Cuff Test Results - Empty Can Test Results - AC Joint Compression Test Results + PT-OP-M Strength Start: 05/17/24 11:16 Freq: Status: Active Protocol: Document 08/29/24 10:34 NM (Rec: 08/29/24 11:32 NM [id number]) Cervical Spine Strength Cervical Spine Manual Muscle Testing Flexion (C1-2) 4 Good Extension 4 Good Rotation Left 4 Good Rotation Right 4 Good Lateral Flexion Left (C3) 4 Good Lateral Flexion Right (C3) 4 Good Comments No pain with resisted motion 06/15/24: no change with IE Trunk Strength Trunk Manual Muscle Testing Flexion 4 Good Extension 4 Good Rotation Left 4 Good Rotation Right 4 Good Lateral Flexion Left 4 Good Lateral Flexion Right 4 Good Comments pain free 07/11/24: 4/5, no pain 08/18/24: 4/5 no pain PT-OP-Q Treatments Start: 05/17/24 11:16 Freq: Status: Active Protocol: Document 08/29/24 10:34 NM (Rec: 08/29/24 11:32 NM [id number]) Therapeutic Exercises Sitting Exercises STS /c TB Sitting Exercise Name HEP review Resistance 3# havasupai green TB at thighs Reps/Minutes 15 Comments low plinth w/ hinge Standing Exercises rows Standing Exercise Name 1. low rows, 2. mid rows Side bilateral Resistance level 3 band Reps/Minutes 2x10 Comments prn cues for posture resisted stepping Standing Exercise Name side steps HEP Side bilateral Resistance level 3 band at thighs > below knees Reps/Minutes 4x10 ft ea wall posture Standing Exercise Name B ER w/ lift Side bilateral Resistance level 1 band Reps/Minutes 5 Comments cued for form Wall clock arc Standing Exercise Name 1. rainbow arch to wall, 2. rainbow away from wall, 3. open book Side bilateral Equipment Used staggered stance Reps/Minutes 8 ea Comments cue breathwork pec stretch/mobilization Standing Exercise Name racquetball w/ arm abd from 45 to 120 deg Side left Reps/Minutes 60 Comments cued to limit ROM reports no neural symptoms Other Exercises 1/2 knee hip flexor stretch Other Exercise Name 1. fwd, 2. w/ hip IR Side bilateral Equipment Used mat on floor Reps/Minutes 2x30 ea Comments no symptom increase self STMs Other Exercise Name piriformis, TFL, sciatic nerve mobilization, pec, lumbar spine Side bilateral Equipment Used no HO provided, ball in pillow case Reps/Minutes 5 minutes Self-Care/Home Management Treatment Education Other Education 5 min- Educated again on not pushing into painful symptoms, tingling, or numbness, in addition to more intense/ harder/longer stretches are not better due to increased symptoms when performed in session PT-OP-R Modalities Start: 05/17/24 11:16 Freq: Status: Active Protocol: Document 06/17/24 07:30 NM (Rec: 06/17/24 08:37 NM [id number]) Electric Stimulation Electric Stimulation Interferential Current (IFC) Body Location L distal levator scapula, L infraspinatus Frequency 10 Patient Position Sitting Combined With Heat/Cold Hot Pack Comments Trialed but pt has increased tingling into L arm after 2 minutes so d/c. Skin monitoed before, during, after treatment. Collins within reach. Hot Pack/Cold Pack Treatment Hot Pack Location L shoulder Patient Position Sitting Patient Tolerance Good Comments Positioned on L shoulder in sitting. Skin assessed before, during, after treatment. Collins within reach. PT-OP-T Assessment and Plan Start: 05/17/24 11:16 Freq: Status: Active Protocol: Document 08/29/24 10:34 NM (Rec: 08/29/24 11:32 NM [id number]) Physical Therapy Assessment Goals Four Impairment pain with walking > 2 mi Retirement Goal (LTG) Pt will be able to ambulate >2 miles without increase in R hip or back pain in order to demonstrate improved symptom management and activity tolerance 07/11/24: 3 mi hike w/o hip/ back pain but slight increase in neural symptoms; improved with stretching 08/29/24: pt reports changing pillow in car for lumbar support and for pillow/support with headrest but states improvement. Postural education has helped. CAn ambulate 2 miles before symptom onset LTG Duration 8 weeks MET Two Impairment not performing HEP Retirement Goal (LTG) Pt will report compliance with HEP at least 3x/wk in order to maximize progression with PT and maintain progression as pt transitions to maintenance program 07/01/24: performing HEP daily LTG Duration 8 weeks MET One Impairment quickdash score 36.4% (IE) Retirement Goal (LTG) Pt will improve quickdash score by at least 15 points in order to demonstrate improvements in symptom management and QOL 06/15/24: NDI 13/50 (26/100) and Quickdash 31.4% impaired 07/11/24: 15.9% impaired 08/29/24: 18% impairment LTG Duration 8 weeks MET 07/11/24 Three Impairment sleeping Impairment . [employer] Goal (LTG) Pt will report improvement in sleeping, waking fewer than 3x /wk due to L shoulder pain in order to demonstrate improvements in symptom management and QOL 07/11/24: reports that not waking up at night due to L shoulder or neck pain; reports still feels achy in am but not waking him at night 08/29/24: prior to liftin dog around 08/12, not waking due to LUE pain; now waking again temporarily due to pain LTG Duration 8 weeks NO LONGER MET Progress Towards Goals Progress Towards Goals Slow Progress due to Activity Tolerance,Slow Progress due to Medical Issues,Slow Progress - Other,Goals Met Progress Comments No longer progression toward goals Assessment Summary Assessment Pt tolerated session well. One instance of LUE radicular symptoms during session with activity. Cueing needed for set up for all exercises, in addition to postural cues for stability and for neutral spine/elongated posture. Tendency for L lean during session, not previously seen. Emphasis on creating maintenance program during session today for both RLE and LUE radicular symptom management. Educated again on not pushing into pain, intensity, or increased tingling. Physical Therapy Plan Frequency and Duration Frequency of Treatment 1-2x/wk Duration of treatment (weeks) 8 Plan of Care Start Date 07/11/24 Plan of Care End Date 09/09/24 Therapeutic Interventions Therapeutic Interventions Balance Training,Gait Training ,Home Exercise Program,Joint Mobilizations,Manual Therapy, Neuromuscular Re-education, Orthotic/Prosthetic Management ,Patient/Caregiver Education, Self-Care/Home Management, Sensory Integration,Soft Tissue Mobilization,Taping, Therapeutic Activities, Therapeutic Exercises Modalities Cold Pack/Ice Massage,Electric Stimulation,Hot Packs, Ultrasound Other Referrals/Consults Referrals/Consults Recommended 08/29/24: Also recommend more advanced imaging 08/18/24: Pt would benefit from further assessment at this time, likely from a neurosurgeon as radicular symptoms are continuing in both frequency and intensity with little provocation. 08/02/24: Discussion with Dr Frost further assessment L 2-3 finger tingling continues experience. Hold Physical Therapy Reason For Hold Pt cleared for PT by PCP Discharge Physical Therapy Discharge Reasons Plateau in Progress Discharge Comments Pt no longer making progress with PT, symptoms worsening with each session following exacerbation before 08/12 session. PT and pt discussed discharge to maintenance with recommendation to PCP that pt have symptoms further assessed by ortho or neuro specialist, in addition to advanced imaging. Next Visit Focus/Plan Next Note Type Discharge Summary Next Visit Plan discharge from PT
== END 2024-09-08 10:22 | disposition home or self-care (01) ==
LOC: PHYS 10:45
PROVIDERS: Family Provider Family Medicine; PCP Family Medicine; Referring Provider Family Medicine; Visit Provider Family Medicine
DX: M54.50 Low back pain, unspecified (principal); G89.29 Other chronic pain; M25.512 Pain in left shoulder; M25.612 Stiffness of left shoulder, not elsewhere classified; R53.1 Weakness
CPT/HCPCS: 97010; 97110; 97140; 97161; 97530; 97535